=== PATIENT | female | born 1935 | race Caucasian/White ===

== ENCOUNTER 2016-05-04 12:52 | Inpatient (IN) ==
[2016-05-04] MEDS ORDERED: Ipratropium/Albuterol Neb 3 ML IH ONE (13:08)
--- NOTE | 2016-05-04 13:12 | Emergency Department Note ---
Disposition Clinical Impression: Community acquired pneumonia Disposition: Admitted As Inpatient Condition: Fair Instructions: Community-acquired Pneumonia (ED) Referrals: Chaz Cuellar MD [Primary Care Provider] - Forms: ED Satisfaction Letter Time of Disposition: 15:45 SOB HPI - General Chief Complaint: ED Shortness of Breath/Dyspnea Stated Complaint: SOB, headache Time Seen by Provider: 05/04/16 13:02 Source: patient, family Mode of arrival: ambulatory Limitations: no limitations Nursing Notes Reviewed: Yes Vital Signs Reviewed: Yes - History of Present Illness 81-year-old comes in with increasing shortness of breath cough and a fever. She is concerned she may have pneumonia. Also complains of a headache. Symptoms began over the last couple of days. Patient states she has a history of recurrent pneumonias. Pt Subjective Complaint: shortness of breath, cough Onset (ago): day(s) Severity: moderate Consistency/Duration: constant Improves with: nothing Worsens with: exertion Known history of: recurrent pneumonia Associated symptoms: Reports: fever, cough Treatment prior to arrival: none Cough Description: Involuntary Cough Frequency: Intermittent - Related Data Home Medications Medication Instructions Recorded Confirmed Albuterol Neb [Proventil Neb] 2.5 mg IH Q4HR PRN 12/31/14 12/17/15 Albuterol Sulfate [Albuterol 2 puff IH Q4HR PRN 12/31/14 12/17/15 Inhaler] Amlodipine [Norvasc] 2.5 mg PO DAILY 12/31/14 12/17/15 Cholecalciferol (Vitamin D3) 2,000 unit PO DAILY 12/31/14 12/17/15 [Vitamin D] Omeprazole [PriLOSEC] 20 mg PO DAILY 12/31/14 12/17/15 TraZODone 25 - 50 mg PO HS PRN 12/31/14 12/17/15 Budesonide/Formoterol 160/4.5 2 puff IH BIDR 12/17/15 12/17/15 [Symbicort 160/4.5] Gabapentin [Neurontin] 300 - 600 mg PO HS 12/17/15 12/17/15 Previous Rx's Medication Instructions Recorded Docusate [Colace] 100 mg PO BID #60 capsule 01/03/15 Aspirin Enteric Coated [Aspirin EC] 325 mg PO BID #60 tablet. 12/19/15 Docusate [Colace] 100 mg PO BID #60 capsule 12/19/15 Acetaminophen [Tylenol] 650 mg PO Q6HR PRN #0 tablet 12/24/15 Ascorbic Acid [Vitamin C] 500 mg PO BIDWM tablet 12/24/15 Cefdinir [Omnicef] 300 mg PO BID #10 capsule 12/24/15 Ferrous Sulfate 325 mg PO BIDWM tablet 12/24/15 HYDROcodone/Acet 5/325 mg [[place] 1 tab PO Q4HR PRN #20 tablet 12/24/15 5-325 mg] Ipratropium/Albuterol Neb [Duoneb] 3 ml IH QIDR PRN #0 inhsol 12/24/15 LORazepam [Ativan] 0.5 mg PO BID #30 tablet 12/24/15 MOM Conc [MILK OF MAGNESIA conc] 5 ml PO HS PRN #0 ud.liq 12/24/15 Mag Hydrox/Al Hydrox/Simeth 15 ml PO Q6HR PRN #0 udc 12/24/15 [Maalox] Melatonin 3 mg PO HS tablet 12/24/15 Multivit/Ca/Min/Fe/FA [Thera M 1 tab PO DAILY tablet 12/24/15 Plus] PredniSONE [Prednisone] See Taper PO DAILY #60 tab.ds.pk 12/24/15 TraMADol [Ultram] 50 mg PO Q6H #30 tablet 12/24/15 Allergies Allergy/AdvReac Type Severity Reaction Status Date / Time Oxycodone AdvReac Confusion Verified 12/17/15 13:55 Constitutional: Reports: fever. Denies: chills, weakness, weight change Eyes: Denies: eye pain, eye discharge, vision change ENT ED: Denies: ear pain, throat pain, dental pain, hearing loss, epistaxis, congestion, dysphagia Cardiovascular: Denies: chest pain, palpitations, dyspnea on exertion, edema, syncope Respiratory: Reports: cough, dyspnea. Denies: wheezes, hemoptysis, stridor Gastrointestinal: Denies: abdominal pain, nausea, vomiting, diarrhea, constipation, hematemesis, melena, hematochezia Genitourinary: Denies: dysuria, frequency, hematuria, discharge Musculoskeletal: Denies: back pain, neck pain, arthralgia, myalgia Integumentary: Denies: rash, abrasion, lesions Neurological: Denies: headache, weakness, numbness, paresthesias, confusion, abnormal gait, vertigo Psychiatric: Denies: anxiety, depression, suicidal thoughts, homicidal thoughts , auditory hallucinations, visual hallucinations Endocrine: Denies: fatigue Hematological/Lymphatic: Denies: easy bleeding, easy bruising Allergic/Immunologic: Denies: facial swelling, urticaria Past Medical History - Past Medical History Medical history: Reports: arthritis, COPD, GERD, hyperlipidemia, hypertension Surgical history: Reports: appendectomy, cataract, cholecystectomy, orthopedic, other, other Psychiatric history: Reports: anxiety [employer] history: Reports: no [employer] history - Social History Smoking Status: Former smoker Smokeless Tobacco Status: No Alcohol use: Reports: none Drug use: Reports: none Physical Exam - General Limitations: no limitations General appearance: alert, in no apparent distress - Head Head exam: atraumatic, normocephalic, normal inspection - Eye Eye exam: Present: normal appearance, PERRL, EOMI - ENT ENT exam: normal exam, normal oropharynx, mucous membranes moist - Neck Neck exam: Present: normal inspection, full ROM, trachea midline - Chest Chest inspection: Present: normal inspection, symmetric chest wall rise - Respiratory Respiratory exam: Present: other (Minutes breath sounds) - Cardiovascular Cardiovascular exam: Present: regular rate, normal rhythm, normal heart sounds - Abdominal Exam Abdominal exam: Present: soft, Non-Tender. Absent: tenderness, distention, guarding, rebound, rigidity - Extremities Exam Extremities exam: Present: normal inspection, full ROM. Absent: tenderness, pedal edema - Expanded Lower Extremity Exam Neurovascular/Tendon exam: Absent: motor deficit, sensory deficit, tendon deficit Gait: observed and normal - Back Exam Back exam: Present: normal inspection, full ROM. Absent: tenderness - Neurological Exam Neurological exam: Present: alert, oriented X3 - Psychiatric Psychiatric exam: Present: normal affect, normal mood - Skin Skin exam: Present: warm, dry, intact, normal color Course - Reevaluation(s) Reevaluation #1: Patient with cough congestion as a history COPD. CT scan shows a multi-focus of pneumonia. Admit to the hospital. Time: 15:43 - Consultations Consultation #1: Discussed with , admit. Time: 15:43 Vital Signs Temperature 98.0 F 05/04/16 12:56 Pulse Rate 80 05/04/16 12:56 Respiratory Rate 20 05/04/16 12:56 Blood Pressure 169/79 05/04/16 12:56 O2 Sat by Pulse Oximetry 92 L 05/04/16 12:56 Temperature 98.0 F 05/04/16 12:56 Pulse Rate 74 05/04/16 13:59 Respiratory Rate 18 05/04/16 13:59 Blood Pressure 105/63 05/04/16 13:59 O2 Sat by Pulse Oximetry 98 05/04/16 13:59 Oxygen Delivery Oxygen Delivery Nasal Cannula Shortness of Breath/Dyspnea - Lab Data Lab results reviewed: Yes I reviewed the patient's lab results. Result diagrams: 05/04/16 13:37 05/04/16 13:37 Lab Results 05/04/16 05/04/16 05/04/16 Range/Units 13:37 13:37 13:37 WBC 10.0 (4.3-11.1) K/mcL RBC 4.66 (3.82-4.97) M/mcL Hgb 13.3 (11.5-15.4) g/dL Hct 42.2 (35.3-44.9) % MCV 90.6 (83.0-100.0) fL MCH 28.5 (28.0-33.3) pg MCHC 31.5 L (31.6-35.5) g/dL RDW 15.2 H (11.5-14.5) % Plt Count 328 (140-400) K/mcL MPV 10.3 (9.4-12.4) fL Immature Gran % 0.3 (0-4) % Seg Neutrophils % 59.8 % Lymphocytes % 28.6 % Monocytes % 5.2 % Eosinophils % 4.9 % Basophils % 1.2 % Neutrophils # 6.0 (1.6-8.9) K/mcL Lymphocytes # 2.9 (0.6-4.6) K/mcL Monocytes # 0.5 (0.0-1.3) K/mcL Eosinophils # 0.5 (0.0-0.6) K/mcL Basophils # 0.1 (0.0-0.2) K/mcL PT 11.1 (9.4-12.1) Seconds INR 1.0 APTT 33.3 (26.0-36.0) Seconds Sodium 142 (136-145) mEq/L Potassium 4.3 (3.5-4.5) mEq/L Chloride 108 (98-109) mEq/L Carbon Dioxide 25 (19-29) mEq/L BUN 10 (7-20) mg/dL Creatinine 0.70 (0.57-1.11) mg/dL Est GFR ( Amer) > 60 (> 60) Est GFR (Non-Af Amer) > 60 (> 60) BUN/Creatinine Ratio 14 (6-26) Glucose 92 (70-99) mg/dL Calculated Osmolality 293 (280-300) Lactic Acid (0.5-2.2) mmol/L Calcium 10.2 (8.6-10.8) mg/dL Troponin I (0-0.03) ng/mL B-Natriuretic Peptide (0-100) pg/mL Urine Color (Yellow) Urine Clarity (Clear) Urine pH (5.0-8.0) pH Units Ur Specific Cora (1.010-1.025) Urine Protein (Neg-Trace) mg/dL Urine Glucose (UA) (Normal) mg/dL Urine Ketones (Negative) mg/dL Urine Blood (Negative) Urine Nitrite (Negative) Urine Bilirubin (Negative) Urine Urobilinogen (Normal) mg/dL Ur Leukocyte Esterase (Negative) Ur Culture Indicated? (NO) 05/04/16 05/04/16 05/04/16 Range/Units 13:37 13:37 13:37 WBC (4.3-11.1) K/mcL RBC (3.82-4.97) M/mcL Hgb (11.5-15.4) g/dL Hct (35.3-44.9) % MCV (83.0-100.0) fL MCH (28.0-33.3) pg MCHC (31.6-35.5) g/dL RDW (11.5-14.5) % Plt Count (140-400) K/mcL MPV (9.4-12.4) fL Immature Gran % (0-4) % Seg Neutrophils % % Lymphocytes % % Monocytes % % Eosinophils % % Basophils % % Neutrophils # (1.6-8.9) K/mcL Lymphocytes # (0.6-4.6) K/mcL Monocytes # (0.0-1.3) K/mcL Eosinophils # (0.0-0.6) K/mcL Basophils # (0.0-0.2) K/mcL PT (9.4-12.1) Seconds INR APTT (26.0-36.0) Seconds Sodium (136-145) mEq/L Potassium (3.5-4.5) mEq/L Chloride (98-109) mEq/L Carbon Dioxide (19-29) mEq/L BUN (7-20) mg/dL Creatinine (0.57-1.11) mg/dL Est GFR ( Amer) (> 60) Est GFR (Non-Af Amer) (> 60) BUN/Creatinine Ratio (6-26) Glucose (70-99) mg/dL Calculated Osmolality (280-300) Lactic Acid 0.7 (0.5-2.2) mmol/L Calcium (8.6-10.8) mg/dL Troponin I 0.01 (0-0.03) ng/mL B-Natriuretic Peptide 187 H (0-100) pg/mL Urine Color (Yellow) Urine Clarity (Clear) Urine pH (5.0-8.0) pH Units Ur Specific Cora (1.010-1.025) Urine Protein (Neg-Trace) mg/dL Urine Glucose (UA) (Normal) mg/dL Urine Ketones (Negative) mg/dL Urine Blood (Negative) Urine Nitrite (Negative) Urine Bilirubin (Negative) Urine Urobilinogen (Normal) mg/dL Ur Leukocyte Esterase (Negative) Ur Culture Indicated? (NO) 05/04/16 Range/Units 14:00 WBC (4.3-11.1) K/mcL RBC (3.82-4.97) M/mcL Hgb (11.5-15.4) g/dL Hct (35.3-44.9) % MCV (83.0-100.0) fL MCH (28.0-33.3) pg MCHC (31.6-35.5) g/dL RDW (11.5-14.5) % Plt Count (140-400) K/mcL MPV (9.4-12.4) fL Immature Gran % (0-4) % Seg Neutrophils % % Lymphocytes % % Monocytes % % Eosinophils % % Basophils % % Neutrophils # (1.6-8.9) K/mcL Lymphocytes # (0.6-4.6) K/mcL Monocytes # (0.0-1.3) K/mcL Eosinophils # (0.0-0.6) K/mcL Basophils # (0.0-0.2) K/mcL PT (9.4-12.1) Seconds INR APTT (26.0-36.0) Seconds Sodium (136-145) mEq/L Potassium (3.5-4.5) mEq/L Chloride (98-109) mEq/L Carbon Dioxide (19-29) mEq/L BUN (7-20) mg/dL Creatinine (0.57-1.11) mg/dL Est GFR ( Amer) (> 60) Est GFR (Non-Af Amer) (> 60) BUN/Creatinine Ratio (6-26) Glucose (70-99) mg/dL Calculated Osmolality (280-300) Lactic Acid (0.5-2.2) mmol/L Calcium (8.6-10.8) mg/dL Troponin I (0-0.03) ng/mL B-Natriuretic Peptide (0-100) pg/mL Urine Color Yellow (Yellow) Urine Clarity Clear (Clear) Urine pH 7.5 (5.0-8.0) pH Units Ur Specific Cor[place] 1.011 (1.010-1.025) Urine Protein Negative (Neg-Trace) mg/dL Urine Glucose (UA) Normal (Normal) mg/dL Urine Ketones Negative (Negative) mg/dL Urine Blood Negative (Negative) Urine Nitrite Negative (Negative) Urine Bilirubin Negative (Negative) Urine Urobilinogen Normal (Normal) mg/dL Ur Leukocyte Esterase Negative (Negative) Ur Culture Indicated? NO (NO) - Radiology Data Radiology results reviewed: Yes I reviewed the patient's radiology results. Chest X-Ray 05/04/16 13:08 IMPRESSION: Improved aeration of the lungs either due to decreasing pneumonia or edema. Scattered opacities remain D/ / Torin Rodriguez MD / Torin Rodriguez MD Interpreting Provider: Torin Rodriguez MD Head CT 05/04/16 13:09 IMPRESSION: No acute intracranial abnormality. There is age-appropriate cerebral atrophy with evidence of chronic periventricular small vessel ischemic disease. D/ / Rock Neumann MD / Rock Neumann MD Interpreting Provider: Rock Neumann MD Chest CT 05/04/16 14:08 IMPRESSION: Scattered bilateral tree-in-bud opacities consistent with infectious bronchiolitis. Larger scattered pulmonary nodules are also seen. Bilateral multifocal mucous plugging. There is no substantial pleural effusion. Background of severe upper zone predominant emphysema. Bilateral multifocal scarring. Ascending and descending thoracic aortic dilation. RECOMMENDATIONS: CT chest after symptoms have resolved, to re-evaluate scattered pulmonary nodules. D/ / Shane Segura MD / Shane Segura MD Interpreting Provider: Shane Segura MD - EKG Data EKG attestation: Yes I reviewed and interpreted this EKG. EKG shows normal: Reports: sinus rhythm Rate: Reports: normal Rhythm: Reports: NSR Interpretation: Reports: no acute changes
[2016-05-04 13:44] LABS: Basophils # 0.1 K/mcL (0.0-0.2); Basophils % 1.2 %; Eosinophils # 0.5 K/mcL (0.0-0.6); Eosinophils % 4.9 %; Hematocrit 42.2 % (35.3-44.9); Hemoglobin 13.3 g/dL (11.5-15.4); Immature Granulocytes % 0.3 % (0-4); Lymphocytes # 2.9 K/mcL (0.6-4.6); Lymphocytes % 28.6 %; Mean Corpuscular HGB Conc 31.5 g/dL (31.6-35.5); Mean Corpuscular Hemoglobin 28.5 pg (28.0-33.3); Mean Corpuscular Volume 90.6 fL (83.0-100.0); Mean Platelet Volume 10.3 fL (9.4-12.4); Monocytes # 0.5 K/mcL (0.0-1.3); Monocytes % 5.2 %; Platelet Count 328 K/mcL (140-400); Red Blood Count 4.66 M/mcL (3.82-4.97); Red Cell Distribution Width 15.2 % (11.5-14.5); Segmented Neutrophils % 59.8 %
[2016-05-04 13:49] LABS: Prothrombin Time 11.1 Seconds (9.4-12.1)
[2016-05-04 13:52] LABS: Activated Partial Thrombo Time 33.3 Seconds (26.0-36.0)
[2016-05-04 13:56] LABS: BUN/Creatinine Ratio 14 (6-26); Blood Urea Nitrogen 10 mg/dL (7-20); Calcium 10.2 mg/dL (8.6-10.8); Carbon Dioxide 25 mEq/L (19-29); Chloride 108 mEq/L (98-109); Glucose 92 mg/dL (70-99); Osmolality,Calculated 293 (280-300); Potassium 4.3 mEq/L (3.5-4.5); Sodium 142 mEq/L (136-145); eGFR For African Americans > 60 (> 60); eGFR For Non-African Americans > 60 (> 60)
[2016-05-04 14:08] LABS: Bilirubin,Urine Negative (Negative); Blood,Urine Negative (Negative); Clarity,Urine Clear (Clear); Color,Urine Yellow (Yellow); Glucose,Urine (UA) Normal (Normal); Ketones,Urine Negative (Negative); Leukocyte Esterase,Urine Negative (Negative); Nitrite,Urine Negative (Negative); PH,Urine 7.5 pH Units (5.0-8.0); Protein,Urine Negative (Neg-Trace); Specific Gravity,Urine 1.011 (1.010-1.025); Urobilinogen,Urine Normal (Normal)
[2016-05-04] MEDS ORDERED: Azithromycin 500 MG in D5% in Water 250 ML IVPB ONE (15:31)
[2016-05-04] MEDS ORDERED: Naloxone 0.4 MG/ML INJ IVP PRN (16:33)
[2016-05-04] MEDS ORDERED: Albuterol 2.5 MG/3 ML NEBULIZER IH PRN (16:35)
--- NOTE | 2016-05-04 17:35 | Internal Med History&Physical ---
<Deisy Echols M - Last Filed: 05/04/16 22:13> Date of Encounter: 05/04/16 Time of Encounter: 17:33 Assessment and Plan (1) Community acquired pneumonia Current visit: Yes Status: Acute Patient with increasing cough, shortness of breath, headache, subjective fever. Chest x-ray showed decreasing scattered opacity throughout the lungs. CT of the chest showed scattered bilateral tree-in-bud opacities consistent with infectious bronchiolitis, large scattered pulmonary nodules, bilateral multifocal mucous plugging. Patient usually wears 2 L of oxygen overnight but no requirements during the day. She is requiring 2 L nasal cannula in order to maintain saturations greater than 92%. She is afebrile here. Lungs have bilateral expiratory rhonchi. IV antibiotics with Rocephin and azithromycin. IV fluids with 0.9 at 75 mL per hour Mucinex 600 twice a day DuoNeb treatments 4 times a day Albuterol nebulizer every 2 hours when necessary Titrate oxygen to maintain oxygen saturation greater than 92% Respiratory therapy consult for every shift chest physiotherapy. (2) Acute and chronic respiratory failure with hypoxia Current visit: No Status: Acute History of COPD, she requires 2 L of nasal cannula at night, but normally does not require any during the day. She is now requiring 2 L to maintain saturations greater than 92%. Likely due to diagnosis of pneumonia with mucuous plugging seen on chest CT DuoNeb treatments 4 times a day Albuterol nebulizer every 2 hours when necessary Titrate oxygen to maintain oxygen saturation greater than 92% Chest physiotherapy Qshift Mucinex BID (3) COPD exacerbation Current visit: No Status: Acute IV antibiotics with Rocephin and azithromycin. IV fluids with 0.9 at 75 mL per hour Mucinex 600 twice a day DuoNeb treatments 4 times a day Albuterol nebulizer every 2 hours when necessary Titrate oxygen to maintain oxygen saturation greater than 92% Respiratory therapy consult for every shift chest physiotherapy. (4) HTN (hypertension) Current visit: No Status: Chronic continue home dose of amlodipine Qualifiers: Hypertension type: essential hypertension Qualified Code(s): I10 - Essential (primary) hypertension (5) DVT prophylaxis Current visit: Yes Status: Acute Ambulate with assistance anti-embolic stockings Lovenox 40mg SQ daily Internal Medicine - H&P: HPI Chief complaint: shortness of breath, cough Admitted From: Emergency Dept Plans for Post Hospital Care: Home History of present illness: Ms. Boggs is a 81 year old female with COPD, hypertension, and GERD who presented to the emergency department today with worsening shortness of breath, worsening cough, fever and headache. She reports her symptoms started a few days ago and continued to worsen. She reports increased sputum production, chills, sweats. She denies any nausea, vomiting, abdominal pain, or diarrhea. She denies any chest pain, palpitations. She denies any numbness or tingling. Evaluation in the emergency department included a chest x-ray which showed decreased scattered opacities throughout the lungs. CT of the chest showed scattered bilateral tree-in-bud opacities consistent with infrequent infectious bronchiolitis, larger scattered pulmonary nodules, bilateral multifocal mucous plugging. Head CT was obtained due to the patient's report of headache, which showed no acute abnormality. Patient was afebrile with temperature of 98; she was satting 92% on room air which improved to 95-98% on 2 L. Blood cell count was normal at 10.0. Troponin was negative at 0.01. Lactate was normal at 0.7. EKG showed normal sinus rhythm and no changes from previous. On exam, patient was alert and oriented in no acute distress. Heart regular rate and rhythm, lungs had bilateral rhonchi on expiration. Past Med Surg Social Fam HX - Past Medical History Medical history: arthritis, COPD, GERD, hyperlipidemia, hypertension Psychiatric history: anxiety - Past Surgical History Surgical History: appendectomy, cataract, cholecystectomy, orthopedic, other ( left shoulder), other - Social History Smoking Status: Former smoker (50 pack year history) Smokeless Tobacco Status: No Alcohol use: none Drug use: none - Family History Daughter Hx Family Cardiac Disorders: Yes (High cholesterol) Son Living Status: Cause of : cancer Mother Living Status: Cause of : cancer Internal Medicine - H&P: Meds Albuterol Neb [Proventil Neb] 2.5 mg IH Q4HR PRN 12/31/14 [History] Albuterol Sulfate [Albuterol Inhaler] 2 puff IH Q4HR PRN 12/31/14 [History] Amlodipine [Norvasc] 2.5 mg PO DAILY 12/31/14 [History] Cholecalciferol (Vitamin D3) [Vitamin D] 2,000 unit PO DAILY 12/31/14 [History] Omeprazole [PriLOSEC] 20 mg PO DAILY 12/31/14 [History] TraZODone 25 - 50 mg PO HS PRN 12/31/14 [History] Docusate [Colace] 100 mg PO BID #60 capsule 01/03/15 [Rx] Budesonide/Formoterol 160/4.5 [Symbicort 160/4.5] 2 puff IH BIDR 12/17/15 [ History] Gabapentin [Neurontin] 300 - 600 mg PO HS 12/17/15 [History] Aspirin Enteric Coated [Aspirin EC] 325 mg PO BID #60 tablet.dr 12/19/15 [Rx] Docusate [Colace] 100 mg PO BID #60 capsule 12/19/15 [Rx] Acetaminophen [Tylenol] 650 mg PO Q6HR PRN #0 tablet 12/24/15 [Rx] Ascorbic Acid [Vitamin C] 500 mg PO BIDWM tablet 12/24/15 [Rx] Cefdinir [Omnicef] 300 mg PO BID #10 capsule 12/24/15 [Rx] Ferrous Sulfate 325 mg PO BIDWM tablet 12/24/15 [Rx] HYDROcodone/Acet 5/325 mg [[place] 5-325 mg] 1 tab PO Q4HR PRN #20 tablet [Rx] Ipratropium/Albuterol Neb [Duoneb] 3 ml IH QIDR PRN #0 inhsol 12/24/15 [Rx] LORazepam [Ativan] 0.5 mg PO BID #30 tablet 12/24/15 [Rx] MOM Conc [MILK OF MAGNESIA conc] 5 ml PO HS PRN #0 ud.liq 12/24/15 [Rx] Mag Hydrox/Al Hydrox/Simeth [Maalox] 15 ml PO Q6HR PRN #0 udc 12/24/15 [Rx] Melatonin 3 mg PO HS tablet 12/24/15 [Rx] Multivit/Ca/Min/Fe/FA [Thera M Plus] 1 tab PO DAILY tablet 12/24/15 [Rx] PredniSONE [Prednisone] See Taper PO DAILY #60 tab.ds.pk 12/24/15 [Rx] TraMADol [Ultram] 50 mg PO Q6H #30 tablet 12/24/15 [Rx] Allergies Oxycodone Adverse Reaction (Verified 12/17/15 13:55) Confusion All Systems PM: A 10-system review of systems was performed and is negative for pertinent findings except as documented above in the HPI. - Constitutional Constitutional: chills, fatigue, malaise, night sweats, no fever(s) - EENT Eyes: no change in vision, no discharge, no pain, no photophobia Ears: no ear discharge, no ear pain, no tinnitus Nose, mouth and throat: no dysphagia, no nasal discharge, no neck pain, no sore throat - Cardiovascular Cardiovascular ROS IM: dyspnea, dyspnea on exertion, no chest pain, no diaphoresis, no lightheadedness, no palpitations, no syncope - Respiratory Respiratory: cough, dyspnea, excessive phlegm production, change in phlegm color , no wheezing - Gastrointestinal Gastrointestinal: no abdominal pain, no diarrhea, no hematemesis, no hematochezia, no melena, no nausea, no vomiting - Genitourinary Genitourinary: no change in urinary stream, no dysuria, no flank pain, no hematuria - Musculoskeletal Musculoskeletal ROS IM: no numbness, no tingling - Integumentary Integumentary IM: no rash, no unusual bruising - Neurological Neurological ROS: no confusion, no convulsions, no focal weakness, no numbness, no tingling, no tremor(s) - Hematologic/Lymphatic Hematologic/Lymphatic: no easy bruising - Constitutional Vitals: Temp Pulse Resp BP Pulse Ox 98.0 F 77 15 143/94 98 05/04/16 12:56 05/04/16 15:45 05/04/16 17:03 05/04/16 17:03 05/04/16 15:45 General appearance: Present: A&O X 3, pleasant, no acute distress - Head Head exam: Present: atraumatic, normocephalic - Eye Eye exam: Present: PERRL, conjuntiva pink, sclera anicteric Pupils: Present: PERRL - Neck Neck exam general surgery: Present: supple, trachea midline. Absent: lymphadenopathy - Respiratory Respiratory exam: Present: rhonchi (bilateral expiratory). Absent: accessory muscle use, rales, wheezes - Cardiovascular Cardiovascular exam: Present: RRR, +S1, +S2. Absent: diastolic murmur, gallop, rubs, systolic murmur - GI/Abdominal GI/Abdominal exam: Present: normal bowel sounds, soft, no peritoneal signs. Absent: distended, tenderness - Extremities Exam Extremities exam: Present: warm, radial pulses palpable and symetrical. Absent : calf tenderness, cyanotic, pedal edema - Neurological Exam Neurological exam: Present: CN II-XII intact, oriented X3, no focal deficits. Absent: facial droop, speech deficit - Skin Skin exam: Present: dry, intact Internal Med - H&P Results - Labs CBC & Chem 7: 05/04/16 13:37 05/04/16 13:37 Labs: All Lab Results (24 Hours) 05/04/16 05/04/16 05/04/16 Range/Units 13:37 13:37 13:37 WBC 10.0 (4.3-11.1) K/mcL RBC 4.66 (3.82-4.97) M/mcL Hgb 13.3 (11.5-15.4) g/dL Hct 42.2 (35.3-44.9) % MCV 90.6 (83.0-100.0) fL MCH 28.5 (28.0-33.3) pg MCHC 31.5 L (31.6-35.5) g/dL RDW 15.2 H (11.5-14.5) % Plt Count 328 (140-400) K/mcL MPV 10.3 (9.4-12.4) fL Immature Gran % 0.3 (0-4) % Seg Neutrophils % 59.8 % Lymphocytes % 28.6 % Monocytes % 5.2 % Eosinophils % 4.9 % Basophils % 1.2 % Neutrophils # 6.0 (1.6-8.9) K/mcL Lymphocytes # 2.9 (0.6-4.6) K/mcL Monocytes # 0.5 (0.0-1.3) K/mcL Eosinophils # 0.5 (0.0-0.6) K/mcL Basophils # 0.1 (0.0-0.2) K/mcL PT 11.1 (9.4-12.1) Seconds INR 1.0 APTT 33.3 (26.0-36.0) Seconds Sodium 142 (136-145) mEq/L Potassium 4.3 (3.5-4.5) mEq/L Chloride 108 (98-109) mEq/L Carbon Dioxide 25 (19-29) mEq/L BUN 10 (7-20) mg/dL Creatinine 0.70 (0.57-1.11) mg/dL Est GFR ( Amer) > 60 (> 60) Est GFR (Non-Af Amer) > 60 (> 60) BUN/Creatinine Ratio 14 (6-26) Glucose 92 (70-99) mg/dL Calculated Osmolality 293 (280-300) Lactic Acid (0.5-2.2) mmol/L Calcium 10.2 (8.6-10.8) mg/dL Troponin I (0-0.03) ng/mL B-Natriuretic Peptide (0-100) pg/mL Urine Color (Yellow) Urine Clarity (Clear) Urine pH (5.0-8.0) pH Units Ur Specific [place] (1.010-1.025) Urine Protein (Neg-Trace) mg/dL Urine Glucose (UA) (Normal) mg/dL Urine Ketones (Negative) mg/dL Urine Blood (Negative) Urine Nitrite (Negative) Urine Bilirubin (Negative) Urine Urobilinogen (Normal) mg/dL Ur Leukocyte Esterase (Negative) Ur Culture Indicated? (NO) 05/04/16 05/04/16 05/04/16 Range/Units 13:37 13:37 13:37 WBC (4.3-11.1) K/mcL RBC (3.82-4.97) M/mcL Hgb (11.5-15.4) g/dL Hct (35.3-44.9) % MCV (83.0-100.0) fL MCH (28.0-33.3) pg MCHC (31.6-35.5) g/dL RDW (11.5-14.5) % Plt Count (140-400) K/mcL MPV (9.4-12.4) fL Immature Gran % (0-4) % Seg Neutrophils % % Lymphocytes % % Monocytes % % Eosinophils % % Basophils % % Neutrophils # (1.6-8.9) K/mcL Lymphocytes # (0.6-4.6) K/mcL Monocytes # (0.0-1.3) K/mcL Eosinophils # (0.0-0.6) K/mcL Basophils # (0.0-0.2) K/mcL PT (9.4-12.1) Seconds INR APTT (26.0-36.0) Seconds Sodium (136-145) mEq/L Potassium (3.5-4.5) mEq/L Chloride (98-109) mEq/L Carbon Dioxide (19-29) mEq/L BUN (7-20) mg/dL Creatinine (0.57-1.11) mg/dL Est GFR ( Amer) (> 60) Est GFR (Non-Af Amer) (> 60) BUN/Creatinine Ratio (6-26) Glucose (70-99) mg/dL Calculated Osmolality (280-300) Lactic Acid 0.7 (0.5-2.2) mmol/L Calcium (8.6-10.8) mg/dL Troponin I 0.01 (0-0.03) ng/mL B-Natriuretic Peptide 187 H (0-100) pg/mL Urine Color (Yellow) Urine Clarity (Clear) Urine pH (5.0-8.0) pH Units Ur Specific [place] (1.010-1.025) Urine Protein (Neg-Trace) mg/dL Urine Glucose (UA) (Normal) mg/dL Urine Ketones (Negative) mg/dL Urine Blood (Negative) Urine Nitrite (Negative) Urine Bilirubin (Negative) Urine Urobilinogen (Normal) mg/dL Ur Leukocyte Esterase (Negative) Ur Culture Indicated? (NO) 05/04/16 05/04/16 Range/Units 14:00 16:07 WBC (4.3-11.1) K/mcL RBC (3.82-4.97) M/mcL Hgb (11.5-15.4) g/dL Hct (35.3-44.9) % MCV (83.0-100.0) fL MCH (28.0-33.3) pg MCHC (31.6-35.5) g/dL RDW (11.5-14.5) % Plt Count (140-400) K/mcL MPV (9.4-12.4) fL Immature Gran % (0-4) % Seg Neutrophils % % Lymphocytes % % Monocytes % % Eosinophils % % Basophils % % Neutrophils # (1.6-8.9) K/mcL Lymphocytes # (0.6-4.6) K/mcL Monocytes # (0.0-1.3) K/mcL Eosinophils # (0.0-0.6) K/mcL Basophils # (0.0-0.2) K/mcL PT (9.4-12.1) Seconds INR APTT (26.0-36.0) Seconds Sodium (136-145) mEq/L Potassium (3.5-4.5) mEq/L Chloride (98-109) mEq/L Carbon Dioxide (19-29) mEq/L BUN (7-20) mg/dL Creatinine (0.57-1.11) mg/dL Est GFR ( Amer) (> 60) Est GFR (Non-Af Amer) (> 60) BUN/Creatinine Ratio (6-26) Glucose (70-99) mg/dL Calculated Osmolality (280-300) Lactic Acid 0.6 (0.5-2.2) mmol/L Calcium (8.6-10.8) mg/dL Troponin I (0-0.03) ng/mL B-Natriuretic Peptide (0-100) pg/mL Urine Color Yellow (Yellow) Urine Clarity Clear (Clear) Urine pH 7.5 (5.0-8.0) pH Units Ur Specific [place] 1.011 (1.010-1.025) Urine Protein Negative (Neg-Trace) mg/dL Urine Glucose (UA) Normal (Normal) mg/dL Urine Ketones Negative (Negative) mg/dL Urine Blood Negative (Negative) Urine Nitrite Negative (Negative) Urine Bilirubin Negative (Negative) Urine Urobilinogen Normal (Normal) mg/dL Ur Leukocyte Esterase Negative (Negative) Ur Culture Indicated? NO (NO) <Andrew Alberto - Last Filed: 05/05/16 07:39> Date of Encounter: 05/05/16 Internal Medicine - H&P: HPI History of present illness: Ms. Boggs is a 81 year old female All Systems PM: A 10-system review of systems was performed and is negative for pertinent findings except as documented above in the HPI. - Constitutional Vitals: Temp Pulse Resp BP Pulse Ox 98.0 F 82 16 129/80 91 L 05/05/16 07:26 05/05/16 07:26 05/05/16 07:26 05/05/16 07:26 05/05/16 07:26 Internal Med - H&P Results - Labs CBC & Chem 7: 05/05/16 04:22 05/05/16 04:22 Labs: Short CBC 05/05/16 Range/Units 04:22 WBC 10.3 (4.3-11.1) K/mcL Hgb 12.0 (11.5-15.4) g/dL Hct 38.2 (35.3-44.9) % Plt Count 276 (140-400) K/mcL Neutrophils # 6.1 (1.6-8.9) K/mcL BMP 05/05/16 04:22 Sodium 142 Potassium 3.9 Chloride 111 H Carbon Dioxide 24 BUN 9 Creatinine 0.71 Glucose 91 Calcium 9.2 - Attending Attestation I examined this patient and my medical decision-making was reviewed with the Advanced Practice Provider. I agree with the documented findings, disposition and treatment plan as described except to the extent set forth below. Patient presented to the hospital with shortness of breath and productive cough. On exam she is in no acute distress awake alert oriented. Heart is regular S1-S2. Lungs are diminished with fine crackles. Plan: Ms. Boggs has bilateral pneumonia with mucous plugging. We will treat her with ceftriaxone and oral azithromycin. She had an infusion reaction to IV azithromycin.
[2016-05-04] MEDS: 0.9 % Sodium Chloride 1,000 ML IVC SCH (18:15)
[2016-05-04] MEDS: Ibuprofen 400 MG TABLET PO PRN (18:15)
[2016-05-04] MEDS: Ipratropium/Albuterol Neb 3 ML IH SCH ×2 (18:53→22:32)
[2016-05-04] MEDS ORDERED: *HR* HYDROcodone/Acet 5/325 mg TABLET PO PRN (20:39)
[2016-05-04] MEDS: Gabapentin 300 MG CAPSULE PO SCH (21:40)
[2016-05-04] MEDS: Aspirin Enteric Coated 325 MG Tablet PO SCH (21:41)
[2016-05-04] MEDS: traMADol 50 MG TABLET PO PRN (21:41)
[2016-05-04] MEDS: *HR* LORazepam 0.5 MG TABLET PO SCH (21:41)
[2016-05-04] MEDS: Budesonide/Formoterol 160/4.5 MDI IH SCH (22:32)
[2016-05-05 04:49] LABS: Basophils # 0.1 K/mcL (0.0-0.2); Basophils % 1.2 %; Eosinophils # 0.4 K/mcL (0.0-0.6); Eosinophils % 3.8 %; Hematocrit 38.2 % (35.3-44.9); Immature Granulocytes % 0.3 % (0-4); Mean Corpuscular HGB Conc 31.4 g/dL (31.6-35.5); Mean Corpuscular Hemoglobin 29.5 pg (28.0-33.3); Mean Corpuscular Volume 93.9 fL (83.0-100.0); Mean Platelet Volume 10.9 fL (9.4-12.4); Monocytes # 0.6 K/mcL (0.0-1.3); Monocytes % 6.2 %; Neutrophils # 6.1 K/mcL (1.6-8.9); Platelet Count 276 K/mcL (140-400); Red Blood Count 4.07 M/mcL (3.82-4.97); Red Cell Distribution Width 15.2 % (11.5-14.5); Segmented Neutrophils % 59.5 %
[2016-05-05] MEDS: Ipratropium/Albuterol Neb 3 ML IH SCH ×3 (04:56→16:38)
[2016-05-05 05:03] LABS: BUN/Creatinine Ratio 13 (6-26); Blood Urea Nitrogen 9 mg/dL (7-20); Calcium 9.2 mg/dL (8.6-10.8); Carbon Dioxide 24 mEq/L (19-29); Chloride 111 mEq/L (98-109); Glucose 91 mg/dL (70-99); Osmolality,Calculated 292 (280-300); Potassium 3.9 mEq/L (3.5-4.5); Sodium 142 mEq/L (136-145); eGFR For African Americans > 60 (> 60); eGFR For Non-African Americans > 60 (> 60)
[2016-05-05] MEDS: *HR* Enoxaparin 40 MG/0.4 ML SYRINGE SQ SCH (05:08)
[2016-05-05] MEDS: 0.9 % Sodium Chloride 1,000 ML IVC SCH ×2 (05:08→19:14)
[2016-05-05] MEDS: Ibuprofen 400 MG TABLET PO PRN ×2 (05:18→17:51)
[2016-05-05] MEDS: traMADol 50 MG TABLET PO PRN ×2 (07:25→21:42)
--- NOTE | 2016-05-05 08:31 | Event Note ---
Date of Encounter: 05/05/16 Time of Encounter: 08:30 Will consult pulmonology for PNA, COPD, lung nodules and mucous plugging. I ordered NPO now for possible bronchoscopy this afternoon. Will hold Lovenox today. Please restart post-procedure.
[2016-05-05] MEDS ORDERED: amLODIPine 5 MG TABLET PO SCH (09:00)
[2016-05-05] MEDS: *HR* LORazepam 0.5 MG TABLET PO SCH ×2 (09:14→21:42)
[2016-05-05] MEDS: Aspirin Enteric Coated 325 MG Tablet PO SCH ×2 (09:14→21:40)
--- NOTE | 2016-05-05 09:56 | Internal Med Progress Note ---
Date of Encounter: 05/05/16 Time of Encounter: 08:30 - Assessment and plan (1) Acute respiratory failure with hypoxia Current Visit: Yes Status: Acute Assessment and plan: Secondary to multifocal pneumonia, mucous plugging and COPD exacerbation. Patient uses only 2 L of oxygen at nighttime. CT chest revealed scattered bilateral tree-in-bud opacities consistent with an infectious bronchiolitis. Larger scattered pulmonary nodules. Bilateral multifocal mucus plugging. Severe upper zone predominant emphysema. Bilateral multifocal scaring. Ascending and descending thoracic aortic dilation. Pulmonary service consulted. Check urine Legionella Patient desats at 87% in room air. She is requiring 2 L of oxygen. DuoNeb q4hr Ceftriaxone and azithromycin Mucinex Symbicort (2) Pneumonia Current Visit: No Status: Ruled-out Assessment and plan: Bacterial pneumonia. Plan as above Qualifiers: Pneumonia type: due to unspecified organism Laterality: bilateral Lung location: lower lobe of lung Qualified Code(s): J18.9 - Pneumonia, unspecified organism (3) Mucus plugging of bronchi Current Visit: Yes Status: Acute Assessment and plan: Plan As above. (4) COPD exacerbation Current Visit: Yes Status: Acute Assessment and plan: Plan as above. (5) HTN (hypertension) Current Visit: No Status: Chronic Assessment and plan: BP is adequate. Holding home dose of amlodipine. Qualifiers: Hypertension type: essential hypertension Qualified Code(s): I10 - Essential (primary) hypertension - Subjective Interval history: Pt is still coughing and has shortness of breath on exertion. - Constitutional Vitals: Temp Pulse Resp BP Pulse Ox 98.0 F 82 16 129/80 91 L 05/05/16 07:26 05/05/16 07:26 05/05/16 07:26 05/05/16 07:26 05/05/16 07:26 General appearance: Present: cooperative, A&O X 3, pleasant, no acute distress, answers questions appropriately - Eye Eye exam: Present: PERRL, sclera anicteric - Neck Neck exam general surgery: Present: supple, trachea midline. Absent: lymphadenopathy - Respiratory Respiratory exam: Present: decreased breath sounds, wheezes - Cardiovascular Cardiovascular exam: Present: RRR - GI/Abdominal GI/Abdominal exam: Present: normal bowel sounds, soft. Absent: distended, tenderness - Extremities Exam Extremities exam: Present: radial pulses palpable and symetrical. Absent: pedal edema - Back Exam Back exam: Absent: CVA tenderness (L), CVA tenderness (R) - Neurological Exam Neurological exam: Present: alert, oriented X3. Absent: facial droop, speech deficit - Skin Skin exam: Absent: rash Internal Medicine: Result - Labs CBC & Chem 7: 05/05/16 04:22 05/05/16 04:22 Labs: Short CBC 05/05/16 Range/Units 04:22 WBC 10.3 (4.3-11.1) K/mcL Hgb 12.0 (11.5-15.4) g/dL Hct 38.2 (35.3-44.9) % Plt Count 276 (140-400) K/mcL Neutrophils # 6.1 (1.6-8.9) K/mcL BMP 05/05/16 04:22 Sodium 142 Potassium 3.9 Chloride 111 H Carbon Dioxide 24 BUN 9 Creatinine 0.71 Glucose 91 Calcium 9.2 - ABG Interpretation ABG results: PT/INR, D-dimer PT 11.1 Seconds (9.4-12.1) 05/04/16 13:37 - VTE Documentation of Mechanical Device: Graduated compression elastic hosiery Consult Discharge Plan - Plan Referrals: Chaz Cuellar MD [Primary Care Provider] -
[2016-05-05] MEDS: Budesonide/Formoterol 160/4.5 MDI IH SCH (10:38)
[2016-05-05] MEDS: Azithromycin 250 MG TABLET PO SCH (10:56)
[2016-05-05] MEDS ORDERED: Albuterol 2.5 MG/3 ML NEBULIZER IH ONE (14:50)
[2016-05-05] MEDS ORDERED: Lidocaine Viscous Oral Soln 15 ML SOLUTION MM ONE (14:50)
[2016-05-05] MEDS ORDERED: *HR* EPINEPHrine 1 MG/10 ML SYRINGE INTRATRACH PRN (14:50)
[2016-05-05] MEDS ORDERED: Tetracaine/Benzocaine/Butamben 200MG/SPRAY (100SPY/BOT) MM ONE (14:50)
--- NOTE | 2016-05-05 14:50 | Pre-Sedation Evaluation ---
Pre-sedation evaluation - Pre-sedation checklist Date of procedure: 05/05/16 Procedure: bronch Recent Vitals: Last Vital Signs Temp 97.8 F 05/05/16 11:49 Pulse 82 05/05/16 11:49 Resp 16 05/05/16 11:49 BP 147/79 05/05/16 11:49 Pulse Ox 99 05/05/16 11:49 H&P (including ROS) documented in medical record: Yes Previous reaction to sedatives/anesthetics: No Dietary Status: NPO 6 hours prior to procedure Dentition: dentures removed Possible difficult airway: No ASA Classification *see protocol: CLASS II-Mild systemic disease Plan of Care: Pt appropriate candidate for procedure/moderate/conscious sedation , Risks/benefits of procedure/sedation discussed w/ patient/family
--- NOTE | 2016-05-05 15:01 | Electrocardiograph Report ---
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
[2016-05-05] MEDS ORDERED: *HR* Midazolam HCl 5 MG/5 ML VIAL IVP ONE (16:08)
[2016-05-05] MEDS ORDERED: *HR* FentaNYL (PF) 100 MCG/2 ML VIAL ONE (16:09)
[2016-05-05] MEDS ORDERED: Lidocaine Viscous Oral Soln 15 ML SOLUTION ONE (16:16)
[2016-05-05] MEDS: *HR* Midazolam HCl 5 MG/5 ML VIAL IVP PRN ×2 (16:25→16:26)
[2016-05-05] MEDS: *HR* FentaNYL (PF) 100 MCG/2 ML VIAL IVP PRN ×2 (16:25→16:26)
[2016-05-05] MEDS ORDERED: Azithromycin 500 MG in D5% in Water 250 ML IVPB SCH (17:00)
--- NOTE | 2016-05-05 21:36 | Pulmonology Consult Note ---
Date of Encounter: 05/05/16 Time of Encounter: 08:40 Assessment and Plan (1) COPD exacerbation Current Visit: Yes Status: Acute Agree with current treatment and will add prednisone 20 mg po bid for now and continue bronchodilators. (2) Mucus plugging of bronchi Current Visit: Yes Status: Acute This is most likely from her underlying copd and offered her bronchocopy and explained to her all the risks, alternatives and benefits of the procedure and she agreed to have it done. She needs bronchial hygiene as well and encouraged her deep coughing. History of Present Illness Consult date: 05/05/16 Requesting physician: Andrew Alberto Reason for consult: pneumonia Chief complaint: Shortness of breath and cough History of present illness: This is a very pleasant 81 year old female with code status of DNR CC arrest and histor of copd came to ER yesterday with her dyspnea is worsening and have more productve cough and has some headache and fever. She was found to have abnormal images and pulmonary was consulted for possible bronchoscopy. Patient denies any significant worsening of wheezing and denies any hemoptysis. She denies any chest pain. Patient CT chest showed tree-in-bud opacities and mucus plugging. Past Med Surg Social Fam HX - Past Medical History Medical history: arthritis, COPD, GERD, hyperlipidemia, hypertension Psychiatric history: anxiety - Past Surgical History Surgical History: appendectomy, cataract, cholecystectomy, orthopedic, other ( left shoulder), other - Social History Smoking Status: Former smoker (50 pack year history) Smokeless Tobacco Status: No Alcohol use: none Drug use: none - Family History Son Living Status: Cause of : cancer Mother Living Status: Cause of : cancer Daughter Hx Family Cardiac Disorders: Yes (High cholesterol) Medications and Allergies Albuterol Neb [Proventil Neb] 2.5 mg IH Q4HR PRN 12/31/14 [History] Albuterol Sulfate [Albuterol Inhaler] 2 puff IH Q4HR PRN 12/31/14 [History] Amlodipine [Norvasc] 2.5 mg PO DAILY 12/31/14 [History] Cholecalciferol (Vitamin D3) [Vitamin D] 2,000 unit PO DAILY 12/31/14 [History] Omeprazole [PriLOSEC] 20 mg PO DAILY 12/31/14 [History] TraZODone 25 - 50 mg PO HS PRN 12/31/14 [History] Budesonide/Formoterol 160/4.5 [Symbicort 160/4.5] 2 puff IH BIDR 12/17/15 [ History] Gabapentin [Neurontin] 300 - 600 mg PO HS 12/17/15 [History] Docusate [Colace] 100 mg PO BID #60 capsule 12/19/15 [Rx] HYDROcodone/Acet 5/325 mg [[place] 5-325 mg] 1 tab PO Q4HR PRN #20 tablet [Rx] LORazepam [Ativan] 0.5 mg PO BID #30 tablet 12/24/15 [Rx] Multivit/Ca/Min/Fe/FA [Thera M Plus] 1 tab PO DAILY tablet 12/24/15 [Rx] TraMADol [Ultram] 50 mg PO Q6H #30 tablet 12/24/15 [Rx] Carvedilol [Coreg] 6.25 mg PO BIDWM 05/05/16 [History] Ipratropium Neb [Atrovent Neb] 0.5 mg IH Q6HR 05/05/16 [History] Losartan Potassium [Cozaar] 100 mg PO DAILY 05/05/16 [History] Tiotropium [Spiriva] 1 puff IH DAILY 05/05/16 [History] Allergies Oxycodone Adverse Reaction (Verified 12/17/15 13:55) Confusion All Systems: A 10-system review of systems was performed and is negative for pertinent findings except as documented above in the HPI. Physical Examination Vital Signs: Vital Signs, Last 4 Hours Temp Pulse Resp BP Pulse Ox 05/05/16 19:10 98.0 F 86 14 135/72 94 L 05/05/16 17:43 88 16 149/81 93 L General appearance: no acute distress Eyes: nonicteric ENT: oropharynx dry Neck: supple Effort: normal Inspection: hyperextended Auscultation: bilateral: diminished breath sounds Percussion: bilateral: not dull Cardiovascular: regular rate and rhythm Gastrointestinal: normoactive bowel sounds Extremities: no cyanosis normal mental status, non-focal exam mood appropriate Results - Laboratory Findings CBC and BMP: 05/05/16 04:22 05/05/16 04:22 PT/INR, D-dimer PT 11.1 Seconds (9.4-12.1) 05/04/16 13:37 Abnormal lab findings: Abnormal lab results MCHC 31.4 g/dL (31.6-35.5) L 05/05/16 04:22 RDW 15.2 % (11.5-14.5) H 05/05/16 04:22 Chloride 111 mEq/L (98-109) H 05/05/16 04:22 B-Natriuretic Peptide 187 pg/mL (0-100) H 05/04/16 13:37 - Diagnostic Findings CT scan - chest: report reviewed, image reviewed - Clinical Findings Intake & Output: Intake & Output 05/05/16 05/05/16 05/05/16 07:59 15:59 23:59 Intake Total 1000 / 1000 240 / 240 Balance 1000 / 1000 240 / 240 Consult Discharge Plan - Plan Referrals: Chaz Cuellar MD [Primary Care Provider] - 05/14/16 10:00 am
[2016-05-05] MEDS: Gabapentin 300 MG CAPSULE PO SCH (21:41)
[2016-05-06] MEDS: Ipratropium/Albuterol Neb 3 ML IH SCH ×8 (03:18→23:42)
[2016-05-06] MEDS: Budesonide/Formoterol 160/4.5 MDI IH SCH ×3 (03:19→20:47)
[2016-05-06 04:25] LABS: Basophils # 0.1 K/mcL (0.0-0.2); Basophils % 0.6 %; Eosinophils # 0.4 K/mcL (0.0-0.6); Eosinophils % 3.1 %; Hematocrit 39.8 % (35.3-44.9); Hemoglobin 12.6 g/dL (11.5-15.4); Immature Granulocytes % 0.3 % (0-4); Lymphocytes % 15.9 %; Mean Corpuscular HGB Conc 31.7 g/dL (31.6-35.5); Mean Corpuscular Hemoglobin 29.1 pg (28.0-33.3); Mean Corpuscular Volume 91.9 fL (83.0-100.0); Mean Platelet Volume 10.8 fL (9.4-12.4); Monocytes # 0.8 K/mcL (0.0-1.3); Neutrophils # 9.2 K/mcL (1.6-8.9); Platelet Count 284 K/mcL (140-400); Red Blood Count 4.33 M/mcL (3.82-4.97); Segmented Neutrophils % 74.1 %
[2016-05-06 04:43] LABS: BUN/Creatinine Ratio 11 (6-26); Blood Urea Nitrogen 7 mg/dL (7-20); Calcium 9.5 mg/dL (8.6-10.8); Carbon Dioxide 23 mEq/L (19-29); Chloride 108 mEq/L (98-109); Glucose 90 mg/dL (70-99); Magnesium 1.9 mg/dL (1.6-2.6); Osmolality,Calculated 288 (280-300); Potassium 3.9 mEq/L (3.5-4.5); Sodium 140 mEq/L (136-145); eGFR For African Americans > 60 (> 60); eGFR For Non-African Americans > 60 (> 60)
[2016-05-06 08:27] LABS: Source of Body Fluid RUL BAL
[2016-05-06 09:05] LABS: Appearance of Body Fluid Cloudy (Clear); Volume of Body Fluid 17 mL
[2016-05-06] MEDS: Aspirin Enteric Coated 325 MG Tablet PO SCH ×2 (09:09→20:16)
[2016-05-06] MEDS: predniSONE 20 MG TABLET PO SCH ×2 (09:10→18:06)
[2016-05-06] MEDS: *HR* LORazepam 0.5 MG TABLET PO SCH ×2 (09:10→20:17)
[2016-05-06] MEDS: Azithromycin 250 MG TABLET PO SCH (10:58)
--- NOTE | 2016-05-06 14:45 | Internal Med Progress Note ---
Date of Encounter: 05/06/16 Time of Encounter: 14:42 - Assessment and plan (1) Acute respiratory failure with hypoxia Current Visit: Yes Status: Acute Assessment and plan: Secondary to multifocal pneumonia, mucous plugging and COPD exacerbation. Patient uses only 2 L of oxygen at nighttime. CT chest revealed scattered bilateral tree-in-bud opacities consistent with an infectious bronchiolitis. Larger scattered pulmonary nodules. Bilateral multifocal mucus plugging. Severe upper zone predominant emphysema. Bilateral multifocal scaring. Ascending and descending thoracic aortic dilation. Pulmonary consultation appreciated S/P Bronchoscopy (05/05/16) Started on Prednisone Noted to be hypoxic on nasal cannula, requiring continuous O2 supplementation Will continue to closely monitor Duoneb q4h continue abx for PNA will f/u BAL awaiting pulmonary f/u likely d/c in am if remains stable overnight (2) COPD exacerbation Current Visit: Yes Status: Acute Assessment and plan: Plan as above. (3) Mucus plugging of bronchi Current Visit: Yes Status: Acute Assessment and plan: Plan As above. (4) HTN (hypertension) Current Visit: No Status: Chronic Assessment and plan: BP within acceptable range continue to monitor Qualifiers: Hypertension type: essential hypertension Qualified Code(s): I10 - Essential (primary) hypertension (5) Pneumonia Current Visit: No Status: Ruled-out Assessment and plan: Bacterial pneumonia. continue abx Qualifiers: Pneumonia type: due to unspecified organism Laterality: bilateral Lung location: lower lobe of lung Qualified Code(s): J18.9 - Pneumonia, unspecified organism - Subjective Interval history: Pt seen and examined at bedside. Resting in bed and reports of feeling better compared to the previous day. Reports of using home oxygen intermittently however noted to have drop in O2 to 89-90 on nasal cannula. - Constitutional Vitals: Temp Pulse Resp BP Pulse Ox 97.2 F L 97 17 146/81 90 L 05/06/16 12:15 05/06/16 12:15 05/06/16 12:15 05/06/16 12:15 05/06/16 12:15 General appearance: Present: cooperative, A&O X 3 (Frail ), pleasant, no acute distress, answers questions appropriately - Head Head exam: Present: atraumatic, normocephalic - Eye Eye exam: Present: normal appearance, conjuntiva pink, sclera anicteric - Respiratory Respiratory exam: Absent: respiratory distress, wheezes (coarse breath sounds bilaterally ) - Cardiovascular Cardiovascular exam: Present: RRR, +S1, +S2 - GI/Abdominal GI/Abdominal exam: Present: normal bowel sounds, soft. Absent: distended, tenderness - Extremities Exam Extremities exam: Present: warm, radial pulses palpable and symetrical. Absent : calf tenderness, pedal edema, tenderness - Neurological Exam Neurological exam: Present: alert, oriented X3 - Psychiatric Psychiatric exam: Present: normal affect, normal mood Internal Medicine: Result - Labs CBC & Chem 7: 05/06/16 04:09 05/06/16 04:09 Labs: Short CBC 05/06/16 Range/Units 04:09 WBC 12.5 H (4.3-11.1) K/mcL Hgb 12.6 (11.5-15.4) g/dL Hct 39.8 (35.3-44.9) % Plt Count 284 (140-400) K/mcL Neutrophils # 9.2 H (1.6-8.9) K/mcL BMP 05/06/16 04:09 Sodium 140 Potassium 3.9 Chloride 108 Carbon Dioxide 23 BUN 7 Creatinine 0.65 Glucose 90 Calcium 9.5 - ABG Interpretation ABG results: PT/INR, D-dimer PT 11.1 Seconds (9.4-12.1) 05/04/16 13:37 - VTE Documentation of Mechanical Device: Graduated compression elastic hosiery Consult Discharge Plan - Plan Referrals: Chaz Cuellar MD [Primary Care Provider] - 05/14/16 10:00 am
[2016-05-06] MEDS: 0.9 % Sodium Chloride 1,000 ML IVC SCH (18:05)
[2016-05-06] MEDS: Gabapentin 300 MG CAPSULE PO SCH (20:17)
[2016-05-06] MEDS: Ibuprofen 400 MG TABLET PO PRN (20:18)
--- NOTE | 2016-05-06 21:03 | Pulmonology Progress Note ---
Date of Encounter: 05/06/16 Time of Encounter: 08:05 Assessment and Plan (1) COPD exacerbation Current Visit: Yes Status: Acute Patient on appropriate treatment and she can be discharged home form pulmonary stand point in 1-2 days. Discussed with primary team. (2) Mucus plugging of bronchi Current Visit: Yes Status: Resolved status post bronchoscopy and she is feeling it helped her Subjective Principal diagnosis: Dyspnea Interval history: Patient stated she is able to breath better after bronchoscopy and asking when she can go home Objective PUL Vital signs: Last Vital Signs Temp 97.9 F 05/06/16 20:35 Pulse 101 05/06/16 20:35 Resp 16 05/06/16 20:49 BP 156/76 05/06/16 20:35 Pulse Ox 95 05/06/16 20:49 General appearance: no acute distress ENT: oropharynx moist Neck: supple Effort: normal Auscultation: bilateral: diminished breath sounds Percussion: bilateral: not dull Cardiovascular: regular rate and rhythm Gastrointestinal: normoactive bowel sounds Extremities: no cyanosis normal mental status, non-focal exam mood appropriate Results - Laboratory Findings CBC and BMP: 05/06/16 04:09 05/06/16 04:09 PT/INR, D-dimer PT 11.1 Seconds (9.4-12.1) 05/04/16 13:37 Abnormal lab findings: Abnormal lab results WBC 12.5 K/mcL (4.3-11.1) H 05/06/16 04:09 RDW 15.0 % (11.5-14.5) H 05/06/16 04:09 Neutrophils # 9.2 K/mcL (1.6-8.9) H 05/06/16 04:09 B-Natriuretic Peptide 187 pg/mL (0-100) H 05/04/16 13:37 Fluid Appearance Cloudy (Clear) A 05/05/16 Unknown - Microbiology Findings Microbiology Findings: Microbiology, Last 48 Hours 05/05/16 Unknown Gram Stain - Final Right Upper Lobe Lung - Clinical Findings Intake & Output: Intake & Output 05/06/16 05/06/16 05/06/16 07:59 15:59 23:59 Intake Total 650 / 650 600 / 600 240 / 240 Output Total 200 / 200 Balance 450 / 450 600 / 600 240 / 240 Weight 54.1 kg - VTE Documentation of Mechanical Device: Graduated compression elastic hosiery Consult Discharge Plan - Plan Referrals: Chaz Cuellar MD [Primary Care Provider] - 05/14/16 10:00 am
[2016-05-06] MEDS: traMADol 50 MG TABLET PO PRN (21:52)
[2016-05-07] MEDS: Ipratropium/Albuterol Neb 3 ML IH SCH ×2 (04:04→07:46)
[2016-05-07 05:10] LABS: Basophils % 0.1 %; Hematocrit 37.8 % (35.3-44.9); Immature Granulocytes % 0.6 % (0-4); Lymphocytes # 0.9 K/mcL (0.6-4.6); Lymphocytes % 6.7 %; Mean Corpuscular HGB Conc 31.7 g/dL (31.6-35.5); Mean Corpuscular Hemoglobin 28.7 pg (28.0-33.3); Mean Corpuscular Volume 90.4 fL (83.0-100.0); Monocytes # 0.3 K/mcL (0.0-1.3); Monocytes % 2.1 %; Neutrophils # 12.8 K/mcL (1.6-8.9); Platelet Count 322 K/mcL (140-400); Red Blood Count 4.18 M/mcL (3.82-4.97); Red Cell Distribution Width 15.1 % (11.5-14.5); Segmented Neutrophils % 90.5 %
[2016-05-07 05:33] LABS: BUN/Creatinine Ratio 21 (6-26); Blood Urea Nitrogen 16 mg/dL (7-20); Calcium 9.7 mg/dL (8.6-10.8); Carbon Dioxide 22 mEq/L (19-29); Chloride 106 mEq/L (98-109); Glucose 140 mg/dL (70-99); Magnesium 1.9 mg/dL (1.6-2.6); Osmolality,Calculated 293 (280-300); Phosphorous 3.5 mg/dL (2.3-4.7); Potassium 3.6 mEq/L (3.5-4.5); Sodium 140 mEq/L (136-145); eGFR For African Americans > 60 (> 60); eGFR For Non-African Americans > 60 (> 60)
[2016-05-07] MEDS: *HR* Enoxaparin 40 MG/0.4 ML SYRINGE SQ SCH (05:59)
[2016-05-07] MEDS: traMADol 50 MG TABLET PO PRN (06:03)
[2016-05-07 07:27] VITALS: BP 179/68
[2016-05-07] MEDS: Budesonide/Formoterol 160/4.5 MDI IH SCH (07:46)
[2016-05-07] MEDS: 0.9 % Sodium Chloride 1,000 ML IVC SCH (07:48)
[2016-05-07] MEDS: Azithromycin 250 MG TABLET PO SCH (08:39)
[2016-05-07] MEDS: Aspirin Enteric Coated 325 MG Tablet PO SCH (08:39)
[2016-05-07] MEDS: *HR* LORazepam 0.5 MG TABLET PO SCH (08:39)
[2016-05-07] MEDS: predniSONE 20 MG TABLET PO SCH (08:40)
--- NOTE | 2016-05-15 15:57 | Discharge Summary ---
Date of Encounter: 05/06/16 Time of Encounter: 14:42 - Discharge Diagnosis (1) Acute respiratory failure with hypoxia Priority: Primary Status: Acute (2) COPD exacerbation Priority: Primary Status: Acute (3) Mucus plugging of bronchi Priority: Primary Status: Resolved (4) HTN (hypertension) Priority: Secondary Status: Chronic Qualifiers: Hypertension type: essential hypertension Qualified Code(s): I10 - Essential (primary) hypertension (5) Pneumonia Priority: Secondary Status: Acute Qualifiers: Pneumonia type: due to unspecified organism Laterality: bilateral Lung location: lower lobe of lung Qualified Code(s): J18.9 - Pneumonia, unspecified organism - Discharge Medications Home Medications: Albuterol Neb [Proventil Neb] 2.5 mg IH Q4HR PRN 12/31/14 [History] Albuterol Sulfate [Albuterol Inhaler] 2 puff IH Q4HR PRN 12/31/14 [History] Amlodipine [Norvasc] 2.5 mg PO DAILY 12/31/14 [History] Cholecalciferol (Vitamin D3) [Vitamin D] 2,000 unit PO DAILY 12/31/14 [History] Omeprazole [PriLOSEC] 20 mg PO DAILY 12/31/14 [History] TraZODone 25 - 50 mg PO HS PRN 12/31/14 [History] Budesonide/Formoterol 160/4.5 [Symbicort 160/4.5] 2 puff IH BIDR 12/17/15 [ History] Gabapentin [Neurontin] 300 - 600 mg PO HS 12/17/15 [History] Docusate [Colace] 100 mg PO BID #60 capsule 12/19/15 [Rx] HYDROcodone/Acet 5/325 mg [[place] 5-325 mg] 1 tab PO Q4HR PRN #20 tablet [Rx] LORazepam [Ativan] 0.5 mg PO BID #30 tablet 12/24/15 [Rx] Multivit/Ca/Min/Fe/FA [Thera M Plus] 1 tab PO DAILY tablet 12/24/15 [Rx] TraMADol [Ultram] 50 mg PO Q6H #30 tablet 12/24/15 [Rx] Carvedilol [Coreg] 6.25 mg PO BIDWM 05/05/16 [History] Ipratropium Neb [Atrovent Neb] 0.5 mg IH Q6HR 05/05/16 [History] Losartan Potassium [Cozaar] 100 mg PO DAILY 05/05/16 [History] Tiotropium [Spiriva] 1 puff IH DAILY 05/05/16 [History] Allergies/Adverse Reactions: Allergies Oxycodone Adverse Reaction (Verified 12/17/15 13:55) Confusion Date of admission: 05/04/16 16:33 Primary care physician: Chaz Cuellar MD Consults: 05/05/16 08:28 Consult to Pulmonology [CONS] Routine Consulting Provider: [facility] Reason for Consult: PNA, COPD, mucous plugging Time Notified: 08:28 Call Completed: Yes 05/06/16 14:46 Consult to Physical Therapy [CONS] Routine Comment: Evaluate, develop and implement POC - Patient Status Disposition: Left Against Medical Advice Condition: Fair - Discharge Instructions Instructions: Prednisone (By mouth), Azithromycin (By mouth), Acute Respiratory Distress Syndrome (DC), Chronic Obstructive Pulmonary Disease (DC), Pneumonia (DC) Follow Up With: Jesse Edwards MD [Partnered Physician] - 05/15/16 9:30 am Chaz Cuellar MD [Primary Care Provider] - 05/14/16 10:00 am Hospital course: Ms. Boggs is a 81 year old female - Time Spent with Patient Total time spent providing and/or coordinating discharge services: - Constitutional Vitals: Temp Pulse Resp BP Pulse Ox 97.6 F 72 16 179/68 94 L 05/07/16 07:24 05/07/16 07:24 05/07/16 07:48 05/07/16 07:24 05/07/16 07:48 General appearance: Present: cooperative, A&O X 3 (Frail ), pleasant, no acute distress, answers questions appropriately - VTE Documentation of Mechanical Device: Graduated compression elastic hosiery
== END 2016-05-07 11:16 | disposition left against medical advice (07) | DRG 166 ==
LOC: 3BNU 12:52 → EMEROO 12:52 → SUATTDRO 16:33 → 3BNU 17:16
PROVIDERS: ADMIT Internal Medicine; ATTEND Internal Medicine

== ENCOUNTER 2016-06-04 09:20 | Inpatient (IN) ==
[2016-06-04] MEDS ORDERED: 0.9 % Sodium Chloride 1,000 ML IVC ONE (09:30)
[2016-06-04] MEDS ORDERED: Ipratropium/Albuterol Neb 3 ML IH ONE (09:30)
[2016-06-04] MEDS ORDERED: methylPREDNISolone 125 MG/2 ML VIAL IVP ONE (09:30)
--- NOTE | 2016-06-04 09:49 | Emergency Department Note ---
Disposition Clinical Impression: COPD exacerbation LLL pneumonia Qualifiers: Pneumonia type: due to unspecified organism Qualified Code(s): J18.1 - Lobar pneumonia, unspecified organism Disposition: Admitted As Inpatient Condition: Fair Referrals: Chaz Cuellar MD [Primary Care Provider] - SOB HPI - General Stated Complaint: [place] Time Seen by Provider: 06/04/16 09:23 Source: patient, family Mode of arrival: private vehicle Limitations: no limitations Nursing Notes Reviewed: Yes Vital Signs Reviewed: Yes - History of Present Illness Pt Subjective Complaint: shortness of breath Onset (ago): day(s) (3) Context: other (Hx of COPD and "gets pneumonia easily") Severity: moderate Consistency/Duration: constant Improves with: rest, bronchodilators Worsens with: exertion, coughing Known history of: COPD, recurrent pneumonia Associated symptoms: Reports: cough, wheezing, sputum production. Denies: pain with inspiration, fever, orthopnea, lower extremity pain, diaphoresis, nausea/ vomiting, syncope, abdominal pain, rash Treatment prior to arrival: oxygen, bronchodilator Cough present: Yes Cough Description: Voluntary, Productive, Weak, Loose, Rattling Cough Frequency: Intermittent Sputum production: Yes Sputum Amount: Small Sputum Color: White, Cream - Related Data Home oxygen amount: 2 liters Home Medications Medication Instructions Recorded Confirmed Albuterol Neb [Proventil Neb] 2.5 mg IH Q4HR PRN 12/31/14 05/05/16 Albuterol Sulfate [Albuterol 2 puff IH Q4HR PRN 12/31/14 05/05/16 Inhaler] Amlodipine [Norvasc] 2.5 mg PO DAILY 12/31/14 05/05/16 Cholecalciferol (Vitamin D3) 2,000 unit PO DAILY 12/31/14 05/05/16 [Vitamin D] Omeprazole [PriLOSEC] 20 mg PO DAILY 12/31/14 05/05/16 TraZODone 25 - 50 mg PO HS PRN 12/31/14 05/05/16 Budesonide/Formoterol 160/4.5 2 puff IH BIDR 12/17/15 05/05/16 [Symbicort 160/4.5] Gabapentin [Neurontin] 300 - 600 mg PO HS 12/17/15 05/05/16 Carvedilol [Coreg] 6.25 mg PO BIDWM 05/05/16 05/05/16 Ipratropium Neb [Atrovent Neb] 0.5 mg IH Q6HR 05/05/16 05/05/16 Losartan Potassium [Cozaar] 100 mg PO DAILY 05/05/16 05/05/16 Tiotropium [Spiriva] 1 puff IH DAILY 05/05/16 05/05/16 Previous Rx's Medication Instructions Recorded Docusate [Colace] 100 mg PO BID #60 capsule 12/19/15 HYDROcodone/Acet 5/325 mg [[place] 1 tab PO Q4HR PRN #20 tablet 12/24/15 5-325 mg] LORazepam [Ativan] 0.5 mg PO BID #30 tablet 12/24/15 Multivit/Ca/Min/Fe/FA [Thera M 1 tab PO DAILY tablet 12/24/15 Plus] TraMADol [Ultram] 50 mg PO Q6H #30 tablet 12/24/15 Allergies Allergy/AdvReac Type Severity Reaction Status Date / Time Oxycodone AdvReac Confusion Verified 12/17/15 13:55 All systems ED: reviewed and negative except as stated. Constitutional: Reports: chills. Denies: fever, weakness, weight change, night sweats Cardiovascular: Reports: as per HPI, dyspnea on exertion. Denies: chest pain, palpitations, orthopnea, edema, syncope Respiratory: Reports: as per HPI, cough, dyspnea, wheezes, sputum production. Denies: hemoptysis, stridor Gastrointestinal: Denies: abdominal pain, nausea, vomiting, diarrhea Musculoskeletal: Reports: back pain ("achey all over"), myalgia. Denies: neck pain, joint swelling, arthralgia Neurological: Denies: headache, weakness, confusion, vertigo Hematological/Lymphatic: Denies: easy bleeding, easy bruising Past Medical History - Past Medical History Attestation: Yes The following information was validated with the patient. Source: patient Medical history: Reports: arthritis, COPD, GERD, hyperlipidemia, hypertension Surgical history: Reports: appendectomy, cataract, cholecystectomy, orthopedic, other (left shoulder), other Psychiatric history: Reports: anxiety COMPLIANCE EXAMINER history: Reports: no COMPLIANCE EXAMINER history - Social History Smoking Status: Former smoker Smokeless Tobacco Status: No Alcohol use: Reports: none Drug use: Reports: none Physical Exam - General Limitations: no limitations General appearance: alert, in no apparent distress - Head Head exam: atraumatic, normocephalic, normal inspection - Eye Eye exam: Present: normal appearance, PERRL, EOMI. Absent: scleral icterus, conjunctival injection, periorbital swelling - ENT ENT exam: mucous membranes dry - Expanded ENT Exam External ear exam: Present: normal external inspection Nose exam: negative: rhinorrhea Mouth exam: Present: normal external inspection, tongue normal. Absent: drooling, trismus Teeth exam: Present: normal inspection Throat exam: Present: other (thick phlegm in posterior pharynx). Absent: tonsillar erythema, tonsillomegaly, tonsillar exudate, muffled voice - Neck Neck exam: Present: normal inspection, full ROM, trachea midline. Absent: meningismus, lymphadenopathy - Chest Chest inspection: Present: normal inspection - Respiratory Respiratory exam: Present: respiratory distress, other. Absent: normal lung sounds bilaterally, wheezes, stridor - Expanded Respiratory Exam Location: rhonchi: Lower, Left, Right - Cardiovascular Cardiovascular exam: Present: regular rate, normal rhythm, systolic murmur - Abdominal Exam Abdominal exam: Present: soft, Non-Tender. Absent: mass - Extremities Exam Extremities exam: Present: normal inspection, full ROM. Absent: pedal edema, calf tenderness - Back Exam Back exam: Present: other (moderate kyphosis). Absent: tenderness - Neurological Exam Neurological exam: Present: alert, oriented X3, CN II-XII intact, normal gait - Psychiatric Psychiatric exam: Present: normal affect, normal mood - Skin Skin exam: Present: warm, dry, intact, normal color Course Course Narrative: Patient presents from home for evaluation of trouble breathing and cough. She also complains of generalized malaise. She has had these symptoms "all weekend. " Her family states that she was here the end of April for pneumonia. Patient denies chest pain, lower extremity edema or orthopnea, fever, chills, nausea or vomiting, hemoptysis, vertigo or syncope. On exam, she is to Make and appears uncomfortable but nontoxic. She is able to speak in complete sentences. She smiles and laughs at jokes. She is very pleasant and cooperative with the exam. Her oxygen saturation was 89% on room air and she was tachypneic and tachycardic upon arrival. O2 sat increased to 94% on 2 L via nasal cannula. Respiratory therapy has been contacted to assist with suction and provide DuoNeb treatments. Labs, x-ray and steroids have been ordered as well as fluids. Patient will most likely require admission. Review of her past migraine results show that she had Pseudomonas in her lungs in April. The case has been discussed with Dr. Nielson. He has seen the patient and agrees with the assessment and plan. Vital Signs Temperature 98.7 F 06/04/16 09:26 Pulse Rate 106 06/04/16 09:26 Respiratory Rate 18 06/04/16 09:26 Blood Pressure 128/94 06/04/16 09:26 O2 Sat by Pulse Oximetry 89 L 06/04/16 09:26 Temperature 98.7 F 06/04/16 09:26 Pulse Rate 100 06/04/16 09:47 Respiratory Rate 18 06/04/16 09:47 Blood Pressure 141/80 06/04/16 09:47 O2 Sat by Pulse Oximetry 94 L 06/04/16 09:47 Oxygen Delivery Oxygen Delivery Nasal Cannula Shortness of Breath/Dyspnea - Medical Records Medical records reviewed: Yes I reviewed the patient's medical records. - Lab Data Lab results reviewed: Yes I reviewed the patient's lab results. Result diagrams: 06/04/16 09:52 06/04/16 09:52 Lab Results 06/04/16 06/04/16 06/04/16 Range/Units 09:52 09:52 09:52 WBC 15.0 H (4.3-11.1) K/mcL RBC 4.38 (3.82-4.97) M/mcL Hgb 12.8 (11.5-15.4) g/dL Hct 40.3 (35.3-44.9) % MCV 92.0 (83.0-100.0) fL MCH 29.2 (28.0-33.3) pg MCHC 31.8 (31.6-35.5) g/dL RDW 14.9 H (11.5-14.5) % Plt Count 339 (140-400) K/mcL MPV 10.3 (9.4-12.4) fL Immature Gran % 0.3 (0-4) % Seg Neutrophils % 77.0 % Lymphocytes % 12.6 % Monocytes % 7.0 % Eosinophils % 2.3 % Basophils % 0.8 % Neutrophils # 11.5 H (1.6-8.9) K/mcL Lymphocytes # 1.9 (0.6-4.6) K/mcL Monocytes # 1.1 (0.0-1.3) K/mcL Eosinophils # 0.4 (0.0-0.6) K/mcL Basophils # 0.1 (0.0-0.2) K/mcL PT 11.5 (9.4-12.1) Seconds INR 1.1 APTT 32.3 (26.0-36.0) Seconds Sodium 143 (136-145) mEq/L Potassium 4.0 (3.5-4.5) mEq/L Chloride 109 (98-109) mEq/L Carbon Dioxide 23 (19-29) mEq/L BUN 14 (7-20) mg/dL Creatinine 0.70 (0.57-1.11) mg/dL Est GFR ( Amer) > 60 (> 60) Est GFR (Non-Af Amer) > 60 (> 60) BUN/Creatinine Ratio 20 (6-26) Glucose 104 H (70-99) mg/dL Calculated Osmolality 297 (280-300) Lactic Acid (0.5-2.2) mmol/L Calcium 10.4 (8.6-10.8) mg/dL Phosphorus 3.3 (2.3-4.7) mg/dL Magnesium 1.7 (1.6-2.6) mg/dL Total Bilirubin 0.4 (0.2-1.2) mg/dL Direct Bilirubin 0.2 (0.0-0.5) mg/dL Indirect Bilirubin 0.2 (0.0-1.2) mg/dL AST 14 (5-34) Units/L ALT 11 (0-55) Units/L Alkaline Phosphatase 81 (38-126) Units/L Serum Total Protein 7.3 (6.0-8.3) g/dL Albumin 3.6 (3.5-5.0) g/dL Globulin 3.7 H (2.4-3.5) g/dL Albumin/Globulin Ratio 1.0 L (1.1-2.2) 06/04/16 Range/Units 09:52 WBC (4.3-11.1) K/mcL RBC (3.82-4.97) M/mcL Hgb (11.5-15.4) g/dL Hct (35.3-44.9) % MCV (83.0-100.0) fL MCH (28.0-33.3) pg MCHC (31.6-35.5) g/dL RDW (11.5-14.5) % Plt Count (140-400) K/mcL MPV (9.4-12.4) fL Immature Gran % (0-4) % Seg Neutrophils % % Lymphocytes % % Monocytes % % Eosinophils % % Basophils % % Neutrophils # (1.6-8.9) K/mcL Lymphocytes # (0.6-4.6) K/mcL Monocytes # (0.0-1.3) K/mcL Eosinophils # (0.0-0.6) K/mcL Basophils # (0.0-0.2) K/mcL PT (9.4-12.1) Seconds INR APTT (26.0-36.0) Seconds Sodium (136-145) mEq/L Potassium (3.5-4.5) mEq/L Chloride (98-109) mEq/L Carbon Dioxide (19-29) mEq/L BUN (7-20) mg/dL Creatinine (0.57-1.11) mg/dL Est GFR ( Amer) (> 60) Est GFR (Non-Af Amer) (> 60) BUN/Creatinine Ratio (6-26) Glucose (70-99) mg/dL Calculated Osmolality (280-300) Lactic Acid 0.8 (0.5-2.2) mmol/L Calcium (8.6-10.8) mg/dL Phosphorus (2.3-4.7) mg/dL Magnesium (1.6-2.6) mg/dL Total Bilirubin (0.2-1.2) mg/dL Direct Bilirubin (0.0-0.5) mg/dL Indirect Bilirubin (0.0-1.2) mg/dL AST (5-34) Units/L ALT (0-55) Units/L Alkaline Phosphatase (38-126) Units/L Serum Total Protein (6.0-8.3) g/dL Albumin (3.5-5.0) g/dL Globulin (2.4-3.5) g/dL Albumin/Globulin Ratio (1.1-2.2) - Radiology Data Radiology results reviewed: Yes I reviewed the patient's radiology results. - EKG Data EKG attestation: Yes I reviewed and interpreted this EKG. EKG shows normal: Reports: sinus rhythm Rate: Reports: tachycardia Rhythm: Reports: NSR Q waves: Reports: II, III, aVF Interpretation: Reports: unchanged when compared to prior tracing (date) () Attestation Statement - Attestation Attestation: I examined this patient and my medical decision-making was reviewed with the [employer] P[employer] COVERING SUPERVISOR/PA/Advanced Practice Nurse/Resident Physician. I agree with the documented findings, disposition and treatment plan as described except to the extent set forth below. [id number] time provided. Patient complains of cough and dyspnea. Mildly tachycardic but otherwise in no acute distress on exam. Slightly hypoxic at presentation. Plan of care and management discussed by me with the mid-level provider Janell
[2016-06-04 10:01] LABS: Basophils # 0.1 K/mcL (0.0-0.2); Basophils % 0.8 %; Eosinophils # 0.4 K/mcL (0.0-0.6); Eosinophils % 2.3 %; Hematocrit 40.3 % (35.3-44.9); Hemoglobin 12.8 g/dL (11.5-15.4); Immature Granulocytes % 0.3 % (0-4); Lymphocytes # 1.9 K/mcL (0.6-4.6); Lymphocytes % 12.6 %; Mean Corpuscular HGB Conc 31.8 g/dL (31.6-35.5); Mean Corpuscular Hemoglobin 29.2 pg (28.0-33.3); Mean Platelet Volume 10.3 fL (9.4-12.4); Monocytes # 1.1 K/mcL (0.0-1.3); Neutrophils # 11.5 K/mcL (1.6-8.9); Platelet Count 339 K/mcL (140-400); Red Blood Count 4.38 M/mcL (3.82-4.97); Red Cell Distribution Width 14.9 % (11.5-14.5)
[2016-06-04 10:06] LABS: INR 1.1; Prothrombin Time 11.5 Seconds (9.4-12.1)
[2016-06-04 10:09] LABS: Activated Partial Thrombo Time 32.3 Seconds (26.0-36.0)
[2016-06-04] MEDS ORDERED: Ipratropium/Albuterol Neb 3 ML ONE (10:11)
[2016-06-04 10:15] LABS: Alanine Aminotransferase 11 Units/L (0-55); Albumin 3.6 g/dL (3.5-5.0); Alkaline Phosphatase 81 Units/L (38-126); Aspartate Amino Transferase 14 Units/L (5-34); BUN/Creatinine Ratio 20 (6-26); Bilirubin,Direct 0.2 mg/dL (0.0-0.5); Bilirubin,Indirect 0.2 mg/dL (0.0-1.2); Bilirubin,Total 0.4 mg/dL (0.2-1.2); Blood Urea Nitrogen 14 mg/dL (7-20); Calcium 10.4 mg/dL (8.6-10.8); Carbon Dioxide 23 mEq/L (19-29); Chloride 109 mEq/L (98-109); Globulin 3.7 g/dL (2.4-3.5); Glucose 104 mg/dL (70-99); Magnesium 1.7 mg/dL (1.6-2.6); Osmolality,Calculated 297 (280-300); Phosphorous 3.3 mg/dL (2.3-4.7); Sodium 143 mEq/L (136-145); Total Protein 7.3 g/dL (6.0-8.3); eGFR For African Americans > 60 (> 60); eGFR For Non-African Americans > 60 (> 60)
[2016-06-04] MEDS ORDERED: Vancomycin 1,000 MG in D5% in Water 250 ML IVPB ONE (10:25)
[2016-06-04] MEDS ORDERED: Piperacillin/Tazobactam 3.375 GM in D5% in Water (Mini-Bag+) 100 ML IVPB ONE (10:25)
[2016-06-04] MEDS ORDERED: Levofloxacin 750 MG/150 ML 750 MG/150 ML BAG IVPB ONE (10:25)
[2016-06-04] MEDS ORDERED: Naloxone 0.4 MG/ML INJ IVP PRN (11:15)
[2016-06-04] MEDS ORDERED: Ondansetron 4 MG/2 ML VIAL IVP PRN (11:15)
[2016-06-04] MEDS ORDERED: 0.9 % Sodium Chloride 1,000 ML IVC SCH (11:15)
[2016-06-04] MEDS ORDERED: traZODone 50 MG TABLET PO PRN (11:19)
--- NOTE | 2016-06-04 11:24 | Internal Med History&Physical ---
Date of Encounter: 06/04/16 Time of Encounter: 11:24 Assessment and Plan (1) Sepsis Current visit: Yes Status: Acute patient with tachycardia, tachypnea, leukocytosis and pneumonia Lactate is WNL Blood pressure WNL No end organ damage management as in pneumonia, below Qualifiers: Sepsis type: sepsis due to unspecified organism Qualified Code(s): A41.9 - Sepsis, unspecified organism (2) Pneumonia Current visit: Yes Status: Acute Sputum and blood culture has been sent, follow Continue levoflox, zosyn and vanco, Follow vanco troughs Treat as HCAP due to recent hospitalization Will need requalification for home O2 at time of discharge Qualifiers: Pneumonia type: due to unspecified organism Laterality: bilateral Lung location: lower lobe of lung Qualified Code(s): J18.9 - Pneumonia, unspecified organism (3) COPD exacerbation Current visit: Yes Status: Acute As above Duonebs and prednisone (4) Acute and chronic respiratory failure with hypoxia Current visit: No Status: Acute (5) HTN (hypertension) Current visit: Yes Status: Chronic Controlled, continue home meds Qualifiers: Hypertension type: essential hypertension Qualified Code(s): I10 - Essential (primary) hypertension Internal Medicine - H&P: HPI Chief complaint: Cough and SOB Admitted From: Home Plans for Post Hospital Care: Home History of present illness: Ms. 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 She reports having chills, no fever, no orthopnea, no chest pain, no palpitations, no leg edema She denies n/v/d, no GI symptoms Other ROS unremarkable She is hypoxic, tachypneic, tachycardia at time of review, she did not seem to be in respiratory distress Labs and imaging reveal leukocytosis with left shift,and a new LLL pneumonia She is full code Past Med Surg Social Fam HX - Past Medical History Medical history: arthritis, COPD, GERD, hyperlipidemia, hypertension Psychiatric history: anxiety - Past Surgical History Surgical History: appendectomy, cataract, cholecystectomy, orthopedic, other ( left shoulder), other - Social History Smoking Status: Former smoker Smokeless Tobacco Status: No Alcohol use: none Drug use: none - Family History Son Living Status: Mother Living Status: Daughter Hx Family Cardiac Disorders: Yes (High cholesterol) Internal Medicine - H&P: Meds Albuterol Neb [Proventil Neb] 2.5 mg IH Q4HR PRN 12/31/14 [History] Albuterol Sulfate [Albuterol Inhaler] 2 puff IH Q4HR PRN 12/31/14 [History] Amlodipine [Norvasc] 2.5 mg PO DAILY 12/31/14 [History] Cholecalciferol (Vitamin D3) [Vitamin D] 2,000 unit PO DAILY 12/31/14 [History] Omeprazole [PriLOSEC] 20 mg PO DAILY 12/31/14 [History] TraZODone 25 - 50 mg PO HS PRN 12/31/14 [History] Budesonide/Formoterol 160/4.5 [Symbicort 160/4.5] 2 puff IH BIDR 12/17/15 [ History] Gabapentin [Neurontin] 300 - 600 mg PO HS 12/17/15 [History] LORazepam [Ativan] 0.5 mg PO BID #30 tablet 12/24/15 [Rx] Multivit/Ca/Min/Fe/FA [Thera M Plus] 1 tab PO DAILY tablet 12/24/15 [Rx] TraMADol [Ultram] 50 mg PO Q6H #30 tablet 12/24/15 [Rx] Tiotropium [Spiriva] 18 mcg IH DAILY 05/05/16 [History] Oxygen 2 l .ROUTE AD 06/04/16 [History] Allergies Oxycodone Adverse Reaction (Verified 12/17/15 13:55) Confusion All Systems PM: A 10-system review of systems was performed and is negative for pertinent findings except as documented above in the HPI. - Constitutional Constitutional: as per HPI - EENT Eyes: as per HPI Ears: as per HPI Nose, mouth and throat: as per HPI - Cardiovascular Cardiovascular ROS IM: as per HPI - Respiratory Respiratory: as per HPI - Gastrointestinal Gastrointestinal: as per HPI - Genitourinary Genitourinary: as per HPI - Musculoskeletal Musculoskeletal ROS IM: as per HPI - Integumentary Integumentary IM: as per HPI - Neurological Neurological ROS: as per HPI - Constitutional Vitals: Temp Pulse Resp BP Pulse Ox 98.7 F 101 22 139/81 99 06/04/16 09:26 06/04/16 10:20 06/04/16 10:20 06/04/16 10:20 06/04/16 10:20 General appearance: Present: A&O X 3, pleasant, no acute distress - Head Head exam: Present: atraumatic, normocephalic - Eye Eye exam: Present: PERRL, conjuntiva pink, sclera anicteric Pupils: Present: PERRL - ENT ENT exam: Present: mucous membranes moist - Neck Neck exam general surgery: Present: supple, trachea midline. Absent: lymphadenopathy - Respiratory Respiratory exam: Present: rhonchi - Cardiovascular Cardiovascular exam: Present: RRR, +S1, +S2. Absent: diastolic murmur, gallop, rubs, systolic murmur - GI/Abdominal GI/Abdominal exam: Present: normal bowel sounds, soft, no peritoneal signs. Absent: distended, tenderness - Extremities Exam Extremities exam: Present: warm, radial pulses palpable and symetrical. Absent : calf tenderness, cyanotic, pedal edema - Neurological Exam Neurological exam: Present: alert, CN II-XII intact, oriented X3, no focal deficits. Absent: pronater drift, facial droop, speech deficit - Skin Skin exam: Present: dry, intact Internal Med - H&P Results - Labs CBC & Chem 7: 06/04/16 09:52 06/04/16 09:52
[2016-06-04] MEDS ORDERED: Levofloxacin 750 MG/150 ML 750 MG/150 ML BAG IVPB SCH (12:00)
[2016-06-04] MEDS: Acetaminophen 325 MG TABLET PO PRN (14:13)
[2016-06-04] MEDS: Levofloxacin 750 MG/150 ML 750 MG/150 ML BAG IVPB SCH (15:13)
[2016-06-04] MEDS: Ipratropium/Albuterol Neb 3 ML IH SCH ×2 (16:28→22:48)
[2016-06-04] MEDS: traMADol 50 MG TABLET PO PRN ×2 (16:44→22:13)
[2016-06-04] MEDS: Piperacillin/Tazobactam 3.375 GM in D5% in Water (Mini-Bag+) 100 ML IVPB SCH (20:27)
[2016-06-04] MEDS: Gabapentin 300 MG CAPSULE PO SCH (20:27)
--- NOTE | 2016-06-04 21:07 | Electrocardiograph Report ---
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
[2016-06-04] MEDS ORDERED: Vancomycin 750 MG in D5% in Water 250 ML IVPB SCH (23:00)
[2016-06-05] MEDS: Piperacillin/Tazobactam 3.375 GM in D5% in Water (Mini-Bag+) 100 ML IVPB SCH ×2 (03:52→13:31)
[2016-06-05] MEDS: Ipratropium/Albuterol Neb 3 ML IH SCH ×4 (04:09→22:26)
[2016-06-05 05:34] LABS: Bilirubin,Urine Negative (Negative); Blood,Urine Negative (Negative); Clarity,Urine Clear (Clear); Color,Urine Yellow (Yellow); Glucose,Urine (UA) Normal (Normal); Ketones,Urine Negative (Negative); Leukocyte Esterase,Urine Moderate (Negative); Nitrite,Urine Negative (Negative); Protein,Urine Negative (Neg-Trace); Specific Gravity,Urine 1.014 (1.010-1.025); Urobilinogen,Urine Normal (Normal)
[2016-06-05 05:37] LABS: Bacteria,Urine None Seen per hpf (None-Few); Hyaline Casts,Urine None Seen per lpf (None-Few); RBC,Urine 0-3 per hpf (0-3); Squamous Epithelial Cell,Urine Many per lpf (None-Few); WBC,Urine 15-30 per hpf (0-3)
[2016-06-05] MEDS: *HR* Enoxaparin 40 MG/0.4 ML SYRINGE SQ SCH (06:01)
[2016-06-05 06:19] LABS: Basophils % 0.3 %; Hematocrit 33.9 % (35.3-44.9); Immature Granulocytes % 0.5 % (0-4); Lymphocytes # 2.6 K/mcL (0.6-4.6); Lymphocytes % 16.5 %; Mean Corpuscular HGB Conc 32.4 g/dL (31.6-35.5); Mean Corpuscular Hemoglobin 30.1 pg (28.0-33.3); Mean Corpuscular Volume 92.6 fL (83.0-100.0); Mean Platelet Volume 10.6 fL (9.4-12.4); Monocytes # 1.2 K/mcL (0.0-1.3); Monocytes % 7.8 %; Neutrophils # 11.5 K/mcL (1.6-8.9); Platelet Count 321 K/mcL (140-400); Red Blood Count 3.66 M/mcL (3.82-4.97); Red Cell Distribution Width 15.1 % (11.5-14.5); Segmented Neutrophils % 74.9 %
[2016-06-05 06:34] LABS: BUN/Creatinine Ratio 14 (6-26); Blood Urea Nitrogen 10 mg/dL (7-20); Calcium 9.7 mg/dL (8.6-10.8); Carbon Dioxide 20 mEq/L (19-29); Chloride 112 mEq/L (98-109); Glucose 125 mg/dL (70-99); Osmolality,Calculated 297 (280-300); Potassium 3.4 mEq/L (3.5-4.5); Sodium 143 mEq/L (136-145); eGFR For African Americans > 60 (> 60); eGFR For Non-African Americans > 60 (> 60)
[2016-06-05] MEDS: amLODIPine 5 MG TABLET PO SCH (09:28)
[2016-06-05] MEDS: Cholecalciferol (D-3) 1,000 UNIT TABLET PO SCH (09:29)
[2016-06-05] MEDS: Multivit/Ca/Min/Fe/FA 1 TAB TABLET PO SCH (09:29)
[2016-06-05] MEDS ORDERED: Vancomycin 750 MG in D5% in Water 250 ML IVPB SCH (11:00)
[2016-06-05] MEDS: Levofloxacin 750 MG/150 ML 750 MG/150 ML BAG IVPB SCH (12:03)
[2016-06-05] MEDS ORDERED: Cefepime HCl 1,000 MG in D5% in Water (Mini-Bag+) 100 ML IVPB SCH (13:42)
--- NOTE | 2016-06-05 13:45 | Internal Med Progress Note ---
Date of Encounter: 06/04/16 Time of Encounter: 13:43 - Assessment and plan (1) Sepsis Current Visit: Yes Status: Acute Assessment and plan: Hypoxic respiratory failure due to Sepsis secondary to Pseudomonas pneumonia/ gram-negative pneumonia Stop vancomycin, Levaquin and Zosyn Start cefepime, will need to complete 7 days of antibiotics Prior sputum culture from 05/05/2016 showed Pseudomonas with intermediate sensitivity to Levaquin New sputum culture is growing gram-negative rods Qualifiers: Sepsis type: sepsis due to unspecified organism Qualified Code(s): A41.9 - Sepsis, unspecified organism (2) Hypokalemia Current Visit: Yes Status: Acute Assessment and plan: Replete as needed (3) HTN (hypertension) Current Visit: Yes Status: Chronic Assessment and plan: Continue amlodipine Qualifiers: Hypertension type: essential hypertension Qualified Code(s): I10 - Essential (primary) hypertension (4) GERD (gastroesophageal reflux disease) Current Visit: No Status: Chronic Assessment and plan: Continue omeprazole Qualifiers: Esophagitis presence: without esophagitis Qualified Code(s): K21.9 - Gastro -esophageal reflux disease without esophagitis (5) Osteoporosis Current Visit: No Status: Chronic Qualifiers: Osteoporosis type: other Presence of current pathological fracture: unspecified Qualified Code(s): M81.8 - Other osteoporosis without current pathological fracture (6) Healthcare-associated pneumonia Current Visit: No Status: Acute Assessment and plan: High risk due to sepsis and respiratory failure - Time Spent With Patient Greater than 35 minutes - Subjective Interval history: The patient is still having a productive cough, denies any abdominal pain, no fevers, no chest pain, no diarrhea or dysuria. Feels weak and less short of breath - Constitutional Vitals: Temp Pulse Resp BP Pulse Ox 97.5 F L 87 16 161/87 93 L 06/05/16 10:41 06/05/16 10:41 06/05/16 10:57 06/05/16 10:41 06/05/16 10:57 General appearance: Present: A&O X 3, pleasant, no acute distress - Head Head exam: Present: atraumatic, normocephalic - Eye Eye exam: Present: PERRL, conjuntiva pink, sclera anicteric Pupils: Present: PERRL - Neck Neck exam general surgery: Present: supple, trachea midline. Absent: lymphadenopathy - Respiratory Respiratory exam: Present: CTAB, rales (Left basilar crackles). Absent: accessory muscle use, rhonchi, wheezes - Cardiovascular Cardiovascular exam: Present: RRR, +S1, +S2. Absent: diastolic murmur, gallop, rubs, systolic murmur - GI/Abdominal GI/Abdominal exam: Present: normal bowel sounds, soft, no peritoneal signs. Absent: distended, tenderness - Extremities Exam Extremities exam: Present: warm, radial pulses palpable and symetrical. Absent : calf tenderness, cyanotic, pedal edema - Neurological Exam Neurological exam: Present: CN II-XII intact, oriented X3, no focal deficits. Absent: pronater drift, facial droop, speech deficit - Skin Skin exam: Present: dry, intact Internal Medicine: Result - Labs CBC & Chem 7: 06/05/16 05:59 06/05/16 05:59 Labs: Short CBC 06/05/16 Range/Units 05:59 WBC 15.4 H (4.3-11.1) K/mcL Hgb 11.0 L D (11.5-15.4) g/dL Hct 33.9 L (35.3-44.9) % Plt Count 321 (140-400) K/mcL Neutrophils # 11.5 H (1.6-8.9) K/mcL BMP 06/05/16 05:59 Sodium 143 Potassium 3.4 L Chloride 112 H Carbon Dioxide 20 BUN 10 Creatinine 0.70 Glucose 125 H Calcium 9.7 Urine 06/05/16 Range/Units 05:23 Urine Color Yellow (Yellow) Urine Clarity Clear (Clear) Urine pH 6.0 (5.0-8.0) pH Units Ur Specific [place] 1.014 (1.010-1.025) Urine Protein Negative (Neg-Trace) mg/dL Urine Glucose (UA) Normal (Normal) mg/dL - ABG Interpretation ABG results: PT/INR, D-dimer PT 11.5 Seconds (9.4-12.1) 06/04/16 09:52 D-Dimer 806 ng/mLFEU (0-500) H 06/04/16 09:52 Consult Discharge Plan - Plan Referrals: Chaz Cuellar MD [Primary Care Provider] - (Web Requested 06/04/16)
[2016-06-05] MEDS ORDERED: Cefepime HCl 1,000 MG in D5% in Water (Mini-Bag+) 100 ML IVPB ONE (14:07)
[2016-06-05] MEDS: *HR* LORazepam 0.5 MG TABLET PO SCH (20:35)
[2016-06-05] MEDS: Gabapentin 300 MG CAPSULE PO SCH (20:36)
[2016-06-06] MEDS ORDERED: Cefepime HCl 1,000 MG in D5% in Water (Mini-Bag+) 100 ML IVPB SCH (02:00)
[2016-06-06] MEDS: Ipratropium/Albuterol Neb 3 ML IH SCH ×4 (05:09→22:44)
[2016-06-06] MEDS: *HR* Enoxaparin 40 MG/0.4 ML SYRINGE SQ SCH (05:12)
[2016-06-06 07:59] LABS: Hematocrit 35.4 % (35.3-44.9); Hemoglobin 11.4 g/dL (11.5-15.4); Mean Corpuscular HGB Conc 32.2 g/dL (31.6-35.5); Mean Corpuscular Hemoglobin 29.5 pg (28.0-33.3); Mean Corpuscular Volume 91.7 fL (83.0-100.0); Mean Platelet Volume 10.4 fL (9.4-12.4); Platelet Count 360 K/mcL (140-400); Red Blood Count 3.86 M/mcL (3.82-4.97); Red Cell Distribution Width 15.3 % (11.5-14.5)
[2016-06-06] MEDS: Multivit/Ca/Min/Fe/FA 1 TAB TABLET PO SCH (09:39)
[2016-06-06] MEDS: amLODIPine 5 MG TABLET PO SCH (09:39)
[2016-06-06] MEDS: Cholecalciferol (D-3) 1,000 UNIT TABLET PO SCH (09:40)
[2016-06-06] MEDS: *HR* LORazepam 0.5 MG TABLET PO SCH ×2 (09:40→21:17)
--- NOTE | 2016-06-06 10:18 | Internal Med Progress Note ---
Date of Encounter: 06/04/16 Time of Encounter: 10:15 - Assessment and plan (1) Sepsis Current Visit: Yes Status: Acute Assessment and plan: Hypoxic respiratory failure due to Sepsis secondary to Pseudomonas pneumonia Stopped vancomycin, Levaquin and Zosyn Continue cefepime day 2, will need to complete 7 days of antibiotics Start solumedrol IV Prior sputum culture from 05/05/2016 showed Pseudomonas with intermediate sensitivity to Levaquin New culture shows pseudomonas aeruginosa resistant to quinolones New sputum culture is growing gram-negative rods CT scan of the chest shows a new consolidation on the lateral left lungbase . Rarely bronchioalveolar cell carcinoma can present in such area and can be indistinguishable from pneumonia. Stable chronic scattering of bilateral lung bases. Stable noncalcified right lower lobe pulmonary nodules since 2011. Emphysema Needs a follow up CT in 4-6 weeks Qualifiers: Sepsis type: sepsis due to unspecified organism Qualified Code(s): A41.9 - Sepsis, unspecified organism (2) Hypokalemia Current Visit: Yes Status: Acute Assessment and plan: Replete as needed (3) HTN (hypertension) Current Visit: Yes Status: Chronic Assessment and plan: Continue amlodipine Qualifiers: Hypertension type: essential hypertension Qualified Code(s): I10 - Essential (primary) hypertension (4) GERD (gastroesophageal reflux disease) Current Visit: No Status: Chronic Assessment and plan: Continue omeprazole Qualifiers: Esophagitis presence: without esophagitis Qualified Code(s): K21.9 - Gastro -esophageal reflux disease without esophagitis (5) Osteoporosis Current Visit: No Status: Chronic Qualifiers: Osteoporosis type: other Presence of current pathological fracture: unspecified Qualified Code(s): M81.8 - Other osteoporosis without current pathological fracture (6) Healthcare-associated pneumonia Current Visit: No Status: Acute Assessment and plan: High risk due to sepsis and respiratory failure - Subjective Interval history: Still having a productive cough, denies any abdominal pain, no fevers, no chest pain, no diarrhea or dysuria. Feels weak and short of breath - Constitutional Vitals: Temp Pulse Resp BP Pulse Ox 98.2 F 95 16 134/83 90 L 06/06/16 07:52 06/06/16 07:52 06/06/16 07:52 06/06/16 07:52 06/06/16 07:52 General appearance: Present: A&O X 3, pleasant, no acute distress - Head Head exam: Present: atraumatic, normocephalic - Eye Eye exam: Present: PERRL, conjuntiva pink, sclera anicteric Pupils: Present: PERRL - Neck Neck exam general surgery: Present: supple, trachea midline. Absent: lymphadenopathy - Respiratory Respiratory exam: Present: decreased breath sounds (Very diminished breath sounds with wheezing on the right side), CTAB. Absent: accessory muscle use, rales, rhonchi, wheezes - Cardiovascular Cardiovascular exam: Present: RRR, +S1, +S2. Absent: diastolic murmur, gallop, rubs, systolic murmur - GI/Abdominal GI/Abdominal exam: Present: normal bowel sounds, soft, no peritoneal signs. Absent: distended, tenderness - Extremities Exam Extremities exam: Present: warm, radial pulses palpable and symetrical. Absent : calf tenderness, cyanotic, pedal edema - Neurological Exam Neurological exam: Present: CN II-XII intact, oriented X3, no focal deficits. Absent: pronater drift, facial droop, speech deficit - Skin Skin exam: Present: dry, intact Internal Medicine: Result - Labs CBC & Chem 7: 06/06/16 07:48 06/05/16 05:59 Labs: Short CBC 06/06/16 Range/Units 07:48 WBC 14.1 H (4.3-11.1) K/mcL Hgb 11.4 L (11.5-15.4) g/dL Hct 35.4 (35.3-44.9) % Plt Count 360 (140-400) K/mcL - ABG Interpretation ABG results: PT/INR, D-dimer PT 11.5 Seconds (9.4-12.1) 06/04/16 09:52 D-Dimer 806 ng/mLFEU (0-500) H 06/04/16 09:52 Consult Discharge Plan - Plan Referrals: Chaz Cuellar MD [Primary Care Provider] - (Web Requested 06/04/16)
[2016-06-06] MEDS: Cefepime HCl 1,000 MG in D5% in Water (Mini-Bag+) 100 ML IVPB SCH ×3 (10:50→22:55)
[2016-06-06] MEDS: MethylPREDNISolone 40 MG/ML VIAL IVP SCH ×3 (10:51→22:57)
[2016-06-06] MEDS ORDERED: Vancomycin 1,000 MG in D5% in Water 250 ML IVPB SCH (11:00)
[2016-06-06 12:25] LABS: BUN/Creatinine Ratio 11 (6-26); Blood Urea Nitrogen 9 mg/dL (7-20); Carbon Dioxide 26 mEq/L (19-29); Chloride 111 mEq/L (98-109); Glucose 86 mg/dL (70-99); Osmolality,Calculated 296 (280-300); Potassium 3.7 mEq/L (3.5-4.5); Sodium 144 mEq/L (136-145); eGFR For African Americans > 60 (> 60); eGFR For Non-African Americans > 60 (> 60)
[2016-06-06] MEDS: Acetaminophen 325 MG TABLET PO PRN (14:05)
[2016-06-06] MEDS: Gabapentin 300 MG CAPSULE PO SCH (21:17)
[2016-06-07] MEDS: Ipratropium/Albuterol Neb 3 ML IH SCH (05:08)
[2016-06-07] MEDS: *HR* Enoxaparin 40 MG/0.4 ML SYRINGE SQ SCH (05:13)
[2016-06-07 05:15] LABS: Hematocrit 37.5 % (35.3-44.9); Hemoglobin 11.9 g/dL (11.5-15.4); Mean Corpuscular HGB Conc 31.7 g/dL (31.6-35.5); Mean Corpuscular Hemoglobin 29.2 pg (28.0-33.3); Mean Corpuscular Volume 92.1 fL (83.0-100.0); Mean Platelet Volume 10.3 fL (9.4-12.4); Platelet Count 379 K/mcL (140-400); Red Blood Count 4.07 M/mcL (3.82-4.97); Red Cell Distribution Width 14.9 % (11.5-14.5)
[2016-06-07 05:35] LABS: BUN/Creatinine Ratio 23 (6-26); Blood Urea Nitrogen 18 mg/dL (7-20); Calcium 10.3 mg/dL (8.6-10.8); Carbon Dioxide 22 mEq/L (19-29); Chloride 108 mEq/L (98-109); Glucose 144 mg/dL (70-99); Osmolality,Calculated 298 (280-300); Potassium 3.7 mEq/L (3.5-4.5); Sodium 142 mEq/L (136-145); eGFR For African Americans > 60 (> 60); eGFR For Non-African Americans > 60 (> 60)
[2016-06-07 07:34] VITALS: BP 146/75
[2016-06-07] MEDS: *HR* LORazepam 0.5 MG TABLET PO SCH (08:41)
[2016-06-07] MEDS: amLODIPine 5 MG TABLET PO SCH (08:41)
[2016-06-07] MEDS: Multivit/Ca/Min/Fe/FA 1 TAB TABLET PO SCH (08:41)
[2016-06-07] MEDS: MethylPREDNISolone 40 MG/ML VIAL IVP SCH (08:41)
[2016-06-07] MEDS: Cholecalciferol (D-3) 1,000 UNIT TABLET PO SCH (08:41)
--- NOTE | 2016-06-07 08:51 | Discharge Summary ---
Date of Encounter: 06/07/16 Time of Encounter: 08:47 - Discharge Diagnosis (1) Sepsis Priority: Primary Status: Acute Comments: Acute on chronic Hypoxic respiratory failure due to acute COPD exacerbation from Sepsis secondary to Pseudomonas pneumonia Qualifiers: Sepsis type: sepsis due to unspecified organism Qualified Code(s): A41.9 - Sepsis, unspecified organism (2) Hypokalemia Priority: Secondary Status: Acute (3) HTN (hypertension) Priority: Secondary Status: Chronic Qualifiers: Hypertension type: essential hypertension Qualified Code(s): I10 - Essential (primary) hypertension (4) GERD (gastroesophageal reflux disease) Priority: Secondary Status: Chronic Qualifiers: Esophagitis presence: without esophagitis Qualified Code(s): K21.9 - Gastro -esophageal reflux disease without esophagitis (5) Osteoporosis Priority: Secondary Status: Chronic Qualifiers: Osteoporosis type: other Presence of current pathological fracture: unspecified Qualified Code(s): M81.8 - Other osteoporosis without current pathological fracture - Discharge Medications Prescriptions: Cefepime HCl/Dextrose, Iso-Osm [Cefepime 1 gm Injection] 1 gm IV BID #12 mls PredniSONE 10 mg PO DAILY #12 tablet Home Medications: Albuterol Neb [Proventil Neb] 2.5 mg IH Q4HR PRN 12/31/14 [History] Albuterol Sulfate [Albuterol Inhaler] 2 puff IH Q4HR PRN 12/31/14 [History] Amlodipine [Norvasc] 2.5 mg PO DAILY 12/31/14 [History] Cholecalciferol (Vitamin D3) [Vitamin D] 2,000 unit PO DAILY 12/31/14 [History] Omeprazole [PriLOSEC] 20 mg PO DAILY 12/31/14 [History] TraZODone 25 - 50 mg PO HS PRN 12/31/14 [History] Budesonide/Formoterol 160/4.5 [Symbicort 160/4.5] 2 puff IH BIDR 12/17/15 [ History] Gabapentin [Neurontin] 300 - 600 mg PO HS 12/17/15 [History] LORazepam [Ativan] 0.5 mg PO BID #30 tablet 12/24/15 [Rx] Multivit/Ca/Min/Fe/FA [Thera M Plus] 1 tab PO DAILY tablet 12/24/15 [Rx] TraMADol [Ultram] 50 mg PO Q6H #30 tablet 12/24/15 [Rx] Tiotropium [Spiriva] 18 mcg IH DAILY 05/05/16 [History] Oxygen 2 l .ROUTE AD 06/04/16 [History] Cefepime HCl/Dextrose, Iso-Osm [Cefepime 1 gm Injection] 1 gm IV BID #12 mls [Rx] PredniSONE 10 mg PO DAILY #12 tablet 06/07/16 [Rx] Allergies/Adverse Reactions: Allergies Oxycodone Adverse Reaction (Verified 12/17/15 13:55) Confusion Date of admission: 06/04/16 11:24 Primary care physician: Chaz Cuellar MD Consults: 06/05/16 13:59 Consult to Invasive Line Access Team [CONS] Routine Reason for Consult: powerglide insertion for IV antibiotics x1wk at home Line Type: EPIV PICC line indications: detention Med/Antibiotic Time Notified: 14:01 Call Completed: Yes - Patient Status Disposition: Home Health Service Condition: Good - Discharge Instructions Follow Up With: Chaz Cuellar MD [Primary Care Provider] - (Web Requested 06/04/16) Forms: ED Satisfaction Letter Additional Instructions: Follow with primary care physician within the next 7 days. Complete a total of 7 days of cefepime. Taper prednisone and continue oxygen at home. Follow-up with the pulmonary service in 4-6 weeks to arrange a possible CT scan of the chest - Diet and Activity Activity: increase activity as tolerated, wear oxygen at night Diet: low fat, low cholesterol Hospital course: Ms. Boggs is a 81 year old female with past medical history of COPD oxygen dependent at night, hypertension, hyperlipidemia, GERD, recently discharged (AMA ) from this facility after being managed for Acute hypoxemic respiratory failure , mucus plugging and bilateral pneumonia with psuedomonas She left AMA without receiving adjustment to her home O2 She reported improving after discharge but 2 days prior to being admitted she complained of a productive cough with copious sputum and shortness of breath. She reported having chills, no fever, no orthopnea, no chest pain, no palpitations, no leg edema She was hypoxic, tachypneic, tachycardia at time of review, she did not seem to be in respiratory distress Labs and imaging reveal leukocytosis with left shift,and a new LLL pneumonia Was diagnosed with Hypoxic respiratory failure due to Sepsis secondary to Pseudomonas pneumonia Stopped vancomycin, Levaquin and Zosyn Continued cefepime day 3, will need to complete 7 days of antibiotics Started solumedrol IV Prior sputum culture from 05/05/2016 showed Pseudomonas with intermediate sensitivity to Levaquin New culture showed pseudomonas aeruginosa resistant to quinolones CT scan of the chest shows a new consolidation on the lateral left lung base . Rarely bronchioalveolar cell carcinoma can present in such area and can be indistinguishable from pneumonia. Stable chronic scattering of bilateral lung bases. Stable noncalcified right lower lobe pulmonary nodules since 2011. Emphysema Needs a follow up CT in 4-6 weeks - Time Spent with Patient Total time spent providing and/or coordinating discharge services: Greater than 30 minutes (40 min) - Constitutional Vitals: Temp Pulse Resp BP Pulse Ox 98.6 F 109 18 146/75 96 06/07/16 07:33 06/07/16 07:33 06/07/16 07:33 06/07/16 07:33 06/07/16 07:33 General appearance: Present: A&O X 3, pleasant, no acute distress - Head Head exam: Present: atraumatic, normocephalic - Eye Eye exam: Present: PERRL, conjuntiva pink, sclera anicteric Pupils: Present: PERRL - Neck Neck exam general surgery: Present: supple, trachea midline. Absent: lymphadenopathy - Respiratory Respiratory exam: Present: decreased breath sounds, CTAB. Absent: accessory muscle use, rales, rhonchi, wheezes - Cardiovascular Cardiovascular exam: Present: RRR, +S1, +S2. Absent: diastolic murmur, gallop, rubs, systolic murmur - GI/Abdominal GI/Abdominal exam: Present: normal bowel sounds, soft, no peritoneal signs. Absent: distended, tenderness - Extremities Exam Extremities exam: Present: warm, radial pulses palpable and symetrical. Absent : calf tenderness, cyanotic, pedal edema - Neurological Exam Neurological exam: Present: CN II-XII intact, oriented X3, no focal deficits. Absent: pronater drift, facial droop, speech deficit - Skin Skin exam: Present: dry, intact
--- NOTE | 2016-06-07 08:58 | Physician Discharge Referral ---
Home Health/Hosp Referral Info Transfer to: Home Health Provider in Charge Post Discharge: PCP - Diagnosis (1) Sepsis Status: Acute (2) Hypokalemia Status: Acute (3) HTN (hypertension) Status: Chronic (4) GERD (gastroesophageal reflux disease) Status: Chronic (5) Osteoporosis Status: Chronic - Respiratory Orders Oxygen / L per min (2 L at night) Smoking Cessation: Smoking cessation has been advised. For more information, call the [place] Tobacco Quit Line at 9-639-SEOY-NOW. - Diet/Nutrition Diet/Nutrition Orders: No Added Salt (RAMIREZ) - Services Needed Following services are medically necessary services: Nursing, Physical Therapy Home Care Orders: Follow with primary care physician within the next 7 days. Complete a total of 7 days of cefepime. Taper prednisone and continue oxygen at home. Follow-up with the pulmonary service in 4-6 weeks to arrange a possible CT scan of the chest - Transfer Medications Prescriptions: Cefepime HCl/Dextrose, Iso-Osm [Cefepime 1 gm Injection] 1 gm IV BID #12 mls PredniSONE 10 mg PO DAILY #12 tablet Home Medications: Albuterol Neb [Proventil Neb] 2.5 mg IH Q4HR PRN 12/31/14 [History] Albuterol Sulfate [Albuterol Inhaler] 2 puff IH Q4HR PRN 12/31/14 [History] Amlodipine [Norvasc] 2.5 mg PO DAILY 12/31/14 [History] Cholecalciferol (Vitamin D3) [Vitamin D] 2,000 unit PO DAILY 12/31/14 [History] Omeprazole [PriLOSEC] 20 mg PO DAILY 12/31/14 [History] TraZODone 25 - 50 mg PO HS PRN 12/31/14 [History] Budesonide/Formoterol 160/4.5 [Symbicort 160/4.5] 2 puff IH BIDR 12/17/15 [ History] Gabapentin [Neurontin] 300 - 600 mg PO HS 12/17/15 [History] LORazepam [Ativan] 0.5 mg PO BID #30 tablet 12/24/15 [Rx] Multivit/Ca/Min/Fe/FA [Thera M Plus] 1 tab PO DAILY tablet 12/24/15 [Rx] TraMADol [Ultram] 50 mg PO Q6H #30 tablet 12/24/15 [Rx] Tiotropium [Spiriva] 18 mcg IH DAILY 05/05/16 [History] Oxygen 2 l .ROUTE AD 06/04/16 [History] Cefepime HCl/Dextrose, Iso-Osm [Cefepime 1 gm Injection] 1 gm IV BID #12 mls [Rx] PredniSONE 10 mg PO DAILY #12 tablet 06/07/16 [Rx] Allergies/Adverse Reactions: Allergies Oxycodone Adverse Reaction (Verified 12/17/15 13:55) Confusion Certification: Further, I certify that my clinical findings support that this patient is homebound (i.e. absences from home require considerable and taxing effort and are for medical reasons or gnosticism services or infrequently or short duration when for other reasons) because: Homebound Reason: Patient requires assistance of a person or device to safely leave home Attestation: My signature below is to certify that this patient is under my care and that I, or nurse practitioner, or a physician's kennel assistant working with me, has a face-to -face encounter with this patient.
[2016-06-07] MEDS: Cefepime HCl 1,000 MG in D5% in Water (Mini-Bag+) 100 ML IVPB SCH (09:41)
[2016-06-07] MEDS ORDERED: Aminoglycoside Consult 1 EACH MC ONE (10:29)
== END 2016-06-07 10:30 | disposition home health service (06) | DRG 871 ==
LOC: EMEROO 09:20 → 2ANU 09:20 → SUATTDRO 11:24 → 2ANU 12:28
PROVIDERS: ADMIT Internal Medicine; ATTEND Internal Medicine

== ENCOUNTER 2016-07-01 12:01 | Observation (INO) ==
[2016-07-01] MEDS ORDERED: Ipratropium/Albuterol Neb 3 ML IH ONE (12:31)
[2016-07-01] MEDS ORDERED: methylPREDNISolone 125 MG/2 ML VIAL IVP ONE (12:31)
[2016-07-01 12:39] LABS: Basophils # 0.1 K/mcL (0.0-0.2); Basophils % 0.5 %; Eosinophils # 0.4 K/mcL (0.0-0.6); Eosinophils % 3.1 %; Hematocrit 39.7 % (35.3-44.9); Hemoglobin 12.7 g/dL (11.5-15.4); Immature Granulocytes % 0.5 % (0-4); Lymphocytes # 1.9 K/mcL (0.6-4.6); Lymphocytes % 14.4 %; Mean Corpuscular Hemoglobin 29.5 pg (28.0-33.3); Mean Corpuscular Volume 92.1 fL (83.0-100.0); Monocytes # 0.6 K/mcL (0.0-1.3); Monocytes % 4.7 %; Neutrophils # 10.3 K/mcL (1.6-8.9); Platelet Count 248 K/mcL (140-400); Red Blood Count 4.31 M/mcL (3.82-4.97); Red Cell Distribution Width 14.9 % (11.5-14.5); Segmented Neutrophils % 76.8 %
[2016-07-01 12:48] LABS: BUN/Creatinine Ratio 14 (6-26); Blood Urea Nitrogen 10 mg/dL (7-20); Calcium 10.2 mg/dL (8.6-10.8); Carbon Dioxide 24 mEq/L (19-29); Chloride 107 mEq/L (98-109); Glucose 93 mg/dL (70-99); Osmolality,Calculated 289 (280-300); Potassium 3.8 mEq/L (3.5-4.5); Sodium 140 mEq/L (136-145); eGFR For African Americans > 60 (> 60); eGFR For Non-African Americans > 60 (> 60)
[2016-07-01 13:04] LABS: Bilirubin,Urine Negative (Negative); Blood,Urine Negative (Negative); Clarity,Urine Clear (Clear); Color,Urine Yellow (Yellow); Glucose,Urine (UA) Normal (Normal); Ketones,Urine Negative (Negative); Leukocyte Esterase,Urine Negative (Negative); Nitrite,Urine Negative (Negative); PH,Urine 6.5 pH Units (5.0-8.0); Protein,Urine Negative (Neg-Trace); Specific Gravity,Urine 1.015 (1.010-1.025); Urobilinogen,Urine Normal (Normal)
[2016-07-01] MEDS ORDERED: Azithromycin 500 MG in D5% in Water 250 ML IVPB ONE (13:11)
--- NOTE | 2016-07-01 13:24 | Emergency Department Note ---
Disposition Clinical Impression: Acute exacerbation of chronic obstructive airways disease, Shortness of breath Disposition: Admitted As Inpatient Referrals: Chaz Cuellar MD [Primary Care Provider] - Forms: ED Satisfaction Letter Time of Disposition: 13:27 SOB HPI - General Chief Complaint: ED Shortness of Breath/Dyspnea Stated Complaint: DIPESH Time Seen by Provider: 07/01/16 12:08 Source: patient, family Limitations: no limitations Nursing Notes Reviewed: Yes Vital Signs Reviewed: Yes - History of Present Illness 81-year-old female presents 7 syr for cough and shortness of breath. Onset yesterday. Worse today. Increasing clear white sputum production. No fevers. Increasing dyspnea on exertion. Does not work home oxygen except when she sleeps. She denies fevers. No chest pain. No lower leg pain or swelling. Long history of emphysema/COPD. Pt Subjective Complaint: shortness of breath, cough Onset (ago): day(s) Severity: moderate Consistency/Duration: constant Improves with: nothing Worsens with: exertion Known history of: COPD Associated symptoms: Reports: cough, sputum production. Denies: fever, lower extremity pain Treatment prior to arrival: oxygen, bronchodilator Cough present: Yes Cough Description: Involuntary Cough Frequency: Intermittent Sputum production: Yes Sputum Amount: Moderate Sputum Color: Clear, White - Related Data Home Medications Medication Instructions Recorded Confirmed Albuterol Neb [Proventil Neb] 2.5 mg IH Q4HR PRN 12/31/14 06/04/16 Albuterol Sulfate [Albuterol 2 puff IH Q4HR PRN 12/31/14 06/04/16 Inhaler] Amlodipine [Norvasc] 2.5 mg PO DAILY 12/31/14 06/04/16 Cholecalciferol (Vitamin D3) 2,000 unit PO DAILY 12/31/14 06/04/16 [Vitamin D] Omeprazole [PriLOSEC] 20 mg PO DAILY 12/31/14 06/04/16 TraZODone 25 - 50 mg PO HS PRN 12/31/14 06/04/16 Budesonide/Formoterol 160/4.5 2 puff IH BIDR 12/17/15 06/04/16 [Symbicort 160/4.5] Gabapentin [Neurontin] 300 - 600 mg PO HS 12/17/15 06/04/16 Tiotropium [Spiriva] 18 mcg IH DAILY 05/05/16 06/04/16 Oxygen 2 l .ROUTE AD 06/04/16 06/04/16 Previous Rx's Medication Instructions Recorded LORazepam [Ativan] 0.5 mg PO BID #30 tablet 12/24/15 Multivit/Ca/Min/Fe/FA [Thera M 1 tab PO DAILY tablet 12/24/15 Plus] TraMADol [Ultram] 50 mg PO Q6H #30 tablet 12/24/15 Cefepime HCl/Dextrose, Iso-Osm 1 gm IV BID #12 mls 06/06/16 [Cefepime 1 gm Injection] PredniSONE 10 mg PO DAILY #12 tablet 06/07/16 Allergies Allergy/AdvReac Type Severity Reaction Status Date / Time Oxycodone AdvReac Confusion Verified 12/17/15 13:55 All systems ED: reviewed and negative except as stated. Constitutional: Reports: as per HPI Eyes: Reports: as per HPI Cardiovascular: Reports: as per HPI Respiratory: Reports: cough, dyspnea Gastrointestinal: Reports: as per HPI Genitourinary: Reports: as per HPI Musculoskeletal: Reports: as per HPI Integumentary: Reports: as per HPI Neurological: Reports: as per HPI Psychiatric: Reports: as per HPI Endocrine: Reports: as per HPI Hematological/Lymphatic: Reports: as per HPI Allergic/Immunologic: Reports: as per HPI Past Medical History - Past Medical History Medical history: Reports: arthritis, COPD, GERD, hyperlipidemia, hypertension Surgical history: Reports: appendectomy, cataract, cholecystectomy, orthopedic, other, other Psychiatric history: Reports: anxiety 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 Absent: tenderness - Respiratory Respiratory exam: Present: respiratory distress, wheezes, other (Rhonchi and wheezes heard specifically in the left lung jean baptiste as compared to the right.) - Cardiovascular Cardiovascular exam: Present: regular rate, normal rhythm - Abdominal Exam Abdominal exam: Present: soft, Non-Tender, normal bowel sounds - Extremities Exam Extremities exam: Present: normal inspection, full ROM, normal capillary refill. Absent: tenderness - Back Exam Back exam: Present: normal inspection - Neurological Exam Neurological exam: Present: alert, oriented X3 - Psychiatric Psychiatric exam: Present: normal affect, normal mood - Skin Skin exam: Present: warm, dry, intact Course Course Narrative: Patient was given DuoNeb times and Solu-Medrol in the ER. I also ordered her Rocephin and Zithromax. She will be admitted to the hospitalist. I did speak with him directly. Vital Signs Temperature 97.9 F 07/01/16 12:05 Pulse Rate 79 07/01/16 12:05 Respiratory Rate 20 07/01/16 12:05 Blood Pressure 170/93 07/01/16 12:05 O2 Sat by Pulse Oximetry 88 07/01/16 12:05 Temperature 97.9 F 07/01/16 12:05 Pulse Rate 79 07/01/16 12:05 Respiratory Rate 20 07/01/16 12:41 Blood Pressure 170/93 07/01/16 12:05 O2 Sat by Pulse Oximetry 92 07/01/16 12:43 Oxygen Delivery Oxygen Delivery Room Air Shortness of Breath/Dyspnea - Lab Data Result diagrams: 07/01/16 12:20 07/01/16 12:20 Lab Results 07/01/16 07/01/16 07/01/16 Range/Units 12:20 12:20 12:20 WBC 13.3 H (4.3-11.1) K/mcL RBC 4.31 (3.82-4.97) M/mcL Hgb 12.7 (11.5-15.4) g/dL Hct 39.7 (35.3-44.9) % MCV 92.1 (83.0-100.0) fL MCH 29.5 (28.0-33.3) pg MCHC 32.0 (31.6-35.5) g/dL RDW 14.9 H (11.5-14.5) % Plt Count 248 (140-400) K/mcL MPV 10.0 (9.4-12.4) fL Immature Gran % 0.5 (0-4) % Seg Neutrophils % 76.8 % Lymphocytes % 14.4 % Monocytes % 4.7 % Eosinophils % 3.1 % Basophils % 0.5 % Neutrophils # 10.3 H (1.6-8.9) K/mcL Lymphocytes # 1.9 (0.6-4.6) K/mcL Monocytes # 0.6 (0.0-1.3) K/mcL Eosinophils # 0.4 (0.0-0.6) K/mcL Basophils # 0.1 (0.0-0.2) K/mcL Sodium 140 (136-145) mEq/L Potassium 3.8 (3.5-4.5) mEq/L Chloride 107 (98-109) mEq/L Carbon Dioxide 24 (19-29) mEq/L BUN 10 (7-20) mg/dL Creatinine 0.74 (0.57-1.11) mg/dL Est GFR ( Amer) > 60 (> 60) Est GFR (Non-Af Amer) > 60 (> 60) BUN/Creatinine Ratio 14 (6-26) Glucose 93 (70-99) mg/dL Calculated Osmolality 289 (280-300) Calcium 10.2 (8.6-10.8) mg/dL Troponin I 0.00 (0-0.03) ng/mL B-Natriuretic Peptide (0-100) pg/mL Urine Color (Yellow) Urine Clarity (Clear) Urine pH (5.0-8.0) pH Units Ur Specific [place] (1.010-1.025) Urine Protein (Neg-Trace) mg/dL Urine Glucose (UA) (Normal) mg/dL Urine Ketones (Negative) mg/dL Urine Blood (Negative) Urine Nitrite (Negative) Urine Bilirubin (Negative) Urine Urobilinogen (Normal) mg/dL Ur Leukocyte Esterase (Negative) Ur Culture Indicated? (NO) 07/01/16 07/01/16 Range/Units 12:20 12:57 WBC (4.3-11.1) K/mcL RBC (3.82-4.97) M/mcL Hgb (11.5-15.4) g/dL Hct (35.3-44.9) % MCV (83.0-100.0) fL MCH (28.0-33.3) pg MCHC (31.6-35.5) g/dL RDW (11.5-14.5) % Plt Count (140-400) K/mcL MPV (9.4-12.4) fL Immature Gran % (0-4) % Seg Neutrophils % % Lymphocytes % % Monocytes % % Eosinophils % % Basophils % % Neutrophils # (1.6-8.9) K/mcL Lymphocytes # (0.6-4.6) K/mcL Monocytes # (0.0-1.3) K/mcL Eosinophils # (0.0-0.6) K/mcL Basophils # (0.0-0.2) K/mcL Sodium (136-145) mEq/L Potassium (3.5-4.5) mEq/L Chloride (98-109) mEq/L Carbon Dioxide (19-29) mEq/L BUN (7-20) mg/dL Creatinine (0.57-1.11) mg/dL Est GFR ( Amer) (> 60) Est GFR (Non-Af Amer) (> 60) BUN/Creatinine Ratio (6-26) Glucose (70-99) mg/dL Calculated Osmolality (280-300) Calcium (8.6-10.8) mg/dL Troponin I (0-0.03) ng/mL B-Natriuretic Peptide 185 H (0-100) pg/mL Urine Color Yellow (Yellow) Urine Clarity Clear (Clear) Urine pH 6.5 (5.0-8.0) pH Units Ur Specific [place] 1.015 (1.010-1.025) Urine Protein Negative (Neg-Trace) mg/dL Urine Glucose (UA) Normal (Normal) mg/dL Urine Ketones Negative (Negative) mg/dL Urine Blood Negative (Negative) Urine Nitrite Negative (Negative) Urine Bilirubin Negative (Negative) Urine Urobilinogen Normal (Normal) mg/dL Ur Leukocyte Esterase Negative (Negative) Ur Culture Indicated? NO (NO)
[2016-07-01] MEDS ORDERED: Acetaminophen 325 MG TABLET PO PRN (13:50)
[2016-07-01] MEDS ORDERED: Naloxone 0.4 MG/ML INJ IVP PRN (13:50)
[2016-07-01] MEDS ORDERED: traZODone 50 MG TABLET PO PRN (14:22)
--- NOTE | 2016-07-01 14:34 | Internal Med History&Physical ---
Date of Encounter: 07/01/16 Time of Encounter: 13:30 Assessment and Plan (1) COPD exacerbation Current visit: Yes Status: Acute Observation overnight in the hospital for treatment for acute COPD exacerbation. We will treat with bronchodilators, IV steroids and O2 supplementation. Monitor vital signs closely. High risk for complications. (2) Acute and chronic respiratory failure with hypoxia Current visit: Yes Status: Acute Patient is only at bedtime. Currently requiring O2 supplementation. We will continue this for now. She will need evaluation for home oxygen during daytime prior to discharge. (3) HTN (hypertension) Current visit: Yes Status: Chronic Uncontrolled. Continue amlodipine. Will also start lisinopril Qualifiers: Hypertension type: essential hypertension Qualified Code(s): I10 - Essential (primary) hypertension Internal Medicine - H&P: HPI Chief complaint: Shortness of breath Admitted From: Emergency Dept Plans for Post Hospital Care: Home History of present illness: Ms. Boggs is a 81 year old female with history of COPD presented to the ER with complaints of shortness of breath. Her symptoms have been going on since yesterday. She uses oxygen supplementation but only at bedtime. She denies any fever or chills or night sweats. She has been having cough and some rib pain associated with it and production of whitish sputum. No hemoptysis. No palpitations. She has had multiple hospitalizations recently for similar complaints and she was admitted about 1 month back and treated for sepsis related to Pseudomonas associated pneumonia. She had been placed on IV cefepime and prednisone taper then at the time of discharge. Patient lives alone but her son and [id number] live within the same compound. She has been having wheezing and has been using her inhaler/nebulizers more frequently. Past Med Surg Social Fam HX - Past Medical History Attestation: Yes The following information was validated with the patient. Source: patient Medical history: arthritis, COPD, GERD, hyperlipidemia, hypertension Psychiatric history: anxiety - Past Surgical History Surgical History: appendectomy, cataract, cholecystectomy, orthopedic, other, other - Social History Smoking Status: Former smoker Smokeless Tobacco Status: No Alcohol use: none Drug use: none - Family History Son Living Status: Mother Living Status: Daughter Hx Family Cardiac Disorders: Yes (High cholesterol) Internal Medicine - H&P: Meds Albuterol Neb [Proventil Neb] 2.5 mg IH Q4HR PRN 12/31/14 [History] Albuterol Sulfate [Albuterol Inhaler] 2 puff IH Q4HR PRN 12/31/14 [History] Amlodipine [Norvasc] 2.5 mg PO DAILY 12/31/14 [History] Cholecalciferol (Vitamin D3) [Vitamin D] 2,000 unit PO DAILY 12/31/14 [History] Omeprazole [PriLOSEC] 20 mg PO DAILY 12/31/14 [History] TraZODone 25 - 50 mg PO HS PRN 12/31/14 [History] Budesonide/Formoterol 160/4.5 [Symbicort 160/4.5] 2 puff IH BIDR 12/17/15 [ History] Gabapentin [Neurontin] 300 - 600 mg PO HS 12/17/15 [History] LORazepam [Ativan] 0.5 mg PO BID #30 tablet 12/24/15 [Rx] Multivit/Ca/Min/Fe/FA [Thera M Plus] 1 tab PO DAILY tablet 12/24/15 [Rx] TraMADol [Ultram] 50 mg PO Q6H #30 tablet 12/24/15 [Rx] Tiotropium [Spiriva] 1 cap IH DAILY 05/05/16 [History] Oxygen 2 l .ROUTE AD 06/04/16 [History] Allergies Oxycodone Adverse Reaction (Verified 12/17/15 13:55) Confusion All Systems PM: A 10-system review of systems was performed and is negative for pertinent findings except as documented above in the HPI. - Constitutional Constitutional: malaise, no chills, no fever(s), no night sweats - EENT Eyes: no change in vision, no discharge, no pain, no photophobia Ears: no ear discharge, no ear pain, no tinnitus Nose, mouth and throat: no dysphagia, no nasal discharge, no neck pain, no sore throat - Cardiovascular Cardiovascular ROS IM: no chest pain, no diaphoresis, no dyspnea, no lightheadedness, no palpitations, no syncope - Respiratory Respiratory: cough, dyspnea, wheezing, excessive phlegm production, no hemoptysis - Gastrointestinal Gastrointestinal: no abdominal pain, no diarrhea, no hematemesis, no hematochezia, no melena, no nausea, no vomiting - Genitourinary Genitourinary: no change in urinary stream, no dysuria, no flank pain, no hematuria - Musculoskeletal Musculoskeletal ROS IM: no numbness, no tingling - Integumentary Integumentary IM: no rash, no unusual bruising - Neurological Neurological ROS: no confusion, no convulsions, no focal weakness, no numbness, no tingling, no tremor(s) - Hematologic/Lymphatic Hematologic/Lymphatic: no easy bruising - Constitutional Vitals: Temp Pulse Resp BP Pulse Ox 97.9 F 85 20 163/86 94 07/01/16 12:05 07/01/16 13:12 07/01/16 14:16 07/01/16 14:16 07/01/16 13:12 General appearance: Present: cooperative, mild distress, A&O X 3, answers questions appropriately - Eye Eye exam: Present: EOMI, PERRL, conjuntiva pink, sclera anicteric - Neck Neck exam general surgery: Present: supple, trachea midline. Absent: lymphadenopathy - Respiratory Respiratory exam: Present: prolonged expiratory phase, wheezes. Absent: accessory muscle use, rales, rhonchi - Cardiovascular Cardiovascular exam: Present: RRR, +S1, +S2. Absent: diastolic murmur, gallop, rubs, systolic murmur - GI/Abdominal GI/Abdominal exam: Present: normal bowel sounds, soft, no peritoneal signs. Absent: distended, tenderness - Extremities Exam Extremities exam: Present: warm, radial pulses palpable and symetrical. Absent : calf tenderness, cyanotic, pedal edema - Neurological Exam Neurological exam: Present: CN II-XII intact, oriented X3, no focal deficits. Absent: facial droop, speech deficit - Skin Skin exam: Present: dry, intact Internal Med - H&P Results - Labs CBC & Chem 7: 07/01/16 12:20 07/01/16 12:20 - Impressions Impressions Chest X-Ray 07/01/16 12:31 IMPRESSION: COPD/emphysema. No acute findings. D/ / 07/01/2016 13:07:32 Adeola Trujillo MD / Dea Carrero Interpreting Provider: Adeola Trujillo MD - Attending Attestation This document has been at least partially created by [employer] recognition technology by Dr. Moseley. Errors in grammar, wording or other phrases may exist. If errors are found after the documentation is signed, they will be addressed individually in the addendum section of this document when appropriate.
[2016-07-01] MEDS: traMADol 50 MG TABLET PO PRN ×2 (15:07→23:46)
[2016-07-01] MEDS: Ipratropium/Albuterol Neb 3 ML IH SCH ×2 (17:11→21:45)
[2016-07-01] MEDS: methylPREDNISolone 125 MG/2 ML VIAL IVP SCH ×2 (18:31→23:46)
[2016-07-01] MEDS: *HR* Heparin 5,000 UNIT/ML VIAL SQ SCH (18:31)
[2016-07-01] MEDS: *HR* LORazepam 0.5 MG TABLET PO SCH (20:27)
[2016-07-01 20:52] LABS: Adenovirus Not Detected (Not Detect); Bordetella Pertussis Not Detected (Not Detect); Chlamydophila pneumoniae Not Detected (Not Detect); Coronavirus 229E Not Detected (Not Detect); Coronavirus HKU1 Not Detected (Not Detect); Coronavirus NL63 Not Detected (Not Detect); Coronavirus OC43 Not Detected (Not Detect); Human Metapneumovirus Not Detected (Not Detect); Human Rhinovirus/Enterovirus Not Detected (Not Detect); Influenza A Subtype 2009 H1 Not Detected (Not Detect); Influenza A Untypeable Not Detected (Not Detect); Influenza B Not Detected (Not Detect); Mycoplasma pneumoniae Not Detected (Not Detect); Parainfluenza Virus 1 Not Detected (Not Detect); Parainfluenza Virus 2 Not Detected (Not Detect); Parainfluenza Virus 3 Not Detected (Not Detect); Parainfluenza Virus 4 Not Detected (Not Detect); Respiratory Syncytial Virus Not Detected (Not Detect)
[2016-07-01] MEDS ORDERED: Gabapentin 300 MG CAPSULE PO SCH (21:00)
[2016-07-01] MEDS: Budesonide/Formoterol 160/4.5 MDI IH SCH (21:46)
[2016-07-02] MEDS: Ipratropium/Albuterol Neb 3 ML IH SCH ×2 (04:53→11:16)
[2016-07-02 05:46] LABS: Basophils % 0.1 %; Hematocrit 37.4 % (35.3-44.9); Hemoglobin 12.2 g/dL (11.5-15.4); Immature Granulocytes % 0.4 % (0-4); Lymphocytes # 1.2 K/mcL (0.6-4.6); Lymphocytes % 10.8 %; Mean Corpuscular HGB Conc 32.6 g/dL (31.6-35.5); Mean Corpuscular Hemoglobin 30.1 pg (28.0-33.3); Mean Corpuscular Volume 92.3 fL (83.0-100.0); Mean Platelet Volume 10.5 fL (9.4-12.4); Monocytes # 0.1 K/mcL (0.0-1.3); Platelet Count 238 K/mcL (140-400); Red Blood Count 4.05 M/mcL (3.82-4.97); Segmented Neutrophils % 87.7 %
[2016-07-02 06:05] LABS: BUN/Creatinine Ratio 21 (6-26); Blood Urea Nitrogen 15 mg/dL (7-20); Carbon Dioxide 24 mEq/L (19-29); Chloride 107 mEq/L (98-109); Glucose 159 mg/dL (70-99); Osmolality,Calculated 294 (280-300); Potassium 3.8 mEq/L (3.5-4.5); Sodium 140 mEq/L (136-145); eGFR For African Americans > 60 (> 60); eGFR For Non-African Americans > 60 (> 60)
[2016-07-02] MEDS: methylPREDNISolone 125 MG/2 ML VIAL IVP SCH (06:05)
[2016-07-02] MEDS: *HR* Heparin 5,000 UNIT/ML VIAL SQ SCH (06:05)
[2016-07-02 07:20] VITALS: BP 123/71
[2016-07-02] MEDS ORDERED: Azithromycin 250 MG TABLET PO SCH (09:00)
[2016-07-02] MEDS ORDERED: amLODIPine 5 MG TABLET PO SCH (09:00)
[2016-07-02] MEDS ORDERED: Multivit/Ca/Min/Fe/FA 1 TAB TABLET PO SCH (09:00)
[2016-07-02] MEDS ORDERED: predniSONE 20 MG TABLET PO SCH (09:00)
[2016-07-02] MEDS: *HR* LORazepam 0.5 MG TABLET PO SCH (09:30)
--- NOTE | 2016-07-02 09:32 | Discharge Summary ---
Date of Encounter: 07/02/16 Time of Encounter: 09:31 - Discharge Diagnosis (1) Chronic respiratory failure Priority: Secondary Status: Chronic Qualifiers: Respiratory failure complication: hypoxia Qualified Code(s): J96.11 - Chronic respiratory failure with hypoxia (2) COPD exacerbation Priority: Primary Status: Acute (3) Acute bronchitis Priority: Primary Status: Acute Qualifiers: Bronchitis organism: unspecified organism Qualified Code(s): J20.9 - Acute bronchitis, unspecified - Discharge Medications Prescriptions: Azithromycin [Zithromax] 500 mg PO DAILY #4 tablet PredniSONE 40 mg PO DAILY #8 tablet Home Medications: Albuterol Neb [Proventil Neb] 2.5 mg IH Q4HR PRN 12/31/14 [History] Albuterol Sulfate [Albuterol Inhaler] 2 puff IH Q4HR PRN 12/31/14 [History] Amlodipine [Norvasc] 2.5 mg PO DAILY 12/31/14 [History] Cholecalciferol (Vitamin D3) [Vitamin D] 2,000 unit PO DAILY 12/31/14 [History] Omeprazole [PriLOSEC] 20 mg PO DAILY 12/31/14 [History] TraZODone 25 - 50 mg PO HS PRN 12/31/14 [History] Budesonide/Formoterol 160/4.5 [Symbicort 160/4.5] 2 puff IH BIDR 12/17/15 [ History] Gabapentin [Neurontin] 300 - 600 mg PO HS 12/17/15 [History] LORazepam [Ativan] 0.5 mg PO BID #30 tablet 12/24/15 [Rx] Multivit/Ca/Min/Fe/FA [Thera M Plus] 1 tab PO DAILY tablet 12/24/15 [Rx] TraMADol [Ultram] 50 mg PO Q6H #30 tablet 12/24/15 [Rx] Tiotropium [Spiriva] 1 cap IH DAILY 05/05/16 [History] Oxygen 2 l .ROUTE AD 06/04/16 [History] Azithromycin [Zithromax] 500 mg PO DAILY #4 tablet 07/02/16 [Rx] PredniSONE 40 mg PO DAILY #8 tablet 07/02/16 [Rx] Allergies/Adverse Reactions: Allergies Oxycodone Adverse Reaction (Verified 12/17/15 13:55) Confusion Date of admission: 07/01/16 14:00 Primary care physician: Chaz Cuellar MD Consults: 07/01/16 16:04 Consult to [employer] [CONS] Routine Reason for SW Consult: patient receives physical therapy per home and has a nurse come once a week. No home health and oxygen is through [facility] Discharging clinician: Jae Weeks Anticipated date of discharge: 07/02/16 - Patient Status Disposition: Home Health Service Condition: Good Functional capacity at discharge: uses cane/walker Overall status at discharge: patient is progressing back to baseline - Discharge Instructions Instructions: Prednisone (By mouth), Azithromycin (By mouth), Chronic Obstructive Pulmonary Disease (DC), Chronic Hypertension (DC), Pneumonia (DC) Follow Up With: Chaz Cuellar MD [Primary Care Provider] - 07/08/16 10:00 am - Diet and Activity Activity: resume usual activities as tolerated, wear oxygen at all times Diet: low salt diet Interval History: See below Hospital course: Ms. Boggs is a 81 year old female with history of COPD on home O2, chronic respiratory failure secondary to this, presented to the ER with complaints of shortness of breath, cough and worsening sputum production. She was afebrile, labs were unremarkable, chest x-ray was normal with no acute processes She was observed overnight and treated with nebs , steroids , antibiotics and O2 She was managed for acute bronchitis and COPDE She is seen at bedside this morning, stable, in no form of distress Exam is as documented She is discharged home, with home health, to complete 5 days of po azithromycin and po prednisone for 4 more days Other chronic conditions were stable through this hospitalization - Time Spent with Patient Total time spent providing and/or coordinating discharge services: Less than 30 minutes - Constitutional Vitals: Temp Pulse Resp BP Pulse Ox 98.2 F 89 16 123/71 94 07/02/16 07:19 07/02/16 07:19 07/02/16 07:19 07/02/16 07:19 07/02/16 07:19 General appearance: Present: cooperative, A&O X 3, pleasant, no acute distress, answers questions appropriately - Head Head exam: Present: atraumatic, normocephalic - Eye Eye exam: Present: PERRL, conjuntiva pink, sclera anicteric Pupils: Present: PERRL - Neck Neck exam general surgery: Present: supple, trachea midline. Absent: lymphadenopathy - Respiratory Respiratory exam: Present: CTAB. Absent: accessory muscle use, rales, rhonchi, wheezes - Cardiovascular Cardiovascular exam: Present: RRR, +S1, +S2. Absent: diastolic murmur, gallop, rubs, systolic murmur - GI/Abdominal GI/Abdominal exam: Present: normal bowel sounds, soft, no peritoneal signs. Absent: distended, tenderness - Extremities Exam Extremities exam: Present: warm, radial pulses palpable and symetrical. Absent : calf tenderness, cyanotic, pedal edema - Neurological Exam Neurological exam: Present: alert, CN II-XII intact, oriented X3, no focal deficits. Absent: pronater drift, facial droop, speech deficit - Skin Skin exam: Present: dry, intact
--- NOTE | 2016-07-02 09:49 | Physician Discharge Referral ---
Home Health/Hosp Referral Info Transfer to: Home Health Attending Provider: Micky Provider in Charge Post Discharge: PCP - Diagnosis (1) COPD exacerbation Priority: Primary Status: Acute (2) HTN (hypertension) Priority: Secondary Status: Chronic (3) GERD (gastroesophageal reflux disease) Priority: Secondary Status: Chronic (4) Osteoporosis Priority: Secondary Status: Chronic (5) Acute bronchitis Priority: Primary Status: Acute - Respiratory Orders Oxygen / L per min (2-3 L to attain O2 sat of 92% at least) Smoking Cessation: Smoking cessation has been advised. For more information, call the [place] Tobacco Quit Line at 9-218-ZAVK-NOW. - Diet/Nutrition Diet/Nutrition Orders: Cardiac - Activity Activity Orders: Up ad guille, Walker - Services Needed Following services are medically necessary services: Physical Therapy - Transfer Medications Prescriptions: Azithromycin [Zithromax] 500 mg PO DAILY #4 tablet PredniSONE 40 mg PO DAILY #8 tablet Home Medications: Albuterol Neb [Proventil Neb] 2.5 mg IH Q4HR PRN 12/31/14 [History] Albuterol Sulfate [Albuterol Inhaler] 2 puff IH Q4HR PRN 12/31/14 [History] Amlodipine [Norvasc] 2.5 mg PO DAILY 12/31/14 [History] Cholecalciferol (Vitamin D3) [Vitamin D] 2,000 unit PO DAILY 12/31/14 [History] Omeprazole [PriLOSEC] 20 mg PO DAILY 12/31/14 [History] TraZODone 25 - 50 mg PO HS PRN 12/31/14 [History] Budesonide/Formoterol 160/4.5 [Symbicort 160/4.5] 2 puff IH BIDR 12/17/15 [ History] Gabapentin [Neurontin] 300 - 600 mg PO HS 12/17/15 [History] LORazepam [Ativan] 0.5 mg PO BID #30 tablet 12/24/15 [Rx] Multivit/Ca/Min/Fe/FA [Thera M Plus] 1 tab PO DAILY tablet 12/24/15 [Rx] TraMADol [Ultram] 50 mg PO Q6H #30 tablet 12/24/15 [Rx] Tiotropium [Spiriva] 1 cap IH DAILY 05/05/16 [History] Oxygen 2 l .ROUTE AD 06/04/16 [History] Azithromycin [Zithromax] 500 mg PO DAILY #4 tablet 07/02/16 [Rx] PredniSONE 40 mg PO DAILY #8 tablet 07/02/16 [Rx] Allergies/Adverse Reactions: Allergies Oxycodone Adverse Reaction (Verified 12/17/15 13:55) Confusion Certification: Further, I certify that my clinical findings support that this patient is homebound (i.e. absences from home require considerable and taxing effort and are for medical reasons or sikhism services or infrequently or short duration when for other reasons) because: Homebound Reason: Patient requires assistance of a person or device to safely leave home Attestation: My signature below is to certify that this patient is under my care and that I, or nurse practitioner, or a physician's surgical supply assistant working with me, has a face-to -face encounter with this patient.
[2016-07-02] MEDS: Budesonide/Formoterol 160/4.5 MDI IH SCH (11:14)
--- NOTE | 2016-07-02 18:14 | Electrocardiograph Report ---
[address] [place] [address] Test Date: 2016-07-01 Pat Name: Lyssa Boggs Department: 103 Room: 3B34 Gender: F Director Of Publications: OLEGARIO : 1935 Requested By: Urbano Mixon Order Number: [id number] Reading MD: Frederick Fernandez MD Measurements Intervals [place] Rate: 77 P: 64 [place]: 161 QRS: -13 QRSD: 88 T: 41 QT: 391 QTc: 423 Interpretive Statements SINUS RHYTHM POSSIBLE INFERIOR MYOCARDIAL INFARCTION, PROBABLY OLD Electronically Signed On 07-02-2016 18:13:24 EDT by Frederick Fernandez MD
== END 2016-07-02 11:20 | disposition home health service (06) ==
LOC: 3BNU 12:01 → EMEROO 12:01 → 3BNU 14:23
PROVIDERS: ADMIT Internal Medicine; ATTEND Registered Nurse

== ENCOUNTER 2016-12-05 10:29 | Inpatient (IN) ==
[2016-12-05] MEDS ORDERED: Ipratropium/Albuterol Neb 3 ML IH ONE (11:06)
[2016-12-05] MEDS ORDERED: *HR* FentaNYL (PF) 100 MCG/2 ML VIAL IVP ONE (11:06)
[2016-12-05] MEDS ORDERED: 0.9 % Sodium Chloride 500 ML IVC ONE (11:07)
--- NOTE | 2016-12-05 11:13 | Emergency Department Note ---
Disposition Clinical Impression: Hypoxemia, Unable to ambulate Pubic ramus fracture Qualifiers: Encounter type: initial encounter Fracture type: closed Laterality: right Qualified Code(s): S32.591A - Other specified fracture of right pubis, initial encounter for closed fracture Disposition: Admitted As Inpatient Condition: Good Time of Disposition: 14:16 Extremity Problem HPI - General Chief complaint: ED Extremity Problem,Nontraumatic Stated complaint: Right hip injury Time Seen by Provider: 12/05/16 10:36 Source: EMS Limitations: physical limitation, age Nursing Notes Reviewed: Yes Vital Signs Reviewed: Yes - History of Present Illness HPI Narrative: Patient is a 81-year-old female who complains of inability to ambulate today. Patient had a fall 5 days ago. Patient was assessed and was found to not have any fractures. Pt was discharged home. Patient had worsening pain since then and now unable to ambulate. Patient lives alone and was brought in by EMS. Pain Scale: 8 - Related Data Home Medications Medication Instructions Recorded Confirmed Albuterol Neb [Proventil Neb] 2.5 mg IH Q4HR PRN 12/31/14 12/05/16 Albuterol Sulfate [Albuterol 2 puff IH Q4HR PRN 12/31/14 12/05/16 Inhaler] Amlodipine [Norvasc] 2.5 mg PO DAILY 12/31/14 12/05/16 Cholecalciferol (Vitamin D3) 2,000 unit PO DAILY 12/31/14 12/05/16 [Vitamin D] Omeprazole [PriLOSEC] 20 mg PO DAILY 12/31/14 12/05/16 Gabapentin [Neurontin] 300 - 600 mg PO HS 12/17/15 12/05/16 Oxygen 2 l .ROUTE AD 06/04/16 12/05/16 Acetylcysteine 600 mg PO BID 12/05/16 12/05/16 [H-Ydiqev-q-Cysteine] Beclomethasone Diprop 40mcg [Qvar 1 puff IH BID 12/05/16 12/05/16 40 mcg] Carvedilol [Coreg] 6.25 mg PO BID 12/05/16 12/05/16 Losartan Potassium [Cozaar] 100 mg PO DAILY 12/05/16 12/05/16 Montelukast [Singulair] 10 mg PO DAILY 12/05/16 12/05/16 Previous Rx's Medication Instructions Recorded LORazepam [Ativan] 0.5 mg PO BID #30 tablet 12/24/15 Multivit/Ca/Min/Fe/FA [Thera M 1 tab PO DAILY tablet 12/24/15 Plus] traMADol [Ultram] 50 mg PO Q6H #30 tablet 12/24/15 Allergies Allergy/AdvReac Type Severity Reaction Status Date / Time Oxycodone AdvReac Confusion Verified 12/17/15 13:55 All systems ED: reviewed and negative except as stated. Review of Systems: As Per HPI Constitutional: Reports: weakness. Denies: fever, chills ENT ED: Denies: congestion Cardiovascular: Denies: chest pain, palpitations Respiratory: Reports: cough. Denies: dyspnea Gastrointestinal: Denies: abdominal pain, nausea, vomiting, diarrhea Genitourinary: Denies: urgency, dysuria, frequency Musculoskeletal: Denies: back pain, neck pain, joint swelling Neurological: Reports: headache Endocrine: Reports: fatigue Past Medical History - Past Medical History Attestation: Yes The following information was validated with the patient. Source: patient Medical history: Reports: arthritis, COPD, GERD, hyperlipidemia, hypertension Surgical history: Reports: appendectomy, cataract, cholecystectomy, orthopedic, other, other Psychiatric history: Reports: anxiety MAIL READER history: Reports: no MAIL READER history - Social History Smoking Status: Former smoker Smokeless Tobacco Status: No Alcohol use: Reports: none Drug use: Reports: none Physical Exam The patient is currently alert and oriented 3 and in no acute distress. Patient has visible bruises on her head. No lacerations. Patient posterior well, patient able to perform maneuvers that cross midline with eyes closed. Patient has no dysdiadochokinesis. Patient does have restriction of range of motion lower right extremity that seems to pain. Patient has good range of motion of the left lower extremity. No decrease in sensation. - General Limitations: physical limitation, age General appearance: alert - Eye Eye exam: Present: normal appearance, PERRL, EOMI - ENT ENT exam: normal exam, normal oropharynx, mucous membranes moist - Neck Neck exam: Present: normal inspection, full ROM, trachea midline - Chest Chest inspection: Present: normal inspection, symmetric chest wall rise - Respiratory Respiratory exam: Present: normal lung sounds bilaterally - Cardiovascular Cardiovascular exam: Present: regular rate, normal rhythm, normal heart sounds - Abdominal Exam Abdominal exam: Present: soft, Non-Tender. Absent: tenderness, distention, guarding, rebound, rigidity - Back Exam Back exam: Present: normal inspection, full ROM. Absent: tenderness, CVA tenderness (R), CVA tenderness (L) - Neurological Exam Neurological exam: Present: alert, oriented X3 Course - Consultations Consultation #1: Dr. Romano has accepted patient for admission Time: 14:15 Vital Signs Temperature 98.4 F 12/05/16 10:32 Pulse Rate 85 12/05/16 10:32 Respiratory Rate 18 12/05/16 10:32 Blood Pressure 117/81 12/05/16 10:32 O2 Sat by Pulse Oximetry 92 12/05/16 10:32 Temperature 98.0 F 12/06/16 07:15 Pulse Rate 85 12/06/16 07:15 Respiratory Rate 18 12/06/16 07:15 Blood Pressure 146/75 12/06/16 07:15 O2 Sat by Pulse Oximetry 91 12/06/16 07:15 Oxygen Delivery Oxygen Delivery Room Air Extremity Problem, Nontraumati - [facility] Narrative Medical decision making narrative: Patient is brought in for inability to ambulate. Patient concerning for another fall and cause further injury to the patient's hips or pelvis. Patient is also concerning for compression fractures. After patient's family arrived we got a completely different story. They stated the patient may have fallen again. Plan is to get a CT of the patient's head, cervical, thorax, lumbar and pelvis. Advanced imaging results show Chest X-Ray 12/05/16 11:04 IMPRESSION: Left basilar airspace disease, which is consistent with known bronchiectasis with mucous plugging. This finding appears slightly worse when compared with June 2016, and an acute on chronic infection cannot be excluded. Short-term radiographic follow-up is suggested. D/ / Felix Cardona MD / Felix Cardona MD Interpreting Provider: Felix Cardona MD Head CT 12/05/16 11:18 IMPRESSION: No acute intracranial abnormality. Age related changes including chronic small vessel ischemic disease and cerebral atrophy. D/ / Luz Reynolds MD / Luz Reynolds MD Interpreting Provider: Luz Reynolds MD Lumbar Spine CT 12/05/16 11:18 IMPRESSION: 1. No acute lumbar spine abnormality 2. Multilevel degenerative changes 3. Previous compression fracture of T12 status post vertebroplasty D/ / Quique Noland MD / Quique Noland MD Interpreting Provider: Quique Noland MD Pelvis CT 12/05/16 11:18 IMPRESSION: Inferior pubic ramus fracture on the right. Faint lucency in the rightward aspect of the pubic symphysis. A subtle nondisplaced fracture would be difficult to exclude A small amount of air density and probable edema is noted adjacent to the inferior pubic ramus fracture on the right. D/ / Jose Griffiths / Jose Griffiths Interpreting Provider: Jose Griffiths Thoracic Spine CT 12/05/16 11:18 IMPRESSION: No acute thoracic spine fracture D/ / Rodrigo Traylor MD / Rodrigo Traylor MD Interpreting Provider: Rodrigo Traylor MD Cervical Spine CT 12/05/16 11:20 IMPRESSION: No acute abnormality of the cervical spine. Severe multilevel degenerative changes. D/ / 12/05/2016 12:27:29 Luz Reynolds MD / ray Interpreting Provider: Luz Reynolds MD We consulted Dr. Christian of orthopedics. And he states that patient's fracture does not require surgery. Since patient is unable to have ambulate. Patient will be admitted to the hospital. Patient was also hypoxic when she came in and required O2 therapy to maintain O2 saturations. Patient's O2 sat which is brought in by EMS was in the 80s. We rechecked her O2 sat saturations off O2 and patient's O2 sat sats dropped to 87%. Patient understands and accepts admission for hypoxia and inability to ambulate. Patient accepted for admission by Dr. Romano the hopiltalist. - Lab Data Result diagrams: 12/06/16 00:57 12/06/16 00:57 Lab Results 12/05/16 12/05/16 Range/Units 11:21 11:21 WBC 13.2 H (4.3-11.1) K/mcL RBC 4.49 (3.82-4.97) M/mcL Hgb 13.1 (11.5-15.4) g/dL Hct 42.2 (35.3-44.9) % MCV 94.0 (83.0-100.0) fL MCH 29.2 (28.0-33.3) pg MCHC 31.0 L (31.6-35.5) g/dL RDW 13.5 (11.5-14.5) % Plt Count 449 H (140-400) K/mcL MPV 9.8 (9.4-12.4) fL Immature Gran % 0.7 (0-4) % Seg Neutrophils % 68.7 % Lymphocytes % 20.3 % Monocytes % 6.8 % Eosinophils % 2.6 % Basophils % 0.9 % Neutrophils # 9.1 H (1.6-8.9) K/mcL Lymphocytes # 2.7 (0.6-4.6) K/mcL Monocytes # 0.9 (0.0-1.3) K/mcL Eosinophils # 0.3 (0.0-0.6) K/mcL Basophils # 0.1 (0.0-0.2) K/mcL Sodium 139 (136-145) mEq/L Potassium 4.1 (3.5-4.5) mEq/L Chloride 105 (98-109) mEq/L Carbon Dioxide 26 (19-29) mEq/L BUN 18 (7-20) mg/dL Creatinine 0.82 (0.57-1.11) mg/dL Est GFR ( Amer) > 60 (> 60) Est GFR (Non-Af Amer) > 60 (> 60) BUN/Creatinine Ratio 22 (6-26) Glucose 100 H (70-99) mg/dL Calculated Osmolality 290 (280-300) Calcium 10.1 (8.6-10.8) mg/dL Attestation Statement - Attestation Attestation: I, Manuel Albert DO, examined this patient [id number] and my medical decision-making was reviewed with Dr. Victor Manuel Jefferson, Resident Physician. I agree with the documented findings, disposition and treatment plan as described except to the extent set forth below. Please see my progress notes for details.
[2016-12-05 11:28] LABS: Basophils # 0.1 K/mcL (0.0-0.2); Basophils % 0.9 %; Eosinophils # 0.3 K/mcL (0.0-0.6); Eosinophils % 2.6 %; Hematocrit 42.2 % (35.3-44.9); Hemoglobin 13.1 g/dL (11.5-15.4); Immature Granulocytes % 0.7 % (0-4); Lymphocytes # 2.7 K/mcL (0.6-4.6); Lymphocytes % 20.3 %; Mean Corpuscular Hemoglobin 29.2 pg (28.0-33.3); Mean Platelet Volume 9.8 fL (9.4-12.4); Monocytes # 0.9 K/mcL (0.0-1.3); Monocytes % 6.8 %; Neutrophils # 9.1 K/mcL (1.6-8.9); Platelet Count 449 K/mcL (140-400); Red Blood Count 4.49 M/mcL (3.82-4.97); Red Cell Distribution Width 13.5 % (11.5-14.5); Segmented Neutrophils % 68.7 %
--- NOTE | 2016-12-05 11:40 | Emergency Department Note ---
START Narrative - START START: 81-year-old female presents to emergency room with complaint of right hip pain. Symptoms present for several months but worse over the last week. She did fall approximately 1 week ago with a closed head injury at that time. Family denies any loss of consciousness or being on a blood thinners. There are multiple confounding issues at this time of the patient's presentation symptoms and the history of all of the concerns at this point. Patient does live at home by herself she does take care of accident daily living on her own. Since the fall 1 week ago she has been unable to bear weight on her hip. Denies any other trauma or injury that she knows of. Patient appears to be speaking in full sentences alert and oriented with cranial nerves II through XII grossly intact. No focal neurologic deficits noted she has full range of motion of the neck with no point tenderness over the cervical thoracic or lumbar spine. She moves upper extremities without difficulty. Pelvis appears to be stable patient does have tenderness in the bilateral hips over the greater trochanter and into the inguinal canal. She had a lumbar film completed 2 days ago that showed chronic degenerative changes with joint space narrowing of the lumbar spine. Patient is concerning because of the falls as well as the inability to describe the actual presenting symptoms. Patient with CT imaging of the head cervical thoracic and lumbar spine she will also have CT of the pelvis with extension down through the femurs bilaterally looking for any signs of deterioration of the previous orthopedic implants in the bilateral hips. Urinalysis CBC chest x-ray troponin EKG and labs to be drawn with concern for possible infectious etiology causing her symptoms including pneumonia or urinary tract infection. Disposition will most likely be admission considering the patient is unable to ambulate at home and does live by herself. We will continue to monitor his treatment course is completed. Social work to evaluate the patient in the emergency room Patient found to have right-sided pubic rami fracture and pubic symphysis fracture. Discussed with the on-call orthopedic physician Dr. Christian. Reviewed imaging studies he said that these are both nonoperative and they could typically go home because the patient is an Courtney. Patient is unable to bear weight secondary to pain. Patient will be admitted for social service liaison evaluation pain control and possible placement. Patient does live at home by herself. Admission process will be completed at this time for evaluation of inability to care for herself at home.
[2016-12-05 11:42] LABS: BUN/Creatinine Ratio 22 (6-26); Blood Urea Nitrogen 18 mg/dL (7-20); Calcium 10.1 mg/dL (8.6-10.8); Carbon Dioxide 26 mEq/L (19-29); Chloride 105 mEq/L (98-109); Glucose 100 mg/dL (70-99); Osmolality,Calculated 290 (280-300); Potassium 4.1 mEq/L (3.5-4.5); Sodium 139 mEq/L (136-145); eGFR For African Americans > 60 (> 60); eGFR For Non-African Americans > 60 (> 60)
[2016-12-05] MEDS ORDERED: Naloxone 0.4 MG/ML INJ IVP PRN (14:26)
[2016-12-05] MEDS ORDERED: Acetaminophen 325 MG TABLET PO PRN (14:26)
--- NOTE | 2016-12-05 14:34 | Internal Med History&Physical ---
Date of Encounter: 12/05/16 Time of Encounter: 14:30 Assessment and Plan (1) Pubic ramus fracture Current visit: Yes Status: Acute Right inferior pubic ramus fracture s/p mechanical fall. Patient unable to ambulate or bear weight. Ortho consulted from ED. - Appreciate assistance from ortho - PT/OT evaluation - Patient will need rehab placement at discharge Qualifiers: Encounter type: initial encounter Fracture type: closed Laterality: right Qualified Code(s): S32.591A - Other specified fracture of right pubis, initial encounter for closed fracture (2) HTN (hypertension) Current visit: No Status: Chronic BP stable - Continue home medication regimen Qualifiers: Hypertension type: essential hypertension Qualified Code(s): I10 - Essential (primary) hypertension (3) COPD (chronic obstructive pulmonary disease) Current visit: No Status: Chronic No evidence of exacerbation at this time - Continue home inhaler regimen - O2 PRN Qualifiers: COPD type: unspecified COPD Qualified Code(s): J44.9 - Chronic obstructive pulmonary disease, unspecified Internal Medicine - H&P: HPI Chief complaint: Right hip pain Admitted From: Emergency Dept Plans for Post Hospital Care: Transfer Inp Rehab Fac History of present illness: Ms. Boggs is a 81 year old female with history of COPD on home O2, HTN, GERD and anxiety who presented to the ED this afternoon with complaint of right hip pain. She notes that the pain began five days ago when she fell. She describes a mechanical fall, after which she had severe pain in the right hip/groin. She was evaluated in urgent care soon after the fall and xrays were normal and she was able to slowly ambulate across the room so she was sent home. The pain has progressed and today she is unable to walk at all, so family brought her to the ED for evaluation. CT of the pelvis showed pubic ramus fracture. She lives at home alone and is unable to ambulate. She is admitted for pain management and evaluation for likely placement. Orthopedic surgery exhibitions curator was contacted from ED and felt this fracture would need conservative management. The patient denies chest pain, shortness of breath is at baseline. Past Med Surg Social Fam HX - Past Medical History Medical history: arthritis, COPD, GERD, hyperlipidemia, hypertension Psychiatric history: anxiety - Past Surgical History Surgical History: appendectomy, cataract, cholecystectomy, orthopedic, other, other - Social History Smoking Status: Former smoker Smokeless Tobacco Status: No Alcohol use: none Drug use: none - Family History Son Living Status: Mother Living Status: Hx Family Cancer: Yes Daughter Hx Family Cardiac Disorders: Yes (High cholesterol) Internal Medicine - H&P: Meds Albuterol Neb [Proventil Neb] 2.5 mg IH Q4HR PRN 12/31/14 [History] Albuterol Sulfate [Albuterol Inhaler] 2 puff IH Q4HR PRN 12/31/14 [History] Amlodipine [Norvasc] 2.5 mg PO DAILY 12/31/14 [History] Cholecalciferol (Vitamin D3) [Vitamin D] 2,000 unit PO DAILY 12/31/14 [History] Omeprazole [PriLOSEC] 20 mg PO DAILY 12/31/14 [History] Gabapentin [Neurontin] 300 - 600 mg PO HS 12/17/15 [History] LORazepam [Ativan] 0.5 mg PO BID #30 tablet 12/24/15 [Rx] Multivit/Ca/Min/Fe/FA [Thera M Plus] 1 tab PO DAILY tablet 12/24/15 [Rx] traMADol [Ultram] 50 mg PO Q6H #30 tablet 12/24/15 [Rx] Oxygen 2 l .ROUTE AD 06/04/16 [History] Acetylcysteine [Q-Ixdkay-p-Cysteine] 600 mg PO BID 12/05/16 [History] Beclomethasone Diprop 40mcg [Qvar 40 mcg] 1 puff IH BID 12/05/16 [History] Carvedilol [Coreg] 6.25 mg PO BID 12/05/16 [History] Losartan Potassium [Cozaar] 100 mg PO DAILY 12/05/16 [History] Montelukast [Singulair] 10 mg PO DAILY 12/05/16 [History] 3 Allergy/AdvReac Type Severity Reaction Status Date / Time Oxycodone AdvReac Confusion Verified 12/17/15 13:55 All Systems PM: A 10-system review of systems was performed and is negative for pertinent findings except as documented above in the HPI. - Constitutional Constitutional: falls, weakness - Cardiovascular Cardiovascular ROS IM: no chest pain, no diaphoresis, no dyspnea - Respiratory Respiratory: no cough, no dyspnea - Gastrointestinal Gastrointestinal: no abdominal pain, no diarrhea, no nausea, no vomiting - Musculoskeletal Musculoskeletal ROS IM: no muscle cramps - Neurological Neurological ROS: weakness, no tremor(s) - Psychiatric Psychiatric: anxiety - Constitutional Vitals: Temp Pulse Resp BP Pulse Ox 97.5 F L 79 18 139/72 95 12/05/16 14:11 12/05/16 12:53 12/05/16 14:11 12/05/16 14:11 12/05/16 12:53 General appearance: Present: A&O X 3, pleasant, no acute distress - Head Head exam: Present: atraumatic - Eye Eye exam: Present: EOMI, sclera anicteric - ENT ENT exam: Present: mucous membranes moist - Neck Neck exam general surgery: Present: supple - Respiratory Respiratory exam: Present: CTAB - Cardiovascular Cardiovascular exam: Present: RRR. Absent: diastolic murmur, gallop, rubs, systolic murmur - GI/Abdominal GI/Abdominal exam: Present: normal bowel sounds, soft. Absent: distended, tenderness - Extremities Exam Extremities exam: Present: pedal edema Additional comments: 1+ edema bilateral lower extremities - Neurological Exam Neurological exam: Present: no focal deficits - Psychiatric Psychiatric exam: Present: normal affect, normal mood - Skin Skin exam: Absent: rash Internal Med - H&P Results - Labs CBC & Chem 7: 12/05/16 11:21 12/05/16 11:21
[2016-12-05] MEDS ORDERED: Albuterol 2.5 MG/3 ML NEBULIZER IH PRN (15:10)
[2016-12-05] MEDS ORDERED: NON-FORMULARY MEDICATION 1 EACH EACH (Oxygen [Oxygen] 2 L) SCH (15:15)
[2016-12-05] MEDS: traMADol 50 MG TABLET PO SCH ×2 (16:45→23:36)
--- NOTE | 2016-12-05 18:24 | Event Note ---
Date of Encounter: 12/05/16 Time of Encounter: 18:00 Called by RN because patient complaining of chest pain. I promptly evaluated patient in her room - she states she is having right lateral chest pain, pleuritic in nature. She endorses similar pain in the past. The pain has been present since she was in the ED and she is unable to identify any relieving factors. She rates the pain 8/10. EKG obtained with NSR, no ischemic ST or T wave changes. Will trend troponins and check D-dimer, if D-dimer is positive will get CTA to rule out PE, as she has been nearly bedbound past five days because of pain.
[2016-12-05] MEDS: *HR* LORazepam 0.5 MG TABLET PO SCH (20:33)
[2016-12-05] MEDS: Gabapentin 300 MG CAPSULE PO SCH (20:33)
[2016-12-05] MEDS: Beclomethasone 40mcg MDI IH SCH (20:35)
[2016-12-05] MEDS: *HR* Acetylcysteine 20% 600 MG/3 ML ORAL SYRINGE PO SCH (22:42)
[2016-12-06 01:32] LABS: Basophils # 0.1 K/mcL (0.0-0.2); Basophils % 0.7 %; Eosinophils # 0.3 K/mcL (0.0-0.6); Eosinophils % 1.7 %; Hematocrit 37.5 % (35.3-44.9); Immature Granulocytes % 0.6 % (0-4); Lymphocytes # 2.4 K/mcL (0.6-4.6); Lymphocytes % 14.6 %; Mean Corpuscular Hemoglobin 29.8 pg (28.0-33.3); Mean Corpuscular Volume 93.1 fL (83.0-100.0); Mean Platelet Volume 10.2 fL (9.4-12.4); Monocytes # 1.3 K/mcL (0.0-1.3); Monocytes % 8.1 %; Neutrophils # 12.1 K/mcL (1.6-8.9); Platelet Count 416 K/mcL (140-400); Red Blood Count 4.03 M/mcL (3.82-4.97); Red Cell Distribution Width 13.3 % (11.5-14.5); Segmented Neutrophils % 74.3 %
[2016-12-06 01:38] LABS: BUN/Creatinine Ratio 14 (6-26); Blood Urea Nitrogen 10 mg/dL (7-20); Calcium 9.3 mg/dL (8.6-10.8); Carbon Dioxide 25 mEq/L (19-29); Chloride 105 mEq/L (98-109); Glucose 109 mg/dL (70-99); Osmolality,Calculated 284 (280-300); Sodium 137 mEq/L (136-145); eGFR For African Americans > 60 (> 60); eGFR For Non-African Americans > 60 (> 60)
[2016-12-06] MEDS: traMADol 50 MG TABLET PO SCH ×4 (05:23→23:23)
--- NOTE | 2016-12-06 07:42 | Orthopedic Consult Note ---
Date of Encounter: 12/06/16 Time of Encounter: 07:34 Assessment and Plan (1) Pelvis fracture Current Visit: Yes Status: Acute I did discuss the diagnosis in detail the patient. She has nondisplaced pubic ramus fractures on the right. I did discuss treatment options and my recommendation was for nonoperative management in the form of physical therapy and weightbearing as tolerated on the bilateral lower extremities. She will require radiographic follow-up. I anticipate the need for a rehabilitation facility upon discharge she recovers. She is orthopedically stable for discharge when this has been set up. Follow-up in the office in one week for a clinical and radiographic reevaluation or sooner if needed. She will call the office sooner for any new or worsening concerns. Qualifiers: Qualified Code(s): S32.9XXA - Fracture of unspecified parts of lumbosacral spine and pelvis, initial encounter for closed fracture History of Present Illness HPI: Ms. Boggs is a 81 year old female who is a walker-assisted community ambulator. She is post right hip hemiarthroplasty and left hip pinning for previous hip fractures. She had recovered reasonably well from these. She had a fall last Thursday which was mechanical in nature and his been nonambulatory since due to pain. Due to persistence of her symptoms she did present to the emergency department and was found to have right-sided pubic ramus fractures and was admitted to the hospitalist for placement. Orthopedics was consulted to assist in the evaluation and management of this patient. On my evaluation she complains of isolated pain to the right groin region. Pain is worse with movement and better at rest. No other modifying factors. There is no associated numbness, tingling, or any other associated signs or symptoms. She denies any headaches, neck pain, chest pain, abdominal pain, bilateral upper extremity pain, and left lower extremity pain. Past Med Surg Social Fam HX - Past Medical History Medical history: arthritis, COPD, GERD, hyperlipidemia, hypertension Psychiatric history: anxiety - Past Surgical History Surgical History: appendectomy, cataract, cholecystectomy, orthopedic, other, other - Social History Smoking Status: Former smoker Smokeless Tobacco Status: No Alcohol use: none Drug use: none - Family History Son Name: Chris Boggs Living Status: Hx Family Musculoskeletal Disorders: Yes Mother Living Status: Hx Family Cancer: Yes Daughter Hx Family Cardiac Disorders: Yes (High cholesterol) Medications and Allergies Albuterol Neb [Proventil Neb] 2.5 mg IH Q4HR PRN 12/31/14 [History] Albuterol Sulfate [Albuterol Inhaler] 2 puff IH Q4HR PRN 12/31/14 [History] Amlodipine [Norvasc] 2.5 mg PO DAILY 12/31/14 [History] Cholecalciferol (Vitamin D3) [Vitamin D] 2,000 unit PO DAILY 12/31/14 [History] Omeprazole [PriLOSEC] 20 mg PO DAILY 12/31/14 [History] Gabapentin [Neurontin] 300 - 600 mg PO HS 12/17/15 [History] LORazepam [Ativan] 0.5 mg PO BID #30 tablet 12/24/15 [Rx] Multivit/Ca/Min/Fe/FA [Thera M Plus] 1 tab PO DAILY tablet 12/24/15 [Rx] traMADol [Ultram] 50 mg PO Q6H #30 tablet 12/24/15 [Rx] Oxygen 2 l .ROUTE AD 06/04/16 [History] Acetylcysteine [I-Ebmgps-e-Cysteine] 600 mg PO BID 12/05/16 [History] Beclomethasone Diprop 40mcg [Qvar 40 mcg] 1 puff IH BID 12/05/16 [History] Carvedilol [Coreg] 6.25 mg PO BID 12/05/16 [History] Losartan Potassium [Cozaar] 100 mg PO DAILY 12/05/16 [History] Montelukast [Singulair] 10 mg PO DAILY 12/05/16 [History] 3 Allergy/AdvReac Type Severity Reaction Status Date / Time Oxycodone AdvReac Confusion Verified 12/17/15 13:55 All Systems Reviewed: Constitutional and musculoskeletal systems were reviewed and are negative unless otherwise stated in history of present illness. Physical Exam - Constitutional Vitals: Temp Pulse Resp BP Pulse Ox 98.0 F 85 18 146/75 91 12/06/16 07:15 12/06/16 07:15 12/06/16 07:15 12/06/16 07:15 12/06/16 07:15 Constitutional -Vitals reviewed -The patient is well developed and well nourished. -Mood is pleasant. -The patient is well groomed. Psychiatric -The patient is fully alert and oriented x 3. Respiratory: -Respiratory effort normal Abdomen: -Soft abdomen -Non tender -Non distended: Pelvis: -Tenderness over the symphysis -No instability when pressing on the iliac wings Left upper extremity: -No deformities. The overlying skin is intact. No obvious signs of acute trauma. -No tenderness to palpation throughout. -No significant pain with passive motion of the shoulder, elbow, wrist, and fingers within the limits of the bed. -Able to make an "OK" sign, cross the index and long fingers, and extend the thumb. -Sensation grossly intact to light touch throughout the median, radial, and ulnar distributions. -Radial pulse is present; Fingers have good capillary refill. Right upper extremity: -No deformities. The overlying skin is intact. No obvious signs of acute trauma. -No tenderness to palpation throughout. -No significant pain with passive motion of the shoulder, elbow, wrist, and fingers within the limits of the bed. -Able to make an "OK" sign, cross the index and long fingers, and extend the thumb. -Sensation grossly intact to light touch throughout the median, radial, and ulnar distributions. -Radial pulse is present; Fingers have good capillary refill. Left lower extremity: -No deformities. The overlying skin is intact. No obvious signs of acute trauma. -No tenderness to palpation throughout. -No pain with passive motion of the hip, knee, ankle, and toes within the limits of the bed. -No pain with axial loading of the thigh. -Able to dorsiflex and plantarflex the ankle and toes. -Sensation is grossly intact to light touch throughout the sural, saphenous, superficial peroneal, and deep peroneal distributions. -Toes have good capillary refill. Right lower extremity: -No deformities. The overlying skin is intact. No obvious signs of acute trauma. -No tenderness to palpation throughout. -Mild groin pain with passive motion of the right hip. -No pain with passive motion of the knee, ankle, and toes within the limits of the bed. -No pain with axial loading of the thigh. -Able to dorsiflex and plantarflex the ankle and toes. -Sensation is grossly intact to light touch throughout the sural, saphenous, superficial peroneal, and deep peroneal distributions. -Toes have good capillary refill. Diagnostic Imaging: I did personally review and interpret a CT scan of the pelvis which shows right- sided pubic ramus fractures involving the symphysis. No diastases. No sacral fracture identified. Results - Labs Result Diagrams: 12/06/16 00:57 12/06/16 00:57 Labs: Abnormal lab results WBC 16.3 K/mcL (4.3-11.1) H 12/06/16 00:57 Plt Count 416 K/mcL (140-400) H 12/06/16 00:57 Neutrophils # 12.1 K/mcL (1.6-8.9) H 12/06/16 00:57 D-Dimer 1659 ng/mLFEU (0-500) H 12/05/16 18:45 Glucose 109 mg/dL (70-99) H 12/06/16 00:57 H & H 12/06/16 Range/Units 00:57 Hgb 12.0 (11.5-15.4) g/dL Hct 37.5 (35.3-44.9) % All other labs normal. Consult Discharge Plan - Plan Referrals: Chaz Cuellar MD [Primary Care Provider] -
[2016-12-06] MEDS: Beclomethasone 40mcg MDI IH SCH ×2 (08:10→20:26)
--- NOTE | 2016-12-06 09:41 | Internal Med Progress Note ---
<Mathew Hoyt - Last Filed: 12/06/16 10:02> Date of Encounter: 12/06/16 Time of Encounter: 09:38 - Assessment and plan (1) Pubic ramus fracture Current Visit: Yes Status: Acute Assessment and plan: patient complains of right hip pain x5 days since fall. head ct, lumbar spine CT, thoracic and cervical spine CT negative for acute fracture. pelvis CT showed inferior pubic ramus fracture on the right. orthopedic surgery on board, they are recommending nonoperative management with physical therapy and weightbearing as tolerated on the bilateral lower extremities. Plan: Pt/OT consult. follow up with orthopedic surgery outpatient one week after discharge. await discharge planning to longterm. referral packet sent to [facility]. Qualifiers: Encounter type: initial encounter Fracture type: closed Laterality: right Qualified Code(s): S32.591A - Other specified fracture of right pubis, initial encounter for closed fracture (2) Leukocytosis Current Visit: Yes Status: Acute Assessment and plan: CT chest showed interval development of focal nodular consolidation within right upper lobe and new consolidation within the left lower lobe anteriorly and laterally which is concerning for multifocal pneumonia. There was also several bilateral emphysematous changes noted, bilateral scarring, and chronic bilateral consolidative changes. Plan: blood cultures x2 sputum culture pending. Qualifiers: Leukocytosis type: unspecified Qualified Code(s): D72.829 - Elevated white blood cell count, unspecified (3) Fall Current Visit: Yes Status: Acute Assessment and plan: plan as above Qualifiers: Encounter type: sequela Qualified Code(s): W19.XXXS - Unspecified fall, sequela (4) HTN (hypertension) Current Visit: No Status: Chronic Assessment and plan: continue home meds. Qualifiers: Hypertension type: essential hypertension Qualified Code(s): I10 - Essential (primary) hypertension (5) COPD (chronic obstructive pulmonary disease) Current Visit: No Status: Chronic Assessment and plan: not in exacerbation continue home inhalers Qualifiers: COPD type: unspecified COPD Qualified Code(s): J44.9 - Chronic obstructive pulmonary disease, unspecified (6) DVT prophylaxis Current Visit: Yes Status: Acute Assessment and plan: heparin SQ - Subjective Interval history: 81F evaluated at bedside. patient denies nausea, vomiting, diarrhea, fever, chills, chest pain. admits to shortness of breath which is chronic. she denies any further problems today. - Constitutional Vitals: Temp Pulse Resp BP Pulse Ox 98.0 F 85 18 146/75 91 12/06/16 07:15 12/06/16 07:15 12/06/16 07:15 12/06/16 07:15 12/06/16 07:15 General appearance: Present: A&O X 3, pleasant, no acute distress, answers questions appropriately - Head Head exam: Present: atraumatic, normocephalic - Neck Neck exam general surgery: Present: supple, trachea midline - Respiratory Additional comments: diminished breath sounds. diffuse rales and rhonchi noted throughout. - Cardiovascular Cardiovascular exam: Present: RRR, +S1, +S2 - Extremities Exam Extremities exam: Absent: cyanotic, pedal edema Additional comments: right hip pain. - Neurological Exam Neurological exam: Present: alert, oriented X3, no focal deficits Internal Medicine: Result - Labs CBC & Chem 7: 12/06/16 00:57 12/06/16 00:57 Labs: Short CBC 12/06/16 Range/Units 00:57 WBC 16.3 H (4.3-11.1) K/mcL Hgb 12.0 (11.5-15.4) g/dL Hct 37.5 (35.3-44.9) % Plt Count 416 H (140-400) K/mcL Neutrophils # 12.1 H (1.6-8.9) K/mcL BMP 12/06/16 00:57 Sodium 137 Potassium 4.0 Chloride 105 Carbon Dioxide 25 BUN 10 Creatinine 0.70 Glucose 109 H Calcium 9.3 Cardiac Enzymes 12/05/16 12/06/16 Range/Units 18:45 00:57 Troponin I 0.00 0.00 (0-0.03) ng/mL - ABG Interpretation ABG results: PT/INR, D-dimer D-Dimer 1659 ng/mLFEU (0-500) H 12/05/16 18:45 - Impressions Impressions Chest CTA 12/05/16 20:37 IMPRESSION: No evidence of pulmonary embolism. Interval development of focal nodular consolidation within the right upper lobe as well as new consolidation within the left lower lobe anteriorly and laterally which is concerning for multifocal pneumonia. Grossly similar appearance of severe bilateral emphysematous changes, bilateral scarring, and chronic bilateral consolidative changes. Evidence for prior granulomatous disease. D/ / Torin Romano MD / Torin Romano MD Interpreting Provider: Torin Romano MD Consult Discharge Plan - Plan Referrals: Chaz Cuellar MD [Primary Care Provider] - <Nigel Reynolds H - Last Filed: 12/06/16 12:40> Date of Encounter: 12/06/16 - Constitutional Vitals: Temp Pulse Resp BP Pulse Ox 97.8 F 73 15 105/67 92 12/06/16 11:47 12/06/16 11:47 12/06/16 11:47 12/06/16 11:47 12/06/16 11:47 Internal Medicine: Result - Labs CBC & Chem 7: 12/06/16 00:57 12/06/16 00:57 Labs: Short CBC 12/06/16 Range/Units 00:57 WBC 16.3 H (4.3-11.1) K/mcL Hgb 12.0 (11.5-15.4) g/dL Hct 37.5 (35.3-44.9) % Plt Count 416 H (140-400) K/mcL Neutrophils # 12.1 H (1.6-8.9) K/mcL BMP 12/06/16 00:57 Sodium 137 Potassium 4.0 Chloride 105 Carbon Dioxide 25 BUN 10 Creatinine 0.70 Glucose 109 H Calcium 9.3 Cardiac Enzymes 12/05/16 12/06/16 Range/Units 18:45 00:57 Troponin I 0.00 0.00 (0-0.03) ng/mL - ABG Interpretation ABG results: PT/INR, D-dimer D-Dimer 1659 ng/mLFEU (0-500) H 12/05/16 18:45 - Impressions Impressions Chest CTA 12/05/16 20:37 IMPRESSION: No evidence of pulmonary embolism. Interval development of focal nodular consolidation within the right upper lobe as well as new consolidation within the left lower lobe anteriorly and laterally which is concerning for multifocal pneumonia. Grossly similar appearance of severe bilateral emphysematous changes, bilateral scarring, and chronic bilateral consolidative changes. Evidence for prior granulomatous disease. D/ / Torin Romano MD / Torin Romano MD Interpreting Provider: Torin Romano MD - Attending Attestation possible gram negative Pneumonia ( history of Pseudomonas pneumonia) resistent to Levaquin Start Cefepime and azithromycin follow sputum cultures final report Intractable pain 2ry to pubic ramus fractures pain controlled with tramadol I examined this patient and my medical decision-making was reviewed with the Resident Physician. I agree with the documented findings, disposition and treatment plan as described except to the extent set forth below.
[2016-12-06] MEDS ORDERED: Ipratropium/Albuterol Neb 3 ML IH PRN (10:01)
[2016-12-06] MEDS: *HR* LORazepam 0.5 MG TABLET PO SCH ×2 (10:21→20:13)
[2016-12-06] MEDS: Cholecalciferol (D-3) 1,000 UNIT TABLET PO SCH (10:22)
[2016-12-06] MEDS: amLODIPine 5 MG TABLET PO SCH (10:22)
[2016-12-06] MEDS: *HR* Heparin 5,000 UNIT/ML VIAL SQ SCH ×2 (10:32→17:07)
[2016-12-06] MEDS: *HR* Acetylcysteine 20% 600 MG/3 ML ORAL SYRINGE PO SCH ×2 (12:17→22:15)
[2016-12-06] MEDS ORDERED: Cefepime HCl 1,000 MG in D5% in Water (Mini-Bag+) 100 ML IVPB SCH (13:00)
[2016-12-06] MEDS ORDERED: Azithromycin 500 MG in D5% in Water 250 ML IVPB SCH (13:00)
[2016-12-06] MEDS: 0.9 % Sodium Chloride 1,000 ML IVC SCH (17:05)
[2016-12-06] MEDS: Cefepime HCl 1,000 MG in D5% in Water (Mini-Bag+) 100 ML IVPB SCH (20:11)
[2016-12-06] MEDS: Azithromycin 500 MG in D5% in Water 250 ML IVPB SCH (20:12)
[2016-12-06] MEDS: Gabapentin 300 MG CAPSULE PO SCH (20:13)
[2016-12-07 03:45] LABS: Basophils # 0.1 K/mcL (0.0-0.2); Basophils % 0.6 %; Eosinophils # 0.1 K/mcL (0.0-0.6); Eosinophils % 0.5 %; Hematocrit 37.1 % (35.3-44.9); Hemoglobin 11.8 g/dL (11.5-15.4); Immature Granulocytes % 0.7 % (0-4); Lymphocytes # 1.9 K/mcL (0.6-4.6); Lymphocytes % 11.2 %; Mean Corpuscular HGB Conc 31.8 g/dL (31.6-35.5); Mean Corpuscular Hemoglobin 29.4 pg (28.0-33.3); Mean Corpuscular Volume 92.3 fL (83.0-100.0); Mean Platelet Volume 9.8 fL (9.4-12.4); Monocytes # 1.4 K/mcL (0.0-1.3); Monocytes % 8.3 %; Neutrophils # 13.1 K/mcL (1.6-8.9); Platelet Count 396 K/mcL (140-400); Red Blood Count 4.02 M/mcL (3.82-4.97); Red Cell Distribution Width 13.1 % (11.5-14.5); Segmented Neutrophils % 78.7 %
[2016-12-07 03:58] LABS: BUN/Creatinine Ratio 17 (6-26); Blood Urea Nitrogen 12 mg/dL (7-20); Calcium 9.5 mg/dL (8.6-10.8); Carbon Dioxide 25 mEq/L (19-29); Chloride 102 mEq/L (98-109); Glucose 106 mg/dL (70-99); Osmolality,Calculated 278 (280-300); Potassium 4.1 mEq/L (3.5-4.5); Sodium 134 mEq/L (136-145); eGFR For African Americans > 60 (> 60); eGFR For Non-African Americans > 60 (> 60)
[2016-12-07] MEDS ORDERED: *HR* Morphine 2 MG/ML SYRINGE IVP PRN (05:09)
[2016-12-07] MEDS: traMADol 50 MG TABLET PO SCH ×3 (05:12→17:25)
[2016-12-07] MEDS: *HR* Heparin 5,000 UNIT/ML VIAL SQ SCH ×2 (05:13→17:25)
[2016-12-07] MEDS: 0.9 % Sodium Chloride 1,000 ML IVC SCH ×2 (09:40→22:47)
[2016-12-07] MEDS: Cefepime HCl 1,000 MG in D5% in Water (Mini-Bag+) 100 ML IVPB SCH ×2 (09:41→20:35)
[2016-12-07] MEDS: Cholecalciferol (D-3) 1,000 UNIT TABLET PO SCH (09:44)
[2016-12-07] MEDS: amLODIPine 5 MG TABLET PO SCH (09:44)
[2016-12-07] MEDS: *HR* LORazepam 0.5 MG TABLET PO SCH ×2 (09:45→20:36)
[2016-12-07] MEDS: *HR* Acetylcysteine 20% 600 MG/3 ML ORAL SYRINGE PO SCH ×2 (10:06→20:36)
[2016-12-07] MEDS: Beclomethasone 40mcg MDI IH SCH ×2 (10:37→20:29)
--- NOTE | 2016-12-07 10:38 | Internal Med Progress Note ---
<BrianusMathew - Last Filed: 12/07/16 10:25> Date of Encounter: 12/07/16 Time of Encounter: 10:25 - Assessment and plan (1) Pubic ramus fracture Current Visit: Yes Status: Acute Assessment and plan: patient complains of right hip pain x5 days since fall. head ct, lumbar spine CT, thoracic and cervical spine CT negative for acute fracture. pelvis CT showed inferior pubic ramus fracture on the right. orthopedic surgery on board, they are recommending nonoperative management with physical therapy and weightbearing as tolerated on the bilateral lower extremities. Plan: Pt/OT consult. follow up with orthopedic surgery outpatient one week after discharge. [facility]. [facility] packet sent to [facility]. Qualifiers: Encounter type: initial encounter Fracture type: closed Laterality: right Qualified Code(s): S32.591A - Other specified fracture of right pubis, initial encounter for closed fracture (2) Leukocytosis Current Visit: Yes Status: Acute Assessment and plan: CT chest showed interval development of focal nodular consolidation within right upper lobe and new consolidation within the left lower lobe anteriorly and laterally which is concerning for multifocal pneumonia. There was also several bilateral emphysematous changes noted, bilateral scarring, and chronic bilateral consolidative changes. sputum culture significant for gram negative rods. cultures in the past have grown pseudomonas, resistant to levaquin. Plan: blood cultures x2 zithromax and cefepime day 2 Qualifiers: Leukocytosis type: unspecified Qualified Code(s): D72.829 - Elevated white blood cell count, unspecified (3) Fall Current Visit: Yes Status: Acute Assessment and plan: plan as above Qualifiers: Encounter type: sequela Qualified Code(s): W19.XXXS - Unspecified fall, sequela (4) HTN (hypertension) Current Visit: No Status: Chronic Assessment and plan: continue home meds. Qualifiers: Hypertension type: essential hypertension Qualified Code(s): I10 - Essential (primary) hypertension (5) COPD (chronic obstructive pulmonary disease) Current Visit: No Status: Chronic Assessment and plan: continue home inhalers Qualifiers: COPD type: unspecified COPD Qualified Code(s): J44.9 - Chronic obstructive pulmonary disease, unspecified (6) DVT prophylaxis Current Visit: Yes Status: Acute Assessment and plan: heparin SQ - Subjective Interval history: 81F evaluated at bedside. patient denies nausea, vomiting, diarrhea, fever, chills. she is very lethargic and does not answer all questions. - Constitutional Vitals: Temp Pulse Resp BP Pulse Ox 98.9 F 101 16 143/66 92 12/07/16 09:54 12/07/16 10:21 12/07/16 07:46 12/07/16 09:54 12/07/16 10:21 General appearance: Present: mild distress, A&O X 3, pleasant - Head Head exam: Present: atraumatic, normocephalic - Neck Neck exam general surgery: Present: supple, trachea midline - Respiratory Additional comments: rales, wheezing, rhonchi. - Cardiovascular Cardiovascular exam: Present: tachycardia - GI/Abdominal GI/Abdominal exam: Present: normal bowel sounds, soft. Absent: distended, tenderness - Extremities Exam Extremities exam: Absent: cyanotic, pedal edema - Neurological Exam Neurological exam: Present: alert Additional comments: very lethargic Internal Medicine: Result - Labs CBC & Chem 7: 12/07/16 03:35 12/07/16 03:35 Labs: Short CBC 12/07/16 Range/Units 03:35 WBC 16.7 H (4.3-11.1) K/mcL Hgb 11.8 (11.5-15.4) g/dL Hct 37.1 (35.3-44.9) % Plt Count 396 (140-400) K/mcL Neutrophils # 13.1 H (1.6-8.9) K/mcL BMP 12/07/16 03:35 Sodium 134 L Potassium 4.1 Chloride 102 Carbon Dioxide 25 BUN 12 Creatinine 0.69 Glucose 106 H Calcium 9.5 - ABG Interpretation ABG results: PT/INR, D-dimer D-Dimer 1659 ng/mLFEU (0-500) H 12/05/16 18:45 - Impressions Impressions Hand X-Ray 12/07/16 05:07 IMPRESSION: 1. Degenerative changes about the carpus and several interphalangeal joints of the hand. 2. Focal calcification along dorsal aspect of proximal carpal row. Finding could be related to chondrocalcinosis about the wrist however changes associated with prior avulsion injury involving triquetral bone also a possibility. Clinical correlation would be helpful. 3. Findings suggestive of presence of 2 cm linear metallic foreign body within ventral soft tissues of the distal forearm as described above. D/ / 12/07/2016 07:46:33 Urbano Fernandez MD / Dea Carrero Interpreting Provider: Urbano Fernandez MD Wrist X-Ray 12/07/16 05:07 IMPRESSION: 1. Degenerative changes of the carpus most pronounced laterally. 2. Foci of calcification adjacent to distal ulna suggestive of presence of chondrocalcinosis. 3. Focal calcification along dorsal aspect of proximal carpal row. Finding could be related to chondrocalcinosis/degenerative change however changes associated with avulsion injury involving the triquetral bone, age indeterminate, also on the differential diagnosis. 4. Findings suggestive of presence of metallic foreign body within ventral soft tissues of the distal forearm as described above. D/ / 12/07/2016 07:48:45 Urbano Fernandez MD / Dea Carrero Interpreting Provider: Urbano Fernandez MD Consult Discharge Plan - Plan Referrals: Chaz Cuellar MD [Primary Care Provider] - <Nigel Reynolds - Last Filed: 12/07/16 13:06> Date of Encounter: 12/07/16 - Constitutional Vitals: Temp Pulse Resp BP Pulse Ox 97.6 F 98 27 129/78 97 12/07/16 11:49 12/07/16 11:49 12/07/16 11:49 12/07/16 11:49 12/07/16 11:49 Internal Medicine: Result - Labs CBC & Chem 7: 12/07/16 03:35 12/07/16 03:35 Labs: Short CBC 12/07/16 Range/Units 03:35 WBC 16.7 H (4.3-11.1) K/mcL Hgb 11.8 (11.5-15.4) g/dL Hct 37.1 (35.3-44.9) % Plt Count 396 (140-400) K/mcL Neutrophils # 13.1 H (1.6-8.9) K/mcL BMP 12/07/16 03:35 Sodium 134 L Potassium 4.1 Chloride 102 Carbon Dioxide 25 BUN 12 Creatinine 0.69 Glucose 106 H Calcium 9.5 - ABG Interpretation ABG results: PT/INR, D-dimer D-Dimer 1659 ng/mLFEU (0-500) H 12/05/16 18:45 - Impressions Impressions Hand X-Ray 12/07/16 05:07 IMPRESSION: 1. Degenerative changes about the carpus and several interphalangeal joints of the hand. 2. Focal calcification along dorsal aspect of proximal carpal row. Finding could be related to chondrocalcinosis about the wrist however changes associated with prior avulsion injury involving triquetral bone also a possibility. Clinical correlation would be helpful. 3. Findings suggestive of presence of 2 cm linear metallic foreign body within ventral soft tissues of the distal forearm as described above. D/ / 12/07/2016 07:46:33 Urbano Fernandez MD / Dea Carrero Interpreting Provider: Urbano Fernandez MD Wrist X-Ray 12/07/16 05:07 IMPRESSION: 1. Degenerative changes of the carpus most pronounced laterally. 2. Foci of calcification adjacent to distal ulna suggestive of presence of chondrocalcinosis. 3. Focal calcification along dorsal aspect of proximal carpal row. Finding could be related to chondrocalcinosis/degenerative change however changes associated with avulsion injury involving the triquetral bone, age indeterminate, also on the differential diagnosis. 4. Findings suggestive of presence of metallic foreign body within ventral soft tissues of the distal forearm as described above. D/ / 12/07/2016 07:48:45 Urbano Fernandez MD / Dea Carrero Interpreting Provider: Urbano Fernandez MD - Attending Attestation Sepsis secondary to possible gram negative Pneumonia ( history of Pseudomonas pneumonia) resistent to Levaquin Continue Cefepime and azithromycin day 2 follow sputum cultures final report: Growing gram-negative rods Intractable pain 2ry to pubic ramus fractures pain controlled with tramadol I examined this patient and my medical decision-making was reviewed with the Resident Physician. I agree with the documented findings, disposition and treatment plan as described except to the extent set forth below.
--- NOTE | 2016-12-07 12:16 | Orthopedics Progress Note ---
Date of Encounter: 12/07/16 Time of Encounter: 12:14 - Assessment and Plan (1) Pelvis fracture Current Visit: Yes Status: Acute I did discuss the diagnosis in detail the patient. She has nondisplaced pubic ramus fractures on the right. I did discuss treatment options and my recommendation was for nonoperative management in the form of physical therapy and weightbearing as tolerated on the bilateral lower extremities. She will require radiographic follow-up. I anticipate the need for a rehabilitation facility upon discharge she recovers. She is orthopedically stable for discharge when this has been set up. Follow-up in the office in one week for a clinical and radiographic reevaluation or sooner if needed. She will call the office sooner for any new or worsening concerns. Qualifiers: Qualified Code(s): S32.9XXA - Fracture of unspecified parts of lumbosacral spine and pelvis, initial encounter for closed fracture Subjective Interval history: S: Resting in bed; quite drowsy related to recent Ativan; no new complaints O: Afebrile and vital signs are stable No deformities to bilateral lower extremities The overlying skin is intact Mild pain with axial loading and log rolling of the right thigh She can grossly dorsiflex and plantarflex the right ankle and toes and the foot is warm and well-perfused A: Stable pelvic ring injury, right inferior pubic ramus P: Physical therapy when able Weightbearing as tolerated bilateral lower extremities Nonoperative management Orthopedically stable for discharge Follow-up in the office in one week for repeat x-ray Objective Vital signs: Vital Signs Temp Pulse Resp BP Pulse Ox 12/07/16 11:49 97.6 F 98 27 129/78 97 12/07/16 10:37 16 93 12/07/16 10:21 101 92 12/07/16 09:54 98.9 F 104 143/66 90 12/07/16 07:46 98.0 F 104 16 154/93 92 12/07/16 00:00 98.1 F 81 18 125/55 92 12/06/16 21:12 98.4 F 83 16 125/58 91 12/06/16 20:27 16 91 12/06/16 16:06 97.8 F 74 15 112/59 92 Intake and Output 12/06/16 12/07/16 12/07/16 23:59 07:59 15:59 Intake Total 200 / 200 1100 / 1100 250 / 250 Output Total 400 / 400 500 / 500 Balance 200 / 200 700 / 700 -250 / -250 Intake: IV Fluids 1100 / 1100 250 / 250 0.9 % Sodium Chloride 1,000 ML 1000 / 1000 @ 75 mls/hr IVC .[id number] JAMES Rx #:[id number] Zithromax 500 mg In Dextrose 5% 250 / 250 250 ML @ 252 mls/hr IVPB Q24H JAMES Rx#:[id number] Maxipime 1,000 MG In Dextrose 5 100 / 100 % (Minibag+) 100 ML 100 ML @ 200 mls/hr IVPB Q12H JAMES Rx#: [id number] Oral 200 / 200 Output: Catheter 400 / 400 500 / 500 Other: Meal Breakfast Percent of Meal Consumed 0% Weight 58.2 kg Patient Weight 12/07/16 23:59 Weight 58.2 kg - Labs CBC & BMP: 12/07/16 03:35 12/07/16 03:35 Labs: Abnormal lab results WBC 16.7 K/mcL (4.3-11.1) H 12/07/16 03:35 Neutrophils # 13.1 K/mcL (1.6-8.9) H 12/07/16 03:35 Monocytes # 1.4 K/mcL (0.0-1.3) H 12/07/16 03:35 D-Dimer 1659 ng/mLFEU (0-500) H 12/05/16 18:45 Sodium 134 mEq/L (136-145) L 12/07/16 03:35 Glucose 106 mg/dL (70-99) H 12/07/16 03:35 Calculated Osmolality 278 (280-300) L 12/07/16 03:35 Consult Discharge Plan - Plan Referrals: Chaz Cuellar MD [Primary Care Provider] -
[2016-12-07] MEDS: MethylPREDNISolone 40 MG/ML VIAL IVP SCH ×2 (15:46→17:24)
[2016-12-07] MEDS: GuaiFENesin Liq 200 MG/10 ML UDC PO SCH ×2 (17:25→23:36)
[2016-12-07 17:37] LABS: ABG Base Excess 3.2 mEq/L (-2.0 to 3.0); ABG HCO3 27 mEq/L (21-27); ABG PCO2 37 mmHg (35-45); ABG PH 7.47 pH Units (7.32-7.45); ABG PO2 59 mmHg (85-104); ABG TCO2 28 mEq/L (20-26)
[2016-12-07 17:38] LABS: ABG Oxygen Saturation 92 % (95-98); Blood Gas Liter Flow 3 L/MIN; Blood Gas Modality NC
[2016-12-07] MEDS ORDERED: traMADol 50 MG TABLET PO PRN (19:25)
[2016-12-07] MEDS: Azithromycin 500 MG in D5% in Water 250 ML IVPB SCH (20:35)
[2016-12-07] MEDS: Gabapentin 300 MG CAPSULE PO SCH (20:37)
[2016-12-08 05:25] LABS: Basophils % 0.2 %; Hematocrit 35.1 % (35.3-44.9); Hemoglobin 11.6 g/dL (11.5-15.4); Immature Granulocytes % 0.6 % (0-4); Lymphocytes # 1.4 K/mcL (0.6-4.6); Lymphocytes % 6.2 %; Mean Corpuscular Hemoglobin 29.9 pg (28.0-33.3); Mean Corpuscular Volume 90.5 fL (83.0-100.0); Mean Platelet Volume 10.1 fL (9.4-12.4); Monocytes # 1.4 K/mcL (0.0-1.3); Monocytes % 6.4 %; Neutrophils # 18.7 K/mcL (1.6-8.9); Platelet Count 361 K/mcL (140-400); Red Blood Count 3.88 M/mcL (3.82-4.97); Segmented Neutrophils % 86.6 %
[2016-12-08 05:39] LABS: BUN/Creatinine Ratio 18 (6-26); Blood Urea Nitrogen 11 mg/dL (7-20); Calcium 9.9 mg/dL (8.6-10.8); Carbon Dioxide 24 mEq/L (19-29); Chloride 103 mEq/L (98-109); Glucose 127 mg/dL (70-99); Osmolality,Calculated 283 (280-300); Potassium 3.9 mEq/L (3.5-4.5); Sodium 136 mEq/L (136-145); eGFR For African Americans > 60 (> 60); eGFR For Non-African Americans > 60 (> 60)
[2016-12-08] MEDS: MethylPREDNISolone 40 MG/ML VIAL IVP SCH (06:30)
[2016-12-08] MEDS: GuaiFENesin Liq 200 MG/10 ML UDC PO SCH ×3 (06:30→18:08)
[2016-12-08] MEDS: *HR* Heparin 5,000 UNIT/ML VIAL SQ SCH ×2 (06:30→18:08)
[2016-12-08] MEDS: Beclomethasone 40mcg MDI IH SCH ×2 (08:11→21:29)
--- NOTE | 2016-12-08 08:54 | Internal Med Progress Note ---
<JoslynMathew - Last Filed: 12/08/16 08:51> Date of Encounter: 12/08/16 Time of Encounter: 08:51 - Assessment and plan (1) Pubic ramus fracture Current Visit: Yes Status: Acute Assessment and plan: patient complains of right hip pain x5 days since fall. head ct, lumbar spine CT, thoracic and cervical spine CT negative for acute fracture. pelvis CT showed inferior pubic ramus fracture on the right. orthopedic surgery on board, they are recommending nonoperative management with physical therapy and weightbearing as tolerated on the bilateral lower extremities. Plan: Pt/OT consult. follow up with orthopedic surgery outpatient one week after discharge. will require radiographic follow up. Currently orthopedically stable for discharge. await [facility] planning [facility]. referral packet sent to [facility]. Qualifiers: Encounter type: initial encounter Fracture type: closed Laterality: right Qualified Code(s): S32.591A - Other specified fracture of right pubis, initial encounter for closed fracture (2) Pneumonia Current Visit: No Status: Acute Assessment and plan: CT chest showed interval development of focal nodular consolidation within right upper lobe and new consolidation within the left lower lobe anteriorly and laterally which is concerning for multifocal pneumonia. There was also several bilateral emphysematous changes noted, bilateral scarring, and chronic bilateral consolidative changes. sputum culture significant for gram negative rods. cultures in the past have grown pseudomonas, resistant to levaquin. Plan: blood cultures x2 preliminary no growth. sputum culture grew pseudomonas putida, sensitive to meropenem. zithromax day 3 got two days cefepime. d/c cefepime, Meropenem day 1 scheduled DuoNebs methylprednisolone IV daily. Qualifiers: Pneumonia type: due to Pseudomonas Laterality: bilateral Lung location: lower lobe of lung Qualified Code(s): J15.1 - Pneumonia due to Pseudomonas (3) Leukocytosis Current Visit: Yes Status: Acute Assessment and plan: plan as above Qualifiers: Leukocytosis type: unspecified Qualified Code(s): D72.829 - Elevated white blood cell count, unspecified (4) COPD exacerbation Current Visit: No Status: Acute Assessment and plan: COPD exacerbation secondary to pneumonia. plan as above (5) Fall Current Visit: Yes Status: Acute Assessment and plan: plan as above #1 Qualifiers: Encounter type: sequela Qualified Code(s): W19.XXXS - Unspecified fall, sequela (6) HTN (hypertension) Current Visit: No Status: Chronic Assessment and plan: continue home meds. Qualifiers: Hypertension type: essential hypertension Qualified Code(s): I10 - Essential (primary) hypertension (7) DVT prophylaxis Current Visit: Yes Status: Acute Assessment and plan: heparin SQ - Subjective Interval history: 81F evaluated at bedside. patient denies nausea, vomiting, diarrhea, fever, chills, chest pain, shortness of breath. patient is more alert today than she was yesterday. she continues to report pain in her right hand from her prior IV site, she denies any further problems today. - Constitutional Vitals: Temp Pulse Resp BP Pulse Ox 98.3 F 91 14 148/79 93 12/08/16 06:59 12/08/16 06:59 12/08/16 08:12 12/08/16 06:59 12/08/16 08:12 General appearance: Present: mild distress, A&O X 3, pleasant - Head Head exam: Present: atraumatic, normocephalic - Neck Neck exam general surgery: Present: supple, trachea midline - Respiratory Respiratory exam: Present: rales, rhonchi Additional comments: diffuse rales and rhonchi present. - Cardiovascular Cardiovascular exam: Present: RRR, +S1, +S2 - GI/Abdominal GI/Abdominal exam: Present: normal bowel sounds, soft. Absent: distended, tenderness - Extremities Exam Extremities exam: Absent: cyanotic, pedal edema - Neurological Exam Neurological exam: Present: alert, no focal deficits - Psychiatric Psychiatric exam: Present: anxious - Skin Skin exam: Present: intact Internal Medicine: Result - Labs CBC & Chem 7: 12/08/16 05:15 12/08/16 05:15 Labs: Short CBC 12/08/16 Range/Units 05:15 WBC 21.6 H (4.3-11.1) K/mcL Hgb 11.6 (11.5-15.4) g/dL Hct 35.1 L (35.3-44.9) % Plt Count 361 (140-400) K/mcL Neutrophils # 18.7 H (1.6-8.9) K/mcL BMP 12/08/16 05:15 Sodium 136 Potassium 3.9 Chloride 103 Carbon Dioxide 24 BUN 11 Creatinine 0.62 Glucose 127 H Calcium 9.9 - ABG Interpretation ABG results: ABG ABG pH 7.47 pH Units (7.32-7.45) H 12/07/16 17:21 ABG pCO2 37 mmHg (35-45) 12/07/16 17:21 ABG pO2 59 mmHg (85-104) L 12/07/16 17:21 ABG O2 Saturation 92 % (95-98) L 12/07/16 17:21 PT/INR, D-dimer D-Dimer 1659 ng/mLFEU (0-500) H 12/05/16 18:45 - Impressions Impressions Chest X-Ray 12/07/16 16:41 IMPRESSION: Multifocal areas of lung consolidation, slightly worse than prior exam, especially in the left lower lobe. D/ / 12/07/2016 17:08:15 Doug Ann MD / [facility] Interpreting Provider: Doug Ann MD Consult Discharge Plan - Plan Referrals: Chaz Cuellar MD [Primary Care Provider] - <Nigel Reynolds H - Last Filed: 12/08/16 10:39> Date of Encounter: 12/08/16 - Constitutional Vitals: Temp Pulse Resp BP Pulse Ox 98.3 F 91 14 148/79 93 12/08/16 06:59 12/08/16 06:59 12/08/16 08:12 12/08/16 06:59 12/08/16 08:12 Internal Medicine: Result - Labs CBC & Chem 7: 12/08/16 05:15 12/08/16 05:15 Labs: Short CBC 12/08/16 Range/Units 05:15 WBC 21.6 H (4.3-11.1) K/mcL Hgb 11.6 (11.5-15.4) g/dL Hct 35.1 L (35.3-44.9) % Plt Count 361 (140-400) K/mcL Neutrophils # 18.7 H (1.6-8.9) K/mcL BMP 12/08/16 05:15 Sodium 136 Potassium 3.9 Chloride 103 Carbon Dioxide 24 BUN 11 Creatinine 0.62 Glucose 127 H Calcium 9.9 - ABG Interpretation ABG results: ABG ABG pH 7.47 pH Units (7.32-7.45) H 12/07/16 17:21 ABG pCO2 37 mmHg (35-45) 12/07/16 17:21 ABG pO2 59 mmHg (85-104) L 12/07/16 17:21 ABG O2 Saturation 92 % (95-98) L 12/07/16 17:21 PT/INR, D-dimer D-Dimer 1659 ng/mLFEU (0-500) H 12/05/16 18:45 - Impressions Impressions Chest X-Ray 12/07/16 16:41 IMPRESSION: Multifocal areas of lung consolidation, slightly worse than prior exam, especially in the left lower lobe. D/ / 12/07/2016 17:08:15 [facility] / [facility] Provider: Doug Ann MD - Attending Attestation Acute metabolic encephalopathy due to Sepsis secondary to Pseusomonas Pneumonia ( history of Pseudomonas pneumonia) resistent to Levaquin Discontinue Cefepime at day 3 Discontinue azithromycin day 3 Start Meropenem Intractable pain 2ry to pubic ramus fractures pain controlled with tramadol I examined this patient and my medical decision-making was reviewed with the Resident Physician. I agree with the documented findings, disposition and treatment plan as described except to the extent set forth below.
[2016-12-08] MEDS: Cholecalciferol (D-3) 1,000 UNIT TABLET PO SCH (08:58)
[2016-12-08] MEDS: *HR* LORazepam 0.5 MG TABLET PO SCH ×2 (08:58→21:22)
[2016-12-08] MEDS: amLODIPine 5 MG TABLET PO SCH (08:58)
[2016-12-08] MEDS: Meropenem 1,000 MG in 0.9 % Sodium Chloride Mini Bag 100 ML IVPB SCH ×2 (08:59→18:03)
[2016-12-08] MEDS ORDERED: MethylPREDNISolone 40 MG/ML VIAL IVP SCH (09:00)
[2016-12-08] MEDS: *HR* Acetylcysteine 20% 600 MG/3 ML ORAL SYRINGE PO SCH ×2 (09:22→22:05)
[2016-12-08] MEDS: Ipratropium/Albuterol Neb 3 ML IH SCH ×3 (11:16→21:28)
[2016-12-08] MEDS: Azithromycin 500 MG in D5% in Water 250 ML IVPB SCH (21:22)
[2016-12-08] MEDS: Gabapentin 300 MG CAPSULE PO SCH (21:22)
[2016-12-09] MEDS: GuaiFENesin Liq 200 MG/10 ML UDC PO SCH ×3 (00:57→12:33)
[2016-12-09] MEDS: Meropenem 1,000 MG in 0.9 % Sodium Chloride Mini Bag 100 ML IVPB SCH ×3 (01:12→16:18)
[2016-12-09 03:44] LABS: Basophils % 0.1 %; Hematocrit 34.5 % (35.3-44.9); Hemoglobin 11.1 g/dL (11.5-15.4); Immature Granulocytes % 0.6 % (0-4); Lymphocytes # 1.4 K/mcL (0.6-4.6); Lymphocytes % 5.7 %; Mean Corpuscular HGB Conc 32.2 g/dL (31.6-35.5); Mean Corpuscular Hemoglobin 29.2 pg (28.0-33.3); Mean Corpuscular Volume 90.8 fL (83.0-100.0); Mean Platelet Volume 10.4 fL (9.4-12.4); Monocytes # 1.3 K/mcL (0.0-1.3); Monocytes % 5.2 %; Neutrophils # 22.2 K/mcL (1.6-8.9); Platelet Count 420 K/mcL (140-400); Red Cell Distribution Width 13.1 % (11.5-14.5); Segmented Neutrophils % 88.4 %
[2016-12-09 03:53] LABS: BUN/Creatinine Ratio 37 (6-26); Carbon Dioxide 28 mEq/L (19-29); Chloride 104 mEq/L (98-109); Glucose 133 mg/dL (70-99); Osmolality,Calculated 297 (280-300); Sodium 140 mEq/L (136-145); eGFR For African Americans > 60 (> 60); eGFR For Non-African Americans > 60 (> 60)
[2016-12-09 03:54] LABS: Blood Urea Nitrogen 26 mg/dL (7-20)
[2016-12-09] MEDS: Ipratropium/Albuterol Neb 3 ML IH SCH ×3 (04:06→16:16)
[2016-12-09] MEDS: *HR* Heparin 5,000 UNIT/ML VIAL SQ SCH (05:48)
[2016-12-09] MEDS ORDERED: predniSONE 20 MG TABLET PO SCH (09:00)
[2016-12-09] MEDS: Cholecalciferol (D-3) 1,000 UNIT TABLET PO SCH (09:24)
[2016-12-09] MEDS: *HR* LORazepam 0.5 MG TABLET PO SCH (09:24)
[2016-12-09] MEDS: amLODIPine 5 MG TABLET PO SCH (09:24)
[2016-12-09] MEDS: *HR* Acetylcysteine 20% 600 MG/3 ML ORAL SYRINGE PO SCH (10:32)
[2016-12-09] MEDS: Beclomethasone 40mcg MDI IH SCH (10:41)
--- NOTE | 2016-12-09 13:23 | Discharge Summary ---
Date of Encounter: 12/09/16 Time of Encounter: 11:20 - Discharge Diagnosis (1) Pneumonia Priority: Primary Status: Acute Qualifiers: Pneumonia type: due to Pseudomonas Laterality: bilateral Lung location: lower lobe of lung Qualified Code(s): J15.1 - Pneumonia due to Pseudomonas (2) Sepsis Priority: Secondary Status: Acute Comments: Present on admission Qualifiers: Sepsis type: Pseudomonas Qualified Code(s): A41.52 - Sepsis due to Pseudomonas (3) Chronic respiratory failure with hypoxia Priority: Secondary Status: Acute (4) COPD exacerbation Priority: Secondary Status: Acute (5) Fall Priority: Secondary Status: Acute Qualifiers: Encounter type: sequela Qualified Code(s): W19.XXXS - Unspecified fall, sequela (6) HTN (hypertension) Priority: Secondary Status: Chronic Qualifiers: Hypertension type: essential hypertension Qualified Code(s): I10 - Essential (primary) hypertension (7) Pubic ramus fracture Priority: Secondary Status: Acute Qualifiers: Encounter type: initial encounter Fracture type: closed Laterality: right Qualified Code(s): S32.591A - Other specified fracture of right pubis, initial encounter for closed fracture - Discharge Medications Prescriptions: Meropenem [Merrem] 1,000 mg IVPB Q8HR #40 vial Gabapentin [Neurontin] 300 mg PO HS #10 capsule LORazepam [Ativan] 0.5 mg PO BID #14 tablet predniSONE [PredniSONE] 40 mg PO DAILY 8 Days tablet Tramadol HCl [Ultram] 50 mg PO QID PRN #14 tab PRN Reason: Moderate Pain Home Medications: Albuterol Neb [Proventil Neb] 2.5 mg IH Q4HR PRN 12/31/14 [History] Albuterol Sulfate [Albuterol Inhaler] 2 puff IH Q4HR PRN 12/31/14 [History] Amlodipine [Norvasc] 2.5 mg PO DAILY 12/31/14 [History] Cholecalciferol (Vitamin D3) [Vitamin D] 2,000 unit PO DAILY 12/31/14 [History] Omeprazole [PriLOSEC] 20 mg PO DAILY 12/31/14 [History] Multivit/Ca/Min/Fe/FA [Thera M Plus] 1 tab PO DAILY tablet 12/24/15 [Rx] Oxygen 2 l .ROUTE AD 06/04/16 [History] Acetylcysteine [V-Txgryp-d-Cysteine] 600 mg PO BID 12/05/16 [History] Beclomethasone Diprop 40mcg [QVAR 40 mcg] 1 puff IH BID 12/05/16 [History] Carvedilol [Coreg] 6.25 mg PO BID 12/05/16 [History] Losartan Potassium [Cozaar] 100 mg PO DAILY 12/05/16 [History] Montelukast [Singulair] 10 mg PO DAILY 12/05/16 [History] Gabapentin [Neurontin] 300 mg PO HS #10 capsule 12/09/16 [Rx] LORazepam [Ativan] 0.5 mg PO BID #14 tablet 12/09/16 [Rx] Meropenem [Merrem] 1,000 mg IVPB Q8HR #40 vial 12/09/16 [Rx] Tramadol HCl [Ultram] 50 mg PO QID PRN #14 tab 12/09/16 [Rx] predniSONE [PredniSONE] 40 mg PO DAILY 8 Days tablet 12/09/16 [Rx] Allergies/Adverse Reactions: 3 Allergy/AdvReac Type Severity Reaction Status Date / Time Oxycodone AdvReac Confusion Verified 12/17/15 13:55 Date of admission: 12/06/16 12:38 Primary care physician: Chaz Cuellar MD Consults: 12/08/16 10:29 Consult to Invasive Line Access Team [CONS] Routine Reason for Consult: poor access Line Type: EPIV Discharging clinician: Mika Moseley Anticipated date of discharge: 12/09/16 - Patient Status Disposition: Transfer SNF Condition: Good Functional capacity at discharge: uses cane/walker Overall status at discharge: patient is progressing back to baseline - Discharge Instructions Instructions: Pneumonia (DC), Sepsis (DC) Follow Up With: Chaz Cuellar MD [Primary Care Provider] - (In 1-2 weeks) Jordan Christian MD [Partnered Physician] - (In one week) Maribel Grider CNP [Advanced Practice Nurse] - (In 1-2 weeks for recurrent Pseudomonas infections) - Diet and Activity Activity: as per physical therapy Diet: advance to your usual diet Hospital course: Ms. Boggs is a 81 year old female patient with history of COPD and chronic respiratory failure on chronic home oxygen, hypertension, gastroesophageal reflux disease and prior pseudomonas infections was hospitalized here with pain in the right hip region since a fall about 5 days back. Patient sustained a mechanical fall. CT of the pelvis done here suggested presence of pubic ramus fracture. Orthopedics was consulted and they evaluated the patient and recommended nonoperative management in the form of physical therapy and weightbearing as tolerated. Soon after hospitalization, patient did complain of chest pain. She was ruled out for cardiac disease with negative troponins. CT angiogram of the chest was done which showed presence of nodular consolidation within the right upper lobe as well as new consolidation within the left lower lobe concerning for multifocal pneumonia. She was started on broad-spectrum antibiotics to treat Pseudomonas infection due to her prior history. Sputum and blood cultures were sent. She was also treated for COPD exacerbation with intravenous steroids. Patient has had leukocytosis since presentation and today her white cell count is 25.1. This is likely due to steroid use. Patient is not having any fever at this time. Sputum culture has been positive for Pseudomonas putida. She will be treated for this with meropenem intravenously every 8 hours for at least 14 days. She will follow up with infectious disease as outpatient. At this time, patient is clinically stable from an orthopedic and medical standpoint. She is awaiting placement to skilled rehabilitation. She will be discharged from the hospital to skilled rehabilitation once she has a bed available and insurance approval. - Time Spent with Patient Total time spent providing and/or coordinating discharge services: Greater than 30 minutes (50 min) - Constitutional Vitals: Temp Pulse Resp BP Pulse Ox 97.5 F L 81 16 96/57 97 12/09/16 11:19 12/09/16 11:19 12/09/16 11:19 12/09/16 11:19 12/09/16 11:19 General appearance: Present: mild distress, A&O X 3, pleasant - Respiratory Respiratory exam: Present: prolonged expiratory phase, wheezes. Absent: accessory muscle use, rales, rhonchi - GI/Abdominal GI/Abdominal exam: Present: normal bowel sounds, soft, no peritoneal signs. Absent: distended, tenderness - Extremities Exam Extremities exam: Present: warm, radial pulses palpable and symmetrical. Absent : calf tenderness, cyanotic, pedal edema - Neurological Exam Neurological exam: Present: alert, oriented X3, no focal deficits. Absent: facial droop, speech deficit
--- NOTE | 2016-12-09 13:37 | Physician Discharge Referral ---
ExtendedCare Referral Info Provider in Charge after Transfer: PCP Institutional Level of Care: Skilled - Diagnosis (1) Pneumonia Priority: Primary Status: Acute (2) Sepsis Priority: Secondary Status: Acute (3) Chronic respiratory failure with hypoxia Priority: Secondary Status: Acute (4) COPD exacerbation Priority: Secondary Status: Acute (5) Fall Priority: Secondary Status: Acute (6) HTN (hypertension) Priority: Secondary Status: Chronic (7) Pubic ramus fracture Priority: Secondary Status: Acute Prognosis: Fair Aware of Diagnosis: Patient, Family Aware of Prognosis: Patient, Family - Transfer Medications Prescriptions: Meropenem [Merrem] 1,000 mg IVPB Q8HR #40 vial Gabapentin [Neurontin] 300 mg PO HS #10 capsule LORazepam [Ativan] 0.5 mg PO BID #14 tablet predniSONE [PredniSONE] 40 mg PO DAILY 8 Days tablet Tramadol HCl [Ultram] 50 mg PO QID PRN #14 tab PRN Reason: Moderate Pain Home Medications: Albuterol Neb [Proventil Neb] 2.5 mg IH Q4HR PRN 12/31/14 [History] Albuterol Sulfate [Albuterol Inhaler] 2 puff IH Q4HR PRN 12/31/14 [History] Amlodipine [Norvasc] 2.5 mg PO DAILY 12/31/14 [History] Cholecalciferol (Vitamin D3) [Vitamin D] 2,000 unit PO DAILY 12/31/14 [History] Omeprazole [PriLOSEC] 20 mg PO DAILY 12/31/14 [History] Multivit/Ca/Min/Fe/FA [Thera M Plus] 1 tab PO DAILY tablet 12/24/15 [Rx] Oxygen 2 l .ROUTE AD 06/04/16 [History] Acetylcysteine [P-Ulztkv-s-Cysteine] 600 mg PO BID 12/05/16 [History] Beclomethasone Diprop 40mcg [QVAR 40 mcg] 1 puff IH BID 12/05/16 [History] Carvedilol [Coreg] 6.25 mg PO BID 12/05/16 [History] Losartan Potassium [Cozaar] 100 mg PO DAILY 12/05/16 [History] Montelukast [Singulair] 10 mg PO DAILY 12/05/16 [History] Gabapentin [Neurontin] 300 mg PO HS #10 capsule 10/03/17 [Rx] LORazepam [Ativan] 0.5 mg PO BID #14 tablet 12/09/16 [Rx] Meropenem [Merrem] 1,000 mg IVPB Q8HR #40 vial 12/09/16 [Rx] Tramadol HCl [Ultram] 50 mg PO QID PRN #14 tab 12/09/16 [Rx] predniSONE [PredniSONE] 40 mg PO DAILY 8 Days tablet 12/09/16 [Rx] Allergies/Adverse Reactions: 3 Allergy/AdvReac Type Severity Reaction Status Date / Time Oxycodone AdvReac Confusion Verified 12/17/15 13:55 - Respiratory Orders Oxygen / L per min (2) Smoking Cessation: Smoking cessation has been advised. For more information, call the [place] [employer] Quit Line at 4-885-OPPV-NOW. - Lab Orders Lab Orders: Other (include drug levels w/frequency) (CBC, BMP on Thursday12/15/16) - Ancillary Orders May consult with Dentist, Flatwork Catcher, Sizing End Bander PRN - Advance Directives Code Status: Full Code - Mobility Orders Other (per PT) - Rehabiliation Orders Rehab Potential: Fair Rehab Orders: Evaluation for Physical Therapy, Evaluation for Occupational Therapy - Diet Orders Cardiac CERTIFICATION: I certify that the transfer of the above named patient to an Extended Care Facility is necessary for the continuing treatment of the diagnosis listed. The above information is true and accurate reflection of patient's current condition. Confidential - Redisclosure prohibited without a patient's written consent.
[2016-12-09 15:27] VITALS: BP 104/61
[2016-12-09] MEDS ORDERED: 0.9 % Sodium Chloride Mini Bag 100 ML ONE (15:40)
== END 2016-12-09 17:45 | DRG 871 ==
LOC: EMEROO 10:29 → 3NENU 10:29 → SUATTDRO 13:44 → 3NENU 14:18 → SUATTDRO 12-06 12:38
PROVIDERS: ADMIT Internal Medicine; ATTEND Internal Medicine

== ENCOUNTER 2017-01-04 20:07 | Inpatient (IN) ==
--- NOTE | 2017-01-04 20:24 | Emergency Department Note ---
Disposition Clinical Impression: Healthcare-associated pneumonia Leukocytosis Qualifiers: Leukocytosis type: unspecified Qualified Code(s): D72.829 - Elevated white blood cell count, unspecified Disposition: Admitted As Inpatient Condition: Fair Referrals: Chaz Cuellar MD [Primary Care Provider] - Forms: ED Satisfaction Letter Time of Disposition: 22:10 SOB HPI - General Chief Complaint: ED Shortness of Breath/Dyspnea Stated Complaint: newton Time Seen by Provider: 01/04/17 20:11 Source: patient, EMS Mode of arrival: EMS Limitations: no limitations Nursing Notes Reviewed: Yes Vital Signs Reviewed: Yes - History of Present Illness 81-year-old female presents to the ER with chief complaint of shortness of breath and cough. Reports a history of COPD for which she is oxygen dependent with 2 L nasal cannula continuously. States she was admitted and then discharged home per nursing facility and refuses to go back. States that she was treated for pneumonia and went home on Thursday. She reports feeling ill ever since. She has had a cough with productive sputum at home. Denies fevers chest pain nausea vomiting or abdominal pain. Reports that she would want to go home and be with her kitten. No other complaints. Pt Subjective Complaint: shortness of breath, cough Onset (ago): day(s) Context: recent illness Severity: moderate Improves with: oxygen Worsens with: nothing Known history of: COPD, recurrent pneumonia Associated symptoms: Reports: cough, sputum production. Denies: chest pain, fever Treatment prior to arrival: oxygen, bronchodilator Cough present: Yes Cough Description: Involuntary Cough Frequency: Intermittent Sputum production: No Sputum Amount: None - Related Data Home oxygen amount: 2 liters Home Medications Medication Instructions Recorded Confirmed Albuterol Neb [Proventil Neb] 2.5 mg IH Q4HR PRN 12/31/14 12/05/16 Albuterol Sulfate [Albuterol 2 puff IH Q4HR PRN 12/31/14 12/05/16 Inhaler] Amlodipine [Norvasc] 2.5 mg PO DAILY 12/31/14 12/05/16 Cholecalciferol (Vitamin D3) 2,000 unit PO DAILY 12/31/14 12/05/16 [Vitamin D] Omeprazole [PriLOSEC] 20 mg PO DAILY 12/31/14 12/05/16 Oxygen 2 l .ROUTE AD 06/04/16 12/05/16 Acetylcysteine 600 mg PO BID 12/05/16 12/05/16 [U-Zzyufa-n-Cysteine] Beclomethasone Diprop 40mcg [QVAR 1 puff IH BID 12/05/16 12/05/16 40 mcg] Carvedilol [Coreg] 6.25 mg PO BID 12/05/16 12/05/16 Losartan Potassium [Cozaar] 100 mg PO DAILY 12/05/16 12/05/16 Montelukast [Singulair] 10 mg PO DAILY 12/05/16 12/05/16 Previous Rx's Medication Instructions Recorded Multivit/Ca/Min/Fe/FA [Thera M 1 tab PO DAILY tablet 12/24/15 Plus] Gabapentin [Neurontin] 300 mg PO HS #10 capsule 12/09/16 LORazepam [Ativan] 0.5 mg PO BID #14 tablet 12/09/16 Meropenem [Merrem] 1,000 mg IVPB Q8HR #40 vial 12/09/16 Tramadol HCl [Ultram] 50 mg PO QID PRN #14 tab 12/09/16 predniSONE [PredniSONE] 40 mg PO DAILY 8 Days tablet 12/09/16 Allergies Allergy/AdvReac Type Severity Reaction Status Date / Time Oxycodone AdvReac Confusion Verified 01/04/17 20:09 All systems ED: reviewed and negative except as stated. Constitutional: Denies: fever Cardiovascular: Denies: chest pain Respiratory: Reports: cough, dyspnea, sputum production Gastrointestinal: Denies: abdominal pain, nausea, vomiting, diarrhea Past Medical History - Past Medical History Attestation: Yes The following information was validated with the patient. Source: patient Medical history: Reports: arthritis, COPD, GERD, hyperlipidemia, hypertension Surgical history: Reports: appendectomy, cataract, cholecystectomy, orthopedic, other, other Psychiatric history: Reports: anxiety RISK SPECIALIST history: Reports: no RISK SPECIALIST history - Social History Smoking Status: Former smoker Smokeless Tobacco Status: No Alcohol use: Reports: none Drug use: Reports: none Physical Exam - General Limitations: no limitations General appearance: alert, in no apparent distress - Head Head exam: atraumatic, normocephalic - Eye Eye exam: Present: normal appearance - ENT ENT exam: normal exam - Neck Neck exam: Present: normal inspection, full ROM - Chest Chest inspection: Present: normal inspection - Respiratory Respiratory exam: Present: other (Bilateral coarse breath sounds with diminished bases.). Absent: wheezes, accessory muscle use, prolonged expiratory phase - Cardiovascular Cardiovascular exam: Present: regular rate, normal rhythm, normal heart sounds - Abdominal Exam Abdominal exam: Present: soft, Non-Tender. Absent: tenderness, distention, rigidity - Extremities Exam Extremities exam: Present: normal inspection, full ROM - Expanded Upper Extremity Exam Shoulder exam: Present: normal inspection, full ROM Arm exam: Present: normal inspection, full ROM Elbow exam: Present: normal inspection, full ROM Forearm/Wrist exam: Present: normal inspection, full ROM Hand exam: Present: normal inspection, full ROM Vascular exam: Normal: radial pulse - Expanded Lower Extremity Exam Hip/Pelvis exam: Present: normal inspection, full ROM Upper leg exam: Present: normal inspection, full ROM Knee exam: Present: normal inspection, full ROM Lower leg exam: Present: normal inspection, full ROM Ankle exam: Present: normal inspection, full ROM Foot/toe exam: Present: normal inspection, full ROM Neurovascular/Tendon exam: Absent: motor deficit, sensory deficit - Neurological Exam Neurological exam: Present: alert - Psychiatric Psychiatric exam: Present: normal affect - Skin Skin exam: Present: warm, dry, intact Course Course Narrative: Patient seen and examined. Satting well on her usual 2 L. We will obtain an EKG as well as chest x-ray and labs including lactate and blood cultures given her recent hospitalization and concern for recurrent healthcare associated pneumonia. - Reevaluation(s) Reevaluation #1: Discussed results of imaging lab work with the patient and family. She is agreeable to staying in the hospital. She reports she is a full code but does not want intubated. Vital Signs Temperature 98 F 01/04/17 20:09 Pulse Rate 84 01/04/17 20:09 Respiratory Rate 18 01/04/17 20:09 Blood Pressure 154/98 01/04/17 20:09 O2 Sat by Pulse Oximetry 94 01/04/17 20:09 Temperature 98 F 01/04/17 20:09 Pulse Rate 80 01/04/17 21:46 Respiratory Rate 18 01/04/17 21:46 Blood Pressure 145/96 01/04/17 21:46 O2 Sat by Pulse Oximetry 95 01/04/17 21:46 Oxygen Delivery Oxygen Delivery Nasal Cannula Shortness of Breath/Dyspnea - MDM Narrative Medical decision making narrative: 81-year-old female presents to the ER due to cough and shortness of breath. She was recently hospitalized and placed in a [place] [facility] for healthcare associated pneumonia. She continues to have a productive cough. She is afebrile here. X-ray demonstrating continued multifocal pneumonia however is somewhat improved. She still has a leukocytosis of 13.9. Lactate normal. Patient given a liter of IV fluids as well as vancomycin and Zosyn. Prior sensitivities show pseudomonas sensitivity to Zosyn. Accepted by the hospitalist service. - Lab Data Lab results reviewed: Yes I reviewed the patient's lab results. Result diagrams: 01/04/17 20:22 01/04/17 20:22 Lab Results 01/04/17 01/04/17 01/04/17 Range/Units 20:22 20:22 20:22 WBC 13.9 H (4.3-11.1) K/mcL RBC 4.27 (3.82-4.97) M/mcL Hgb 12.6 (11.5-15.4) g/dL Hct 38.8 (35.3-44.9) % MCV 90.9 (83.0-100.0) fL MCH 29.5 (28.0-33.3) pg MCHC 32.5 (31.6-35.5) g/dL RDW 13.2 (11.5-14.5) % Plt Count 418 H (140-400) K/mcL MPV 10.0 (9.4-12.4) fL Immature Gran % 0.3 (0-4) % Seg Neutrophils % 62.5 % Lymphocytes % 25.1 % Monocytes % 6.5 % Eosinophils % 4.9 % Basophils % 0.7 % Neutrophils # 8.7 (1.6-8.9) K/mcL Lymphocytes # 3.5 (0.6-4.6) K/mcL Monocytes # 0.9 (0.0-1.3) K/mcL Eosinophils # 0.7 H (0.0-0.6) K/mcL Basophils # 0.1 (0.0-0.2) K/mcL Sodium 144 (136-145) mEq/L Potassium 3.7 (3.5-4.5) mEq/L Chloride 108 (98-109) mEq/L Carbon Dioxide 25 (19-29) mEq/L BUN 11 (7-20) mg/dL Creatinine 0.74 (0.57-1.11) mg/dL Est GFR ( Amer) > 60 (> 60) Est GFR (Non-Af Amer) > 60 (> 60) BUN/Creatinine Ratio 15 (6-26) Glucose 90 (70-99) mg/dL Calculated Osmolality 297 (280-300) Lactic Acid 1.0 (0.5-2.2) mmol/L Calcium 10.0 (8.6-10.8) mg/dL Troponin I (0-0.03) ng/mL B-Natriuretic Peptide (0-100) pg/mL 01/04/17 01/04/17 Range/Units 20:22 20:22 WBC (4.3-11.1) K/mcL RBC (3.82-4.97) M/mcL Hgb (11.5-15.4) g/dL Hct (35.3-44.9) % MCV (83.0-100.0) fL MCH (28.0-33.3) pg MCHC (31.6-35.5) g/dL RDW (11.5-14.5) % Plt Count (140-400) K/mcL MPV (9.4-12.4) fL Immature Gran % (0-4) % Seg Neutrophils % % Lymphocytes % % Monocytes % % Eosinophils % % Basophils % % Neutrophils # (1.6-8.9) K/mcL Lymphocytes # (0.6-4.6) K/mcL Monocytes # (0.0-1.3) K/mcL Eosinophils # (0.0-0.6) K/mcL Basophils # (0.0-0.2) K/mcL Sodium (136-145) mEq/L Potassium (3.5-4.5) mEq/L Chloride (98-109) mEq/L Carbon Dioxide (19-29) mEq/L BUN (7-20) mg/dL Creatinine (0.57-1.11) mg/dL Est GFR ( Amer) (> 60) Est GFR (Non-Af Amer) (> 60) BUN/Creatinine Ratio (6-26) Glucose (70-99) mg/dL Calculated Osmolality (280-300) Lactic Acid (0.5-2.2) mmol/L Calcium (8.6-10.8) mg/dL Troponin I 0.00 (0-0.03) ng/mL B-Natriuretic Peptide 148 H (0-100) pg/mL - Radiology Data Radiology results reviewed: Yes I reviewed the patient's radiology results. Chest X-Ray 01/04/17 20:14 IMPRESSION: 1. Persistent though decreased areas of suspected multifocal pneumonia predominantly in the right upper and left lower lobes. 2. Emphysema. D/ / Quique Keller MD / Quique Keller MD Interpreting Provider: Quique Keller MD - EKG Data EKG attestation: Yes I reviewed and interpreted this EKG. EKG results narrative: EKG demonstrates sinus rhythm with a rate of 80 bpm. Left axis deviation. Normal R-wave progression. Normal intervals. No gross ST elevations or depressions. No acute ischemic findings. No significant changes from previous EKG dated 07/01/16. Critical Care Time Critical Care Time: Yes Total Critical Care Time: 35 Attestation: Critical care time 35 minutes managing patient's pneumonia. Steven.Laura - Marlen Situation: Demographics, MOA Background: Presenting Complaint, Relevant PMH, Meds, & Allergies Assessment: Vital Signs, Course and respsone to treatment, Exam Concerns, Patient/Family Expectation, Pertinant Lab Results Recommendation: Barrier(s) to disposition, Recommendation based on pending studies, treatments, or consults [place] Report Given to: Dr. Abdulaziz Gee Repor Time: 22:07 Attestation Statement - Attestation Attestation: Patient was seen with resident physician. I reviewed the history, physical, assessment and plan, and agree with the findings. I also personally evaluated this patient and had [id number] time with this patient. 81-year-old female with apparently multiple admissions for pneumonia presents to the emergency department with shortness of breath. This patient is on home O2 at 2 L per nasal cannula because of her COPD chronically. She says of the last couple days or breathings gotten worse and she has had a moist cough. She denies fevers or chills no abdominal pain. She denies other complaints at this time. On exam vital signs are stable. ENT is unremarkable. Heart regular in rate lungs some crackles throughout with a very wet sounding cough. Abdomen is soft and nontender extremities are unremarkable neurologically this patient is intact with no focal neurologic deficits. ED course we will do workup for pneumonia and disposition accordingly. Likely admission based on her history and exam findings. X-ray report suggests continuation of pneumonia. Will start the patient on multiple antibiotics because likely hospital-acquired in nature. Hemodynamically patient remained stable in the emergency department. Critical care time 35 minutes. I agree with resident physician assessment and plan. I agree with the resident physician assessment and plan.
[2017-01-04 20:31] LABS: Basophils # 0.1 K/mcL (0.0-0.2); Basophils % 0.7 %; Eosinophils # 0.7 K/mcL (0.0-0.6); Eosinophils % 4.9 %; Hematocrit 38.8 % (35.3-44.9); Hemoglobin 12.6 g/dL (11.5-15.4); Immature Granulocytes % 0.3 % (0-4); Lymphocytes # 3.5 K/mcL (0.6-4.6); Lymphocytes % 25.1 %; Mean Corpuscular HGB Conc 32.5 g/dL (31.6-35.5); Mean Corpuscular Hemoglobin 29.5 pg (28.0-33.3); Mean Corpuscular Volume 90.9 fL (83.0-100.0); Monocytes # 0.9 K/mcL (0.0-1.3); Monocytes % 6.5 %; Neutrophils # 8.7 K/mcL (1.6-8.9); Platelet Count 418 K/mcL (140-400); Red Blood Count 4.27 M/mcL (3.82-4.97); Red Cell Distribution Width 13.2 % (11.5-14.5); Segmented Neutrophils % 62.5 %
[2017-01-04 20:41] LABS: BUN/Creatinine Ratio 15 (6-26); Blood Urea Nitrogen 11 mg/dL (7-20); Carbon Dioxide 25 mEq/L (19-29); Chloride 108 mEq/L (98-109); Glucose 90 mg/dL (70-99); Osmolality,Calculated 297 (280-300); Potassium 3.7 mEq/L (3.5-4.5); Sodium 144 mEq/L (136-145); eGFR For African Americans > 60 (> 60); eGFR For Non-African Americans > 60 (> 60)
[2017-01-04] MEDS ORDERED: Piperacillin/Tazobactam 3.375 GM in D5% in Water (Mini-Bag+) 100 ML IVPB ONE (21:49)
[2017-01-04] MEDS ORDERED: Vancomycin 1,000 MG in D5% in Water 250 ML IVPB ONE (21:49)
[2017-01-04] MEDS ORDERED: 0.9 % Sodium Chloride 1,000 ML IVC ONE (21:49)
[2017-01-04] MEDS ORDERED: Vancomycin 1,000 MG in D5% in Water 250 ML IVPB SCH (23:45)
[2017-01-04] MEDS: Ipratropium/Albuterol Neb 3 ML IH SCH (23:46)
--- NOTE | 2017-01-04 23:57 | Internal Med History&Physical ---
Date of Encounter: 01/04/17 Time of Encounter: 23:53 Assessment and Plan (1) HCAP (healthcare-associated pneumonia) Current visit: Yes Status: Acute We will start patient on Zosyn vancomycin until sputum cultures results are back. Nebulizer treatments. Check sputum blood culture. No increase in oxygen requirements compared to baseline currently on 2 L of oxygen. Patient is full code. Consult PT/OT secondary social studies teacher. Heparin and famotidine for DVT/PUD prophylaxis Internal Medicine - H&P: HPI Chief complaint: sob History of present illness: Ms. Boggs is a 81 year old female with past medical history of COPD on 2L of oxygen discharged from the hospital 3 weeks ago after diagnosis with Pseudomonas pneumonia presented to the emergency room today with the main complain of shortness of breath and cough. Patient continues to have worsening shortness of breath to the point where she is unable to read the rest associated with productive cough and chills. Patient was discharged from the halfway back home on Thursday, started noticing or similar symptoms. She has been treated with meropenem for this Pseudomonas pneumonia. She denies any lower extremity swelling. Past Med Surg Social Fam HX - Past Medical History Medical history: arthritis, COPD, GERD, hyperlipidemia, hypertension Psychiatric history: anxiety - Past Surgical History Surgical History: appendectomy, cataract, cholecystectomy, orthopedic, other, other - Social History Smoking Status: Former smoker Smokeless Tobacco Status: No Alcohol use: none Drug use: none - Family History Son Living Status: Mother Living Status: Hx Family Cancer: Yes Daughter Hx Family Cardiac Disorders: Yes (High cholesterol) Internal Medicine - H&P: Meds Albuterol Neb [Proventil Neb] 2.5 mg IH Q4HR PRN 12/31/14 [History] Albuterol Sulfate [Albuterol Inhaler] 2 puff IH Q4HR PRN 12/31/14 [History] Amlodipine [Norvasc] 2.5 mg PO DAILY 12/31/14 [History] Cholecalciferol (Vitamin D3) [Vitamin D] 2,000 unit PO DAILY 12/31/14 [History] Omeprazole [PriLOSEC] 20 mg PO DAILY 12/31/14 [History] Multivit/Ca/Min/Fe/FA [Thera M Plus] 1 tab PO DAILY tablet 12/24/15 [Rx] Oxygen 2 l .ROUTE AD 06/04/16 [History] Acetylcysteine [P-Tsrbvg-c-Cysteine] 600 mg PO BID 12/05/16 [History] Beclomethasone Diprop 40mcg [QVAR 40 mcg] 1 puff IH BID 12/05/16 [History] Carvedilol [Coreg] 6.25 mg PO BID 12/05/16 [History] Losartan Potassium [Cozaar] 100 mg PO DAILY 12/05/16 [History] Montelukast [Singulair] 10 mg PO DAILY 12/05/16 [History] Gabapentin [Neurontin] 300 mg PO HS #10 capsule 12/09/16 [Rx] LORazepam [Ativan] 0.5 mg PO BID #14 tablet 12/09/16 [Rx] Meropenem [Merrem] 1,000 mg IVPB Q8HR #40 vial 12/09/16 [Rx] Tramadol HCl [Ultram] 50 mg PO QID PRN #14 tab 12/09/16 [Rx] predniSONE [PredniSONE] 40 mg PO DAILY 8 Days tablet 12/09/16 [Rx] 3 Allergy/AdvReac Type Severity Reaction Status Date / Time Oxycodone AdvReac Confusion Verified 01/04/17 20:09 All Systems PM: A 10-system review of systems was performed and is negative for pertinent findings except as documented above in the HPI. Review of systems: 10 point review of systems is negative except for HPI - Constitutional Vitals: Temp Pulse Resp BP Pulse Ox 99.0 F 94 16 141/78 94 01/04/17 23:16 01/04/17 23:16 01/04/17 23:16 01/04/17 23:16 01/04/17 23:16 Exam: Gen.: patient is alert oriented times 3 not in distress. Cardiac: normal S1 S2 no additional sounds or murmurs chest: diminished air entry with expiratory wheezing. Crackles in right base abdomen: soft nontender nondistended normal bowel sounds neuro: no focal deficit Internal Med - H&P Results - Labs CBC & Chem 7: 01/04/17 20:22 01/04/17 20:22
[2017-01-05] MEDS: predniSONE 20 MG TABLET PO SCH ×2 (00:43→08:24)
[2017-01-05 03:50] LABS: Basophils # 0.1 K/mcL (0.0-0.2); Basophils % 0.7 %; Eosinophils # 0.2 K/mcL (0.0-0.6); Eosinophils % 1.3 %; Hemoglobin 12.1 g/dL (11.5-15.4); Immature Granulocytes % 0.5 % (0-4); Lymphocytes # 1.5 K/mcL (0.6-4.6); Lymphocytes % 10.1 %; Mean Corpuscular Hemoglobin 28.7 pg (28.0-33.3); Mean Corpuscular Volume 92.6 fL (83.0-100.0); Mean Platelet Volume 11.2 fL (9.4-12.4); Monocytes # 0.3 K/mcL (0.0-1.3); Monocytes % 1.9 %; Neutrophils # 12.8 K/mcL (1.6-8.9); Platelet Count 237 K/mcL (140-400); Red Blood Count 4.21 M/mcL (3.82-4.97); Red Cell Distribution Width 13.3 % (11.5-14.5); Segmented Neutrophils % 85.5 %
[2017-01-05] MEDS ORDERED: Piperacillin/Tazobactam 3.375 GM in D5% in Water (Mini-Bag+) 100 ML IVPB SCH ×2 (04:00→11:00)
[2017-01-05 04:04] LABS: BUN/Creatinine Ratio 13 (6-26); Blood Urea Nitrogen 10 mg/dL (7-20); Calcium 9.5 mg/dL (8.6-10.8); Carbon Dioxide 20 mEq/L (19-29); Chloride 110 mEq/L (98-109); Glucose 112 mg/dL (70-99); Magnesium 1.6 mg/dL (1.6-2.6); Osmolality,Calculated 290 (280-300); Sodium 140 mEq/L (136-145); eGFR For African Americans > 60 (> 60); eGFR For Non-African Americans > 60 (> 60)
[2017-01-05] MEDS: Ipratropium/Albuterol Neb 3 ML IH SCH ×6 (04:30→23:51)
[2017-01-05] MEDS: *HR* Heparin 5,000 UNIT/ML VIAL SQ SCH ×2 (06:23→17:09)
[2017-01-05] MEDS: *HR* Acetylcysteine 20% 600 MG/3 ML ORAL SYRINGE PO SCH ×2 (08:25→19:49)
[2017-01-05] MEDS ORDERED: Famotidine 20 MG TABLET PO SCH (09:00)
[2017-01-05] MEDS ORDERED: Aminoglycoside Consult 1 EACH MC ONE (09:22)
[2017-01-05] MEDS ORDERED: Ondansetron 4 MG/2 ML VIAL IVP PRN (11:35)
[2017-01-05] MEDS ORDERED: traMADol 50 MG TABLET PO PRN (15:38)
--- NOTE | 2017-01-05 16:51 | Electrocardiograph Report ---
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
[2017-01-05] MEDS: Piperacillin/Tazobactam 3.375 GM in D5% in Water (Mini-Bag+) 100 ML IVPB SCH (20:58)
[2017-01-05] MEDS ORDERED: Vancomycin 1,000 MG in D5% in Water 250 ML IVPB SCH (23:00)
--- NOTE | 2017-01-06 01:38 | Internal Med Progress Note ---
Date of Encounter: 01/06/17 Time of Encounter: 13:55 - Assessment and plan (1) Pneumonia due to Pseudomonas Current Visit: Yes Status: Acute Assessment and plan: Failed therapy on meropenem Previous sputum samples reviewed, sensitivities available in EMR: 11/3016: Pseudomonas putida 06/02/16: Pseudomonas aeruginosa 05/05/16: Pseudomonas aeruginosa - Follow- blood/sputum cultures, procalcitonin; monitor closely for signs/ symptoms of sepsis. - Continue Vancomycin and Zosyn until sputum cultures return. - Consider ID consult Qualifiers: Laterality: unspecified laterality Lung location: unspecified part of lung Qualified Code(s): J15.1 - Pneumonia due to Pseudomonas - Subjective Interval history: Patient came from half-way, recently treated for pseudomonas pneumonia and discharged to SNF to finish course of meropenem. Shortly after finishing course , symptoms returned. She now has no complaints, denies shortness of breath, fevers, chills. - Constitutional Vitals: Temp Pulse Resp BP Pulse Ox 98.0 F 72 12 129/71 90 01/05/17 23:31 01/05/17 23:31 01/05/17 23:31 01/05/17 23:31 01/05/17 23:31 Exam: Gen: NAD CVS: RRR Lungs: Course breath sounds, fine rales at both lung bases. No wheezing Ext: no edema Internal Medicine: Result - Labs CBC & Chem 7: 01/05/17 03:38 01/05/17 03:38 Labs: Short CBC 01/05/17 Range/Units 03:38 WBC 15.0 H (4.3-11.1) K/mcL Hgb 12.1 (11.5-15.4) g/dL Hct 39.0 (35.3-44.9) % Plt Count 237 (140-400) K/mcL Neutrophils # 12.8 H (1.6-8.9) K/mcL BMP 01/05/17 03:38 Sodium 140 Potassium 4.0 Chloride 110 H Carbon Dioxide 20 BUN 10 Creatinine 0.76 Glucose 112 H Calcium 9.5 - VTE Documentation of Mechanical Device: Intermittent pneumatic compression device Consult Discharge Plan - Plan Referrals: Chaz Cuellar MD [Primary Care Provider] -
[2017-01-06] MEDS: Ipratropium/Albuterol Neb 3 ML IH SCH ×5 (03:40→20:08)
[2017-01-06] MEDS: Piperacillin/Tazobactam 3.375 GM in D5% in Water (Mini-Bag+) 100 ML IVPB SCH ×3 (04:21→23:34)
[2017-01-06 05:08] LABS: Basophils # 0.1 K/mcL (0.0-0.2); Basophils % 0.4 %; Eosinophils # 0.1 K/mcL (0.0-0.6); Eosinophils % 0.4 %; Hematocrit 34.8 % (35.3-44.9); Immature Granulocytes % 0.5 % (0-4); Lymphocytes # 3.3 K/mcL (0.6-4.6); Mean Corpuscular HGB Conc 31.6 g/dL (31.6-35.5); Mean Corpuscular Hemoglobin 28.7 pg (28.0-33.3); Mean Corpuscular Volume 90.9 fL (83.0-100.0); Monocytes % 6.7 %; Neutrophils # 10.4 K/mcL (1.6-8.9); Platelet Count 399 K/mcL (140-400); Red Blood Count 3.83 M/mcL (3.82-4.97); Red Cell Distribution Width 13.5 % (11.5-14.5)
[2017-01-06 05:21] LABS: BUN/Creatinine Ratio 11 (6-26); Blood Urea Nitrogen 8 mg/dL (7-20); Calcium 9.4 mg/dL (8.6-10.8); Carbon Dioxide 27 mEq/L (19-29); Chloride 109 mEq/L (98-109); Glucose 96 mg/dL (70-99); Osmolality,Calculated 296 (280-300); Sodium 144 mEq/L (136-145); eGFR For African Americans > 60 (> 60); eGFR For Non-African Americans > 60 (> 60)
[2017-01-06 05:23] LABS: Potassium 2.9 mEq/L (3.5-4.5)
[2017-01-06] MEDS: *HR* Heparin 5,000 UNIT/ML VIAL SQ SCH ×2 (06:50→17:11)
[2017-01-06] MEDS: predniSONE 20 MG TABLET PO SCH (08:44)
[2017-01-06] MEDS: *HR* Acetylcysteine 20% 600 MG/3 ML ORAL SYRINGE PO SCH ×2 (08:45→20:52)
[2017-01-06] MEDS ORDERED: Potassium Chloride Elixir 20 MEQ/15 ML UDC PO ONE (09:20)
[2017-01-06] MEDS ORDERED: Albuterol 2.5 MG/3 ML NEBULIZER IH PRN (09:21)
--- NOTE | 2017-01-06 10:00 | Internal Med Progress Note ---
Date of Encounter: 01/06/17 Time of Encounter: 09:58 - Assessment and plan (1) Pneumonia due to Pseudomonas aeruginosa Current Visit: Yes Status: Acute Assessment and plan: XR with persistent infiltrates Recent sputum culture with GNR Blood culture from 01/04 prelim negative On vanco and Zosyn, continue Zosyn based on prior sensitivity D/C vanco Agree with Pulmonology evaluation, patient has been started on inhaled tobramycin For 3ice weekly azithromycin upon discharge (2) HTN (hypertension) Current Visit: Yes Status: Chronic Assessment and plan: Controlled, continue current meds Qualifiers: Hypertension type: essential hypertension Qualified Code(s): I10 - Essential (primary) hypertension (3) GERD (gastroesophageal reflux disease) Current Visit: Yes Status: Chronic Assessment and plan: Resume home meds Qualifiers: Esophagitis presence: without esophagitis Qualified Code(s): K21.9 - Gastro -esophageal reflux disease without esophagitis (4) Osteoporosis Current Visit: Yes Status: Chronic Assessment and plan: Continue home meds Qualifiers: Osteoporosis type: other Presence of current pathological fracture: unspecified Qualified Code(s): M81.8 - Other osteoporosis without current pathological fracture (5) Chronic respiratory failure with hypoxia Current Visit: Yes Status: Chronic Assessment and plan: O2 prn (6) Hypokalemia Current Visit: Yes Status: Acute Assessment and plan: Replaced, monitor K pm (7) Sepsis Current Visit: Yes Status: Acute Assessment and plan: Tachy on admission, resolved Leukocytosis is improving, continue Zosyn D/C Vanco Qualifiers: Sepsis type: Pseudomonas Qualified Code(s): A41.52 - Sepsis due to Pseudomonas (8) Bronchiectasis Current Visit: Yes Status: Chronic Qualifiers: Bronchiectasis type: uncomplicated Qualified Code(s): J47.9 - Bronchiectasis, uncomplicated - Subjective Interval history: Seen and evaluated during PT No new complains Readmitted for recurrent/persistent psuedomonas pneumonia and SOB Patient was just discharged from SNF to home Awaiting ID eval Sputum culture today with GNR - Constitutional Vitals: Temp Pulse Resp BP Pulse Ox 98.4 F 64 18 110/66 96 01/06/17 06:39 01/06/17 06:39 01/06/17 06:39 01/06/17 06:39 01/06/17 06:39 General appearance: Present: A&O X 3, pleasant, no acute distress - Head Head exam: Present: atraumatic, normocephalic - Eye Eye exam: Present: PERRL, conjuntiva pink, sclera anicteric Pupils: Present: PERRL - Neck Neck exam general surgery: Present: supple, trachea midline. Absent: lymphadenopathy - Respiratory Respiratory exam: Present: CTAB. Absent: accessory muscle use, rales, rhonchi, wheezes - Cardiovascular Cardiovascular exam: Present: RRR, +S1, +S2. Absent: diastolic murmur, gallop, rubs, systolic murmur - GI/Abdominal GI/Abdominal exam: Present: normal bowel sounds, soft, no peritoneal signs. Absent: distended, tenderness - Extremities Exam Extremities exam: Present: warm, radial pulses palpable and symmetrical. Absent : calf tenderness, cyanotic, pedal edema - Neurological Exam Neurological exam: Present: alert, CN II-XII intact, oriented X3, no focal deficits. Absent: pronater drift, facial droop, speech deficit - Skin Skin exam: Present: dry, intact Internal Medicine: Result - Labs CBC & Chem 7: 01/06/17 04:50 01/06/17 04:50 Labs: Short CBC 01/06/17 Range/Units 04:50 WBC 14.8 H (4.3-11.1) K/mcL Hgb 11.0 L (11.5-15.4) g/dL Hct 34.8 L (35.3-44.9) % Plt Count 399 D (140-400) K/mcL Neutrophils # 10.4 H (1.6-8.9) K/mcL BMP 01/06/17 04:50 Sodium 144 Potassium 2.9 L D Chloride 109 Carbon Dioxide 27 BUN 8 Creatinine 0.76 Glucose 96 Calcium 9.4 - VTE Documentation of Mechanical Device: Intermittent pneumatic compression device Consult Discharge Plan - Plan Referrals: Chaz Cuellar MD [Primary Care Provider] - ([phone].. to call an appt.)
--- NOTE | 2017-01-06 12:23 | Pulmonology Consult Note ---
Date of Encounter: 01/06/17 Time of Encounter: 12:30 Assessment and Plan (1) Bronchiectasis with (acute) exacerbation Current Visit: Yes Status: Acute Patient has chronic left lower lobe bronchiectasis which leads to poor mucociliary clearance pooling of secretions chronically infected with resistant pseudomonas , patient had bronchoscopy in the early part of this year where the BAL grew the same pseudomonas . Patient will need good outpatient bronchopulmonary hygiene will treat with flutter valve as inpatient so she can learn can use outpatient . This is Non CF bronchiectasis we can try inhaled tobramycin as this pseudomonas is sensitive as this is Level II C evidence . On discharge should go on MWF Azithromycin it's anti inflammatory effect will help reducing the exacerbation of bronchiectasis Level II evidence . Discussed with patients all options . Patient says she is symptomatically better (2) COPD exacerbation Current Visit: No Status: Acute To continue steroids and bronchodilators (3) Acute and chronic respiratory failure with hypoxia Current Visit: No Status: Acute Acute exacerbation of COPD and Bronchiectasis exacerbation patient is almost back to baseline. (4) Pneumonia due to Pseudomonas aeruginosa Current Visit: Yes Status: Chronic Due to bronchiectasis will benefit inhaled antibiotic therapy will work with social work whether it is covered under her insurance . will continue Zosyn for now. History of Present Illness Consult date: 01/06/17 Requesting physician: Jae Weeks Reason for consult: COPD, pneumonia, other (bronchiectasis ) Past Med Surg Social Fam HX - Past Medical History Medical history: arthritis, COPD, GERD, hyperlipidemia, hypertension Psychiatric history: anxiety - Past Surgical History Surgical History: appendectomy, cataract, cholecystectomy, orthopedic, other, other - Social History Smoking Status: Former smoker Smokeless Tobacco Status: No Alcohol use: none Drug use: none - Family History Son Living Status: Mother Living Status: Hx Family Cancer: Yes Daughter Hx Family Cardiac Disorders: Yes (High cholesterol) Medications and Allergies Albuterol Neb [Proventil Neb] 2.5 mg IH Q4HR PRN 12/31/14 [History] Albuterol Sulfate [Albuterol Inhaler] 2 puff IH Q4HR PRN 12/31/14 [History] Amlodipine [Norvasc] 2.5 mg PO DAILY 12/31/14 [History] Cholecalciferol (Vitamin D3) [Vitamin D] 2,000 unit PO DAILY 10/25/15 [History] Omeprazole [PriLOSEC] 20 mg PO DAILY 12/31/14 [History] Multivit/Ca/Min/Fe/FA [Thera M Plus] 1 tab PO DAILY tablet 12/24/15 [Rx] Oxygen 2 l .ROUTE AD 06/04/16 [History] Acetylcysteine [K-Ttyvte-i-Cysteine] 600 mg PO BID 12/05/16 [History] Beclomethasone Diprop 40mcg [QVAR 40 mcg] 1 puff IH BID 12/05/16 [History] Carvedilol [Coreg] 6.25 mg PO BID 12/05/16 [History] Losartan Potassium [Cozaar] 100 mg PO DAILY 12/05/16 [History] Montelukast [Singulair] 10 mg PO DAILY 12/05/16 [History] Gabapentin [Neurontin] 300 mg PO HS #10 capsule 12/09/16 [Rx] Tramadol HCl [Ultram] 50 mg PO QID PRN #14 tab 12/09/16 [Rx] predniSONE [PredniSONE] 40 mg PO DAILY 8 Days tablet 12/09/16 [Rx] LORazepam [Ativan] 0.5 mg PO HS 01/05/17 [History] Levofloxacin [Levaquin] 500 mg PO DAILY 01/05/17 [History] 3 Allergy/AdvReac Type Severity Reaction Status Date / Time Oxycodone AdvReac Confusion Verified 01/04/17 20:09 All Systems: A 10-system review of systems was performed and is negative for pertinent findings except as documented above in the HPI. Physical Examination Vital Signs: Vital Signs, Last 4 Hours Temp Pulse Resp BP Pulse Ox 01/06/17 11:55 12 93 01/06/17 10:51 98.1 F 64 12 118/68 93 Results - Laboratory Findings CBC and BMP: 01/06/17 04:50 01/06/17 16:16 Abnormal lab findings: Abnormal lab results WBC 14.8 K/mcL (4.3-11.1) H 01/06/17 04:50 Hgb 11.0 g/dL (11.5-15.4) L 01/06/17 04:50 Hct 34.8 % (35.3-44.9) L 01/06/17 04:50 Neutrophils # 10.4 K/mcL (1.6-8.9) H 01/06/17 04:50 Potassium 2.9 mEq/L (3.5-4.5) L D 01/06/17 04:50 B-Natriuretic Peptide 148 pg/mL (0-100) H 01/04/17 20:22 - Microbiology Findings Microbiology Findings: Microbiology, Last 48 Hours 01/05/17 01:40 Sputum Culture - Preliminary Sputum Gram Negative Lee - Clinical Findings Intake & Output: Intake & Output 01/05/17 01/06/17 01/06/17 23:59 07:59 15:59 Intake Total 340 / 340 547 / 547 560 / 560 Output Total 300 / 300 500 / 500 150 / 150 Balance 40 / 40 47 / 47 410 / 410 Weight 60.1 kg Consult Discharge Plan - Plan Referrals: Chaz Cuellar MD [Primary Care Provider] - ([phone].. to call an appt.)
--- NOTE | 2017-01-06 13:49 | Infectious Disease Consult ---
Date of Encounter: 01/06/17 Time of Encounter: 13:42 Assessment and Plan (1) Sepsis Status: Acute Assessment and plan: The patient had two SIRS criteria on admission. Likely secondary to PNA. Improved. Tachycardia has resolved. WBC stable. The patient was started on steroids on admission which could also contribute to/worsen the patient's leukocytosis. Blood cultures drawn 01/04/17 are NGTD 2/2 sets. Qualifiers: Sepsis type: Pseudomonas Qualified Code(s): A41.52 - Sepsis due to Pseudomonas (2) Pneumonia Status: Acute Assessment and plan: Causative organism unclear, but previous sputum culture grew Pseudomonas putida and current sputum culture gram stain shows GNR. Sputum cultures in 04/2016 and also grew out Pseudomonas. Not sure if this is the causative organism of the patient's pneumonia or she is colonized with the bacteria. CXR shows LLL and RUL infiltrates, improved since previous exam. Previous treated with 14 days of IV Meropenem. Her home medication list reveals that she was started on PO Levaquin on by her PCP. Pulmonology consulted. Await recommendations. The patient may benefit from bronchoscopy for culture and source control, but will defer to pulmonology. Check S. pneumo and Legionella UAT. Await final results of sputum culture. Continue Zosyn 3.375 grams IV Q8H for now. Duration of treatment depends on the clinical picture. Monitor renal function and dose-adjust antibiotics. Qualifiers: Pneumonia type: due to Pseudomonas Laterality: bilateral Lung location: lower lobe of lung Qualified Code(s): J15.1 - Pneumonia due to Pseudomonas (3) Acute and chronic respiratory failure with hypoxia Status: Acute Assessment and plan: Secondary to PNA and COPD exacerbation. Improved. (4) COPD exacerbation Status: Acute Assessment and plan: Continue antibiotics, nebulizers, and PO steroids as outlined by the primary team. (5) GERD (gastroesophageal reflux disease) Status: Chronic Qualifiers: Esophagitis presence: without esophagitis Qualified Code(s): K21.9 - Gastro -esophageal reflux disease without esophagitis (6) HTN (hypertension) Status: Chronic Qualifiers: Hypertension type: essential hypertension Qualified Code(s): I10 - Essential (primary) hypertension Infectious Disease HPI - Data of Consult Patient: new to practice Consult date: 01/06/17 Requesting Physician: Jae Weeks MD Primary Care Provider: Chaz Cuellar MD - Consult Narrative Reason for consult: Recurrent PNA History of present illness: Ms. Boggs is a 81 year old female with a past medical history of recurrent pneumonia, COPD, hyperlipidemia, and hypertension. The patient was admitted to the hospital January 04 for pneumonia. We're consult January 06 for antibiotic recommendations regarding recurrent pneumonia. , The patient's an 81-year-old female with past medical history as stated above. Review of the medical record reveals that the patient has been hospitalized 4 times this past year for pneumonia. Each time, the patient is currently on a strain of Pseudomonas. Most recently, the patient was hospitalized a month ago and grew out Pseudomonas putida. Discharged to a local extended care facility to complete a 14 day course of IV meropenem. She is only was discharged home in began to experience shortness of breath a couple of days prior to admission. Upon arrival, the patient was afebrile, but she was mildly tachycardic. She also had a leukocytosis. Chest x-ray showed left lower lobe and right upper lobe infiltrates, improved since previous exam. The patient was started on empiric IV antibiotics and was admitted to the hospital for further evaluation. Since admission, the patient has improved clinically. She has been evaluated by Pulmonology and we are awaiting their recommendations. She continues to have an elevated WBC, but she was started on oral steroids which could be contributing to this. Currently, she is on Zosyn 3.375 grams IV Q8H. She is currently not on any oxygen at this time. The patient states that prior to admission, she is not having any fevers or chills or rigors. She states she was having shortness of breath and a productive cough with white/clear sputum. She denies any congestion , earache, or sore throat. She denies any nausea, vomiting, diarrhea, or constipation. She denies any abdominal pain and states her appetite was okay. She reports chronic back pain is at baseline, but denies any other significant pain. She denies any oral thrush or skin lesions. She states that she lives at home by herself, but has several family members that live very close to her. She does have one inside cat that she cares for. She denies any recent travel. She denies any tobacco, alcohol, or illicit drug use. CC: Jae Weeks MD Past Med Surg Social Fam HX - Past Medical History Attestation: Yes The following information was validated with the patient. Source: patient, old records reviewed, nursing notes reviewed Medical history: arthritis, COPD, GERD, hyperlipidemia, hypertension, other ( Pneumonia) Psychiatric history: anxiety - Past Surgical History Surgical History: appendectomy, cataract, cholecystectomy, orthopedic, other, other - Social History Smoking Status: Former smoker Smokeless Tobacco Status: No Alcohol use: none Drug use: none Occupational status: unemployed Current living situation: Home - Independent Activity Level: Independent ambulation Recent Out of Country Travel Within the Last 8 Weeks: No Exposure or Possible Exposure to Illness During Travel: No - Family History Son Living Status: Mother Living Status: Hx Family Cancer: Yes Daughter Hx Family Cardiac Disorders: Yes (High cholesterol) Infectious Disease-CN:Meds Albuterol Neb [Proventil Neb] 2.5 mg IH Q4HR PRN 12/31/14 [History] Albuterol Sulfate [Albuterol Inhaler] 2 puff IH Q4HR PRN 12/31/14 [History] Amlodipine [Norvasc] 2.5 mg PO DAILY 12/31/14 [History] Cholecalciferol (Vitamin D3) [Vitamin D] 2,000 unit PO DAILY 12/31/14 [History] Omeprazole [PriLOSEC] 20 mg PO DAILY 12/31/14 [History] Multivit/Ca/Min/Fe/FA [Thera M Plus] 1 tab PO DAILY tablet 12/24/15 [Rx] Oxygen 2 l .ROUTE AD 06/04/16 [History] Acetylcysteine [B-Rwjots-a-Cysteine] 600 mg PO BID 12/05/16 [History] Beclomethasone Diprop 40mcg [QVAR 40 mcg] 1 puff IH BID 12/05/16 [History] Carvedilol [Coreg] 6.25 mg PO BID 12/05/16 [History] Losartan Potassium [Cozaar] 100 mg PO DAILY 12/05/16 [History] Montelukast [Singulair] 10 mg PO DAILY 12/05/16 [History] Gabapentin [Neurontin] 300 mg PO HS #10 capsule 12/09/16 [Rx] Tramadol HCl [Ultram] 50 mg PO QID PRN #14 tab 12/09/16 [Rx] predniSONE [PredniSONE] 40 mg PO DAILY 8 Days tablet 12/09/16 [Rx] LORazepam [Ativan] 0.5 mg PO HS 01/05/17 [History] Levofloxacin [Levaquin] 500 mg PO DAILY 01/05/17 [History] 3 Allergy/AdvReac Type Severity Reaction Status Date / Time Oxycodone AdvReac Confusion Verified 01/04/17 20:09 All systems: reviewed and no additional remarkable complaints except as stated Exam - Constitutional Vitals: Temp Pulse Resp BP Pulse Ox 98.1 F 64 12 118/68 93 01/06/17 10:51 01/06/17 10:51 01/06/17 11:55 01/06/17 10:51 01/06/17 11:55 General appearance: average body habitus, cooperative, no acute distress - Head Head exam: Present: atraumatic, normal inspection, normocephalic - Eye Eye exam: Present: EOMI, normal appearance, PERRL Pupils: Present: normal accommodation - ENT ENT exam: Present: mucous membranes moist - Neck Neck exam: Present: normal inspection - Respiratory Respiratory exam: Present: CTAB. Absent: rales, respiratory distress, rhonchi, wheezes - Cardiovascular Cardiovascular exam: Present: RRR, +S1, +S2 - GI/Abdominal GI/Abdominal exam: Present: normal bowel sounds, soft. Absent: distended, tenderness - Extremities Exam Extremities exam: Present: normal inspection. Absent: joint swelling, pedal edema, tenderness - Neurological Exam Neurological exam: Present: alert, oriented X3, no focal deficits - Psychiatric Psychiatric exam: Present: normal affect, normal mood - Skin Skin exam: Present: dry, intact, normal color, warm Infectious Disease CN: Results - Labs CBC & Chem 7: 01/06/17 04:50 01/06/17 04:50 Cultures: Cultures 01/05/17 01:40 Sputum Culture - Preliminary Sputum Gram Negative Lee - VTE Documentation of Mechanical Device: Intermittent pneumatic compression device Consult Discharge Plan - Plan Referrals: Chaz Cuellar MD [Primary Care Provider] - ([phone].. to call an appt.)
[2017-01-06] MEDS: Tobramycin for INHALATION 300 MG/5 ML AMPUL AER SCH ×2 (15:11→20:08)
[2017-01-06 16:37] LABS: Sodium 142 mEq/L (136-145)
[2017-01-06 16:38] LABS: BUN/Creatinine Ratio 15 (6-26); Blood Urea Nitrogen 12 mg/dL (7-20); Calcium 9.6 mg/dL (8.6-10.8); Carbon Dioxide 17 mEq/L (19-29); Chloride 115 mEq/L (98-109); Glucose 141 mg/dL (70-99); Osmolality,Calculated 296 (280-300); Potassium 6.3 mEq/L (3.5-4.5); eGFR For African Americans > 60 (> 60); eGFR For Non-African Americans > 60 (> 60)
[2017-01-06] MEDS: *HR* LORazepam 0.5 MG TABLET PO SCH (20:52)
[2017-01-06] MEDS: Gabapentin 300 MG CAPSULE PO SCH (20:53)
[2017-01-07] MEDS: Ipratropium/Albuterol Neb 3 ML IH SCH ×7 (00:23→23:43)
[2017-01-07 05:43] LABS: Basophils # 0.1 K/mcL (0.0-0.2); Basophils % 0.4 %; Eosinophils # 0.1 K/mcL (0.0-0.6); Eosinophils % 0.5 %; Hematocrit 36.8 % (35.3-44.9); Hemoglobin 11.9 g/dL (11.5-15.4); Immature Granulocytes % 0.8 % (0-4); Lymphocytes % 28.7 %; Mean Corpuscular HGB Conc 32.3 g/dL (31.6-35.5); Mean Corpuscular Hemoglobin 29.3 pg (28.0-33.3); Mean Corpuscular Volume 90.6 fL (83.0-100.0); Monocytes % 7.5 %; Neutrophils # 8.6 K/mcL (1.6-8.9); Platelet Count 403 K/mcL (140-400); Red Blood Count 4.06 M/mcL (3.82-4.97); Red Cell Distribution Width 13.9 % (11.5-14.5); Segmented Neutrophils % 62.1 %
[2017-01-07 06:01] LABS: BUN/Creatinine Ratio 10 (6-26); Blood Urea Nitrogen 8 mg/dL (7-20); Calcium 9.7 mg/dL (8.6-10.8); Carbon Dioxide 25 mEq/L (19-29); Chloride 112 mEq/L (98-109); Glucose 78 mg/dL (70-99); Osmolality,Calculated 297 (280-300); Sodium 145 mEq/L (136-145); eGFR For African Americans > 60 (> 60); eGFR For Non-African Americans > 60 (> 60)
[2017-01-07] MEDS: *HR* Heparin 5,000 UNIT/ML VIAL SQ SCH ×2 (06:05→18:07)
[2017-01-07 06:06] LABS: Potassium 3.6 mEq/L (3.5-4.5)
[2017-01-07] MEDS ORDERED: cefTAZidime 1,000 MG in Water for inj. (sterile) 10 ML IVP SCH (08:00)
[2017-01-07] MEDS: predniSONE 20 MG TABLET PO SCH (08:48)
[2017-01-07] MEDS: Cholecalciferol (D-3) 1,000 UNIT TABLET PO SCH (08:48)
[2017-01-07] MEDS: Multivit/Ca/Min/Fe/FA 1 TAB TABLET PO SCH (08:48)
[2017-01-07] MEDS: amLODIPine 5 MG TABLET PO SCH (08:48)
[2017-01-07] MEDS: *HR* Acetylcysteine 20% 600 MG/3 ML ORAL SYRINGE PO SCH ×2 (08:49→20:27)
[2017-01-07] MEDS ORDERED: cefTAZidime 1,000 MG in Water for inj. (sterile) 10 ML IVPB SCH (09:00)
[2017-01-07] MEDS: Tobramycin for INHALATION 300 MG/5 ML AMPUL AER SCH ×2 (11:18→19:47)
--- NOTE | 2017-01-07 12:22 | Internal Med Progress Note ---
Date of Encounter: 01/07/17 Time of Encounter: 12:21 - Assessment and plan (1) Pneumonia due to Pseudomonas aeruginosa Current Visit: Yes Status: Chronic Assessment and plan: XR with persistent infiltrates Recent sputum culture with Pseudomonas putida, sensitive to tobramycin, ceftazidime. Sensitivity to Zosyn not checked Blood culture from 01/04 prelim negative Continue inhaled tobramycin Change to ceftazidime For 3ice weekly azithromycin upon discharge (2) HTN (hypertension) Current Visit: Yes Status: Chronic Assessment and plan: Controlled, continue current meds Qualifiers: Hypertension type: essential hypertension Qualified Code(s): I10 - Essential (primary) hypertension (3) GERD (gastroesophageal reflux disease) Current Visit: Yes Status: Chronic Assessment and plan: Resume home meds Qualifiers: Esophagitis presence: without esophagitis Qualified Code(s): K21.9 - Gastro -esophageal reflux disease without esophagitis (4) Osteoporosis Current Visit: Yes Status: Chronic Assessment and plan: Continue home meds Qualifiers: Osteoporosis type: other Presence of current pathological fracture: unspecified Qualified Code(s): M81.8 - Other osteoporosis without current pathological fracture (5) Chronic respiratory failure with hypoxia Current Visit: Yes Status: Chronic Assessment and plan: O2 prn (6) Hypokalemia Current Visit: Yes Status: Resolved Assessment and plan: Replaced, K WNL today (7) Sepsis Current Visit: Yes Status: Acute Assessment and plan: Tachy on admission, resolved Leukocytosis is improving Sputum culture noted, d/c Zosyn and start ceftazidime Blood culture prelim negative Qualifiers: Sepsis type: Pseudomonas Qualified Code(s): A41.52 - Sepsis due to Pseudomonas (8) Bronchiectasis Current Visit: Yes Status: Chronic Assessment and plan: For routine toileting by pulm as Outpatient, also Azithromycin thrice weekly Qualifiers: Bronchiectasis type: uncomplicated Qualified Code(s): J47.9 - Bronchiectasis, uncomplicated - Subjective Interval history: Seen and evaluated at bedside No new complains Readmitted for sepsis secondary to recurrent/persistent psuedomonas pneumonia and SOB Pulm/ID eval appreciated - Constitutional Vitals: Temp Pulse Resp BP Pulse Ox 98.3 F 74 18 136/78 98 01/07/17 11:03 01/07/17 11:03 01/07/17 11:20 01/07/17 11:03 01/07/17 11:20 General appearance: Present: A&O X 3, pleasant, no acute distress - Head Head exam: Present: atraumatic, normocephalic - Eye Eye exam: Present: PERRL, conjuntiva pink, sclera anicteric Pupils: Present: PERRL - Neck Neck exam general surgery: Present: supple, trachea midline. Absent: lymphadenopathy - Respiratory Respiratory exam: Present: CTAB. Absent: accessory muscle use, rales, rhonchi, wheezes - Cardiovascular Cardiovascular exam: Present: RRR, +S1, +S2. Absent: diastolic murmur, gallop, rubs, systolic murmur - GI/Abdominal GI/Abdominal exam: Present: normal bowel sounds, soft, no peritoneal signs. Absent: distended, tenderness - Extremities Exam Extremities exam: Present: warm, radial pulses palpable and symmetrical. Absent : calf tenderness, cyanotic, pedal edema - Neurological Exam Neurological exam: Present: alert, CN II-XII intact, oriented X3, no focal deficits. Absent: pronater drift, facial droop, speech deficit - Skin Skin exam: Present: dry, intact Internal Medicine: Result - Labs CBC & Chem 7: 01/07/17 05:20 01/07/17 05:20 Labs: Short CBC 01/07/17 Range/Units 05:20 WBC 13.9 H (4.3-11.1) K/mcL Hgb 11.9 (11.5-15.4) g/dL Hct 36.8 (35.3-44.9) % Plt Count 403 H (140-400) K/mcL Neutrophils # 8.6 (1.6-8.9) K/mcL BMP 01/06/17 01/07/17 16:16 05:20 Sodium 142 145 Potassium 6.3 H D 3.6 D Chloride 115 H 112 H Carbon Dioxide 17 L 25 BUN 12 8 Creatinine 0.81 0.80 Glucose 141 H 78 Calcium 9.6 9.7 - VTE Documentation of Mechanical Device: Intermittent pneumatic compression device Consult Discharge Plan - Plan Referrals: Chaz Cuellar MD [Primary Care Provider] - ([phone].. to call an appt. call and left message yesterday 01/06/2017 and 01/07/2017)
--- NOTE | 2017-01-07 13:51 | Pulmonology Progress Note ---
Date of Encounter: 01/07/17 Time of Encounter: 13:30 Assessment and Plan (1) Bronchiectasis with (acute) exacerbation Current Visit: Yes Status: Acute Patient symptoms are lot better with current regimen of antibiotics , sputum culture growing the same pseudomonas which grows always she is chronically colonized with organisms . Patient showed how to use flutter valve encouraged to use regularly at home. Patient to follow up with pulmonary in 8 weeks after discharge . On Discharge she should be sent on Inhaled tobramycin BID and Azithromycin 250 mg MWF that will reduce the future exacerbation of bronchiectasis. (2) COPD exacerbation Current Visit: No Status: Acute To continue current regimen of bronchodilators and steroids . Will need prolonged steroid taper on discharge 40 mg x 3days , 30 mg x 3day, 20 mg x 3days ,10 mg x 3days (3) Acute and chronic respiratory failure with hypoxia Current Visit: No Status: Acute Patient oxygen requirements to baseline at rest . To ascertain exercise oximetry before discharge. (4) Pneumonia due to Pseudomonas aeruginosa Current Visit: Yes Status: Chronic Sputum culture grew up the same organisms , previous bronchoscopy with BAL also showed the growth of the same organisms. looks like chronic colonisation with pseudomonas will send her home Inhaled Tobramycin nebulized BID and MWF Azithromycin to prevent frequent bronchiectasis and COPD exacerbations . Subjective Principal diagnosis: Acute exacerbation of bronchiectasis Interval history: Patient is admitted with recurrent pseudomonas pneumonia with exacerbation of bronchiectasis. Patient sitting in the chair says she is back to baseline she is ready to go home , denies any chest pain or tightness . Objective PUL Vital signs: Last Vital Signs Temp 98.3 F 01/07/17 11:03 Pulse 74 01/07/17 11:03 Resp 18 01/07/17 11:20 BP 136/78 01/07/17 11:03 Pulse Ox 98 01/07/17 11:20 Auscultation: bilateral: rales (scattere rales more on the left than right ) Results - Laboratory Findings CBC and BMP: 01/07/17 05:20 01/07/17 05:20 Abnormal lab findings: Abnormal lab results WBC 13.9 K/mcL (4.3-11.1) H 01/07/17 05:20 Plt Count 403 K/mcL (140-400) H 01/07/17 05:20 Chloride 112 mEq/L (98-109) H 01/07/17 05:20 B-Natriuretic Peptide 148 pg/mL (0-100) H 01/04/17 20:22 - Microbiology Findings Microbiology Findings: Microbiology, Last 48 Hours 01/05/17 01:40 Sputum Culture - Preliminary Sputum Pseudomonas putida - Clinical Findings Intake & Output: Intake & Output 01/06/17 01/07/17 01/07/17 23:59 07:59 15:59 Intake Total 300 / 300 100 / 100 240 / 240 Output Total 300 / 300 200 / 200 Balance 0 / 0 100 / 100 40 / 40 Weight 60.7 kg - VTE Documentation of Mechanical Device: Intermittent pneumatic compression device Consult Discharge Plan - Plan Referrals: Chaz Cuellar MD [Primary Care Provider] - ([phone].. to call an appt. call and left message yesterday 01/06/2017 and 01/07/2017)
[2017-01-07] MEDS: cefTAZidime 1,000 MG in Water for inj. (sterile) 10 ML IVPB SCH (18:07)
[2017-01-07] MEDS: *HR* LORazepam 0.5 MG TABLET PO SCH (20:26)
[2017-01-07] MEDS: Gabapentin 300 MG CAPSULE PO SCH (20:26)
[2017-01-08] MEDS: cefTAZidime 1,000 MG in Water for inj. (sterile) 10 ML IVPB SCH ×2 (02:30→11:02)
[2017-01-08] MEDS: Ipratropium/Albuterol Neb 3 ML IH SCH ×4 (03:51→15:27)
[2017-01-08] MEDS: *HR* Heparin 5,000 UNIT/ML VIAL SQ SCH (05:22)
[2017-01-08 05:59] LABS: Basophils # 0.1 K/mcL (0.0-0.2); Basophils % 0.4 %; Eosinophils # 0.1 K/mcL (0.0-0.6); Eosinophils % 0.4 %; Hematocrit 37.5 % (35.3-44.9); Hemoglobin 12.1 g/dL (11.5-15.4); Lymphocytes # 5.2 K/mcL (0.6-4.6); Lymphocytes % 30.7 %; Mean Corpuscular HGB Conc 32.3 g/dL (31.6-35.5); Mean Corpuscular Hemoglobin 29.2 pg (28.0-33.3); Mean Corpuscular Volume 90.6 fL (83.0-100.0); Mean Platelet Volume 10.2 fL (9.4-12.4); Monocytes # 1.4 K/mcL (0.0-1.3); Monocytes % 8.1 %; Neutrophils # 10.1 K/mcL (1.6-8.9); Platelet Count 445 K/mcL (140-400); Red Blood Count 4.14 M/mcL (3.82-4.97); Red Cell Distribution Width 13.9 % (11.5-14.5); Segmented Neutrophils % 59.4 %
[2017-01-08 06:09] LABS: BUN/Creatinine Ratio 13 (6-26); Blood Urea Nitrogen 9 mg/dL (7-20); Calcium 9.6 mg/dL (8.6-10.8); Carbon Dioxide 25 mEq/L (19-29); Chloride 109 mEq/L (98-109); Glucose 75 mg/dL (70-99); Osmolality,Calculated 295 (280-300); Potassium 3.2 mEq/L (3.5-4.5); Sodium 144 mEq/L (136-145); eGFR For African Americans > 60 (> 60); eGFR For Non-African Americans > 60 (> 60)
[2017-01-08 06:36] VITALS: BP 122/75
[2017-01-08] MEDS: Tobramycin for INHALATION 300 MG/5 ML AMPUL AER SCH (08:07)
--- NOTE | 2017-01-08 09:52 | Discharge Summary ---
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 (2) HTN (hypertension) Priority: Secondary Status: Chronic Qualifiers: Hypertension type: essential hypertension Qualified Code(s): I10 - Essential (primary) hypertension (3) GERD (gastroesophageal reflux disease) Priority: Secondary Status: Chronic Qualifiers: Esophagitis presence: without esophagitis Qualified Code(s): K21.9 - Gastro -esophageal reflux disease without esophagitis (4) Osteoporosis Priority: Secondary Status: Chronic Qualifiers: Osteoporosis type: other Presence of current pathological fracture: unspecified Qualified Code(s): M81.8 - Other osteoporosis without current pathological fracture (5) Chronic respiratory failure with hypoxia Priority: Secondary Status: Chronic (6) Hypokalemia Priority: Primary Status: Resolved (7) Sepsis Priority: Primary Status: Resolved Qualifiers: Sepsis type: Pseudomonas Qualified Code(s): A41.52 - Sepsis due to Pseudomonas (8) Bronchiectasis Priority: Secondary Status: Chronic Qualifiers: Bronchiectasis type: uncomplicated Qualified Code(s): J47.9 - Bronchiectasis, uncomplicated - Discharge Medications Prescriptions: Azithromycin [Zithromax] 250 mg PO MOWEFR #30 tablet predniSONE [PredniSONE] See Taper PO DAILY #20 tablet Tobramycin for INHALATION [Reji 300 mg/5 ml Solution] 300 mg AER BID #56 inh Home Medications: Albuterol Neb [Proventil Neb] 2.5 mg IH Q4HR PRN 12/31/14 [History] Albuterol Sulfate [Albuterol Inhaler] 2 puff IH Q4HR PRN 12/31/14 [History] Amlodipine [Norvasc] 2.5 mg PO DAILY 12/31/14 [History] Cholecalciferol (Vitamin D3) [Vitamin D] 2,000 unit PO DAILY 12/31/14 [History] Omeprazole [PriLOSEC] 20 mg PO DAILY 12/31/14 [History] Multivit/Ca/Min/Fe/FA [Thera M Plus] 1 tab PO DAILY tablet 12/24/15 [Rx] Oxygen 2 l .ROUTE AD 06/04/16 [History] Acetylcysteine [M-Lmnweu-p-Cysteine] 600 mg PO BID 12/05/16 [History] Beclomethasone Diprop 40mcg [QVAR 40 mcg] 1 puff IH BID 12/05/16 [History] Carvedilol [Coreg] 6.25 mg PO BID 12/05/16 [History] Losartan Potassium [Cozaar] 100 mg PO DAILY 12/05/16 [History] Montelukast [Singulair] 10 mg PO DAILY 12/05/16 [History] Gabapentin [Neurontin] 300 mg PO HS #10 capsule 12/09/16 [Rx] Tramadol HCl [Ultram] 50 mg PO QID PRN #14 tab 12/09/16 [Rx] LORazepam [Ativan] 0.5 mg PO HS 01/05/17 [History] Azithromycin [Zithromax] 250 mg PO MOWEFR #30 tablet 01/08/17 [Rx] Tobramycin for INHALATION [Reji 300 mg/5 ml Solution] 300 mg AER BID #56 inh 04/25 [Rx] predniSONE [PredniSONE] See Taper PO DAILY #20 tablet 01/08/17 [Rx] Allergies/Adverse Reactions: 3 Allergy/AdvReac Type Severity Reaction Status Date / Time Oxycodone AdvReac Confusion Verified 01/04/17 20:09 Date of admission: 01/04/17 23:23 Primary care physician: Chaz Cuellar MD Consults: 01/05/17 00:15 Consult to Hot Metal Mixer Operator [CONS] Routine Reason for SW Consult: HAS HOME O2 THROUGH [facility] [place]. PASSPORT WAS GOING TO START COMING 01/05/17 01/06/17 10:06 Consult to Infectious Diseases [CONS] Routine Consulting Provider: [facility] [place] Reason for Consult: Recurrent pseudomonas pneumonia Call Completed: No 01/06/17 11:49 Consult to Pulmonology [CONS] Routine Consulting Provider: [facility] [place] Reason for Consult: Recurrent pseudomonas pneumonias, evaluate for bronch please. Thank you. Call Completed: No Discharging clinician: Jae Weeks Anticipated date of discharge: 01/08/17 - Patient Status Disposition: Home Health Service Condition: Good Functional capacity at discharge: independent ambulation Overall status at discharge: patient is back to baseline - Discharge Instructions Follow Up With: Chaz Cuellar MD [Primary Care Provider] - 01/15/17 10:00 am ([phone]-New office number) - Diet and Activity Activity: resume usual activities as tolerated Diet: low salt diet Interval History: See below Hospital course: Ms. Boggs is a very pleasant 81 YO F who has had multiple readmissions for pseudomonas pneumonia She was recently [facility] from the [facility] and presented to [facility] [place] for cough and SOB. Again, Chest imaging revealed possible pneumonia She did not have fever but had tachycardia and leukocytosis on admission Sepsis is questionable and suspected although patient had been on steroids and leukocytosis is questionably due to that She was stable, ambulatory and had no O2 requirements upon admission We consulted Infectious disease and Pulmonology for patient's recurrent pneumonia Per Pulmonology patient has chronic left lower lobe bronchiectasis which leads to poor mucociliary clearance pooling of secretions chronically infected with resistant pseudomonas , patient had bronchoscopy in the early part of this year where the BAL grew the same pseudomonas . Patient will need good outpatient bronchopulmonary hygiene will treat with flutter valve as inpatient so she can learn can use outpatient, the patient was taught how to use the flutter valve at the bedside. They recommended inhalational tobramycin and continuation of steroids, with addition of Azithromycin thrice weekly to decrease inflammation and prevent exacerbations, and prolonged prednsone taper for about 9 days. Patient is seen and evaluated at bedside this morning She has no complains, she is not short of breath. She is afebrile, throughout this admission Her sputum culture this time yielded pseudomonas putrida sensitive to tobramycin , ceftazidime, sensitivities to Zosyn was not checked. Patient received 2 days of Zosyn and 2 days of Ceftazidime. This patient has been clinically stable from admission and is more likely to have had a flare of her bronchiectasis. Leukocytosis is due to steroids, patient had been on steroids prior to presentation She is not having worsening cough, she has no shortness of breath at rest or exertion She is medically cleared to be discharge home with home health after SW clearance for inhaled tobramycn Follow up with Pulmonology and PCP. She has been seen by [facility] who recommends its safe for patient to be discharged home with home health Plan of care discussed with patient, verbalized understanding - Time Spent with Patient Total time spent providing and/or coordinating discharge services: Greater than 30 minutes - Constitutional Vitals: Temp Pulse Resp BP Pulse Ox 98.9 F 89 20 122/75 94 01/08/17 06:30 01/08/17 06:30 01/08/17 08:06 01/08/17 06:30 01/08/17 08:06 General appearance: Present: A&O X 3, pleasant, no acute distress - Head Head exam: Present: atraumatic, normocephalic - Eye Eye exam: Present: PERRL, conjuntiva pink, sclera anicteric Pupils: Present: PERRL - Neck Neck exam general surgery: Present: supple, trachea midline. Absent: lymphadenopathy - Respiratory Respiratory exam: Present: CTAB. Absent: accessory muscle use, rales, rhonchi, wheezes - Cardiovascular Cardiovascular exam: Present: RRR, +S1, +S2. Absent: diastolic murmur, gallop, rubs, systolic murmur - GI/Abdominal GI/Abdominal exam: Present: normal bowel sounds, soft, no peritoneal signs. Absent: distended, tenderness - Extremities Exam Extremities exam: Present: warm, radial pulses palpable and symmetrical. Absent : calf tenderness, cyanotic, pedal edema - Neurological Exam Neurological exam: Present: alert, CN II-XII intact, oriented X3, no focal deficits. Absent: pronater drift, facial droop, speech deficit - Skin Skin exam: Present: dry, intact - VTE Documentation of Mechanical Device: Intermittent pneumatic compression device
--- NOTE | 2017-01-08 10:54 | Physician Discharge Referral ---
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 For more information, call the [employer] Quit Line at 4-515-OQEU-NOW. - Diet/Nutrition Diet/Nutrition Orders: Cardiac - Activity Activity Orders: Up ad guille - Services Needed Following services are medically necessary services: Home Health Aide, Physical Therapy, Occupational Therapy - Transfer Medications Prescriptions: Azithromycin [Zithromax] 250 mg PO MOWEFR #30 tablet predniSONE [PredniSONE] See Taper PO DAILY #20 tablet Tobramycin for INHALATION [Reji 300 mg/5 ml Solution] 300 mg AER BID #56 inh Home Medications: Albuterol Neb [Proventil Neb] 2.5 mg IH Q4HR PRN 12/31/14 [History] Albuterol Sulfate [Albuterol Inhaler] 2 puff IH Q4HR PRN 12/31/14 [History] Amlodipine [Norvasc] 2.5 mg PO DAILY 12/31/14 [History] Cholecalciferol (Vitamin D3) [Vitamin D] 2,000 unit PO DAILY 12/31/14 [History] Omeprazole [PriLOSEC] 20 mg PO DAILY 12/31/14 [History] Multivit/Ca/Min/Fe/FA [Thera M Plus] 1 tab PO DAILY tablet 12/24/15 [Rx] Oxygen 2 l .ROUTE AD 06/04/16 [History] Acetylcysteine [X-Pllinq-b-Cysteine] 600 mg PO BID 12/05/16 [History] Beclomethasone Diprop 40mcg [QVAR 40 mcg] 1 puff IH BID 12/05/16 [History] Carvedilol [Coreg] 6.25 mg PO BID 12/05/16 [History] Losartan Potassium [Cozaar] 100 mg PO DAILY 12/05/16 [History] Montelukast [Singulair] 10 mg PO DAILY 12/05/16 [History] Gabapentin [Neurontin] 300 mg PO HS #10 capsule 12/09/16 [Rx] Tramadol HCl [Ultram] 50 mg PO QID PRN #14 tab 12/09/16 [Rx] LORazepam [Ativan] 0.5 mg PO HS 01/05/17 [History] Azithromycin [Zithromax] 250 mg PO MOWEFR #30 tablet 01/08/17 [Rx] Tobramycin for INHALATION [Reji 300 mg/5 ml Solution] 300 mg AER BID #56 inh 04/25 [Rx] predniSONE [PredniSONE] See Taper PO DAILY #20 tablet 01/08/17 [Rx] Allergies/Adverse Reactions: 3 Allergy/AdvReac Type Severity Reaction Status Date / Time Oxycodone AdvReac Confusion Verified 01/04/17 20:09 Certification: Further, I certify that my clinical findings support that this patient is homebound (i.e. absences from home require considerable and taxing effort and are for medical reasons or advent services or infrequently or short duration when for other reasons) because: Homebound Reason: Patient requires assistance of a person or device to safely leave home Attestation: My signature below is to certify that this patient is under my care and that I, or nurse practitioner, or a physician's offset assistant press operator working with me, has a face-to -face encounter with this patient.
[2017-01-08] MEDS: *HR* Acetylcysteine 20% 600 MG/3 ML ORAL SYRINGE PO SCH (11:09)
[2017-01-08] MEDS: predniSONE 20 MG TABLET PO SCH (11:10)
[2017-01-08] MEDS: amLODIPine 5 MG TABLET PO SCH (11:10)
[2017-01-08] MEDS: Cholecalciferol (D-3) 1,000 UNIT TABLET PO SCH (11:10)
[2017-01-08] MEDS: Multivit/Ca/Min/Fe/FA 1 TAB TABLET PO SCH (11:11)
--- NOTE | 2017-01-08 11:29 | Infectious Disease Progress No ---
Date of Encounter: 01/08/17 Time of Encounter: 11:27 - Assessment and Plan (1) Sepsis Current Visit: Yes Status: Resolved The patient had two SIRS criteria on admission. Likely secondary to PNA. Improved. Tachycardia has resolved. WBC stable. The patient was started on steroids on admission which could also contribute to/worsen the patient's leukocytosis. Blood cultures drawn 01/04/17 are NGTD 2/2 sets. Qualifiers: Sepsis type: Pseudomonas Qualified Code(s): A41.52 - Sepsis due to Pseudomonas (2) Pneumonia Current Visit: No Status: Acute Active PNA vs. colonization. Causative organism Pseudomonas putida. Sensitivity to Zosyn unknown. Antibiotics switched to Ceftaz per the primary team based on culture sensitivities. Previous sputum culture in 04/2016 and 05/2016 were also positive for Pseudomonas. The patient is likely colonized. CXR shows LLL and RUL infiltrates, improved since previous exam. Previously treated with 14 days of IV Meropenem. Her home medication list reveals that she was started on PO Levaquin on by her PCP. Pulmonology consulted. Bronch deferred as Dr. Morris feels that the patient's symptoms are likely related more to bronchiectasis exacerbation rather than acute pneumonia. Continue ceftazidine 2 grams IV Q8H. Duration of treatment depends on the clinical picture. Monitor renal function and for drug toxicity. Qualifiers: Pneumonia type: due to Pseudomonas Laterality: bilateral Lung location: lower lobe of lung Qualified Code(s): J15.1 - Pneumonia due to Pseudomonas (3) Bronchiectasis with (acute) exacerbation Current Visit: Yes Status: Acute Pulmonology consulted and following. (4) Acute and chronic respiratory failure with hypoxia Current Visit: No Status: Acute Secondary to COPD and bronchiectasis exacerbation. Pulmonology consulted and following. (5) COPD exacerbation Current Visit: No Status: Acute Management per the pulmonary team. (6) GERD (gastroesophageal reflux disease) Current Visit: Yes Status: Chronic Qualifiers: Esophagitis presence: without esophagitis Qualified Code(s): K21.9 - Gastro -esophageal reflux disease without esophagitis (7) HTN (hypertension) Current Visit: Yes Status: Chronic Qualifiers: Hypertension type: essential hypertension Qualified Code(s): I10 - Essential (primary) hypertension - Subjective Interval history: Patient seen and examined. No acute events noted overnight. Patient states she is going home today. States her breathing is back to baseline. Reports a cough when she gets short of breath. Denies fevers, chills, or rigors. Denies chest pain. Denies nausea, vomiting, or diarrhea. Denies abdominal pain and states her appetite if good. Denies urinary complaints. Denies oral thrush or skin lesions. Infect Dis PN-Objective Data - Labs CBC & Chem 7: 01/08/17 05:18 01/08/17 05:18 Labs: Laboratory Results - last 24 hr 01/08/17 01/08/17 05:18 05:18 WBC 16.9 H RBC 4.14 Hgb 12.1 Hct 37.5 MCV 90.6 MCH 29.2 MCHC 32.3 RDW 13.9 Plt Count 445 H MPV 10.2 Immature Gran % 1.0 Seg Neutrophils % 59.4 Lymphocytes % 30.7 Monocytes % 8.1 Eosinophils % 0.4 Basophils % 0.4 Neutrophils # 10.1 H Lymphocytes # 5.2 H Monocytes # 1.4 H Eosinophils # 0.1 Basophils # 0.1 Sodium 144 Potassium 3.2 L Chloride 109 Carbon Dioxide 25 BUN 9 Creatinine 0.72 Est GFR ( Amer) > 60 Est GFR (Non-Af Amer) > 60 BUN/Creatinine Ratio 13 Glucose 75 Calculated Osmolality 295 Calcium 9.6 Cultures: Cultures 01/05/17 01:40 Sputum Culture - Preliminary Sputum Pseudomonas putida Exam - Constitutional Vitals: Temp Pulse Resp BP Pulse Ox 98.9 F 89 20 122/75 94 01/08/17 06:30 01/08/17 06:30 01/08/17 08:06 01/08/17 06:30 01/08/17 08:06 General appearance: average body habitus, cooperative, no acute distress - Head Head exam: Present: atraumatic, normal inspection, normocephalic - Eye Eye exam: Present: EOMI, normal appearance, PERRL Pupils: Present: normal accommodation - ENT ENT exam: Present: mucous membranes moist - Neck Neck exam: Present: normal inspection - Respiratory Respiratory exam: Present: decreased breath sounds (throughout), CTAB. Absent: rales, respiratory distress, rhonchi, wheezes - Cardiovascular Cardiovascular exam: Present: RRR, +S1, +S2 - GI/Abdominal GI/Abdominal exam: Present: normal bowel sounds, soft. Absent: distended, tenderness - Extremities Exam Extremities exam: Present: normal inspection. Absent: joint swelling, pedal edema, tenderness - Neurological Exam Neurological exam: Present: alert, oriented X3, no focal deficits - Psychiatric Psychiatric exam: Present: normal affect, normal mood - Skin Skin exam: Present: dry, intact, normal color, warm - VTE Documentation of Mechanical Device: Intermittent pneumatic compression device Consult Discharge Plan - Plan Referrals: Chaz Cuellar MD [Primary Care Provider] - 01/15/17 10:00 am ([phone]-New office number) Prescriptions: Tobramycin for INHALATION [Reji 300 mg/5 ml Solution] 300 mg IH Q12HR #20 ampul Azithromycin [Zithromax] 250 mg PO MOWEFR #30 tablet predniSONE [PredniSONE] See Taper PO DAILY #20 tablet
[2017-01-08] MEDS ORDERED: Tobramycin for INHALATION 300 MG/5 ML AMPUL AER SCH (15:16)
== END 2017-01-08 15:48 | disposition home health service (06) | DRG 871 ==
LOC: 2ANU 20:07 → EMEROO 20:07 → 2ANU 23:01 → SUATTDRO 23:23
PROVIDERS: ADMIT Hospitalist; ATTEND Internal Medicine

== ENCOUNTER 2017-02-19 06:04 | Inpatient (IN) ==
[2017-02-19] MEDS ORDERED: *HR* Morphine 2 MG/ML SYRINGE IVP ONE (06:12)
[2017-02-19] MEDS ORDERED: Ondansetron 4 MG/2 ML VIAL IVP ONE ×2 (06:14→07:38)
[2017-02-19] MEDS ORDERED: Tdap (ADACEL) Vaccine 0.5 ML IM ONE (06:15)
[2017-02-19] MEDS ORDERED: ceFAZolin 1,000 MG in Water for inj. (sterile) 10 ML IVP ONE (06:15)
--- NOTE | 2017-02-19 06:29 | Emergency Department Note ---
Disposition Clinical Impression: Fracture of left forearm, Pneumonia Disposition: Admitted As Inpatient Condition: Fair General Adult HPI - General Chief complaint: ED Fall Stated complaint: fall Time Seen by Provider: 02/19/17 06:08 Source: patient, EMS Limitations: no limitations - History of Present Illness HPI Narrative: This is an 82-year-old female who presents by ambulance. She reports that she fell out of bed. She was trying to get out of bed but her legs were caught wrapped up in blankets.. She impacted her left arm. She was reportedly on the ground for something like 1-2 hours at least according to the medics. This patient lives by herself. She is also complaining of pain in her left hip. She was unable to get up unassisted after the fall. The patient was also noted to be hypoxic on arrival. She lives on home oxygen. The old record lists chronic respiratory failure. She has had a problem with resistant pseudomonas pneumonia on a recent admission with sepsis. Pain Scale: 10 - Related Data Home Medications Medication Instructions Recorded Confirmed Albuterol Neb [Proventil Neb] 2.5 mg IH Q4HR PRN 12/31/14 02/19/17 Albuterol Sulfate [Albuterol 2 puff IH Q4HR PRN 12/31/14 02/19/17 Inhaler] Amlodipine [Norvasc] 2.5 mg PO DAILY 12/31/14 02/19/17 Cholecalciferol (Vitamin D3) 2,000 unit PO DAILY 12/31/14 02/19/17 [Vitamin D] Omeprazole [PriLOSEC] 20 mg PO DAILY 12/31/14 02/19/17 Oxygen 2 l .ROUTE AD 06/04/16 02/19/17 Beclomethasone Diprop 40mcg [QVAR 1 puff IH BID 12/05/16 02/19/17 40 mcg] Carvedilol [Coreg] 6.25 mg PO BID 12/05/16 02/19/17 Losartan Potassium [Cozaar] 100 mg PO DAILY 12/05/16 02/19/17 Montelukast [Singulair] 10 mg PO DAILY 12/05/16 02/19/17 LORazepam [Ativan] 0.5 mg PO HS 01/05/17 02/19/17 Previous Rx's Medication Instructions Recorded Multivit/Ca/Min/Fe/FA [Thera M 1 tab PO DAILY tablet 12/24/15 Plus] Gabapentin [Neurontin] 300 mg PO HS #10 capsule 12/09/16 Tramadol HCl [Ultram] 50 mg PO QID PRN #14 tab 12/09/16 Allergies Allergy/AdvReac Type Severity Reaction Status Date / Time Oxycodone AdvReac Confusion Verified 01/04/17 20:09 All systems ED: reviewed and negative except as stated. Constitutional: Denies: fever Cardiovascular: Denies: chest pain Respiratory: Reports: dyspnea, wheezes Gastrointestinal: Denies: abdominal pain Past Medical History - Past Medical History Attestation: Yes The following information was validated with the patient. Medical history: Reports: GERD, hyperlipidemia, arthritis, hypertension, COPD Surgical history: Reports: cataract, cholecystectomy, orthopedic, other, other, appendectomy Psychiatric history: Reports: anxiety, depression PATIENT SERVICE COORDINATOR history: Reports: no PATIENT SERVICE COORDINATOR history - Social History Smoking Status: Former smoker Smokeless Tobacco Status: No Alcohol use: Reports: none Drug use: Reports: none Physical Exam - General Limitations: no limitations General appearance: alert, other (Chronically ill-appearing) - Head Head exam: atraumatic, normocephalic - Eye Eye exam: Present: PERRL, EOMI - ENT ENT exam: normal exam - Neck Neck exam: Present: normal inspection - Chest Chest inspection: Present: normal inspection - Respiratory Respiratory exam: Present: wheezes, other (Scattered rhonchi) - Cardiovascular Cardiovascular exam: Present: regular rate, normal rhythm - Abdominal Exam Abdominal exam: Present: Non-Tender - Extremities Exam Extremities exam: Present: other (This patient has a deformity of the midshaft of the left forearm. There appears to be bleeding coming from the ventral side. Due to the location of the wound I cannot get a good look at it. She has 2 out of 4 radial and ulnar pulses. Good range of motion of the fingers. Intact sensation distal to the injury. There is no deformity of the right upper extremity with good range of motion of the shoulder elbow and wrist. She has some pain with range of motion of left hip but is able to flex and extend. No deformity of the knee or ankle or foot on either side. 2 out of 4 dorsalis pedis and posterior tibialis pulses bilaterally ) - Neurological Exam Neurological exam: Present: alert, oriented X3, CN II-XII intact - Psychiatric Psychiatric exam: Present: normal affect, anxious Course Course Narrative: This patient presents with an obvious deformity of the left forearm and there was a lot of blood underneath the arm on the ventral side in the region of the fracture. I can see a very small superficial-looking wound repair. The concern is that this could represent an open fracture but the only wound I can find looks very superficial and may not actually have been caused by the fracture itself. But we have covered the patient with IV antibiotics and she has received a tetanus shot area I have discussed the case with Dr. Christian for orthopedic surgery and he says they are planning on taking the patient to the operating room today. She has evidence of subacute rami fractures of the pelvis however the family did seem to be aware of a previous recent fracture there so that is probably not new. Radiologist has also noted that her chest x- ray looked worse than her previous from the recent Pseudomonas pneumonia admission. We have ordered blood cultures and lactate and I ordered IV cefepime. Case discussed with the hospitalist to arrange for admission Vital Signs Temperature 97.5 F L 02/19/17 06:06 Pulse Rate 84 02/19/17 06:06 Respiratory Rate 20 02/19/17 06:06 Blood Pressure 153/87 02/19/17 06:06 O2 Sat by Pulse Oximetry 96 02/19/17 06:06 Temperature 97.5 F L 02/19/17 06:06 Pulse Rate 78 02/19/17 08:55 Respiratory Rate 20 02/19/17 08:55 Blood Pressure 104/67 02/19/17 08:55 O2 Sat by Pulse Oximetry 92 02/19/17 08:55 Oxygen Delivery Oxygen Delivery Nasal Cannula Medical Decision Making - Medical Records Medical records reviewed: Yes I reviewed the patient's medical records. - Lab Data Lab results reviewed: Yes I reviewed the patient's lab results. Result diagrams: 02/19/17 06:20 02/19/17 06:20 Lab Results 02/19/17 02/19/17 02/19/17 Range/Units 06:20 06:20 06:20 WBC 15.2 H (4.3-11.1) K/mcL RBC 4.37 (3.82-4.97) M/mcL Hgb 12.8 (11.5-15.4) g/dL Hct 40.8 (35.3-44.9) % MCV 93.4 (83.0-100.0) fL MCH 29.3 (28.0-33.3) pg MCHC 31.4 L (31.6-35.5) g/dL RDW 15.7 H (11.5-14.5) % Plt Count 311 (140-400) K/mcL MPV 10.4 (9.4-12.4) fL PT 10.6 (9.4-12.1) Seconds INR 1.0 Sodium 141 (136-145) mEq/L Potassium 4.2 (3.5-4.5) mEq/L Chloride 108 (98-109) mEq/L Carbon Dioxide 21 (19-29) mEq/L BUN 24 H (7-20) mg/dL Creatinine 0.76 (0.57-1.11) mg/dL Est GFR ( Amer) > 60 (> 60) Est GFR (Non-Af Amer) > 60 (> 60) BUN/Creatinine Ratio 32 H (6-26) Glucose 106 H (70-99) mg/dL Calculated Osmolality 296 (280-300) Lactic Acid (0.5-2.2) mmol/L Calcium 10.6 (8.6-10.8) mg/dL Total Bilirubin 0.4 (0.2-1.2) mg/dL AST 16 (5-34) Units/L ALT 16 (0-55) Units/L Alkaline Phosphatase 86 (38-126) Units/L Ammonia (18-72) mcmol/L Creatine Kinase 63 (29-168) Units/L Troponin I (0-0.03) ng/mL B-Natriuretic Peptide (0-100) pg/mL Serum Total Protein 7.1 (6.0-8.3) g/dL Albumin 3.6 (3.5-5.0) g/dL Globulin 3.5 (2.4-3.5) g/dL Albumin/Globulin Ratio 1.0 L (1.1-2.2) Urine Color (Yellow) Urine Clarity (Clear) Urine pH (5.0-8.0) pH Units Ur Specific [place] (1.010-1.025) Urine Protein (Neg-Trace) mg/dL Urine Glucose (UA) (Normal) mg/dL Urine Ketones (Negative) mg/dL Urine Blood (Negative) Urine Nitrite (Negative) Urine Bilirubin (Negative) Urine Urobilinogen (Normal) mg/dL Ur Leukocyte Esterase (Negative) Ur Culture Indicated? (NO) 02/19/17 02/19/17 02/19/17 Range/Units 06:20 06:20 06:20 WBC (4.3-11.1) K/mcL RBC (3.82-4.97) M/mcL Hgb (11.5-15.4) g/dL Hct (35.3-44.9) % MCV (83.0-100.0) fL MCH (28.0-33.3) pg MCHC (31.6-35.5) g/dL RDW (11.5-14.5) % Plt Count (140-400) K/mcL MPV (9.4-12.4) fL PT (9.4-12.1) Seconds INR Sodium (136-145) mEq/L Potassium (3.5-4.5) mEq/L Chloride (98-109) mEq/L Carbon Dioxide (19-29) mEq/L BUN (7-20) mg/dL Creatinine (0.57-1.11) mg/dL Est GFR ( Amer) (> 60) Est GFR (Non-Af Amer) (> 60) BUN/Creatinine Ratio (6-26) Glucose (70-99) mg/dL Calculated Osmolality (280-300) Lactic Acid (0.5-2.2) mmol/L Calcium (8.6-10.8) mg/dL Total Bilirubin (0.2-1.2) mg/dL AST (5-34) Units/L ALT (0-55) Units/L Alkaline Phosphatase (38-126) Units/L Ammonia 21 (18-72) mcmol/L Creatine Kinase (29-168) Units/L Troponin I 0.00 (0-0.03) ng/mL B-Natriuretic Peptide 84 (0-100) pg/mL Serum Total Protein (6.0-8.3) g/dL Albumin (3.5-5.0) g/dL Globulin (2.4-3.5) g/dL Albumin/Globulin Ratio (1.1-2.2) Urine Color (Yellow) Urine Clarity (Clear) Urine pH (5.0-8.0) pH Units Ur Specific [place] (1.010-1.025) Urine Protein (Neg-Trace) mg/dL Urine Glucose (UA) (Normal) mg/dL Urine Ketones (Negative) mg/dL Urine Blood (Negative) Urine Nitrite (Negative) Urine Bilirubin (Negative) Urine Urobilinogen (Normal) mg/dL Ur Leukocyte Esterase (Negative) Ur Culture Indicated? (NO) 02/19/17 02/19/17 Range/Units 07:01 07:32 WBC (4.3-11.1) K/mcL RBC (3.82-4.97) M/mcL Hgb (11.5-15.4) g/dL Hct (35.3-44.9) % MCV (83.0-100.0) fL MCH (28.0-33.3) pg MCHC (31.6-35.5) g/dL RDW (11.5-14.5) % Plt Count (140-400) K/mcL MPV (9.4-12.4) fL PT (9.4-12.1) Seconds INR Sodium (136-145) mEq/L Potassium (3.5-4.5) mEq/L Chloride (98-109) mEq/L Carbon Dioxide (19-29) mEq/L BUN (7-20) mg/dL Creatinine (0.57-1.11) mg/dL Est GFR ( Amer) (> 60) Est GFR (Non-Af Amer) (> 60) BUN/Creatinine Ratio (6-26) Glucose (70-99) mg/dL Calculated Osmolality (280-300) Lactic Acid 0.9 (0.5-2.2) mmol/L Calcium (8.6-10.8) mg/dL Total Bilirubin (0.2-1.2) mg/dL AST (5-34) Units/L ALT (0-55) Units/L Alkaline Phosphatase (38-126) Units/L Ammonia (18-72) mcmol/L Creatine Kinase (29-168) Units/L Troponin I (0-0.03) ng/mL B-Natriuretic Peptide (0-100) pg/mL Serum Total Protein (6.0-8.3) g/dL Albumin (3.5-5.0) g/dL Globulin (2.4-3.5) g/dL Albumin/Globulin Ratio (1.1-2.2) Urine Color Yellow (Yellow) Urine Clarity Clear (Clear) Urine pH 6.5 (5.0-8.0) pH Units Ur Specific [place] 1.015 (1.010-1.025) Urine Protein Negative (Neg-Trace) mg/dL Urine Glucose (UA) Normal (Normal) mg/dL Urine Ketones Negative (Negative) mg/dL Urine Blood Negative (Negative) Urine Nitrite Negative (Negative) Urine Bilirubin Negative (Negative) Urine Urobilinogen Normal (Normal) mg/dL Ur Leukocyte Esterase Negative (Negative) Ur Culture Indicated? NO (NO) - Radiology Data Radiology results reviewed: Yes I reviewed the patient's radiology results. - EKG Data EKG #1 EKG attestation: Yes I reviewed and interpreted this EKG. EKG results narrative: EKG interpreted by me showing sinus rhythm at a rate of 84, QRS of 90, QTC of 422, axis of 4. With no ischemic changes. Critical Care Time Critical Care Time: Yes Total Critical Care Time: 30 Attestation: There was a high probability of clinically significant and/or life-threatening deterioration in the course of this patient's care required my acute intervention. Total critical care time of 30 minutes exclusive of procedures.
[2017-02-19 06:44] LABS: Hematocrit 40.8 % (35.3-44.9); Hemoglobin 12.8 g/dL (11.5-15.4); Mean Corpuscular HGB Conc 31.4 g/dL (31.6-35.5); Mean Corpuscular Hemoglobin 29.3 pg (28.0-33.3); Mean Corpuscular Volume 93.4 fL (83.0-100.0); Mean Platelet Volume 10.4 fL (9.4-12.4); Platelet Count 311 K/mcL (140-400); Red Blood Count 4.37 M/mcL (3.82-4.97); Red Cell Distribution Width 15.7 % (11.5-14.5)
[2017-02-19 06:49] LABS: Prothrombin Time 10.6 Seconds (9.4-12.1)
[2017-02-19 06:50] LABS: Alanine Aminotransferase 16 Units/L (0-55); Alkaline Phosphatase 86 Units/L (38-126); Aspartate Amino Transferase 16 Units/L (5-34); BUN/Creatinine Ratio 32 (6-26); Bilirubin,Total 0.4 mg/dL (0.2-1.2); Blood Urea Nitrogen 24 mg/dL (7-20); Calcium 10.6 mg/dL (8.6-10.8); Carbon Dioxide 21 mEq/L (19-29); Chloride 108 mEq/L (98-109); Glucose 106 mg/dL (70-99); Osmolality,Calculated 296 (280-300); Potassium 4.2 mEq/L (3.5-4.5); Sodium 141 mEq/L (136-145); eGFR For African Americans > 60 (> 60); eGFR For Non-African Americans > 60 (> 60)
[2017-02-19 06:51] LABS: Albumin 3.6 g/dL (3.5-5.0); Creatine Kinase 63 Units/L (29-168); Globulin 3.5 g/dL (2.4-3.5); Total Protein 7.1 g/dL (6.0-8.3)
[2017-02-19 07:08] LABS: Bilirubin,Urine Negative (Negative); Blood,Urine Negative (Negative); Clarity,Urine Clear (Clear); Color,Urine Yellow (Yellow); Glucose,Urine (UA) Normal (Normal); Ketones,Urine Negative (Negative); Leukocyte Esterase,Urine Negative (Negative); Nitrite,Urine Negative (Negative); PH,Urine 6.5 pH Units (5.0-8.0); Protein,Urine Negative (Neg-Trace); Specific Gravity,Urine 1.015 (1.010-1.025); Urobilinogen,Urine Normal (Normal)
[2017-02-19] MEDS ORDERED: *HR* Morphine 2 MG/ML SYRINGE IVP PRN (10:06)
[2017-02-19] MEDS: *HR* HYDROmorphone (PF) 1 MG/ML SYRINGE IVP PRN ×2 (11:36→15:12)
[2017-02-19] MEDS: Ondansetron 4 MG/2 ML VIAL IVP PRN (11:36)
--- NOTE | 2017-02-19 12:50 | Orthopedic Consult Note ---
Date of Encounter: 02/19/17 Time of Encounter: 12:48 Assessment and Plan (1) Open left forearm fracture Current Visit: Yes Status: Acute Type I left open forearm both bone fracture, involving a punctate open lesion along the ulna distally. My recommendation was for debridement of the wound with open reduction and internal fixation of the fractures after previous distal radius plate removal. Anticipate 24 hours of postoperative IV Ancef. I did discuss the left hip and my recommendation was for CT scan to evaluate for fracture. We will obtain a stat. The risks discussed included but were not limited to stiffness, bleeding, infection, blood clots, damage to neurovascular structures, tendons, ligaments, and bone. Also discussed was the risk of continued symptoms and possible need for further procedures. I did discuss the anesthesia risks including stroke, heart attack, and . She did wish to proceed and consent was obtained for open reduction and internal fixation of the left forearm. Qualifiers: Qualified Code(s): S52.92XB - Unspecified fracture of left forearm, initial encounter for open fracture type I or II History of Present Illness HPI: Ms. Boggs is a 82 year old female who lives independently by herself. She has a history of a right hip hemiarthroplasty in the left hip percutaneous pinning and a left distal radius open reduction and internal fixation. She presents to the emergency department today after a fall while getting tripped up on a blanket. She sustained immediate left forearm pain with deformity as well as left hip and groin pain. She is seen in emergency department where x-rays showed a both bone forearm fracture close to her distal radius plate. The emergency department had concern for an open fracture. She is also having left hip and groin pain however x-rays were negative of the pelvis and femur. She is placed on Ancef and admitted to the hospitalist for definitive repair of her left forearm. On my evaluation the patient complains of isolated pain to the left forearm mostly but also to the left groin. She has not walked since the injury. She denies any numbness, tingling, or any other associated signs or symptoms. Pain is significant and worse with any movement of the left hand/ wrist. She denies any headaches, neck pain, chest pain, abdominal pain, right approximate pain, and right lower show maintained. No other associated signs or symptoms or modifying factors. Past Med Surg Social Fam HX - Past Medical History Medical history: GERD, hyperlipidemia, arthritis, hypertension, COPD Psychiatric history: anxiety - Past Surgical History Surgical History: cataract, cholecystectomy, orthopedic, other, other, appendectomy - Social History Smoking Status: Former smoker Smokeless Tobacco Status: No Alcohol use: none Drug use: none - Family History Son Living Status: Mother Living Status: Hx Family Cancer: Yes Daughter Hx Family Cardiac Disorders: Yes (High cholesterol) Medications and Allergies Albuterol Neb [Proventil Neb] 2.5 mg IH Q4HR PRN 12/31/14 [History] Albuterol Sulfate [Albuterol Inhaler] 2 puff IH Q4HR PRN 12/31/14 [History] Amlodipine [Norvasc] 2.5 mg PO DAILY 12/31/14 [History] Cholecalciferol (Vitamin D3) [Vitamin D] 2,000 unit PO DAILY 12/31/14 [History] Omeprazole [PriLOSEC] 20 mg PO DAILY 12/31/14 [History] Multivit/Ca/Min/Fe/FA [Thera M Plus] 1 tab PO DAILY tablet 12/24/15 [Rx] Oxygen 2 l .ROUTE AD 06/04/16 [History] Beclomethasone Diprop 40mcg [QVAR 40 mcg] 1 puff IH BID 12/05/16 [History] Carvedilol [Coreg] 6.25 mg PO BID 12/05/16 [History] Losartan Potassium [Cozaar] 100 mg PO DAILY 12/05/16 [History] Montelukast [Singulair] 10 mg PO DAILY 12/05/16 [History] Gabapentin [Neurontin] 300 mg PO HS #10 capsule 12/09/16 [Rx] Tramadol HCl [Ultram] 50 mg PO QID PRN #14 tab 12/09/16 [Rx] LORazepam [Ativan] 0.5 mg PO HS 01/05/17 [History] 3 Allergy/AdvReac Type Severity Reaction Status Date / Time Oxycodone AdvReac Confusion Verified 01/04/17 20:09 All Systems Reviewed: A 10-system review of systems was performed and is negative for pertinent findings except as documented above in the HPI. Physical Exam - Constitutional Vitals: Temp Pulse Resp BP Pulse Ox 97.8 F 82 20 125/71 93 02/19/17 09:37 02/19/17 09:37 02/19/17 09:37 02/19/17 09:37 02/19/17 09:37 Constitutional -Vitals reviewed -The patient is well developed and well nourished. -Mood is pleasant. -The patient is well groomed. Psychiatric -The patient is fully alert and oriented x 3. Respiratory: -Respiratory effort normal Abdomen: -Soft abdomen -Non tender -Non distended: Left upper extremity: -Lateral deformity to left forearm consistent with her known fractures -Small punctate open lesion over the ulnar side of the forearm distally with dried blood and a small amount of issues -No pain with passive motion of the shoulder or the elbow -Significant tenderness over the distal forearm and wrist area -Sided not range the wrist due to her known injury -She could grossly flex and extend the digits -The fingertips are all grossly sensate and well-perfused, and the radial artery pulse is 2+. Right upper extremity: -No deformities. The overlying skin is intact. No obvious signs of acute trauma. -No tenderness to palpation throughout. -No significant pain with passive motion of the shoulder, elbow, wrist, and fingers within the limits of the bed. -Able to make an "OK" sign, cross the index and long fingers, and extend the thumb. -Sensation grossly intact to light touch throughout the median, radial, and ulnar distributions. -Radial pulse is present; Fingers have good capillary refill. Left lower extremity: -No deformities. The overlying skin is intact. No obvious signs of acute trauma. -No tenderness to palpation throughout. -Mild pain with passive motion of the hip -No pain with passive motion of the knee, ankle, and toes within the limits of the bed. -No pain with axial loading of the thigh. -Able to dorsiflex and plantarflex the ankle and toes. -Sensation is grossly intact to light touch throughout the sural, saphenous, superficial peroneal, and deep peroneal distributions. -Toes have good capillary refill. Right lower extremity: -No deformities. The overlying skin is intact. No obvious signs of acute trauma. -No tenderness to palpation throughout. -No pain with passive motion of the hip, knee, ankle, and toes within the limits of the bed. -No pain with axial loading of the thigh. -Able to dorsiflex and plantarflex the ankle and toes. -Sensation is grossly intact to light touch throughout the sural, saphenous, superficial peroneal, and deep peroneal distributions. -Toes have good capillary refill. Diagnostic Imaging: I did personally review and interpret x-rays of the left forearm which show a both bone forearm fracture with radius being just proximal to the previously placed plate. This was placed remotely and her fracture has long since healed previously. X-rays of the pelvis and the femur show prior right hip paula- plasty and left hip pinning both appear to be in good alignment. No definite fractures identified. Results - Labs Result Diagrams: 02/19/17 06:20 02/19/17 06:20 Labs: Abnormal lab results WBC 15.2 K/mcL (4.3-11.1) H 02/19/17 06:20 MCHC 31.4 g/dL (31.6-35.5) L 02/19/17 06:20 RDW 15.7 % (11.5-14.5) H 02/19/17 06:20 BUN 24 mg/dL (7-20) H 02/19/17 06:20 BUN/Creatinine Ratio 32 (6-26) H 02/19/17 06:20 Glucose 106 mg/dL (70-99) H 02/19/17 06:20 Albumin/Globulin Ratio 1.0 (1.1-2.2) L 02/19/17 06:20 All other labs normal. Consult Discharge Plan - Plan Referrals: Chaz Cuellar MD [Primary Care Provider] -
[2017-02-19] MEDS ORDERED: Naloxone 0.4 MG/ML INJ IVP PRN (15:01)
--- NOTE | 2017-02-19 15:09 | Internal Med History&Physical ---
Date of Encounter: 02/19/17 Time of Encounter: 10:00 Assessment and Plan (1) Open left forearm fracture Current visit: Yes Status: Acute Qualifiers: Encounter type: initial encounter Qualified Code(s): S52.92XB - Unspecified fracture of left forearm, initial encounter for open fracture type I or II (2) Bronchiectasis Current visit: No Status: Chronic Qualifiers: Bronchiectasis type: uncomplicated Qualified Code(s): J47.9 - Bronchiectasis, uncomplicated (3) GERD (gastroesophageal reflux disease) Current visit: No Status: Chronic Qualifiers: Esophagitis presence: without esophagitis Qualified Code(s): K21.9 - Gastro -esophageal reflux disease without esophagitis (4) HTN (hypertension) Current visit: No Status: Chronic Qualifiers: Hypertension type: essential hypertension Qualified Code(s): I10 - Essential (primary) hypertension (5) Osteoporosis Current visit: No Status: Chronic 82yo female who presents with left forearm fracture after an accidental fall - Will start patient on analgesics. Orthopedic surgeon as been consulted from the ED. - Bronchiectasis: recent treament for pseudomonas pna but she is chronically congested. Per pulm recommendations from previous admission, will place patient on inhaled tobramycin and zithromax. Will also place on scheduled Duoneb and mucinex - Home meds reviewed and started as deemed appropriate. - GI and DVT prophylaxis. Qualifiers: Osteoporosis type: other Presence of current pathological fracture: unspecified Qualified Code(s): M81.8 - Other osteoporosis without current pathological fracture Internal Medicine - H&P: HPI Chief complaint: Fall Admitted From: Home Plans for Post Hospital Care: Home History of present illness: Ms. Boggs is a 82 year old female with hx of chronic COPD, recent treatment for pneumonia, who presented to the ED after she slipped and fell. She reports that she was getting out of the bed to use the bathroom in the middle of the night when her leg got caught in her blanket. She braced the fall with her left hand subsequently causing a deformity. She also complains of cough and congestion which has continued after completion of antibiotics. She denies chest pain, palpitations, fever, abdominal pain or dysuria. Workup in the ED showed left forearm radial and ulnar fractures. Past Med Surg Social Fam HX - Past Medical History Medical history: GERD, hyperlipidemia, arthritis, hypertension, COPD Psychiatric history: anxiety - Past Surgical History Surgical History: cataract, cholecystectomy, orthopedic, other, other, appendectomy - Social History Smoking Status: Former smoker Smokeless Tobacco Status: No Alcohol use: none Drug use: none - Family History Son Living Status: Mother Living Status: Hx Family Cancer: Yes Daughter Hx Family Cardiac Disorders: Yes (High cholesterol) Internal Medicine - H&P: Meds Albuterol Neb [Proventil Neb] 2.5 mg IH Q4HR PRN 12/31/14 [History] Albuterol Sulfate [Albuterol Inhaler] 2 puff IH Q4HR PRN 12/31/14 [History] Amlodipine [Norvasc] 2.5 mg PO DAILY 12/31/14 [History] Cholecalciferol (Vitamin D3) [Vitamin D] 2,000 unit PO DAILY 12/31/14 [History] Omeprazole [PriLOSEC] 20 mg PO DAILY 12/31/14 [History] Multivit/Ca/Min/Fe/FA [Thera M Plus] 1 tab PO DAILY tablet 12/24/15 [Rx] Oxygen 2 l .ROUTE AD 06/04/16 [History] Beclomethasone Diprop 40mcg [QVAR 40 mcg] 1 puff IH BID 12/05/16 [History] Carvedilol [Coreg] 6.25 mg PO BID 12/05/16 [History] Losartan Potassium [Cozaar] 100 mg PO DAILY 12/05/16 [History] Montelukast [Singulair] 10 mg PO DAILY 12/05/16 [History] Gabapentin [Neurontin] 300 mg PO HS #10 capsule 12/09/16 [Rx] Tramadol HCl [Ultram] 50 mg PO QID PRN #14 tab 12/09/16 [Rx] LORazepam [Ativan] 0.5 mg PO HS 01/05/17 [History] 3 Allergy/AdvReac Type Severity Reaction Status Date / Time Oxycodone AdvReac Confusion Verified 01/04/17 20:09 All Systems PM: A 10-system review of systems was performed and is negative for pertinent findings except as documented above in the HPI. - Constitutional Vitals: Temp Pulse Resp BP Pulse Ox 97.8 F 82 20 125/71 93 02/19/17 09:37 02/19/17 09:37 02/19/17 09:37 02/19/17 09:37 02/19/17 09:37 - Head Head exam: Present: atraumatic, normocephalic - Eye Eye exam: Present: PERRL, conjuntiva pink, sclera anicteric Pupils: Present: PERRL - Neck Neck exam general surgery: Present: supple, trachea midline. Absent: lymphadenopathy - Respiratory Respiratory exam: Present: CTAB. Absent: accessory muscle use, rales, rhonchi, wheezes - Cardiovascular Cardiovascular exam: Present: RRR, +S1, +S2. Absent: diastolic murmur, gallop, rubs, systolic murmur - GI/Abdominal GI/Abdominal exam: Present: normal bowel sounds, soft, no peritoneal signs. Absent: distended, tenderness - Extremities Exam Extremities exam: Present: warm, radial pulses palpable and symmetrical. Absent : calf tenderness, cyanotic, pedal edema - Expanded Upper Extremities Exam Elbow exam: Present: effusion Forearm wrist exam: Present: deformity (protuding deformity of left forearm) - Neurological Exam Neurological exam: Present: CN II-XII intact, oriented X3, no focal deficits. Absent: pronater drift, facial droop, speech deficit - Skin Skin exam: Present: dry, intact Internal Med - H&P Results - Labs CBC & Chem 7: 02/19/17 06:20 02/19/17 06:20 - Impressions ITS Impressions Pelvis CT 02/19/17 12:33 IMPRESSION: Acute traumatic comminuted nondisplaced to minimally displaced intertrochanteric left hip fracture in the setting of remote ORIF of the left femoral neck. Subacute fractures of the right superior pubic ramus/anterior column right acetabulum, right pubic symphysis and right inferior pubic ramus. There is sclerosis and partial bony bridging of the right superior pubic ramus and pubic symphysis fractures. No significant bony bridging of the right inferior pubic ramus fracture. Subacute right sacral insufficiency fracture paralleling the right SI joint. Right total hip arthroplasty without definite evidence of loosening. Moderate left hip osteoarthritis. The findings were sent to the Radiology Results [facility] at 2:23 pm on 02/19/2017 to be communicated to a licensed caregiver. D/ / 02/19/2017 14:28:44 Ezio Shepard MD / delon Interpreting Provider: Ezio Shepard MD
[2017-02-19] MEDS ORDERED: D5% in 0.45% NACL 1,000 ML IVC SCH (15:15)
[2017-02-19] MEDS ORDERED: Cefepime HCl 1,000 MG in Water for inj. (sterile) 10 ML IVP SCH (16:00)
[2017-02-19] MEDS: Ipratropium/Albuterol Neb 3 ML IH SCH ×4 (16:01→23:20)
--- NOTE | 2017-02-19 16:28 | Electrocardiograph Report ---
[place] [id number] Test Date: 2017-02-19 Pat Name: Lyssa Boggs Department: [id number] Room: 3B Gender: F Product Developer: BERNICE : 1935 Requested By: Sree Vasquez Order Number: [id number] Reading MD: Jeannette Ann Measurements Intervals [place] Rate: 84 P: 80 OR: 169 QRS: 4 QRSD: 90 T: 61 QT: 381 QTc: 422 Interpretive Statements SINUS RHYTHM Electronically Signed On 02-19-2017 16:27:11 EST by Jeannette Ann
[2017-02-19] MEDS: Azithromycin 500 MG in D5% in Water 250 ML IVPB SCH (17:01)
[2017-02-19] MEDS ORDERED: Tobramycin for INHALATION 300 MG/5 ML AMPUL IH SCH (18:00)
--- NOTE | 2017-02-19 19:52 | Orthopedics Progress Note ---
Date of Encounter: 02/19/17 Time of Encounter: 19:49 - Assessment and Plan (1) Open left forearm fracture Current Visit: Yes Status: Acute Type I left open forearm both bone fracture, involving a punctate open lesion along the ulna distally. My recommendation was for debridement of the wound with open reduction and internal fixation of the fractures after previous distal radius plate removal. Anticipate 24 hours of postoperative IV Ancef. I did discuss the left hip and my recommendation was for CT scan to evaluate for fracture. We will obtain a stat. The risks discussed included but were not limited to stiffness, bleeding, infection, blood clots, damage to neurovascular structures, tendons, ligaments, and bone. Also discussed was the risk of continued symptoms and possible need for further procedures. I did discuss the anesthesia risks including stroke, heart attack, and . She did wish to proceed and consent was obtained for open reduction and internal fixation of the left forearm. Qualifiers: Encounter type: initial encounter Qualified Code(s): S52.92XB - Unspecified fracture of left forearm, initial encounter for open fracture type I or II Subjective Interval history: I did have a discussion with Dr. Jackson from anesthesia regarding the patient's pulmonary status and persistent pneumonia which may result in significant intraoperative or postoperative morbidity. I then did have a very long discussion with the son who is power of state attorney. I did discuss treatment options however given the open nature of her fracture as well as concomitant hip fracture I feel that despite high risk it is in her best interest to undergo surgical management of these conditions and that waiting would likely significantly increase morbidity given the open nature of her fracture combined with significant instability of the forearm and hip fracture which would continually cause significant pain. After this long discussion the family did wish to proceed and consent was affirmed. Objective Vital signs: Vital Signs Temp Pulse Resp BP Pulse Ox 02/19/17 18:37 99.2 F 104 18 128/69 96 02/19/17 16:02 16 93 02/19/17 15:34 99.4 F 107 16 127/76 91 02/19/17 09:37 97.8 F 82 20 125/71 93 02/19/17 08:55 78 20 104/67 92 Intake and Output 02/19/17 02/19/17 02/19/17 07:59 15:59 23:59 Output Total 350 / 350 Balance -350 / -350 Output: Catheter 350 / 350 Other: Weight 56.328 kg Patient Weight 02/19/17 23:59 Weight 56.328 kg - Labs CBC & BMP: 02/19/17 06:20 02/19/17 06:20 Labs: Abnormal lab results WBC 15.2 K/mcL (4.3-11.1) H 02/19/17 06:20 MCHC 31.4 g/dL (31.6-35.5) L 02/19/17 06:20 RDW 15.7 % (11.5-14.5) H 02/19/17 06:20 BUN 24 mg/dL (7-20) H 02/19/17 06:20 BUN/Creatinine Ratio 32 (6-26) H 02/19/17 06:20 Glucose 106 mg/dL (70-99) H 02/19/17 06:20 Albumin/Globulin Ratio 1.0 (1.1-2.2) L 02/19/17 06:20 Consult Discharge Plan - Plan Referrals: Chaz Cuellar MD [Primary Care Provider] -
[2017-02-19] MEDS: Tobramycin for INHALATION 300 MG/5 ML AMPUL IH SCH (20:02)
--- NOTE | 2017-02-19 20:35 | Anesthesia Evaluation PreOp ---
Date of Encounter: 02/19/17 Time of Encounter: 20:32 - Past History Planned Operation: ORIF L-forearm, L-Hip IM Nail Cardiac History: HTN (maintained on Carvedilol, Losartan, Norvasc) Pulmonary History: COPD (maintained on Albuterol, Singulair, HOme O2), Other ( Persistent vs. recurrent Pseudomonas pneumonia despite recent Abx tx. Started on Inhaled Tobramycin & Zithromax this hospitalization) FINISH CARPENTER History: Other (Anxiety maintained on Lorazepam. Chronic Pain maintained on Gabapentin) Other Medical History: GERD (maintained on Prilosec) Anesthesia History: Past Anesthesia (Cataracts, Marisa, Appy, Orthopedic surgeries) Alcohol Use: none Drug use: none Medications and Allergies Albuterol Neb [Proventil Neb] 2.5 mg IH Q4HR PRN 12/31/14 [History] Albuterol Sulfate [Albuterol Inhaler] 2 puff IH Q4HR PRN 12/31/14 [History] Amlodipine [Norvasc] 2.5 mg PO DAILY 12/31/14 [History] Cholecalciferol (Vitamin D3) [Vitamin D] 2,000 unit PO DAILY 12/31/14 [History] Omeprazole [PriLOSEC] 20 mg PO DAILY 12/31/14 [History] Multivit/Ca/Min/Fe/FA [Thera M Plus] 1 tab PO DAILY tablet 12/24/15 [Rx] Oxygen 2 l .ROUTE AD 06/04/16 [History] Beclomethasone Diprop 40mcg [QVAR 40 mcg] 1 puff IH BID 12/05/16 [History] Carvedilol [Coreg] 6.25 mg PO BID 12/05/16 [History] Losartan Potassium [Cozaar] 100 mg PO DAILY 12/05/16 [History] Montelukast [Singulair] 10 mg PO DAILY 12/05/16 [History] Gabapentin [Neurontin] 300 mg PO HS #10 capsule 12/09/16 [Rx] Tramadol HCl [Ultram] 50 mg PO QID PRN #14 tab 12/09/16 [Rx] LORazepam [Ativan] 0.5 mg PO HS 01/05/17 [History] 3 Allergy/AdvReac Type Severity Reaction Status Date / Time Oxycodone AdvReac Confusion Verified 01/04/17 20:09 - Meds/Allergy Pre-op Review Medications Reviewed: Yes Allergies Reviewed: Yes Beta Blockers on Current Med List: No Anesthesia Results - Labs 02/19/17 06:20 02/19/17 06:20 Anesthesia Exam Vital Signs Temp Pulse Resp BP Pulse Ox 02/19/17 18:37 99.2 F 104 18 128/69 96 02/19/17 16:02 16 93 02/19/17 15:34 99.4 F 107 16 127/76 91 02/19/17 09:37 97.8 F 82 20 125/71 93 02/19/17 08:55 78 20 104/67 92 02/19/17 06:06 97.5 F L 84 20 153/87 96 Intake and Output 02/19/17 02/19/17 02/19/17 07:59 15:59 23:59 Output Total 350 / 350 Balance -350 / -350 Output: Catheter 350 / 350 Other: Weight 55.338 kg 56.328 kg Patient Weight 02/19/17 23:59 Weight 56.328 kg Height: 5'5" Weight: 124# BMI = 21 NPO (# of Hours): MNoc - HEENT Pupil (Motor): Pupils equal, EOMI - FINISH CARPENTER LOC: Oriented FINISH CARPENTER Motor: Normal RUE, Normal RLE, Normal Face, Deficit LUE, Deficit LLE FINISH CARPENTER Sensory: Normal: RUE, RLE, Face, Deficit: LUE, LLE - Cardiac Rhythm: Regular Murmur: None - Pulmonary Breath Sounds: bilateral Rales, bilateral Rhonchi Respiratory Effort: Symmetrical Anesthesia Assess/Plan ASA Score: 3 (HTN, COPD, recurrent/persistent pneumonia) Anesthetic Plan: General Monitoring Plan: Standard Monitors Recovery Plan: PACU Anes Supervising Prov Stmt: PT seen/evaluated, R&B discussed, questions answered and consent obtained. Shaym Johnston MD
[2017-02-19] MEDS ORDERED: Acetaminophen IV 1,000 MG/100 ML INFUS..BTL ONE (20:56)
[2017-02-19] MEDS ORDERED: Lidocaine/EPI 1:100k 1% 20 ML VIAL ONE (21:03)
[2017-02-19] MEDS ORDERED: Lidocaine -MPF 4% 5 ML AMPUL ONE (21:03)
[2017-02-19] MEDS ORDERED: Lidocaine -MPF 2% 2 ML VIAL ONE (21:03)
[2017-02-19] MEDS ORDERED: *HR* Etomidate 40 MG/20 ML VIAL IVP ONE ×2 (21:03→21:09)
[2017-02-19] MEDS ORDERED: *HR* FentaNYL (PF) 100 MCG/2 ML VIAL ONE (21:04)
[2017-02-19] MEDS ORDERED: *HR* Propofol 200 MG/20 ML VIAL IVP ONE (21:04)
[2017-02-19] MEDS ORDERED: *HR* Succinylcholine 200 MG/10 ML VIAL IVP ONE (21:09)
[2017-02-19] MEDS ORDERED: Water for inj. (sterile) 20 ML IV ONE (21:38)
[2017-02-19] MEDS ORDERED: *HR* HYDROmorphone 2 MG/ML SYRINGE ONE (21:58)
[2017-02-19] MEDS ORDERED: *HR* Magnesium Sulfate 1 GM/2 ML VIAL ONE (22:05)
[2017-02-20] MEDS ORDERED: Ondansetron 4 MG/2 ML VIAL ONE ×2 (00:37→01:30)
[2017-02-20] MEDS ORDERED: Dexamethasone 4 MG/ML VIAL ONE ×2 (00:37→01:30)
--- NOTE | 2017-02-20 00:53 | Orthopedic Operative Note ---
Date of procedure: 02/20/17 Procedure: OPERATIVE REPORT DATE OF PROCEDURE: 02/19/2017 SURGEON: Jordan Christian MD VIDEO PRODUCTION SPECIALIST(S): There are no assistants PREOPERATIVE DIAGNOSIS: Grade 1 open left both bone forearm fracture; left trochanteric hip fracture POSTOPERATIVE DIAGNOSIS: Same PROCEDURE: Debridement and irrigation of the left forearm with open reduction and internal fixation of the radius and ulna and internal fixation of the left hip ANESTHESIA: General anesthesia PREOPERATIVE ANTIBIOTICS: 2 g of Ancef ESTIMATED BLOOD LOSS: 100 milliliters TOURNIQUET TIME: 104 minutes at 250 mmHg SPECIMENS: No specimens IMPLANTS: Acumed 3.5 mm plate; Synthes 2.7 mm LC-DCP plate; [employer] Gamma 3 11 mm by 130 degree LOCAL INJECTION: 0.5% bupivacaine with 1:200,000 epinephrine; 10 mm to the left forearm PREOPERATIVE NOTE AND INDICATIONS: This patient is an 82-year-old female with a left distal radius fracture previously fixed by my partner however she went on to develop an open both bone forearm fracture after fall. She also sustained a left hip fracture which was a nondisplaced intertrochanteric hip fracture after having removed fixation of her subcapital impacted femoral neck fracture. Recommendation was for reduction and internal fixation of both fractures in order to stabilize the bones for pain control to help facilitate nursing care. The surgical plan was discussed with the patient and power of senior research engineer. The risks, benefits, alternatives, and potential complications of this procedure were discussed with the patient including injury to veins, arteries, nerves, tendons, ligaments, and bone. Also discussed were the risks of infection, bleeding, pain, blood clots, the possible need for a blood transfusion, the possible need for further procedures, heart attack, stroke, and . Additional risks include malunion, nonunion, infection, hardware failure, and the need to remove the hardware.. All of this was explained in simple terms, and the patient and power of senior research engineer verbalized understanding and wished to proceed. Consent was given to proceed with surgery. PROCEDURE: The patient was seen in the preoperative holding area where the identify and the consent were confirmed. The left wrist and left thigh was marked. Final questions were answered. The patient was brought back to the operating room and placed supine on the operating room table. A huddle was performed with the patient and all vital surgical team members confirming patient identity, the correct procedure, and the correct operative site. General anesthesia was administered. The left upper extremity was prepped and draped in the usual sterile fashion. A surgical time out was performed immediately preceding the incision with all personnel in the operating room to confirm patient identity, the correct operative site and extremity, correct radiographic studies, availability of appropriate surgical equipment, and agreement on the planned procedure. The left upper extremity was exsanguinated and the tourniquet was inflated. The old volar incision was made and dissected proceeded to the FCR which was reflected ulnarly. The contents of the volar form reflected ulnarly and the radial artery reflected radially. I did come down onto the plate after elevating the pronator quadratus and removed the plate easily. I then dissected proximally between the brachioradialis and the flexor carpi radialis taking care to protect the radial artery. I reduced the fracture and laid the plate in place and fixed proximally and distally with a combination of cortical and locking 3.5 mm screws. X-rays confirmed excellent reduction. I did place this in compression mode. Attention was directed to the ulnar side which had the open wound and this is extended proximally and distally several centimeters and communicated to the fracture site. This was copiously irrigated with 3 L of saline. There is no devitalized tissue. The fracture was reduced and fixed with the Synthes 2.7 mm plate with a combination of cortical and locking screws. This was also done in compression mode. The wounds were copiously irrigated and the incisions closed with interrupted nylon stitches. A sterile dressing and sugar tong splint was applied and the tourniquet was let down. The sterile field was taken down and the patient was placed on the traction table where the left lower shunt was placed in the traction boot and the right lower extremity was flexed and abducted out of the way. X-rays confirmed that the fracture remained nondisplaced. The left eye was prepped and draped. A small longitudinal incision was made through the skin, subcutaneous tissue, and fascia and the 2 screws were easily removed by placing guidewires and the screws and backing them out was a electric lift truck driver. A small incision was made over the greater trochanter and through the gluteal fascia. The guidewire was inserted in the proximal femur and this was opened with a curved awl. A ball-tipped guidewire placed and reaming began at 9.5 mm and went up to 12.5 mm in half millimeter increments. The definitive nail was placed. The triple sleeve was used to drive the pin into the femoral head and this was measured and overreamed and the definitive lag screw placed after reaming. Using a triple sleeve a third incision was made through the skin, subcutaneous stitch, and fascia in the definitive interlocking screw placed in static mode. The wounds were copiously irrigated and the fascia was closed with 0 Vicryl stitches. Skin was closed with 3-0 Vicryl and the zip tie closure mechanism. A honeycomb dressings were applied. The patient was taken off the traction table in good condition. The instrument, sponge, and needle counts were correct after wound closure. POST OPERATIVE PLAN: Weight Bearing: Nonweightbearing to the left upper extremity. Weightbearing as tolerated to left lower extremity. DVT Prophylaxis: Aspirin Activity: Activities as tolerated with therapy. Wound Care: Keep the dressings clean and dry. Pain Control: Per hospitalist Perioperative antibiotic prophylaxis: 24 hours of post op [facility] Social work for discharge planning Follow Up: 2 weeks
[2017-02-20] MEDS ORDERED: *HR* Promethazine 25 MG/ML VIAL ONE (01:30)
[2017-02-20] MEDS ORDERED: Dexamethasone 4 MG/ML VIAL IVP ONE (01:36)
[2017-02-20] MEDS ORDERED: *HR* Promethazine 25 MG/ML VIAL IVP ONE (01:36)
[2017-02-20] MEDS ORDERED: Ondansetron 4 MG/2 ML VIAL IVP ONE (01:36)
[2017-02-20] MEDS: Ipratropium/Albuterol Neb 3 ML IH SCH ×5 (02:26→20:36)
--- NOTE | 2017-02-20 02:34 | Anesthesia Evaluation Post Op ---
Date of Encounter: 02/20/17 Time of Encounter: 01:00 - Vital Signs Vital Signs: Vital Signs/O2 Sat/Glucose, Most Current Temp Pulse Resp BP Pulse Ox 02/20/17 02:28 18 93 02/20/17 02:26 98.7 F 90 16 110/58 92 02/20/17 02:10 98.7 F 90 16 133/64 92 02/20/17 01:51 97.3 F L 90 16 108/57 94 02/20/17 01:41 90 16 110/60 94 02/20/17 01:31 92 16 141/72 93 02/20/17 01:21 98.7 F 92 16 125/67 94 02/20/17 01:11 96 16 145/73 92 02/20/17 01:01 96 14 143/87 96 02/20/17 00:51 97.8 F 98 12 154/79 97 - Lungs Lungs: Clear Ascult./Percussion - Airway Airway: Non-obstructed - Cardiovascular Regular Rate - Mental Status Mental Status: Alert & Oriented, Answers Appropriately - Pain Pain Scale: 3 Pain Scale used: Numeric (1 - 10) - Nausea Vomiting Nausea Vomiting: Responds to treatment with IV Meds - Hydration Hydration: NPO, Tolerates oral liquids, Able to void - Discharge PostOp Status: Discharge Patient to home Anes Supervising Prov Stmt: Pt seen/evaluated, VSS and pt has met crtieria for discharge to home .- MD Pop
[2017-02-20] MEDS: Cefepime HCl 1,000 MG in Water for inj. (sterile) 10 ML IVP SCH ×3 (02:58→21:20)
[2017-02-20 05:44] LABS: Basophils # 0.1 K/mcL (0.0-0.2); Basophils % 0.5 %; Eosinophils % 0.2 %; Hematocrit 34.6 % (35.3-44.9); Immature Granulocytes % 0.8 % (0-4); Lymphocytes # 0.8 K/mcL (0.6-4.6); Lymphocytes % 4.5 %; Mean Corpuscular HGB Conc 30.9 g/dL (31.6-35.5); Mean Corpuscular Hemoglobin 28.8 pg (28.0-33.3); Mean Corpuscular Volume 93.3 fL (83.0-100.0); Monocytes # 0.5 K/mcL (0.0-1.3); Monocytes % 2.8 %; Neutrophils # 16.2 K/mcL (1.6-8.9); Platelet Count 246 K/mcL (140-400); Red Blood Count 3.71 M/mcL (3.82-4.97); Red Cell Distribution Width 15.8 % (11.5-14.5); Segmented Neutrophils % 91.2 %
[2017-02-20 05:49] LABS: Hemoglobin 10.7 g/dL (11.5-15.4)
[2017-02-20 06:09] LABS: BUN/Creatinine Ratio 25 (6-26); Blood Urea Nitrogen 18 mg/dL (7-20); Carbon Dioxide 23 mEq/L (19-29); Chloride 108 mEq/L (98-109); Glucose 145 mg/dL (70-99); Osmolality,Calculated 294 (280-300); Phosphorous 3.5 mg/dL (2.3-4.7); Potassium 4.1 mEq/L (3.5-4.5); Sodium 140 mEq/L (136-145); eGFR For African Americans > 60 (> 60); eGFR For Non-African Americans > 60 (> 60)
[2017-02-20] MEDS ORDERED: CeFAZolin Premix DUPLEX 2,000 MG/50 ML BAG IVPB SCH ×2 (08:00→16:15)
[2017-02-20] MEDS: Pantoprazole 40 MG VIAL IVP SCH (08:30)
[2017-02-20] MEDS: *HR* HYDROmorphone (PF) 1 MG/ML SYRINGE IVP PRN ×4 (08:30→20:54)
[2017-02-20] MEDS: amLODIPine 5 MG TABLET PO SCH (08:31)
[2017-02-20] MEDS: Tobramycin for INHALATION 300 MG/5 ML AMPUL IH SCH ×2 (08:34→22:47)
--- NOTE | 2017-02-20 10:45 | Internal Med Progress Note ---
Date of Encounter: 02/20/17 Time of Encounter: 10:43 - Assessment and plan (1) Open left forearm fracture Current Visit: Yes Status: Acute Qualifiers: Encounter type: initial encounter Qualified Code(s): S52.92XB - Unspecified fracture of left forearm, initial encounter for open fracture type I or II (2) Bronchiectasis Current Visit: No Status: Chronic Qualifiers: Bronchiectasis type: uncomplicated Qualified Code(s): J47.9 - Bronchiectasis, uncomplicated (3) GERD (gastroesophageal reflux disease) Current Visit: No Status: Chronic Qualifiers: Esophagitis presence: without esophagitis Qualified Code(s): K21.9 - Gastro -esophageal reflux disease without esophagitis (4) HTN (hypertension) Current Visit: No Status: Chronic Qualifiers: Hypertension type: essential hypertension Qualified Code(s): I10 - Essential (primary) hypertension (5) Osteoporosis Current Visit: No Status: Chronic Assessment and plan: S/P ORIF LEFT FOREARM AND INTERNAL FIXATION OF TROCHANTERIC HIP FRACTURE. PT REMAINS STABLE POST OP DAY 1 ADVANCE DIET TOLERATED. CONTINUE TO MONITOR RESPIRATORY FUNCTION. LEUKOCYTOSIS LIKELY REACTIVE, CONTINUE INHALERS AND ABX FOR RECENT PSEUDOMONAS PNA. IF NO CLINICAL SIGNS OF RECURRING INFECTION, IV ABX CAN BE STOPPED ON DISCHARGE. CONTINUE BP MEDS AND PPI Qualifiers: Osteoporosis type: other Presence of current pathological fracture: unspecified Qualified Code(s): M81.8 - Other osteoporosis without current pathological fracture - Subjective Interval history: pt seen laying in bed, smiling and looks comfortable. no complains - Constitutional Vitals: Temp Pulse Resp BP Pulse Ox 99.0 F 91 16 121/72 94 02/20/17 06:51 02/20/17 06:51 02/20/17 08:35 02/20/17 06:51 02/20/17 08:35 General appearance: Present: A&O X 3 - Head Head exam: Present: atraumatic, normocephalic - Eye Eye exam: Present: PERRL, conjuntiva pink, sclera anicteric Pupils: Present: PERRL - Neck Neck exam general surgery: Present: supple, trachea midline. Absent: lymphadenopathy - Respiratory Respiratory exam: Present: CTAB. Absent: accessory muscle use, rales, rhonchi, wheezes - Cardiovascular Cardiovascular exam: Present: RRR, +S1, +S2. Absent: diastolic murmur, gallop, rubs, systolic murmur - GI/Abdominal GI/Abdominal exam: Present: normal bowel sounds, soft, no peritoneal signs. Absent: distended, tenderness - Extremities Exam Extremities exam: Present: warm, radial pulses palpable and symmetrical. Absent : calf tenderness, cyanotic, pedal edema - Neurological Exam Neurological exam: Present: CN II-XII intact, oriented X3, no focal deficits. Absent: pronater drift, facial droop, speech deficit - Skin Skin exam: Present: dry, intact - Other Additional findings: left forearm dressing intact. Extremities warm and well perfused. Internal Medicine: Result - Labs CBC & Chem 7: 02/20/17 04:13 02/20/17 04:13 Labs: Short CBC 02/20/17 Range/Units 04:13 WBC 17.7 H (4.3-11.1) K/mcL Hgb 10.7 L D (11.5-15.4) g/dL Hct 34.6 L (35.3-44.9) % Plt Count 246 (140-400) K/mcL Neutrophils # 16.2 H (1.6-8.9) K/mcL BMP 02/20/17 04:13 Sodium 140 Potassium 4.1 Chloride 108 Carbon Dioxide 23 BUN 18 Creatinine 0.72 Glucose 145 H Calcium 9.0 D - ABG Interpretation ABG results: PT/INR, D-dimer PT 10.6 Seconds (9.4-12.1) 02/19/17 06:20 - Impressions Impressions Pelvis CT 02/19/17 12:33 IMPRESSION: Acute traumatic comminuted nondisplaced to minimally displaced intertrochanteric left hip fracture in the setting of remote ORIF of the left femoral neck. Subacute fractures of the right superior pubic ramus/anterior column right acetabulum, right pubic symphysis and right inferior pubic ramus. There is sclerosis and partial bony bridging of the right superior pubic ramus and pubic symphysis fractures. No significant bony bridging of the right inferior pubic ramus fracture. Subacute right sacral insufficiency fracture paralleling the right SI joint. Right total hip arthroplasty without definite evidence of loosening. Moderate left hip osteoarthritis. The findings were sent to the [facility] at 2:23 pm on 02/19/2017 to be communicated to a licensed caregiver. D/ / 02/19/2017 14:28:44 Ezio Shepard MD / delon Interpreting Provider: Ezio Shepard MD Fluoroscopy 02/19/17 23:15 IMPRESSION: Intraprocedural fluoroscopic spot images as above. See separate procedure report for more information. D/ / Himanshu Murillo MD / Himanshu Murillo MD Interpreting Provider: Himanshu Murillo MD Hip X-Ray 02/19/17 23:15 IMPRESSION: Intraprocedural fluoroscopic spot images as above. See separate procedure report for more information. D/ / Himanshu Murillo MD / Himanshu Murillo MD Interpreting Provider: Himanshu Murillo MD - VTE Documentation of Mechanical Device: Venous foot pump, device Consult Discharge Plan - Plan Referrals: Chaz Cuellar MD [Primary Care Provider] -
[2017-02-20] MEDS: Ondansetron 4 MG/2 ML VIAL IVP PRN ×2 (11:38→17:59)
--- NOTE | 2017-02-20 13:08 | Orthopedics Progress Note ---
Date of Encounter: 02/20/17 Time of Encounter: 07:00 - Assessment and Plan (1) Open left forearm fracture Current Visit: Yes Status: Acute Qualifiers: Encounter type: initial encounter Qualified Code(s): S52.92XB - Unspecified fracture of left forearm, initial encounter for open fracture type I or II Subjective Interval history: S: Resting in bed this morning. Pain significantly improved to the left forearm and left hip O: Afebrile and vital signs are stable Left upper extremity dressing is clean, dry, and intact; she could grossly flex and extend the digits; the hand is well-perfused. The left lower extremity dressings are clean, dry, and intact. No significant pain with logroll of the left leg. She can grossly there is flex implant flex ankle and toes A: Postoperative reduction and internal fixation of the left both bone forearm fracture, and internal fixation of the left hip P: My recommendation is to 24 hours of Ancef after closure of the open fracture wound Weightbearing as tolerated on the bilateral lower extremity. Nonweightbearing to left upper extremity however she can bear weight through the left elbow with a platform walker Anticipate rehabilitation upon discharge. Objective Vital signs: Vital Signs Temp Pulse Resp BP Pulse Ox 02/20/17 12:04 16 95 02/20/17 08:35 16 94 02/20/17 08:18 16 94 02/20/17 06:51 99.0 F 91 17 121/72 95 02/20/17 05:30 98.4 F 88 15 114/64 97 02/20/17 04:30 98 F 89 14 121/67 97 02/20/17 03:30 98.6 F 87 15 118/85 95 02/20/17 02:59 98.5 F 88 17 114/60 95 02/20/17 02:28 18 93 02/20/17 02:26 98.7 F 90 16 110/58 92 02/20/17 02:10 98.7 F 90 16 133/64 92 02/20/17 01:51 97.3 F L 90 16 108/57 94 02/20/17 01:41 90 16 110/60 94 02/20/17 01:31 92 16 141/72 93 02/20/17 01:21 98.7 F 92 16 125/67 94 02/20/17 01:11 96 16 145/73 92 02/20/17 01:01 96 14 143/87 96 02/20/17 00:51 97.8 F 98 12 154/79 97 02/19/17 18:37 99.2 F 104 18 128/69 96 02/19/17 16:02 16 93 02/19/17 15:34 99.4 F 107 16 127/76 91 Intake and Output 02/19/17 02/20/17 02/20/17 23:59 07:59 15:59 Intake Total 270 / 270 50 / 50 Output Total 350 / 350 100 / 100 Balance -80 / -80 -90 / -90 50 / 50 Intake: IV Fluids 270 / 270 50 / 50 Maxipime 1,000 MG In Water for inj. (sterile) 10 ML @ 150 mls/ hr IVP Q8H [facility] Rx#:[id number] Zithromax 500 mg In Dextrose 5% 250 / 250 250 ML @ 252 mls/hr IVPB Q24H [facility] Rx#:[id number] Ancef Premix DUPLEX 2,000 mg In 50 / 50 50 ml @ 100 mls/hr IVPB Q8HR [facility] Rx#:[id number] Output: Estimated Blood Loss 100 / 100 Catheter 350 / 350 - Labs CBC & BMP: 02/20/17 04:13 02/20/17 04:13 Labs: Abnormal lab results WBC 17.7 K/mcL (4.3-11.1) H 02/20/17 04:13 RBC 3.71 M/mcL (3.82-4.97) L 02/20/17 04:13 Hgb 10.7 g/dL (11.5-15.4) L D 02/20/17 04:13 Hct 34.6 % (35.3-44.9) L 02/20/17 04:13 MCHC 30.9 g/dL (31.6-35.5) L 02/20/17 04:13 RDW 15.8 % (11.5-14.5) H 02/20/17 04:13 Neutrophils # 16.2 K/mcL (1.6-8.9) H 02/20/17 04:13 Glucose 145 mg/dL (70-99) H 02/20/17 04:13 Albumin/Globulin Ratio 1.0 (1.1-2.2) L 02/19/17 06:20 - VTE Documentation of Mechanical Device: Venous foot pump, device Consult Discharge Plan - Plan Referrals: Chaz Cuellar MD [Primary Care Provider] -
[2017-02-20] MEDS: Azithromycin 500 MG in D5% in Water 250 ML IVPB SCH (15:56)
[2017-02-20] MEDS: Acetaminophen 325 MG TABLET PO PRN (15:56)
[2017-02-21] MEDS: Ipratropium/Albuterol Neb 3 ML IH SCH ×7 (00:33→23:15)
[2017-02-21] MEDS: *HR* HYDROmorphone (PF) 1 MG/ML SYRINGE IVP PRN ×2 (00:54→03:54)
[2017-02-21] MEDS: Aspirin Enteric Coated 325 MG Tablet PO SCH ×3 (00:55→22:15)
[2017-02-21] MEDS: Cefepime HCl 1,000 MG in Water for inj. (sterile) 10 ML IVP SCH ×3 (03:54→19:39)
[2017-02-21 07:04] LABS: Basophils # 0.1 K/mcL (0.0-0.2); Basophils % 0.6 %; Eosinophils # 0.2 K/mcL (0.0-0.6); Eosinophils % 1.3 %; Hematocrit 29.2 % (35.3-44.9); Hemoglobin 9.4 g/dL (11.5-15.4); Immature Granulocytes % 0.6 % (0-4); Lymphocytes # 2.2 K/mcL (0.6-4.6); Mean Corpuscular HGB Conc 32.2 g/dL (31.6-35.5); Mean Corpuscular Hemoglobin 29.9 pg (28.0-33.3); Mean Platelet Volume 11.4 fL (9.4-12.4); Monocytes # 1.1 K/mcL (0.0-1.3); Monocytes % 7.2 %; Neutrophils # 11.9 K/mcL (1.6-8.9); Platelet Count 200 K/mcL (140-400); Red Blood Count 3.14 M/mcL (3.82-4.97); Red Cell Distribution Width 16.1 % (11.5-14.5); Segmented Neutrophils % 76.3 %
[2017-02-21 07:15] LABS: BUN/Creatinine Ratio 26 (6-26); Blood Urea Nitrogen 18 mg/dL (7-20); Carbon Dioxide 23 mEq/L (19-29); Chloride 106 mEq/L (98-109); Glucose 106 mg/dL (70-99); Osmolality,Calculated 286 (280-300); Potassium 3.9 mEq/L (3.5-4.5); Sodium 137 mEq/L (136-145); eGFR For African Americans > 60 (> 60); eGFR For Non-African Americans > 60 (> 60)
[2017-02-21] MEDS: Pantoprazole 40 MG VIAL IVP SCH (08:29)
[2017-02-21] MEDS: amLODIPine 5 MG TABLET PO SCH (08:29)
--- NOTE | 2017-02-21 09:30 | Internal Med Progress Note ---
Date of Encounter: 02/21/17 Time of Encounter: 09:30 - Assessment and plan (1) HTN (hypertension) Current Visit: Yes Status: Chronic Assessment and plan: Controlled on current meds Continue same Qualifiers: Hypertension type: essential hypertension Qualified Code(s): I10 - Essential (primary) hypertension (2) GERD (gastroesophageal reflux disease) Current Visit: Yes Status: Chronic Assessment and plan: Continue home meds, PPI Qualifiers: Esophagitis presence: without esophagitis Qualified Code(s): K21.9 - Gastro -esophageal reflux disease without esophagitis (3) Osteoporosis Current Visit: Yes Status: Chronic Assessment and plan: Chronic, recurrent multiple fractures and fall,check Vit D with a.m labs Qualifiers: Osteoporosis type: other Presence of current pathological fracture: unspecified Qualified Code(s): M81.8 - Other osteoporosis without current pathological fracture (4) Pelvis fracture Current Visit: Yes Status: Acute Assessment and plan: POD 2 Management per ortho PTOT eval for in-patient rehab placement DVT prophylaxis Qualifiers: Encounter type: initial encounter Pelvic bone location: unspecified part of pelvis Fracture type: closed Fracture alignment: nondisplaced Qualified Code(s): S32.9XXA - Fracture of unspecified parts of lumbosacral spine and pelvis, initial encounter for closed fracture (5) DVT prophylaxis Current Visit: Yes Status: Acute Assessment and plan: LOvenox 40mfg daily (6) Leukocytosis Current Visit: Yes Status: Chronic Assessment and plan: Chronic, no normal WBC since 04/2016 Continue to monitor Afebrile, no evidence of sepsis Qualifiers: Leukocytosis type: unspecified Qualified Code(s): D72.829 - Elevated white blood cell count, unspecified (7) Bronchiectasis Current Visit: Yes Status: Chronic Assessment and plan: Chronic, no flare Continue inhaled tobramycin No indication for cefepime at this time CXR showed old brochiectatic changes Qualifiers: Bronchiectasis type: uncomplicated Qualified Code(s): J47.9 - Bronchiectasis, uncomplicated (8) Open left forearm fracture Current Visit: Yes Status: Acute Assessment and plan: POD 2 Management per ortho Qualifiers: Encounter type: initial encounter Qualified Code(s): S52.92XB - Unspecified fracture of left forearm, initial encounter for open fracture type I or II - Subjective Interval history: 82-year-old female with medical history of bronchiectasis and pseudomonas colonization. She is admitted and being managed for fall with Grade 1 open left both bone forearm fracture; left trochanteric hip fracture Postop day 2, of Debridement and irrigation of the left forearm with open reduction and internal fixation of the radius and ulna and internal fixation of the left hip Denies new complaints, pain is controlled. Chart review also reveals chronic leukocytosis. - Constitutional Vitals: Temp Pulse Resp BP Pulse Ox 98.8 F 107 18 140/76 92 02/21/17 06:49 02/21/17 06:49 02/21/17 06:49 02/21/17 06:49 02/21/17 06:49 General appearance: Present: A&O X 3, pleasant, no acute distress - Head Head exam: Present: atraumatic, normocephalic - Eye Eye exam: Present: PERRL, conjuntiva pink, sclera anicteric Pupils: Present: PERRL - Neck Neck exam general surgery: Present: supple, trachea midline. Absent: lymphadenopathy - Respiratory Respiratory exam: Present: CTAB. Absent: accessory muscle use, rales, rhonchi, wheezes - Cardiovascular Cardiovascular exam: Present: RRR, +S1, +S2. Absent: diastolic murmur, gallop, rubs, systolic murmur - GI/Abdominal GI/Abdominal exam: Present: normal bowel sounds, soft, no peritoneal signs. Absent: distended, tenderness - Extremities Exam Extremities exam: Present: warm, radial pulses palpable and symmetrical. Absent : calf tenderness, cyanotic, pedal edema Additional comments: Left hip region wound dressing clean and dry. Left arm and 1 sibling. Distal extremities well vascularized. Neurovascularly intact. - Neurological Exam Neurological exam: Present: alert, CN II-XII intact, oriented X3, no focal deficits. Absent: pronater drift, facial droop, speech deficit - Skin Skin exam: Present: dry, intact Internal Medicine: Result - Labs CBC & Chem 7: 02/21/17 06:20 02/21/17 06:20 Labs: Short CBC 02/21/17 Range/Units 06:20 WBC 15.6 H (4.3-11.1) K/mcL Hgb 9.4 L (11.5-15.4) g/dL Hct 29.2 L (35.3-44.9) % Plt Count 200 (140-400) K/mcL Neutrophils # 11.9 H (1.6-8.9) K/mcL BMP 02/21/17 06:20 Sodium 137 Potassium 3.9 Chloride 106 Carbon Dioxide 23 BUN 18 Creatinine 0.69 Glucose 106 H Calcium 9.0 - ABG Interpretation ABG results: PT/INR, D-dimer PT 10.6 Seconds (9.4-12.1) 02/19/17 06:20 - VTE Documentation of Mechanical Device: Venous foot pump, device Consult Discharge Plan - Plan Referrals: Chaz Cuellar MD [Primary Care Provider] -
--- NOTE | 2017-02-21 09:44 | Orthopedics Progress Note ---
Date of Encounter: 02/21/17 Time of Encounter: 09:44 Subjective Interval history: Patient was seen this morning doing well without complaints. Afebrile vital signs stable. Operative extremity: Neurovascularly intact Dressing clean dry and intact Calves nontender Assessment and plan: Continue with postoperative care Hematocrit 29 Objective Vital signs: Vital Signs Temp Pulse Resp BP Pulse Ox 02/21/17 06:49 98.8 F 107 18 140/76 92 02/21/17 05:02 18 90 02/21/17 03:36 98.8 F 98 14 121/61 93 02/20/17 23:32 98.0 F 93 16 104/58 93 02/20/17 22:48 18 92 02/20/17 20:36 18 95 02/20/17 19:18 98.4 F 85 14 138/70 94 02/20/17 16:20 18 95 02/20/17 14:28 98.7 F 86 18 126/68 96 02/20/17 12:04 16 95 Intake and Output 02/20/17 02/21/17 02/21/17 23:59 07:59 15:59 Intake Total 320 / 320 10 / 10 Output Total 175 / 175 300 / 300 Balance 145 / 145 -300 / -300 10 / 10 Intake: IV Fluids 320 / 320 10 / 10 Maxipime 1,000 MG In Water for 10 / 10 inj. (sterile) 10 ML @ 150 mls/ hr IVP Q8H [facility] Rx#:[id number] Zithromax 500 mg In Dextrose 5% 250 / 250 250 ML @ 252 mls/hr IVPB Q24H [facility] Rx#:[id number] Ancef Premix DUPLEX 2,000 mg In 50 / 50 50 ml @ 100 mls/hr IVPB .Q30M [facility] Rx#:[id number] Output: Catheter 175 / 175 300 / 300 - Labs CBC & BMP: 02/21/17 06:20 02/21/17 06:20 Labs: Abnormal lab results WBC 15.6 K/mcL (4.3-11.1) H 02/21/17 06:20 RBC 3.14 M/mcL (3.82-4.97) L 02/21/17 06:20 Hgb 9.4 g/dL (11.5-15.4) L 02/21/17 06:20 Hct 29.2 % (35.3-44.9) L 02/21/17 06:20 RDW 16.1 % (11.5-14.5) H 02/21/17 06:20 Neutrophils # 11.9 K/mcL (1.6-8.9) H 02/21/17 06:20 Glucose 106 mg/dL (70-99) H 02/21/17 06:20 Albumin/Globulin Ratio 1.0 (1.1-2.2) L 02/19/17 06:20 - VTE Documentation of Mechanical Device: Venous foot pump, device Consult Discharge Plan - Plan Referrals: Chaz Cuellar MD [Primary Care Provider] -
[2017-02-21] MEDS: Tobramycin for INHALATION 300 MG/5 ML AMPUL IH SCH ×2 (10:21→22:47)
[2017-02-21] MEDS: Acetaminophen 325 MG TABLET PO PRN ×2 (10:51→19:40)
[2017-02-21] MEDS ORDERED: *HR* Enoxaparin 40 MG/0.4 ML SYRINGE SQ SCH (11:00)
[2017-02-21] MEDS: Azithromycin 500 MG in D5% in Water 250 ML IVPB SCH (16:03)
[2017-02-21] MEDS: traMADol 50 MG TABLET PO PRN (16:03)
[2017-02-21] MEDS: Ondansetron 4 MG/2 ML VIAL IVP PRN (16:46)
[2017-02-21] MEDS ORDERED: traMADol 50 MG TABLET PO PRN (21:00)
[2017-02-21] MEDS ORDERED: *HR* LORazepam 1 MG TABLET PO PRN (21:00)
[2017-02-22] MEDS: Ipratropium/Albuterol Neb 3 ML IH SCH ×6 (04:17→23:16)
[2017-02-22] MEDS: Cefepime HCl 1,000 MG in Water for inj. (sterile) 10 ML IVP SCH (04:22)
[2017-02-22 07:06] LABS: Basophils # 0.1 K/mcL (0.0-0.2); Basophils % 0.7 %; Eosinophils # 0.4 K/mcL (0.0-0.6); Eosinophils % 2.9 %; Hematocrit 28.4 % (35.3-44.9); Immature Granulocytes % 0.8 % (0-4); Lymphocytes # 1.2 K/mcL (0.6-4.6); Lymphocytes % 8.4 %; Mean Corpuscular HGB Conc 31.7 g/dL (31.6-35.5); Mean Corpuscular Hemoglobin 29.5 pg (28.0-33.3); Mean Corpuscular Volume 93.1 fL (83.0-100.0); Mean Platelet Volume 11.6 fL (9.4-12.4); Monocytes # 1.2 K/mcL (0.0-1.3); Monocytes % 7.8 %; Neutrophils # 11.8 K/mcL (1.6-8.9); Platelet Count 200 K/mcL (140-400); Red Blood Count 3.05 M/mcL (3.82-4.97); Red Cell Distribution Width 15.9 % (11.5-14.5); Segmented Neutrophils % 79.4 %
[2017-02-22 07:20] LABS: BUN/Creatinine Ratio 25 (6-26); Blood Urea Nitrogen 17 mg/dL (7-20); Calcium 9.5 mg/dL (8.6-10.8); Carbon Dioxide 24 mEq/L (19-29); Chloride 106 mEq/L (98-109); Glucose 96 mg/dL (70-99); Osmolality,Calculated 289 (280-300); Potassium 3.8 mEq/L (3.5-4.5); Sodium 139 mEq/L (136-145); eGFR For African Americans > 60 (> 60); eGFR For Non-African Americans > 60 (> 60)
[2017-02-22] MEDS: traMADol 50 MG TABLET PO PRN ×2 (07:35→19:24)
[2017-02-22] MEDS: Pantoprazole 40 MG VIAL IVP SCH (07:36)
[2017-02-22] MEDS: amLODIPine 5 MG TABLET PO SCH (07:36)
[2017-02-22] MEDS: Aspirin Enteric Coated 325 MG Tablet PO SCH ×2 (07:36→19:25)
[2017-02-22] MEDS: Tobramycin for INHALATION 300 MG/5 ML AMPUL IH SCH ×2 (07:43→20:36)
--- NOTE | 2017-02-22 08:44 | Internal Med Progress Note ---
Date of Encounter: 02/22/17 Time of Encounter: 08:42 - Assessment and plan (1) HTN (hypertension) Current Visit: Yes Status: Chronic Assessment and plan: Controlled on current meds Continue same Qualifiers: Hypertension type: essential hypertension Qualified Code(s): I10 - Essential (primary) hypertension (2) GERD (gastroesophageal reflux disease) Current Visit: Yes Status: Chronic Assessment and plan: Continue home meds, PPI Qualifiers: Esophagitis presence: without esophagitis Qualified Code(s): K21.9 - Gastro -esophageal reflux disease without esophagitis (3) Osteoporosis Current Visit: Yes Status: Chronic Assessment and plan: Chronic, recurrent multiple fractures and fall Vitamin D level ordered and pending Qualifiers: Osteoporosis type: other Presence of current pathological fracture: unspecified Qualified Code(s): M81.8 - Other osteoporosis without current pathological fracture (4) Pelvis fracture Current Visit: Yes Status: Acute Assessment and plan: POD 3 Management per ortho PTOT eval noted for in-patient rehab placement DVT prophylaxis with ASA 325mg BID Qualifiers: Encounter type: initial encounter Pelvic bone location: unspecified part of pelvis Fracture type: closed Fracture alignment: nondisplaced Qualified Code(s): S32.9XXA - Fracture of unspecified parts of lumbosacral spine and pelvis, initial encounter for closed fracture (5) DVT prophylaxis Current Visit: Yes Status: Acute (6) Leukocytosis Current Visit: Yes Status: Chronic Qualifiers: Leukocytosis type: unspecified Qualified Code(s): D72.829 - Elevated white blood cell count, unspecified (7) Bronchiectasis Current Visit: Yes Status: Chronic Assessment and plan: Chronic, no flare Continue inhaled tobramycin No indication for cefepime at this time CXR showed old brochiectatic changes Encourage incentive spirometry Qualifiers: Bronchiectasis type: uncomplicated Qualified Code(s): J47.9 - Bronchiectasis, uncomplicated (8) Open left forearm fracture Current Visit: Yes Status: Acute Assessment and plan: POD 3 Management per ortho Qualifiers: Encounter type: initial encounter Qualified Code(s): S52.92XB - Unspecified fracture of left forearm, initial encounter for open fracture type I or II - Subjective Interval history: 82-year-old female with medical history of bronchiectasis and pseudomonas colonization. She is admitted and being managed for fall with Grade 1 open left both bone forearm fracture; left trochanteric hip fracture Postop day 3, of Debridement and irrigation of the left forearm with open reduction and internal fixation of the radius and ulna and internal fixation of the left hip Denies new complaints, pain is controlled. Chart review also reveals chronic leukocytosis, slowly improving PTOT review noted, recommends SNF/ECF - Constitutional Vitals: Temp Pulse Resp BP Pulse Ox 97.7 F 84 16 108/67 95 02/22/17 06:38 02/22/17 06:38 02/22/17 06:38 02/22/17 06:38 02/22/17 06:38 General appearance: Present: A&O X 3, pleasant, no acute distress - Head Head exam: Present: atraumatic, normocephalic - Eye Eye exam: Present: PERRL, conjuntiva pink, sclera anicteric Pupils: Present: PERRL - Neck Neck exam general surgery: Present: supple, trachea midline. Absent: lymphadenopathy - Respiratory Respiratory exam: Present: CTAB. Absent: accessory muscle use, rales, rhonchi, wheezes - Cardiovascular Cardiovascular exam: Present: RRR, +S1, +S2. Absent: diastolic murmur, gallop, rubs, systolic murmur - GI/Abdominal GI/Abdominal exam: Present: normal bowel sounds, soft, no peritoneal signs. Absent: distended, tenderness - Extremities Exam Additional comments: Left hip region wound dressing clean and dry. Left arm in sling Distal extremities well vascularized. Neurovascularly intact. - Neurological Exam Neurological exam: Present: alert, CN II-XII intact, oriented X3, no focal deficits. Absent: pronater drift, facial droop, speech deficit - Skin Skin exam: Present: dry Internal Medicine: Result - Labs CBC & Chem 7: 02/22/17 06:03 02/22/17 06:03 Labs: Short CBC 02/22/17 Range/Units 06:03 WBC 14.8 H (4.3-11.1) K/mcL Hgb 9.0 L (11.5-15.4) g/dL Hct 28.4 L (35.3-44.9) % Plt Count 200 (140-400) K/mcL Neutrophils # 11.8 H (1.6-8.9) K/mcL BMP 02/22/17 06:03 Sodium 139 Potassium 3.8 Chloride 106 Carbon Dioxide 24 BUN 17 Creatinine 0.68 Glucose 96 Calcium 9.5 - ABG Interpretation ABG results: PT/INR, D-dimer PT 10.6 Seconds (9.4-12.1) 02/19/17 06:20 - VTE Documentation of Mechanical Device: Venous foot pump, device Consult Discharge Plan - Plan Referrals: Chaz Cuellar MD [Primary Care Provider] -
--- NOTE | 2017-02-22 14:14 | Orthopedics Progress Note ---
Date of Encounter: 02/22/17 Time of Encounter: 14:12 - Assessment and Plan (1) Fracture of hip Current Visit: No Status: Acute Postoperative day #3, stable Weightbearing status Continue DVT prophylaxis Discharge planning Qualifiers: Encounter type: initial encounter Fracture type: closed Laterality: left Qualified Code(s): S72.002A - Fracture of unspecified part of neck of left femur, initial encounter for closed fracture (2) Fracture of left forearm Current Visit: Yes Status: Acute Continue digital motion exercises Nonweightbearing Qualifiers: Encounter type: initial encounter Fracture type: closed Qualified Code(s) : S52.92XA - Unspecified fracture of left forearm, initial encounter for closed fracture Subjective Principal diagnosis: Left forearm and hip fracture Interval history: Patient with mild pain Left upper extremity: Splint intact, minimal swelling of digits, moving digits well, neurovascularly intact. Left hip: Dressings clean and intact, calves soft and nontender, neurovascular intact Objective Vital signs: Vital Signs Temp Pulse Resp BP Pulse Ox 02/22/17 11:03 20 94 02/22/17 10:10 99.2 F 103 20 120/65 90 02/22/17 07:43 18 97 02/22/17 06:38 97.7 F 84 16 108/67 95 02/22/17 04:18 18 94 02/22/17 03:31 97.5 F L 80 17 103/73 93 02/22/17 00:22 97.7 F 89 19 105/75 94 02/21/17 23:16 16 93 02/21/17 22:49 18 92 02/21/17 21:57 103 18 103/77 92 02/21/17 20:27 18 95 02/21/17 20:16 97.8 F 88 17 95/55 97 02/21/17 16:31 16 93 02/21/17 15:12 98.1 F 90 16 97/58 93 Intake and Output 02/21/17 02/22/17 02/22/17 23:59 07:59 15:59 Intake Total 410 / 410 0 / 0 Output Total 325 / 325 Balance 85 / 85 0 / 0 Intake: IV Fluids 260 / 260 Maxipime 1,000 MG In Water for 10 inj. (sterile) 10 ML @ 150 mls/ hr IVP Q8H [facility] Rx#:[id number] Zithromax 500 mg In Dextrose 5% 250 / 250 250 ML @ 252 mls/hr IVPB Q24H [facility] Rx#:[id number] Oral 150 / 150 0 / 0 Output: Urine 325 / 325 Other: Meal Breakfast Percent of Meal Consumed 0% # Voids 1 # Urine Diapers 1 Incision: clean and dry - Labs CBC & BMP: 02/22/17 06:03 02/22/17 06:03 Labs: Abnormal lab results WBC 14.8 K/mcL (4.3-11.1) H 02/22/17 06:03 RBC 3.05 M/mcL (3.82-4.97) L 02/22/17 06:03 Hgb 9.0 g/dL (11.5-15.4) L 02/22/17 06:03 Hct 28.4 % (35.3-44.9) L 02/22/17 06:03 RDW 15.9 % (11.5-14.5) H 02/22/17 06:03 Neutrophils # 11.8 K/mcL (1.6-8.9) H 02/22/17 06:03 Albumin/Globulin Ratio 1.0 (1.1-2.2) L 02/19/17 06:20 - VTE Documentation of Mechanical Device: Venous foot pump, device Consult Discharge Plan - Plan Referrals: Chaz Cuellar MD [Primary Care Provider] -
[2017-02-22] MEDS: Ondansetron 4 MG/2 ML VIAL IVP PRN (19:23)
[2017-02-23] MEDS: Ipratropium/Albuterol Neb 3 ML IH SCH ×6 (03:30→23:45)
[2017-02-23 06:53] LABS: Basophils # 0.1 K/mcL (0.0-0.2); Basophils % 0.7 %; Eosinophils # 0.5 K/mcL (0.0-0.6); Eosinophils % 3.7 %; Hematocrit 26.9 % (35.3-44.9); Hemoglobin 8.5 g/dL (11.5-15.4); Lymphocytes # 1.7 K/mcL (0.6-4.6); Lymphocytes % 11.4 %; Mean Corpuscular HGB Conc 31.6 g/dL (31.6-35.5); Mean Corpuscular Hemoglobin 28.8 pg (28.0-33.3); Mean Corpuscular Volume 91.2 fL (83.0-100.0); Mean Platelet Volume 11.9 fL (9.4-12.4); Monocytes # 1.5 K/mcL (0.0-1.3); Monocytes % 10.5 %; Neutrophils # 10.5 K/mcL (1.6-8.9); Platelet Count 205 K/mcL (140-400); Red Blood Count 2.95 M/mcL (3.82-4.97); Red Cell Distribution Width 15.7 % (11.5-14.5); Segmented Neutrophils % 72.7 %
[2017-02-23 07:07] LABS: BUN/Creatinine Ratio 26 (6-26); Blood Urea Nitrogen 16 mg/dL (7-20); Calcium 9.4 mg/dL (8.6-10.8); Carbon Dioxide 24 mEq/L (19-29); Chloride 106 mEq/L (98-109); Glucose 102 mg/dL (70-99); Osmolality,Calculated 289 (280-300); Potassium 3.5 mEq/L (3.5-4.5); Sodium 139 mEq/L (136-145); eGFR For African Americans > 60 (> 60); eGFR For Non-African Americans > 60 (> 60)
--- NOTE | 2017-02-23 08:15 | Orthopedics Progress Note ---
Date of Encounter: 02/23/17 Time of Encounter: 08:12 - Assessment and Plan (1) Open left forearm fracture Current Visit: Yes Status: Acute Qualifiers: Encounter type: initial encounter Qualified Code(s): S52.92XB - Unspecified fracture of left forearm, initial encounter for open fracture type I or II Subjective Principal diagnosis: Left forearm and hip fracture Interval history: S: Resting in bed this morning. Pain significantly improved to the left forearm and left hip O: Afebrile and vital signs are stable. Left upper extremity is in a sugar tong splint. Minimal swelling to the digits. They are freely mobile. Left hip incisions are clean, dry, and intact. No significant pain with passive motion of the hip. She can flex and extend the digits. A: Post internal fixation of the left both bone forearm fracture Postoperative internal fixation of the left hip P: At this point my recommendation is for therapy nonweightbearing to left upper extremities though she can weight-bear to the left elbow with a platform walker Weightbearing as tolerated to the bilateral lower extremity. Objective Vital signs: Vital Signs Temp Pulse Resp BP Pulse Ox 02/23/17 07:17 98.0 F 100 15 119/82 94 02/23/17 03:31 16 92 02/23/17 01:26 94 02/23/17 00:26 98.0 F 85 17 105/73 94 02/22/17 23:18 18 93 02/22/17 20:37 20 95 02/22/17 19:42 98.1 F 94 17 108/75 94 02/22/17 15:22 16 94 02/22/17 14:21 98.7 F 98 16 126/58 94 02/22/17 11:03 20 94 02/22/17 10:10 99.2 F 103 20 120/65 90 Intake and Output 02/22/17 02/23/17 02/23/17 23:59 07:59 15:59 Intake Total 240 / 240 50 / 50 Balance 240 / 240 50 / 50 Intake: Oral 240 / 240 50 / 50 Other: # Voids 1 # Urine Diapers 1 1 - Labs CBC & BMP: 02/23/17 05:46 02/23/17 05:46 Labs: Abnormal lab results WBC 14.5 K/mcL (4.3-11.1) H 02/23/17 05:46 RBC 2.95 M/mcL (3.82-4.97) L 02/23/17 05:46 Hgb 8.5 g/dL (11.5-15.4) L 02/23/17 05:46 Hct 26.9 % (35.3-44.9) L 02/23/17 05:46 RDW 15.7 % (11.5-14.5) H 02/23/17 05:46 Neutrophils # 10.5 K/mcL (1.6-8.9) H 02/23/17 05:46 Monocytes # 1.5 K/mcL (0.0-1.3) H 02/23/17 05:46 Glucose 102 mg/dL (70-99) H 02/23/17 05:46 Albumin/Globulin Ratio 1.0 (1.1-2.2) L 02/19/17 06:20 - VTE Documentation of Mechanical Device: Venous foot pump, device Consult Discharge Plan - Plan Additional Instructions: LONG TERM DISCHARGE INSTRUCTIONS Dr. Christian PROCEDURE PERFORMED Reduction and fixation of left hip. Internal fixation of the left both bone forearm fracture Incision care -Keep the dressings clean, dry, and intact. Weight bearing status -Weightbearing as tolerated to the bilateral lower extremities. Medications -Pain medication per the discharging medical doctor -Enteric coated aspirin 325 mg by mouth twice per day for 28 days from the date of the surgery. Other -Knee high SIMEON hose 23 hours per day -Consult physical and occupational therapy for mobilization. -Up to chair with assistance at least twice per day. -Follow up with your primary care physician to discuss testing for bone mineral density. Follow-up with Dr. Christian at the office 2 weeks from the surgery date for a post operative evaluation. Call the office at [phone] to schedule appointment. Referrals: Chaz Cuellar MD [Primary Care Provider] -
[2017-02-23] MEDS ORDERED: Azithromycin 250 MG TABLET PO SCH (08:46)
[2017-02-23] MEDS: Pantoprazole 40 MG VIAL IVP SCH (09:53)
[2017-02-23] MEDS: amLODIPine 5 MG TABLET PO SCH (09:54)
[2017-02-23] MEDS: Aspirin Enteric Coated 325 MG Tablet PO SCH ×2 (09:55→21:11)
[2017-02-23] MEDS: Tobramycin for INHALATION 300 MG/5 ML AMPUL IH SCH ×2 (10:04→23:00)
--- NOTE | 2017-02-23 11:24 | Physician Discharge Referral ---
ExtendedCare Referral Info Transfer To: In-patient rehab Provider in Charge: Aurora Weeks Provider in Charge after Transfer: PCP Institutional Level of Care: Skilled - Diagnosis (1) HTN (hypertension) Priority: Secondary Status: Chronic (2) GERD (gastroesophageal reflux disease) Priority: Secondary Status: Chronic (3) Osteoporosis Priority: Secondary Status: Chronic (4) Pelvis fracture Priority: Primary Status: Acute (5) DVT prophylaxis Priority: Secondary Status: Acute (6) Leukocytosis Priority: Primary Status: Chronic (7) Bronchiectasis Priority: Secondary Status: Chronic (8) Open left forearm fracture Priority: Primary Status: Acute Prognosis: Fair Aware of Diagnosis: Patient Aware of Prognosis: Patient - Transfer Medications Home Medications: Albuterol Neb [Proventil Neb] 2.5 mg IH Q4HR PRN 12/31/14 [History] Albuterol Sulfate [Albuterol Inhaler] 2 puff IH Q4HR PRN 12/31/14 [History] Amlodipine [Norvasc] 2.5 mg PO DAILY 12/31/14 [History] Cholecalciferol (Vitamin D3) [Vitamin D] 2,000 unit PO DAILY 12/31/14 [History] Omeprazole [PriLOSEC] 20 mg PO DAILY 12/31/14 [History] Multivit/Ca/Min/Fe/FA [Thera M Plus] 1 tab PO DAILY tablet 12/24/15 [Rx] Oxygen 2 l .ROUTE AD 06/04/16 [History] Beclomethasone Diprop 40mcg [QVAR 40 mcg] 1 puff IH BID 12/05/16 [History] Carvedilol [Coreg] 6.25 mg PO BID 12/05/16 [History] Losartan Potassium [Cozaar] 100 mg PO DAILY 12/05/16 [History] Montelukast [Singulair] 10 mg PO DAILY 12/05/16 [History] Gabapentin [Neurontin] 300 mg PO HS #10 capsule 12/09/16 [Rx] Tramadol HCl [Ultram] 50 mg PO QID PRN #14 tab 12/09/16 [Rx] LORazepam [Ativan] 0.5 mg PO HS 01/05/17 [History] Allergies/Adverse Reactions: 3 Allergy/AdvReac Type Severity Reaction Status Date / Time Oxycodone AdvReac Confusion Verified 10/29/17 20:09 - Respiratory Orders Smoking Cessation: Smoking cessation has been advised. For more information, call the [place] Tobacco Quit Line at 1-428-CZUC-NOW. CERTIFICATION: I certify that the transfer of the above named patient to an Extended Care Facility is necessary for the continuing treatment of the diagnosis listed. The above information is true and accurate reflection of patient's current condition. Confidential - Redisclosure prohibited without a patient's written consent.
--- NOTE | 2017-02-23 11:30 | Discharge Summary ---
Date of Encounter: 02/23/17 Time of Encounter: 11:25 - Discharge Diagnosis (1) HTN (hypertension) Priority: Secondary Status: Chronic Qualifiers: Hypertension type: essential hypertension Qualified Code(s): I10 - Essential (primary) hypertension (2) GERD (gastroesophageal reflux disease) Priority: Secondary Status: Chronic Qualifiers: Esophagitis presence: without esophagitis Qualified Code(s): K21.9 - Gastro -esophageal reflux disease without esophagitis (3) Osteoporosis Priority: Secondary Status: Chronic Qualifiers: Osteoporosis type: other Presence of current pathological fracture: unspecified Qualified Code(s): M81.8 - Other osteoporosis without current pathological fracture (4) Pelvis fracture Priority: Primary Status: Acute Qualifiers: Encounter type: initial encounter Pelvic bone location: unspecified part of pelvis Fracture type: closed Fracture alignment: nondisplaced Qualified Code(s): S32.9XXA - Fracture of unspecified parts of lumbosacral spine and pelvis, initial encounter for closed fracture (5) DVT prophylaxis Priority: Primary Status: Acute (6) Leukocytosis Priority: Primary Status: Chronic Qualifiers: Leukocytosis type: unspecified Qualified Code(s): D72.829 - Elevated white blood cell count, unspecified (7) Bronchiectasis Priority: Secondary Status: Chronic Qualifiers: Bronchiectasis type: uncomplicated Qualified Code(s): J47.9 - Bronchiectasis, uncomplicated (8) Open left forearm fracture Priority: Primary Status: Acute Qualifiers: Encounter type: initial encounter Qualified Code(s): S52.92XB - Unspecified fracture of left forearm, initial encounter for open fracture type I or II - Discharge Medications Home Medications: Albuterol Neb [Proventil Neb] 2.5 mg IH Q4HR PRN 12/31/14 [History] Albuterol Sulfate [Albuterol Inhaler] 2 puff IH Q4HR PRN 12/31/14 [History] Amlodipine [Norvasc] 2.5 mg PO DAILY 12/31/14 [History] Cholecalciferol (Vitamin D3) [Vitamin D] 2,000 unit PO DAILY 12/31/14 [History] Omeprazole [PriLOSEC] 20 mg PO DAILY 12/31/14 [History] Multivit/Ca/Min/Fe/FA [Thera M Plus] 1 tab PO DAILY tablet 12/24/15 [Rx] Oxygen 2 l .ROUTE AD 06/04/16 [History] Beclomethasone Diprop 40mcg [QVAR 40 mcg] 1 puff IH BID 12/05/16 [History] Carvedilol [Coreg] 6.25 mg PO BID 12/05/16 [History] Losartan Potassium [Cozaar] 100 mg PO DAILY 12/05/16 [History] Montelukast [Singulair] 10 mg PO DAILY 12/05/16 [History] Gabapentin [Neurontin] 300 mg PO HS #10 capsule 12/09/16 [Rx] Tramadol HCl [Ultram] 50 mg PO QID PRN #14 tab 12/09/16 [Rx] LORazepam [Ativan] 0.5 mg PO HS 01/05/17 [History] Allergies/Adverse Reactions: 3 Allergy/AdvReac Type Severity Reaction Status Date / Time Oxycodone AdvReac Confusion Verified 01/04/17 20:09 Date of admission: 02/21/17 10:49 Primary care physician: Chaz Cuellar MD Discharging clinician: Jae Weeks Anticipated date of discharge: 02/23/17 - Patient Status Disposition: Transfer Inpatient Rehab Fac Condition: Fair Functional capacity at discharge: independent ambulation Overall status at discharge: patient is progressing back to baseline - Discharge Instructions Follow Up With: Chaz Cuellar MD [Primary Care Provider] - Additional Instructions: ASSISTED DISCHARGE INSTRUCTIONS Dr. Christian PROCEDURE PERFORMED Reduction and fixation of left hip. Internal fixation of the left both bone forearm fracture Incision care -Keep the dressings clean, dry, and intact. Weight bearing status -Weightbearing as tolerated to the bilateral lower extremities. Medications -Pain medication per the discharging medical doctor -Enteric coated aspirin 325 mg by mouth twice per day for 28 days from the date of the surgery. Other -Knee high SIMEON hose 23 hours per day -Consult physical and occupational therapy for mobilization. -Up to chair with assistance at least twice per day. -Follow up with your primary care physician to discuss testing for bone mineral density. Follow-up with Dr. Christian at the office 2 weeks from the surgery date for a post operative evaluation. Call the office at [phone] to schedule appointment. - Diet and Activity Activity: resume usual activities as tolerated, wear oxygen at all times Diet: low salt diet Interval History: See below Hospital course: Ms. 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 , on chronic tonramycin INH and azithromycin 3ice weekly, she also has HTN She was admitted following a fall with associated Grade 1 open left both bone forearm fracture; left trochanteric hip fracture Postop day 4, of Debridement and irrigation of the left forearm with open reduction and internal fixation of the radius and ulna and internal fixation of the left hip Chart review reveals chronic leukocytosis, she is also on chronic O2 therapy at home Seen and evaluated at bedside this morning, she has no new complains Pain is controlled, labs are stable with leukocytosis at the baseline and chem is WNL She is stable post-op and is medically cleared to be transferred to in-patient rehab as recommended by PTOT - Time Spent with Patient Total time spent providing and/or coordinating discharge services: Greater than 30 minutes - Constitutional Vitals: Temp Pulse Resp BP Pulse Ox 97.7 F 93 16 102/69 93 02/23/17 11:09 02/23/17 11:09 02/23/17 11:09 02/23/17 11:09 02/23/17 11:09 General appearance: Present: A&O X 3, pleasant, no acute distress - Head Head exam: Present: atraumatic, normocephalic - Eye Eye exam: Present: PERRL, conjuntiva pink, sclera anicteric Pupils: Present: PERRL - Neck Neck exam general surgery: Present: supple, trachea midline. Absent: lymphadenopathy - Respiratory Respiratory exam: Absent: accessory muscle use, rales, rhonchi, wheezes Additional comments: transmitted breath soundsi, scattered. - Cardiovascular Cardiovascular exam: Present: RRR, +S1, +S2. Absent: diastolic murmur, gallop, rubs, systolic murmur - GI/Abdominal GI/Abdominal exam: Present: normal bowel sounds, soft, no peritoneal signs. Absent: distended, tenderness - Extremities Exam Extremities exam: Absent: pedal edema Additional comments: Left hip region wound dressing clean and dry. Left arm in sling Distal extremities well vascularized. Neurovascularly intact. - Neurological Exam Neurological exam: Present: alert, CN II-XII intact, oriented X3, no focal deficits. Absent: pronater drift, facial droop, speech deficit - Skin Skin exam: Present: dry, intact - VTE Documentation of Mechanical Device: Venous foot pump, device
[2017-02-24] MEDS: Ipratropium/Albuterol Neb 3 ML IH SCH ×2 (04:35→08:12)
[2017-02-24 06:01] LABS: Basophils # 0.1 K/mcL (0.0-0.2); Basophils % 0.8 %; Eosinophils # 0.5 K/mcL (0.0-0.6); Eosinophils % 3.8 %; Hematocrit 27.3 % (35.3-44.9); Hemoglobin 8.8 g/dL (11.5-15.4); Immature Granulocytes % 1.3 % (0-4); Mean Corpuscular HGB Conc 32.2 g/dL (31.6-35.5); Mean Corpuscular Hemoglobin 29.3 pg (28.0-33.3); Mean Platelet Volume 11.2 fL (9.4-12.4); Monocytes # 1.6 K/mcL (0.0-1.3); Monocytes % 10.9 %; Neutrophils # 9.9 K/mcL (1.6-8.9); Platelet Count 238 K/mcL (140-400); Red Cell Distribution Width 15.5 % (11.5-14.5); Segmented Neutrophils % 69.2 %
[2017-02-24 06:12] LABS: BUN/Creatinine Ratio 31 (6-26); Blood Urea Nitrogen 20 mg/dL (7-20); Calcium 9.6 mg/dL (8.6-10.8); Carbon Dioxide 24 mEq/L (19-29); Chloride 105 mEq/L (98-109); Glucose 104 mg/dL (70-99); Osmolality,Calculated 291 (280-300); Potassium 3.4 mEq/L (3.5-4.5); Sodium 139 mEq/L (136-145); eGFR For African Americans > 60 (> 60); eGFR For Non-African Americans > 60 (> 60)
[2017-02-24 07:57] VITALS: BP 136/62
[2017-02-24] MEDS: Tobramycin for INHALATION 300 MG/5 ML AMPUL IH SCH (08:12)
[2017-02-24] MEDS: amLODIPine 5 MG TABLET PO SCH (08:35)
[2017-02-24] MEDS: Pantoprazole 40 MG VIAL IVP SCH (08:35)
[2017-02-24] MEDS: Aspirin Enteric Coated 325 MG Tablet PO SCH (08:35)
--- NOTE | 2017-02-24 08:47 | Internal Med Progress Note ---
Date of Encounter: 02/24/17 Time of Encounter: 08:00 - Assessment and plan (1) Open left forearm fracture Current Visit: Yes Status: Acute Assessment and plan: - Status post debridement and irrigation of the left forearm with open reduction and internal fixation of the radius and ulna on 02/20/17. POD#4 - DVT prophylaxis with aspirin 325mg BID - Management per ortho - PT/OT evaluation recommended SNF/ECF. Per social media specialist, patient has been accepted [facility] Please see Dr. Weeks's discharge summary from yesterday for detail regarding discharge. Qualifiers: Encounter type: initial encounter Qualified Code(s): S52.92XB - Unspecified fracture of left forearm, initial encounter for open fracture type I or II (2) Fracture of hip Current Visit: No Status: Acute Assessment and plan: - Status post left hip internal fixation on 02/20/17. POD#4 - DVT prophylaxis with aspirin 325mg BID - Management per ortho - PT/OT evaluation recommended SNF/ECF. Per social media specialist, patient has been accepted and [facility]. Please see Dr. Weeks's discharge summary from yesterday for detail regarding discharge. Qualifiers: Encounter type: initial encounter Fracture type: closed Laterality: left Qualified Code(s): S72.002A - Fracture of unspecified part of neck of left femur, initial encounter for closed fracture (3) Leukocytosis Current Visit: Yes Status: Chronic Assessment and plan: - Chronic leukocytosis since April 2016 - Afebrile and no evidence of sepsis - Continue to monitor Qualifiers: Leukocytosis type: unspecified Qualified Code(s): D72.829 - Elevated white blood cell count, unspecified (4) Bronchiectasis Current Visit: Yes Status: Chronic Assessment and plan: - Chronic bronchiectasis with known Pseudomonas colonization, on chronic inhaled tobramycin and azithromycin. - CXR showed old brochiectatic changes - Continue incentive spirometry, inhaled tobramycin and azithromycin. Qualifiers: Bronchiectasis type: uncomplicated Qualified Code(s): J47.9 - Bronchiectasis, uncomplicated (5) HTN (hypertension) Current Visit: Yes Status: Chronic Assessment and plan: - BP withi normal range. - Continue current antihypertensive regimen. Qualifiers: Hypertension type: essential hypertension Qualified Code(s): I10 - Essential (primary) hypertension (6) GERD (gastroesophageal reflux disease) Current Visit: Yes Status: Chronic Assessment and plan: - Continue PPI Qualifiers: Esophagitis presence: without esophagitis Qualified Code(s): K21.9 - Gastro -esophageal reflux disease without esophagitis - Subjective Interval history: Patient was seen and examined this morning. Patient reports pain of left arm and left hip had improved compared to yesterday. Patient denies fever, chills, chest pain, abdominal pain. Patient is aware of plan [facility]. - Constitutional Vitals: Temp Pulse Resp BP Pulse Ox 98.0 F 91 17 136/62 95 02/24/17 07:44 02/24/17 07:44 02/24/17 08:14 02/24/17 07:44 02/24/17 08:14 General appearance: Present: A&O X 3, pleasant, no acute distress - Head Head exam: Present: atraumatic, normocephalic - Eye Eye exam: Present: EOMI, conjuntiva pink, sclera anicteric - Neck Neck exam general surgery: Present: supple, trachea midline. Absent: lymphadenopathy - Respiratory Respiratory exam: Present: CTAB. Absent: accessory muscle use, rales, rhonchi, wheezes - Cardiovascular Cardiovascular exam: Present: RRR, +S1, +S2. Absent: diastolic murmur, gallop, rubs, systolic murmur - GI/Abdominal GI/Abdominal exam: Present: normal bowel sounds, soft, no peritoneal signs. Absent: distended, tenderness - Extremities Exam Extremities exam: Present: warm, radial pulses palpable and symmetrical. Absent : cyanotic, pedal edema Additional comments: Left arm in sling. Left hip incision site intact, clean and dry. - Neurological Exam Neurological exam: Present: oriented X3, no focal deficits. Absent: facial droop, speech deficit - Skin Skin exam: Present: dry, warm Internal Medicine: Result - Labs CBC & Chem 7: 02/24/17 05:32 02/24/17 05:32 Labs: Short CBC 02/24/17 Range/Units 05:32 WBC 14.3 H (4.3-11.1) K/mcL Hgb 8.8 L (11.5-15.4) g/dL Hct 27.3 L (35.3-44.9) % Plt Count 238 (140-400) K/mcL Neutrophils # 9.9 H (1.6-8.9) K/mcL BMP 02/24/17 05:32 Sodium 139 Potassium 3.4 L Chloride 105 Carbon Dioxide 24 BUN 20 Creatinine 0.64 Glucose 104 H Calcium 9.6 - ABG Interpretation ABG results: PT/INR, D-dimer PT 10.6 Seconds (9.4-12.1) 02/19/17 06:20 - VTE Documentation of Mechanical Device: Venous foot pump, device Consult Discharge Plan - Plan Additional Instructions: GROUP HOME DISCHARGE INSTRUCTIONS Dr. Christian PROCEDURE PERFORMED Reduction and fixation of left hip. Internal fixation of the left both bone forearm fracture Incision care -Keep the dressings clean, dry, and intact. Weight bearing status -Weightbearing as tolerated to the bilateral lower extremities. Medications -Pain medication per the discharging medical doctor -Enteric coated aspirin 325 mg by mouth twice per day for 28 days from the date of the surgery. Other -Knee high SIMEON hose 23 hours per day -Consult physical and occupational therapy for mobilization. -Up to chair with assistance at least twice per day. -Follow up with your primary care physician to discuss testing for bone mineral density. Follow-up with Dr. Christian at the office 2 weeks from the surgery date for a post operative evaluation. Call the office at [phone] to schedule appointment. Referrals: Jordan Christian MD [Partnered Physician] - Chaz Cuellar MD [Primary Care Provider] - Prescriptions: Gabapentin [Neurontin] 300 mg PO HS #10 capsule LORazepam [Ativan] 0.5 mg PO HS #10 tablet Tramadol HCl [Ultram] 50 mg PO TID PRN #20 tab PRN Reason: Pain
== END 2017-02-24 09:46 | DRG 956 ==
LOC: EMEROO 06:04 → 3BNU 06:04 → SUATTDRO 08:36 → 3BNU 09:24 → 3NENU 02-20 02:00 → SUATTDRO 02-21 10:49
PROVIDERS: ADMIT Family Medicine; ATTEND Internal Medicine

== ENCOUNTER 2017-03-28 13:45 | Observation (INO) ==
--- NOTE | 2017-03-28 13:53 | Emergency Department Note ---
Disposition Clinical Impression: COPD (chronic obstructive pulmonary disease) Qualifiers: COPD type: unspecified COPD Qualified Code(s): J44.9 - Chronic obstructive pulmonary disease, unspecified UTI (urinary tract infection) Qualifiers: Urinary tract infection type: acute cystitis Hematuria presence: without hematuria Qualified Code(s): N30.00 - Acute cystitis without hematuria Disposition: Admitted As Inpatient Condition: Fair Time of Disposition: 16:28 SOB HPI - General Chief Complaint: ED Upper Respiratory Infection Stated Complaint: cough Time Seen by Provider: 03/28/17 13:46 Source: patient, EMS Mode of arrival: EMS Limitations: no limitations Nursing Notes Reviewed: Yes Vital Signs Reviewed: Yes - History of Present Illness 82-year-old who comes in complaining of shortness of breath and cough. Patient states symptoms began 3-4 days ago. Apparently there is an epidemic of flu going to the shelter. The patient states she has had recurrent pneumonia in the past. 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 Context: recent illness Severity: moderate Consistency/Duration: constant Improves with: nothing Worsens with: exertion Known history of: recurrent pneumonia Associated symptoms: Reports: fever, cough Treatment prior to arrival: none Cough Description: Involuntary Cough Frequency: Intermittent - Related Data Home Medications Medication Instructions Recorded Confirmed Albuterol Neb [Proventil Neb] 2.5 mg IH Q4HR PRN 12/31/14 02/19/17 Albuterol Sulfate [Albuterol 2 puff IH Q4HR PRN 12/31/14 02/19/17 Inhaler] Amlodipine [Norvasc] 2.5 mg PO DAILY 12/31/14 02/19/17 Cholecalciferol (Vitamin D3) 2,000 unit PO DAILY 12/31/14 02/19/17 [Vitamin D] Omeprazole [PriLOSEC] 20 mg PO DAILY 12/31/14 02/19/17 Oxygen 2 l .ROUTE AD 06/04/16 02/19/17 Beclomethasone Diprop 40mcg [QVAR 1 puff IH BID 12/05/16 02/19/17 40 mcg] Carvedilol [Coreg] 6.25 mg PO BID 12/05/16 02/19/17 Losartan Potassium [Cozaar] 100 mg PO DAILY 12/05/16 02/19/17 Montelukast [Singulair] 10 mg PO DAILY 12/05/16 02/19/17 Previous Rx's Medication Instructions Recorded Multivit/Ca/Min/Fe/FA [Thera M 1 tab PO DAILY tablet 12/24/15 Plus] Acetaminophen [Tylenol] 650 mg PO Q6HR PRN tablet 02/23/17 Aspirin Enteric Coated [Aspirin EC] 325 mg PO BID tablet. 02/23/17 Azithromycin [Zithromax] 250 mg PO MOWEFR tablet 02/23/17 Gabapentin [Neurontin] 300 mg PO HS #10 capsule 02/23/17 Ipratropium/Albuterol Neb [Duoneb] 3 ml IH [id number] inhsol 02/23/17 LORazepam [Ativan] 0.5 mg PO HS #10 tablet 02/23/17 Tobramycin for INHALATION [Reji 300 mg IH [id number] inh 02/23/17 300 mg/5 ml Solution] Tramadol HCl [Ultram] 50 mg PO TID PRN #20 tab 02/23/17 Allergies Allergy/AdvReac Type Severity Reaction Status Date / Time Oxycodone AdvReac Confusion Verified 01/04/17 20:09 All systems ED: reviewed and negative except as stated. Constitutional: Denies: fever, chills, weakness, weight change Eyes: Denies: eye pain, eye discharge, vision change ENT ED: Denies: ear pain, throat pain, dental pain, hearing loss, epistaxis, congestion, dysphagia Cardiovascular: Denies: chest pain, palpitations, dyspnea on exertion, edema, syncope Respiratory: Reports: cough, dyspnea. Denies: wheezes, hemoptysis, stridor Gastrointestinal: Denies: abdominal pain, nausea, vomiting, diarrhea, constipation, hematemesis, melena, hematochezia Genitourinary: Denies: dysuria, frequency, hematuria, discharge Musculoskeletal: Denies: back pain, neck pain, arthralgia, myalgia Integumentary: Denies: rash, abrasion, lesions Neurological: Denies: headache, weakness, numbness, paresthesias, confusion, abnormal gait, vertigo Psychiatric: Denies: anxiety, depression, suicidal thoughts, homicidal thoughts , auditory hallucinations, visual hallucinations Endocrine: Denies: fatigue Hematological/Lymphatic: Denies: easy bleeding, easy bruising Allergic/Immunologic: Denies: facial swelling, urticaria Past Medical History - Past Medical History Medical history: Reports: GERD, hyperlipidemia, arthritis, hypertension, COPD Surgical history: Reports: cataract, cholecystectomy, orthopedic, other, other, appendectomy Psychiatric history: Reports: anxiety 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 - Social History Smoking Status: Former smoker Smokeless Tobacco Status: No Alcohol use: Reports: none Drug use: Reports: none Physical Exam - General Limitations: no limitations General appearance: alert, in no apparent distress - Head Head exam: atraumatic, normocephalic, normal inspection - Eye Eye exam: Present: normal appearance, PERRL, EOMI - ENT ENT exam: normal exam, normal oropharynx, mucous membranes moist - Neck Neck exam: Present: normal inspection, full ROM, trachea midline - Chest Chest inspection: Present: normal inspection, symmetric chest wall rise - Respiratory Respiratory exam: Present: prolonged expiratory phase - Cardiovascular Cardiovascular exam: Present: regular rate, normal rhythm, normal heart sounds - Abdominal Exam Abdominal exam: Present: soft, Non-Tender. Absent: tenderness, distention, guarding, rebound, rigidity - Extremities Exam Extremities exam: Present: normal inspection, full ROM. Absent: tenderness, pedal edema - Expanded Lower Extremity Exam Neurovascular/Tendon exam: Absent: motor deficit, sensory deficit, tendon deficit Gait: observed and normal - Back Exam Back exam: Present: normal inspection, full ROM. Absent: tenderness - Neurological Exam Neurological exam: Present: alert, oriented X3 - Psychiatric Psychiatric exam: Present: normal affect, normal mood - Skin Skin exam: Present: warm, dry, intact, normal color Course - Reevaluation(s) Reevaluation #1: 82-year-old comes in with cough congestion. Patient states she has a history of recurrent pneumonia is also had a shelter where there's been flu. The patient's flu swabs are negative. Chest x-ray shows no evidence of pneumonia. Urine does show UTI. Time: 16:59 Reevaluation #2: Informed by nursing staff the patient crawled out of bed and fell she did bump her head she complains of some head pain and some left rib pain. On exam her lungs are clear no crepitus. She is awake and answers questions appropriately we will obtain a head CT a cervical spine CT and left ribs. Time: 18:43 - Consultations Consultation #1: Discussed with Dr. Cintron, admit. Time: 17:00 Vital Signs Temperature 97.5 F L 03/28/17 13:47 Pulse Rate 100 03/28/17 13:47 Respiratory Rate 20 03/28/17 13:47 Blood Pressure 151/119 03/28/17 13:47 O2 Sat by Pulse Oximetry 95 03/28/17 13:47 Temperature 97.5 F L 03/28/17 13:47 Pulse Rate 76 03/28/17 17:38 Respiratory Rate 20 03/28/17 17:40 Blood Pressure 123/92 03/28/17 17:38 O2 Sat by Pulse Oximetry 98 03/28/17 17:40 Oxygen Delivery Oxygen Delivery Nasal Cannula Shortness of Breath/Dyspnea - Lab Data Lab results reviewed: Yes I reviewed the patient's lab results. Result diagrams: 03/28/17 14:43 03/28/17 14:43 Lab Results 03/28/17 03/28/17 03/28/17 Range/Units 14:21 14:43 14:43 WBC 17.7 H (4.3-11.1) K/mcL RBC 3.92 (3.82-4.97) M/mcL Hgb 11.4 L (11.5-15.4) g/dL Hct 35.6 (35.3-44.9) % MCV 90.8 (83.0-100.0) fL MCH 29.1 (28.0-33.3) pg MCHC 32.0 (31.6-35.5) g/dL RDW 14.7 H (11.5-14.5) % Plt Count 215 (140-400) K/mcL MPV 11.2 (9.4-12.4) fL Immature Gran % 0.5 (0-4) % Seg Neutrophils % 82.5 % Lymphocytes % 9.0 % Monocytes % 5.9 % Eosinophils % 1.4 % Basophils % 0.7 % Neutrophils # 14.6 H (1.6-8.9) K/mcL Lymphocytes # 1.6 (0.6-4.6) K/mcL Monocytes # 1.0 (0.0-1.3) K/mcL Eosinophils # 0.3 (0.0-0.6) K/mcL Basophils # 0.1 (0.0-0.2) K/mcL Sodium 135 L (136-145) mEq/L Potassium 3.7 (3.5-5.1) mEq/L Chloride 104 (98-107) mEq/L Carbon Dioxide 20 L (23-29) mEq/L BUN 17 (8-23) mg/dL Creatinine 0.72 (0.60-1.20) mg/dL Est GFR ( Amer) > 60 (> 60) Est GFR (Non-Af Amer) > 60 (> 60) BUN/Creatinine Ratio 24 (6-26) Glucose 100 (70-105) mg/dL Calculated Osmolality 282 (280-300) Lactic Acid (0.5-2.2) mmol/L Calcium 9.9 (8.6-10.3) mg/dL Troponin I (< 0.04) ng/mL Urine Color Yellow (Yellow) Urine Clarity Cloudy A (Clear) Urine pH 7.0 (5.0-8.0) pH Units Ur Specific [place] 1.017 (1.010-1.025) Urine Protein Negative (Neg-Trace) mg/dL Urine Glucose (UA) Normal (Normal) mg/dL Urine Ketones Trace H (Negative) mg/dL Urine Blood Negative (Negative) Urine Nitrite Negative (Negative) Urine Bilirubin Negative (Negative) Urine Urobilinogen Normal (Normal) mg/dL Ur Leukocyte Esterase Large H (Negative) Urine Microscopic RBC 0-3 (0-3) per hpf Urine Microscopic WBC 15-30 H (0-3) per hpf Ur Squamous Epith Cells Many H (None-Few) per lpf Urine Bacteria None Seen (None-Few) per hpf Hyaline Casts Few (None-Few) per lpf 03/28/17 03/28/17 Range/Units 14:45 15:47 WBC (4.3-11.1) K/mcL RBC (3.82-4.97) M/mcL Hgb (11.5-15.4) g/dL Hct (35.3-44.9) % MCV (83.0-100.0) fL MCH (28.0-33.3) pg MCHC (31.6-35.5) g/dL RDW (11.5-14.5) % Plt Count (140-400) K/mcL MPV (9.4-12.4) fL Immature Gran % (0-4) % Seg Neutrophils % % Lymphocytes % % Monocytes % % Eosinophils % % Basophils % % Neutrophils # (1.6-8.9) K/mcL Lymphocytes # (0.6-4.6) K/mcL Monocytes # (0.0-1.3) K/mcL Eosinophils # (0.0-0.6) K/mcL Basophils # (0.0-0.2) K/mcL Sodium (136-145) mEq/L Potassium (3.5-5.1) mEq/L Chloride (98-107) mEq/L Carbon Dioxide (23-29) mEq/L BUN (8-23) mg/dL Creatinine (0.60-1.20) mg/dL Est GFR ( Amer) (> 60) Est GFR (Non-Af Amer) (> 60) BUN/Creatinine Ratio (6-26) Glucose (70-105) mg/dL Calculated Osmolality (280-300) Lactic Acid 0.6 (0.5-2.2) mmol/L Calcium (8.6-10.3) mg/dL Troponin I < 0.03 (< 0.04) ng/mL Urine Color (Yellow) Urine Clarity (Clear) Urine pH (5.0-8.0) pH Units Ur Specific [place] (1.010-1.025) Urine Protein (Neg-Trace) mg/dL Urine Glucose (UA) (Normal) mg/dL Urine Ketones (Negative) mg/dL Urine Blood (Negative) Urine Nitrite (Negative) Urine Bilirubin (Negative) Urine Urobilinogen (Normal) mg/dL Ur Leukocyte Esterase (Negative) Urine Microscopic RBC (0-3) per hpf Urine Microscopic WBC (0-3) per hpf Ur Squamous Epith Cells (None-Few) per lpf Urine Bacteria (None-Few) per hpf Hyaline Casts (None-Few) per lpf - Radiology Data Radiology results reviewed: Yes I reviewed the patient's radiology results. Chest X-Ray 03/28/17 13:48 IMPRESSION: Unchanged findings of COPD. No focal consolidation to suggest a consolidative pneumonia. D/ / Stevenson Gibson MD / Stevenson Gibson MD Interpreting Provider: Stevenson Gibson MD Chest X-Ray 03/28/17 13:48 IMPRESSION: Unchanged findings of COPD. No focal consolidation to suggest a consolidative pneumonia. D/ / Stevenson Gibson MD / Stevenson Gibson MD Interpreting Provider: Stevenson Gibson MD Head CT 03/28/17 18:37 IMPRESSION: Head CT: No acute intracranial abnormality. Fluid within the left maxillary sinus. Correlation for acute sinusitis is recommended. Cervical spine CT: No acute abnormality of the cervical spine. D/ / Alissa Le Cha, MD / Alissa Le Cha, MD Interpreting Provider: Alissa Le Cha, MD Ribs w/Chest X-Ray 03/28/17 18:42 IMPRESSION: No acute cardiopulmonary disease. COPD. No acute osseous abnormality of the left ribs. D/ / Kavon Barrientos MD / Kavon Barrientos MD Interpreting Provider: Kavon Barrientos MD - EKG Data EKG attestation: Yes I reviewed and interpreted this EKG. EKG shows normal: Reports: sinus rhythm Rate: Reports: tachycardia Rhythm: Reports: NSR, PVC's Interpretation: Reports: no acute changes
[2017-03-28 14:30] LABS: Bilirubin,Urine Negative (Negative); Blood,Urine Negative (Negative); Clarity,Urine Cloudy (Clear); Color,Urine Yellow (Yellow); Glucose,Urine (UA) Normal (Normal); Ketones,Urine Trace mg/dL (Negative); Leukocyte Esterase,Urine Large (Negative); Nitrite,Urine Negative (Negative); Protein,Urine Negative (Neg-Trace); Specific Gravity,Urine 1.017 (1.010-1.025); Urobilinogen,Urine Normal (Normal)
[2017-03-28 14:32] LABS: Bacteria,Urine None Seen per hpf (None-Few); Hyaline Casts,Urine Few per lpf (None-Few); RBC,Urine 0-3 per hpf (0-3); Squamous Epithelial Cell,Urine Many per lpf (None-Few); WBC,Urine 15-30 per hpf (0-3)
[2017-03-28 14:59] LABS: Basophils # 0.1 K/mcL (0.0-0.2); Basophils % 0.7 %; Eosinophils % 1.4 %; Hematocrit 35.6 % (35.3-44.9); Hemoglobin 11.4 g/dL (11.5-15.4); Immature Granulocytes % 0.5 % (0-4); Lymphocytes # 1.6 K/mcL (0.6-4.6); Mean Corpuscular Hemoglobin 29.1 pg (28.0-33.3); Mean Corpuscular Volume 90.8 fL (83.0-100.0); Mean Platelet Volume 11.2 fL (9.4-12.4); Monocytes % 5.9 %; Neutrophils # 14.6 K/mcL (1.6-8.9); Platelet Count 215 K/mcL (140-400); Red Blood Count 3.92 M/mcL (3.82-4.97); Red Cell Distribution Width 14.7 % (11.5-14.5); Segmented Neutrophils % 82.5 %
[2017-03-28 15:10] LABS: BUN/Creatinine Ratio 24 (6-26); Blood Urea Nitrogen 17 mg/dL (8-23); Calcium 9.9 mg/dL (8.6-10.3); Carbon Dioxide 20 mEq/L (23-29); Chloride 104 mEq/L (98-107); Glucose 100 mg/dL (70-105); Osmolality,Calculated 282 (280-300); Potassium 3.7 mEq/L (3.5-5.1); Sodium 135 mEq/L (136-145); eGFR For African Americans > 60 (> 60); eGFR For Non-African Americans > 60 (> 60)
[2017-03-28 15:21] LABS: Eosinophils # 0.3 K/mcL (0.0-0.6)
[2017-03-28] MEDS ORDERED: traMADol 50 MG TABLET PO ONE (16:35)
[2017-03-28] MEDS ORDERED: cefTRIAXone 1,000 MG in Water for inj. (sterile) 20 ML 10 ML IVP ONE (16:58)
[2017-03-28] MEDS ORDERED: methylPREDNISolone 125 MG/2 ML VIAL IVP ONE (17:26)
[2017-03-28] MEDS ORDERED: Ipratropium/Albuterol Neb 3 ML IH ONE (17:26)
[2017-03-28] MEDS ORDERED: Naloxone 0.4 MG/ML INJ IVP PRN (20:24)
[2017-03-28] MEDS ORDERED: Albuterol 2.5 MG/3 ML NEBULIZER IH PRN (20:34)
--- NOTE | 2017-03-28 20:45 | Internal Med History&Physical ---
<Elisabeth Henning - Last Filed: 03/28/17 21:13> Date of Encounter: 03/28/17 Time of Encounter: 20:42 Assessment and Plan (1) UTI (urinary tract infection) Current visit: Yes Status: Acute Patient has been complaining of general malaise and decreased appetite and nausea and vomiting. Denies any urinary symptoms. Urinalysis indicative of UTI. Initiated on Rocephin pending culture sensitivity results Qualifiers: Urinary tract infection type: acute cystitis Hematuria presence: without hematuria Qualified Code(s): N30.00 - Acute cystitis without hematuria (2) Frequent falls Current visit: Yes Status: Acute Patient has experienced a fall while attempting to get out of bed to get to the bathroom. CT head neck and ribs were negative for any fractures or intracranial abnormalities. Patient does have history of frequent falls she is currently residing in an ECF secondary to hip and wrist fractures sustained from fall. We will place patient on fall precautions (3) COPD exacerbation Current visit: No Status: Acute Patient has been expressing increasing cough shortness of breath. She does have scattered wheezes chest x-ray does show chronic COPD changes. We will continue with oxygen titrated to maintain SaO2 greater than 90% Continue with steroids IV Bronchodilators Singulair We will prophylactically treat for flu patient's high risk due to COPD as well as residing in an ECF-which is presently experiencing flu (4) HTN (hypertension) Current visit: No Status: Chronic Continue with home medications-presently controlled Qualifiers: Hypertension type: essential hypertension Qualified Code(s): I10 - Essential (primary) hypertension (5) DVT prophylaxis Current visit: No Status: Acute [facility] Internal Medicine - H&P: HPI Chief complaint: SOB Admitted From: Emergency Dept Plans for Post Hospital Care: Transfer Halfway Facility History of present illness: Ms. Boggs is a 82 year old female past medical history of GERD and hyperlipidemia hypertension COPD. Information obtained from medical records, due to patient having difficulty recalling history Patient presently resides in an ECF, over past few days she has been experiencing increasing general malaise shortness of breath nausea vomiting and cough. Apparently there is a epidemic of fluid the fpc. She denies any fevers chills she does have some nausea and vomiting no diarrhea. She presented to the ER with the above complaints. [facility] records patient's was afebrile on presentation she did have a elevated white count and chest x-ray did reveal COPD findings influenza swab was negative urinalysis did reveal a UTI. She was initiated on Rocephin. Apparently while she was in the ER patient did experience a fall while attempting to get out of bed to go to bathroom. CT head neck and ribs were negative. She has been admitted for further workup and evaluation. Past Med Surg Social Fam HX - Past Medical History Medical history: GERD, hyperlipidemia, arthritis, hypertension, COPD Psychiatric history: anxiety - Past Surgical History Surgical History: cataract, cholecystectomy, orthopedic, other, other, appendectomy - Social History Smoking Status: Former smoker Smokeless Tobacco Status: No Alcohol use: none Drug use: none - Family History Son Living Status: Mother Living Status: Hx Family Cancer: Yes Daughter Hx Family Cardiac Disorders: Yes (High cholesterol) Internal Medicine - H&P: Meds Albuterol Neb [Proventil Neb] 2.5 mg IH Q4HR PRN 12/31/14 [History] Albuterol Sulfate [Albuterol Inhaler] 2 puff IH Q4HR PRN 12/31/14 [History] Amlodipine [Norvasc] 2.5 mg PO DAILY 12/31/14 [History] Cholecalciferol (Vitamin D3) [Vitamin D] 2,000 unit PO DAILY 12/31/14 [History] Omeprazole [PriLOSEC] 20 mg PO DAILY 12/31/14 [History] Multivit/Ca/Min/Fe/FA [Thera M Plus] 1 tab PO DAILY tablet 12/24/15 [Rx] Oxygen 2 l .ROUTE AD 06/04/16 [History] Beclomethasone Diprop 40mcg [QVAR 40 mcg] 1 puff IH BID 12/05/16 [History] Carvedilol [Coreg] 6.25 mg PO BID 12/05/16 [History] Losartan Potassium [Cozaar] 100 mg PO DAILY 12/05/16 [History] Montelukast [Singulair] 10 mg PO DAILY 12/05/16 [History] Acetaminophen [Tylenol] 650 mg PO Q6HR PRN tablet 02/23/17 [Rx] Azithromycin [Zithromax] 250 mg PO MOWEFR tablet 02/23/17 [Rx] Gabapentin [Neurontin] 300 mg PO HS #10 capsule 02/23/17 [Rx] Ipratropium/Albuterol Neb [Duoneb] 3 ml IH [id number] inhsol 02/23/17 [Rx] LORazepam [Ativan] 0.5 mg PO HS #10 tablet 02/23/17 [Rx] Tobramycin for INHALATION [Reji 300 mg/5 ml Solution] 300 mg IH [id number] inh [Rx] Tramadol HCl [Ultram] 50 mg PO TID PRN #20 tab 02/23/17 [Rx] Aspirin Enteric Coated [Aspirin EC] 81 mg PO BID 03/28/17 [History] 3 Allergy/AdvReac Type Severity Reaction Status Date / Time Oxycodone AdvReac Confusion Verified 01/04/17 20:09 ROS unobtainable: due to mental status All Systems PM: A 10-system review of systems was performed and is negative for pertinent findings except as documented above in the HPI. - Constitutional Vitals: Temp Pulse Resp BP Pulse Ox 97.5 F L 79 20 157/80 94 03/28/17 13:47 03/28/17 20:15 03/28/17 17:40 03/28/17 20:15 03/28/17 20:15 General appearance: Present: cooperative, A&O X 1 - Head Head exam: Present: atraumatic, normocephalic - Eye Eye exam: Present: PERRL, conjuntiva pink, sclera anicteric Pupils: Present: PERRL - Neck Neck exam general surgery: Present: supple, trachea midline. Absent: lymphadenopathy - Respiratory Respiratory exam: Present: rhonchi, wheezes. Absent: accessory muscle use, rales - Cardiovascular Cardiovascular exam: Present: RRR, +S1, +S2. Absent: diastolic murmur, gallop, rubs, systolic murmur - GI/Abdominal GI/Abdominal exam: Present: normal bowel sounds, soft, no peritoneal signs. Absent: distended, tenderness - Extremities Exam Extremities exam: Present: warm, radial pulses palpable and symmetrical. Absent : calf tenderness, cyanotic, pedal edema - Expanded Upper Extremities Exam Forearm wrist exam: Present: tenderness (Patient does have splint to left arm) - Neurological Exam Neurological exam: Present: alert, CN II-XII intact, no focal deficits. Absent : pronater drift, facial droop, speech deficit - Skin Skin exam: Present: dry, intact Internal Med - H&P Results - Labs CBC & Chem 7: 03/28/17 14:43 03/28/17 14:43 - EKG Data EKG shows normal: sinus rhythm Rate: tachycardia - EKG Data EKG comments: 03/28/17 20:48 Frequent PVCs - Impressions ITS Impressions Head CT 03/28/17 18:37 IMPRESSION: Head CT: No acute intracranial abnormality. Fluid within the left maxillary sinus. Correlation for acute sinusitis is recommended. Cervical spine CT: No acute abnormality of the cervical spine. D/ / Alissa Le Cha, MD / Alissa Le Cha, MD Interpreting Provider: Alissa Le Cha, MD Ribs w/Chest X-Ray 03/28/17 18:42 IMPRESSION: No acute cardiopulmonary disease. COPD. No acute osseous abnormality of the left ribs. D/ / Kavon Barrientos MD / Kavon Barrientos MD Interpreting Provider: Kavon Barrientos MD - Diagnostic Studies Other Images Additional comments: Chest X-Ray 03/28/17 13:48 IMPRESSION: Unchanged findings of COPD. No focal consolidation to suggest a consolidative pneumonia. D/ / Stevenson Gibson MD / Stevenson Gibson MD Interpreting Provider: Stevenson Gibson MD Head CT 03/28/17 18:37 IMPRESSION: Head CT: No acute intracranial abnormality. Fluid within the left maxillary sinus. Correlation for acute sinusitis is recommended. Cervical spine CT: No acute abnormality of the cervical spine. D/ / Alissa Le Cha, MD / Alissa Le Cha, MD Interpreting Provider: Alissa Le Cha, MD Ribs w/Chest X-Ray 03/28/17 18:42 IMPRESSION: No acute cardiopulmonary disease. COPD. No acute osseous abnormality of the left ribs. D/ / Kavon Barrientos MD / Kavon Barrientos MD Interpreting Provider: Kavon Barrientos MD <Thompson Quick - Last Filed: 03/29/17 01:10> Date of Encounter: 03/28/17 Time of Encounter: 23:15 - Constitutional Vitals: Temp Pulse Resp BP Pulse Ox 97.6 F 85 15 146/74 98 03/28/17 23:19 03/28/17 23:19 03/28/17 23:27 03/28/17 23:19 03/28/17 23:27 General appearance: Present: cooperative, A&O X 1 - Eye Eye exam: Present: EOMI, PERRL. Absent: scleral icterus - ENT ENT exam: Present: mucous membranes dry - Neck Neck exam general surgery: Present: supple - Respiratory Respiratory exam: Present: rhonchi, wheezes. Absent: accessory muscle use, chest wall tenderness - Cardiovascular Cardiovascular exam: Present: RRR, +S1, +S2 - GI/Abdominal GI/Abdominal exam: Present: soft. Absent: tenderness - Extremities Exam Extremities exam: Present: warm - Back Exam Back exam: Absent: CVA tenderness (L), CVA tenderness (R) Internal Med - H&P Results - Labs CBC & Chem 7: 03/28/17 14:43 03/28/17 14:43 - Impressions ITS Impressions Head CT 03/28/17 18:37 IMPRESSION: Head CT: No acute intracranial abnormality. Fluid within the left maxillary sinus. Correlation for acute sinusitis is recommended. Cervical spine CT: No acute abnormality of the cervical spine. D/ / Alissa Le Cha, MD / Alissa Le Cha, MD Interpreting Provider: Alissa Le Cha, MD Ribs w/Chest X-Ray 03/28/17 18:42 IMPRESSION: No acute cardiopulmonary disease. COPD. No acute osseous abnormality of the left ribs. D/ / Kavon Barrientos MD / Kavon Barrientos MD Interpreting Provider: Kavon Barrientos MD - Attending Attestation I discussed the patient [place], PMH, ROS, lab data, and exam findings with Elisabeth Henning CNP. I then saw and examined patient independently as well. Patient is quite pleasantly confused. She is cooperative. She admits to coughing and wheezing with some shortness of breath. She looks a little dry. I asked her nurse to start a low dose MIV. Patient tested negative for Influenza, but she' s been exposed in the ECF where she resides. She will be treated with [place] for exposure along with treatment for her UTI. Other than my comments above and noted exam findings, I agree with Elisabeth's assessment and plan.
[2017-03-28] MEDS: Ipratropium/Albuterol Neb 3 ML IH SCH (23:26)
[2017-03-28] MEDS ORDERED: 0.9 % Sodium Chloride 1,000 ML IVC SCH (23:30)
[2017-03-29] MEDS: Acetaminophen 325 MG TABLET PO PRN ×2 (01:29→20:44)
[2017-03-29] MEDS: methylPREDNISolone 125 MG/2 ML VIAL IVP SCH ×4 (01:29→17:23)
[2017-03-29 03:48] LABS: Basophils % 0.3 %; Hematocrit 36.1 % (35.3-44.9); Immature Granulocytes % 0.3 % (0-4); Lymphocytes # 0.8 K/mcL (0.6-4.6); Lymphocytes % 8.4 %; Mean Corpuscular HGB Conc 30.5 g/dL (31.6-35.5); Mean Corpuscular Hemoglobin 28.6 pg (28.0-33.3); Mean Corpuscular Volume 93.8 fL (83.0-100.0); Mean Platelet Volume 13.1 fL (9.4-12.4); Monocytes % 0.4 %; Neutrophils # 8.1 K/mcL (1.6-8.9); Platelet Count 176 K/mcL (140-400); Red Blood Count 3.85 M/mcL (3.82-4.97); Red Cell Distribution Width 14.6 % (11.5-14.5); Segmented Neutrophils % 90.6 %
[2017-03-29] MEDS: Ipratropium/Albuterol Neb 3 ML IH SCH ×6 (03:50→23:49)
[2017-03-29 03:56] LABS: BUN/Creatinine Ratio 21 (6-26); Blood Urea Nitrogen 16 mg/dL (8-23); Calcium 9.6 mg/dL (8.6-10.3); Carbon Dioxide 19 mEq/L (23-29); Chloride 103 mEq/L (98-107); Chol/HDL Ratio 2.7 (0-4.9); Cholesterol 140 mg/dL (< 200); Glucose 151 mg/dL (70-105); HDL Cholesterol 51 mg/dL (40-59); LDL Cholesterol,Calculated 81 mg/dL (0-99); Magnesium 1.7 mg/dL (1.6-2.6); Osmolality,Calculated 288 (280-300); Potassium 3.2 mEq/L (3.5-5.1); Sodium 137 mEq/L (136-145); Triglycerides 41 mg/dL (< 150); eGFR For African Americans > 60 (> 60); eGFR For Non-African Americans > 60 (> 60)
--- NOTE | 2017-03-29 11:51 | Internal Med Progress Note ---
Date of Encounter: 03/29/17 Time of Encounter: 10:15 - Assessment and plan (1) UTI (urinary tract infection) Current Visit: Yes Status: Acute Assessment and plan: Patient denies any urinary symptoms. UA indicative of UTI. Continue IV Rocephin 1 g daily. Cultures pending, narrow antibiotics Qualifiers: Urinary tract infection type: acute cystitis Hematuria presence: without hematuria Qualified Code(s): N30.00 - Acute cystitis without hematuria (2) COPD exacerbation Current Visit: Yes Status: Acute Assessment and plan: Patient reports increasing nonproductive cough, shortness of breath. Patient with faint wheezing in posterior bases. Chest x-ray with chronic COPD changes. He is afebrile without leukocytosis. Continue oxygen, titrate as needed. Continue IV steroids Duo nebs/albuterol nebulizers Continue Singulair Patient is being treated empirically for influenza due to her high risk with COPD, as well as patient lives in an ECF and elevated fluid rate at that facility. (3) HTN (hypertension) Current Visit: Yes Status: Chronic Assessment and plan: Chronic. Continue home medications. Qualifiers: Hypertension type: essential hypertension Qualified Code(s): I10 - Essential (primary) hypertension (4) DVT prophylaxis Current Visit: Yes Status: Acute Assessment and plan: Subcutaneous Lovenox. (5) Frequent falls Current Visit: Yes Status: Acute Assessment and plan: Patient recently admitted to [facility] for falls at home. Patient presented to the emergency room again today for another fall trying to get out of bed to the bathroom. Hip and wrist fractures from prior fall. Imaging for this visit was negative for fracture or dislocation. Fall precautions Bed alarm Patient is close to nurses station. - Subjective Interval history: Patient was seen and assessed at bedside at 10:15 AM. She is alert, awake. Oriented to name and place only. She is unable to recall information. She states that she has to go home so she can tell her children that she is going home, she denies that she lives in ECF. She denies abdominal pain, urinary symptoms, headache or dizziness. She denies blurred vision, nausea, vomiting, diarrhea. - Constitutional Vitals: Temp Pulse Resp BP Pulse Ox 98.2 F 86 20 138/71 98 03/29/17 06:39 03/29/17 06:39 03/29/17 07:40 03/29/17 06:39 03/29/17 07:40 General appearance: Present: cooperative, A&O X 1, pleasant, no acute distress, answers questions appropriately - Head Head exam: Present: atraumatic, normal inspection, normocephalic - Eye Eye exam: Present: conjuntiva pink, sclera anicteric - Neck Neck exam general surgery: Present: supple, trachea midline. Absent: lymphadenopathy, tenderness - Respiratory Respiratory exam: Present: CTAB. Absent: accessory muscle use, chest wall tenderness, rales, respiratory distress, rhonchi, wheezes - Cardiovascular Cardiovascular exam: Present: RRR, +S1, +S2. Absent: diastolic murmur, gallop, rubs, systolic murmur - GI/Abdominal GI/Abdominal exam: Present: normal bowel sounds, soft, no peritoneal signs. Absent: distended, hepatomegaly, tenderness - Extremities Exam Extremities exam: Present: normal inspection, warm, radial pulses palpable and symmetrical. Absent: calf tenderness, cyanotic, pedal edema - Neurological Exam Neurological exam: Present: alert, altered, no focal deficits. Absent: oriented X3, facial droop, speech deficit - Skin Skin exam: Present: dry, intact, normal color, warm. Absent: rash Internal Medicine: Result - Labs CBC & Chem 7: 03/29/17 02:54 03/29/17 02:54 Labs: Short CBC 03/29/17 Range/Units 02:54 WBC 8.9 (4.3-11.1) K/mcL Hgb 11.0 L (11.5-15.4) g/dL Hct 36.1 (35.3-44.9) % Plt Count 176 (140-400) K/mcL Neutrophils # 8.1 (1.6-8.9) K/mcL BMP 03/29/17 02:54 Sodium 137 Potassium 3.2 L Chloride 103 Carbon Dioxide 19 L BUN 16 Creatinine 0.76 Glucose 151 H Calcium 9.6 - Impressions Impressions Head CT 03/28/17 18:37 IMPRESSION: Head CT: No acute intracranial abnormality. Fluid within the left maxillary sinus. Correlation for acute sinusitis is recommended. Cervical spine CT: No acute abnormality of the cervical spine. D/ / Alissa Le Cha, MD / Alissa Le Cha, MD Interpreting Provider: Alissa Le Cha, MD Ribs w/Chest X-Ray 03/28/17 18:42 IMPRESSION: No acute cardiopulmonary disease. COPD. No acute osseous abnormality of the left ribs. D/ / Kavon Barrientos MD / Kavon Barrientos MD Interpreting Provider: Kavon Barrientos MD Consult Discharge Plan - Plan Referrals: Chaz Cuellar MD [Primary Care Provider] -
[2017-03-29] MEDS ORDERED: cefTRIAXone 1,000 MG in Water for inj. (sterile) 20 ML 10 ML IVP SCH (18:00)
[2017-03-30] MEDS: methylPREDNISolone 125 MG/2 ML VIAL IVP SCH ×3 (01:18→11:25)
[2017-03-30] MEDS: Ipratropium/Albuterol Neb 3 ML IH SCH ×3 (04:18→11:22)
[2017-03-30 05:07] LABS: BUN/Creatinine Ratio 21 (6-26); Blood Urea Nitrogen 17 mg/dL (8-23); Calcium 9.6 mg/dL (8.6-10.3); Carbon Dioxide 19 mEq/L (23-29); Chloride 110 mEq/L (98-107); Glucose 125 mg/dL (70-105); Osmolality,Calculated 295 (280-300); Potassium 3.4 mEq/L (3.5-5.1); Sodium 141 mEq/L (136-145); eGFR For African Americans > 60 (> 60); eGFR For Non-African Americans > 60 (> 60)
[2017-03-30] MEDS ORDERED: Oseltamivir Phosphate 30 MG CAPSULE PO SCH (09:00)
[2017-03-30 11:46] VITALS: BP 169/92
[2017-03-30] MEDS: Acetaminophen 325 MG TABLET PO PRN (12:08)
--- NOTE | 2017-03-30 12:31 | Discharge Summary ---
Date of Encounter: 03/30/17 Time of Encounter: 08:45 - Discharge Diagnosis (1) UTI (urinary tract infection) Priority: Primary Status: Acute Comments: Urine culture negative for growth. Antibiotics stopped. Qualifiers: Urinary tract infection type: acute cystitis Hematuria presence: without hematuria Qualified Code(s): N30.00 - Acute cystitis without hematuria (2) COPD exacerbation Priority: Secondary Status: Acute Comments: Mild exacerbation. Pt is in no distress, lungs are clear and diminished. Pt denies cough. She is afebrile without leukocytosis. CXR shows chronic COPD changes. Continue home medications at [facility]. (3) HTN (hypertension) Priority: Secondary Status: Chronic Comments: Well controlled. Continue home medications. Qualifiers: Hypertension type: essential hypertension Qualified Code(s): I10 - Essential (primary) hypertension (4) DVT prophylaxis Priority: Secondary Status: Acute Comments: Lovenox SQ daily (5) Frequent falls Priority: Secondary Status: Acute Comments: Patient was recently admitted to [facility] for increasing falls at home. For this visit, she presented to the emergency room for another fall at the [facility]. Patient has prior wrist and hip fractures from last fall. All imaging for this visit is negative for fracture or dislocation. Will order PT - Discharge Medications Prescriptions: LORazepam [Ativan] 0.5 mg PO HS #1 tablet Oseltamivir Phosphate [Tamiflu] 30 mg PO DAILY #2 capsule Home Medications: Albuterol Neb [Proventil Neb] 2.5 mg IH Q4HR PRN 12/31/14 [History] Albuterol Sulfate [Albuterol Inhaler] 2 puff IH Q4HR PRN 12/31/14 [History] Amlodipine [Norvasc] 2.5 mg PO DAILY 12/31/14 [History] Cholecalciferol (Vitamin D3) [Vitamin D] 2,000 unit PO DAILY 12/31/14 [History] Omeprazole [PriLOSEC] 20 mg PO DAILY 12/31/14 [History] Multivit/Ca/Min/Fe/FA [Thera M Plus] 1 tab PO DAILY tablet 12/24/15 [Rx] Oxygen 2 l .ROUTE AD 06/04/16 [History] Beclomethasone Diprop 40mcg [QVAR 40 mcg] 1 puff IH BID 12/05/16 [History] Carvedilol [Coreg] 6.25 mg PO BID 12/05/16 [History] Losartan Potassium [Cozaar] 100 mg PO DAILY 12/05/16 [History] Montelukast [Singulair] 10 mg PO DAILY 12/05/16 [History] Acetaminophen [Tylenol] 650 mg PO Q6HR PRN tablet 02/23/17 [Rx] Azithromycin [Zithromax] 250 mg PO MOWEFR tablet 02/23/17 [Rx] Ipratropium/Albuterol Neb [Duoneb] 3 ml IH [id number] inhsol 02/23/17 [Rx] Tobramycin for INHALATION [Reji 300 mg/5 ml Solution] 300 mg IH [id number] inh [Rx] Tramadol HCl [Ultram] 50 mg PO TID PRN #20 tab 02/23/17 [Rx] Aspirin Enteric Coated [Aspirin EC] 81 mg PO BID 03/28/17 [History] LORazepam [Ativan] 0.5 mg PO HS #1 tablet 03/30/17 [Rx] Oseltamivir Phosphate [Tamiflu] 30 mg PO DAILY #2 capsule 03/30/17 [Rx] Allergies/Adverse Reactions: 3 Allergy/AdvReac Type Severity Reaction Status Date / Time Oxycodone AdvReac Confusion Verified 01/04/17 20:09 Procedures/tests Complete & Pending: Procedures Performed prior 72 hours Category Date Time Status CT cervical spine wo con [CT] Stat Cat Scan 03/28/17 18:[address] head/brain wo con [CT] Stat Cat Scan 03/28/17 18:37 Completed Date of admission: 03/28/17 17:34 Primary care physician: Chaz Cuellar MD Consults: 03/28/17 21:05 Consult to Examiner Rating Clerk [CONS] Routine Reason for SW Consult: Came from [facility]. Discharge Planning. 03/30/17 07:32 Consult to Occupational Therapy [CONS] Routine Comment: Evaluate, develop and implement POC Reason for Consult: Evaluation. Pt is already in ECF. Falls at ECF Consult to Physical Therapy [CONS] Routine Comment: Evaluate, develop and implement POC Reason for Consult: Frequent Falls at ECF. Evaluation for PT at ECF, please. Discharging clinician: Fariba Bailey Anticipated date of discharge: 03/30/17 - Patient Status Disposition: Home, Self-Care Condition: Good Functional capacity at discharge: independent ambulation Overall status at discharge: patient is back to baseline - Discharge Instructions Follow Up With: Chaz Cuellar MD [Primary Care Provider] - - Diet and Activity Activity: as per physical therapy, increase activity as tolerated Diet: advance to your usual diet Hospital course: Ms. Boggs is a 82 year old female who fell at the custodial and was sent to the emergency department for evaluation. All imaging was negative for fractures or dislocation. She is a resident at a custodial where her numerous cases of the flu. Patient's flu swab was negative that she is being treated empirically with Tamiflu 3 doses. She is asymptomatic. She is also admitted for mild exacerbation of COPD. Lungs are clear, she is in no distress. She is not requiring supplemental oxygen. She will continue her home medications. She was initially treated for UTI, as well. We will culture was negative and antibiotics have been stopped. I discussed with family who states that patient should go back to [facility]. Stable, her vital signs are stable and within normal limits. Patient is ready and appropriate for discharge. - Time Spent with Patient Total time spent providing and/or coordinating discharge services: Less than 30 minutes - Constitutional Vitals: Temp Pulse Resp BP Pulse Ox 98.6 F 101 16 169/92 95 03/30/17 11:45 03/30/17 11:45 03/30/17 11:45 03/30/17 11:45 03/30/17 11:45 General appearance: Present: cooperative, A&O X 2, pleasant, no acute distress, answers questions appropriately - Head Head exam: Present: atraumatic, normal inspection, normocephalic - Eye Eye exam: Present: normal appearance, conjuntiva pink, sclera anicteric - Neck Neck exam general surgery: Present: supple, trachea midline. Absent: lymphadenopathy - Respiratory Respiratory exam: Present: CTAB. Absent: accessory muscle use, rales, respiratory distress, rhonchi, wheezes - Cardiovascular Cardiovascular exam: Present: RRR, +S1, +S2. Absent: diastolic murmur, gallop, rubs, systolic murmur - GI/Abdominal GI/Abdominal exam: Present: normal bowel sounds, soft. Absent: distended, hepatomegaly, tenderness - Extremities Exam Extremities exam: Present: normal capillary refill, normal inspection, warm, radial pulses palpable and symmetrical. Absent: calf tenderness, cyanotic, pedal edema - Neurological Exam Neurological exam: Present: alert, oriented X3, no focal deficits. Absent: facial droop, speech deficit - Skin Skin exam: Present: dry, intact, normal color, warm. Absent: rash
--- NOTE | 2017-04-01 07:51 | Electrocardiograph Report ---
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
== END 2017-03-30 14:38 | disposition home or self-care (01) ==
LOC: 3BNU 13:45 → EMEROO 13:45 → 3BNU 20:36
PROVIDERS: ADMIT Hospitalist; ATTEND Registered Nurse

== ENCOUNTER 2017-08-02 10:22 | Inpatient (IN) ==
--- NOTE | 2017-08-02 10:50 | Emergency Department Note ---
Disposition Clinical Impression: Falls frequently Pneumonia Qualifiers: Pneumonia type: due to unspecified organism Laterality: bilateral Lung location : unspecified part of lung Qualified Code(s): J18.9 - Pneumonia, unspecified organism Disposition: Admitted As Inpatient Condition: Fair General Adult HPI - General Chief complaint: ED Shortness of Breath/Dyspnea Stated complaint: SOB/UNABLE TO WALK Time Seen by Provider: 08/02/17 10:31 Source: patient, family Limitations: no limitations Nursing Notes Reviewed: Yes Vital Signs Reviewed: Yes - History of Present Illness HPI Narrative: 82-year-old female presents emergency department with concern for recent falls of last week. Patient had fallen in March and broken her pelvis. [facility] until the last 2 weeks. Patient states that she has been more short of breath. Family member states that she has fallen over and over again and has started to require more oxygen via nasal cannula. Patient denies any chest pain, pressure, tightness, but does report dyspnea. Patient also has bilateral knee pain. Patient denies hitting her head or losing consciousness. Patient denies any neck pain. Pain Scale: 7 - Related Data Home Medications Medication Instructions Recorded Confirmed Oxygen 2 l .ROUTE AD 06/04/16 08/02/17 Beclomethasone Diprop 40mcg [QVAR 1 puff IH BID 12/05/16 08/02/17 40 mcg] Carvedilol [Coreg] 6.25 mg PO BID 12/05/16 08/02/17 Losartan Potassium [Cozaar] 100 mg PO DAILY 12/05/16 08/02/17 Montelukast [Singulair] 10 mg PO DAILY 12/05/16 08/02/17 Aspirin Enteric Coated [Aspirin EC] 81 mg PO BID 03/28/17 08/02/17 Albuterol Neb [Proventil Neb] 2.5 mg IH Q4H PRN 08/02/17 08/02/17 Albuterol Sulfate [Proair Hfa] 2 puff IH Q4H PRN 08/02/17 08/02/17 Cholecalciferol (D-3) [Vitamin D] 2,000 unit PO DAILY 08/02/17 08/02/17 Gabapentin [Neurontin] 300 mg PO BID 08/02/17 08/02/17 Omeprazole [PriLOSEC] 20 mg PO DAILY 08/02/17 08/02/17 amLODIPine [Norvasc] 2.5 mg PO DAILY 08/02/17 08/02/17 Previous Rx's Medication Instructions Recorded Multivit/Ca/Min/Fe/FA [Thera M 1 tab PO DAILY tablet 12/24/15 Plus] Acetaminophen [Tylenol] 650 mg PO Q6HR PRN tablet 02/23/17 Ipratropium/Albuterol Neb [Duoneb] 3 ml IH [id number] inhsol 02/23/17 Tramadol HCl [Ultram] 50 mg PO TID PRN #20 tab 02/23/17 LORazepam [Ativan] 0.5 mg PO HS #1 tablet 03/30/17 Allergies Allergy/AdvReac Type Severity Reaction Status Date / Time Oxycodone AdvReac Confusion Verified 08/02/17 10:23 All systems ED: reviewed and negative except as stated. Review of Systems: As Per HPI Constitutional: Denies: fever Respiratory: Reports: cough, dyspnea, sputum production. Denies: wheezes Gastrointestinal: Denies: abdominal pain, nausea, vomiting Genitourinary: Denies: urgency, dysuria, frequency Musculoskeletal: Denies: back pain Past Medical History - Past Medical History Medical history: Reports: arthritis, COPD, GERD, hyperlipidemia, hypertension, sudden cardiac Surgical history: Reports: cataract, cholecystectomy, orthopedic, other, other, appendectomy Psychiatric history: Reports: anxiety [employer] history: Reports: no [employer] history - Social History Smoking Status: Former smoker Smokeless Tobacco Status: No Alcohol use: Reports: none Drug use: Reports: none Physical Exam - General Limitations: no limitations Course Vital Signs Temperature 98.0 F 08/02/17 10:23 Pulse Rate 91 08/02/17 10:23 Respiratory Rate 22 08/02/17 10:23 Blood Pressure 107/66 08/02/17 10:23 O2 Sat by Pulse Oximetry 91 08/02/17 10:23 Temperature 98.7 F 08/02/17 14:23 Pulse Rate 91 08/02/17 14:23 Respiratory Rate 18 08/02/17 15:28 Blood Pressure 95/55 08/02/17 14:23 O2 Sat by Pulse Oximetry 97 08/02/17 15:28 Oxygen Delivery Oxygen Delivery Nasal Cannula Medical Decision Making - [facility] Narrative Medical decision making narrative: 82-year-old female presents emergency department with concern for recent falls. Chest x-ray reveals patchy airspace opacities within the right upper lung and bilateral lung bases. Patient also had elevated d-dimer. Chest CTA did not reveal any evidence of pulmonary embolus, but revealed increasing airspace disease in both of the bases suggesting pneumonia. Also, nodules in the right upper lobe as well that could be infectious or inflammatory. Patient has a leukocytosis of 17,000. Patient had negative head CT as well as negative cervical spine CT. Normal creatinine. BNP of 374. X-rays of the pelvis and these were negative. Due to patient having pneumonia and leukocytosis of 17,000, patient was given a liter of fluid here in the emergency department as well as cefepime, vancomycin , azithromycin as there is concern for healthcare associated pneumonia. She was also administered 3 DuoNeb's and 125 mg IV Solu-Medrol as patient has long- standing history of COPD. Patient was admitted to the hospital pending urinalysis. Dr. Ferreira, the hospitalist agreed to accept admission. Patient hemodynamically stable and not in any acute distress at time of admission. Chest X-Ray 08/02/17 10:46 IMPRESSION: Patchy airspace opacities within the right upper lung and bilateral lung bases which are nonspecific and may reflect pneumonia in the appropriate clinical setting. Small bilateral pleural effusions are also noted. D/ / 08/02/2017 11:22:37 Joleen Gibson MD / cj Interpreting Provider: Joleen Gibson MD Cervical Spine CT 08/02/17 10:50 IMPRESSION: No acute osseous abnormality of the cervical spine. D/ / 08/02/2017 11:34:20 Francis Garertt MD / ray Interpreting Provider: Francis Garrett MD Head CT 08/02/17 10:50 IMPRESSION: No acute intracranial abnormality. D/ / Francis Garrett MD / Francis Garrett MD Interpreting Provider: Francis Garrett MD Chest CTA 08/02/17 11:44 IMPRESSION: There is no finding to suggest pulmonary embolus Increasing airspace disease in both bases suggesting pneumonia. Small nodules on the right are again noted, some which are increased. Continued follow-up is recommended to ensure that this is not related to inflammatory/infectious process. RECOMMENDATIONS: Fleischner Society guidelines for follow-up and management of incidentally detected pulmonary nodules: Single Solid Nodule: Nodule size less than 6 mm In a low-risk patient, no routine follow-up. In a high-risk patient, optional CT at 12 months. Nodule size equals 6-8 mm In a low-risk patient, CT at 6-12 months, then consider CT at 18-24 months. In a high-risk patient, CT at 6-12 months, then CT at 18-24 months. Nodule size greater than 8 mm In a low-risk patient, consider CT at 3 months, PET/CT, or tissue sampling. In a high-risk patient, consider CT at 3 months, PET/CT, or tissue sampling. Multiple Solid Nodules: Nodule size less than 6 mm In a low-risk patient, no routine follow-up. In a high-risk patient, optional CT at 12 months. Nodule size equals 6-8 mm In a low-risk patient, CT at 3-6 months, then consider CT at 18-24 months. In a high-risk patient, CT at 3-6 months, then CT at 18-24 months. Nodule size greater than 8 mm In a low-risk patient, CT at 3-6 months, then consider CT at 18-24 months. In a high-risk patient, CT at 3-6 months, then CT at 18-24 months. - Low risk patients include individuals with minimal or absent history of smoking and other known risk factors. - High risk patients include individuals with a history or smoking or known risk factors. Radiology 2017 http://pubs.rsna.org/doi/full/10.1148/radiol.[email or web address] D/ / Jose Griffiths / Jose Griffiths Interpreting Provider: Jose Griffiths Hip/Pelvis X-Ray 08/02/17 11:44 IMPRESSION: No acute fracture or dislocation. D/ / 08/02/2017 12:22:36 Francis Garrett MD / ray Interpreting Provider: Francis Garrett MD Knee X-Ray 08/02/17 11:44 IMPRESSION: No acute osseous abnormality. CPPD. D/ / 08/02/2017 12:19:31 Francis Garrett MD / [email or web address] Interpreting Provider: Francis Garrett MD - Lab Data Result diagrams: 08/02/17 10:50 08/02/17 10:50 Lab Results 08/02/17 08/02/17 08/02/17 Range/Units 10:50 10:50 10:50 WBC 17.3 H (4.3-11.1) K/mcL RBC 4.05 (3.82-4.97) M/mcL Hgb 11.2 L (11.5-15.4) g/dL Hct 35.0 L (35.3-44.9) % MCV 86.4 (83.0-100.0) fL MCH 27.7 L (28.0-33.3) pg MCHC 32.0 (31.6-35.5) g/dL RDW 17.0 H (11.5-14.5) % Plt Count 348 (140-400) K/mcL MPV 11.2 (9.4-12.4) fL Immature Gran % 0.4 (0-4) % Seg Neutrophils % 78.0 % Lymphocytes % 12.7 % Monocytes % 7.5 % Eosinophils % 0.8 % Basophils % 0.6 % Neutrophils # 13.5 H (1.6-8.9) K/mcL Lymphocytes # 2.2 (0.6-4.6) K/mcL Monocytes # 1.3 (0.0-1.3) K/mcL Eosinophils # 0.1 (0.0-0.6) K/mcL Basophils # 0.1 (0.0-0.2) K/mcL D-Dimer (0-500) ng/mLFEU Sodium 134 L (136-145) mEq/L Potassium 4.1 (3.5-5.1) mEq/L Chloride 103 (98-107) mEq/L Carbon Dioxide 22 L (23-29) mEq/L BUN 16 (8-23) mg/dL Creatinine 0.79 (0.60-1.20) mg/dL Est GFR ( Amer) > 60 (> 60) Est GFR (Non-Af Amer) > 60 (> 60) BUN/Creatinine Ratio 20 (6-26) Glucose 97 (70-105) mg/dL Calculated Osmolality 279 L (280-300) Lactic Acid (0.5-2.2) mmol/L Calcium 10.2 (8.6-10.3) mg/dL Troponin I (< 0.04) ng/mL B-Natriuretic Peptide 374 H (Less than 100) pg/mL Urine Color (Yellow) Urine Clarity (Clear) Urine pH (5.0-8.0) pH Units Ur Specific [place] (1.010-1.025) Urine Protein (Neg-Trace) mg/dL Urine Glucose (UA) (Normal) mg/dL Urine Ketones (Negative) mg/dL Urine Blood (Negative) Urine Nitrite (Negative) Urine Bilirubin (Negative) Urine Urobilinogen (Normal) mg/dL Ur Leukocyte Esterase (Negative) Ur Culture Indicated? (NO) 08/02/17 08/02/17 08/02/17 Range/Units 10:50 10:50 10:59 WBC (4.3-11.1) K/mcL RBC (3.82-4.97) M/mcL Hgb (11.5-15.4) g/dL Hct (35.3-44.9) % MCV (83.0-100.0) fL MCH (28.0-33.3) pg MCHC (31.6-35.5) g/dL RDW (11.5-14.5) % Plt Count (140-400) K/mcL MPV (9.4-12.4) fL Immature Gran % (0-4) % Seg Neutrophils % % Lymphocytes % % Monocytes % % Eosinophils % % Basophils % % Neutrophils # (1.6-8.9) K/mcL Lymphocytes # (0.6-4.6) K/mcL Monocytes # (0.0-1.3) K/mcL Eosinophils # (0.0-0.6) K/mcL Basophils # (0.0-0.2) K/mcL D-Dimer 1225 H (0-500) ng/mLFEU Sodium (136-145) mEq/L Potassium (3.5-5.1) mEq/L Chloride (98-107) mEq/L Carbon Dioxide (23-29) mEq/L BUN (8-23) mg/dL Creatinine (0.60-1.20) mg/dL Est GFR ( Amer) (> 60) Est GFR (Non-Af Amer) (> 60) BUN/Creatinine Ratio (6-26) Glucose (70-105) mg/dL Calculated Osmolality (280-300) Lactic Acid 1.2 (0.5-2.2) mmol/L Calcium (8.6-10.3) mg/dL Troponin I < 0.03 (< 0.04) ng/mL B-Natriuretic Peptide (Less than 100) pg/mL Urine Color (Yellow) Urine Clarity (Clear) Urine pH (5.0-8.0) pH Units Ur Specific [place] (1.010-1.025) Urine Protein (Neg-Trace) mg/dL Urine Glucose (UA) (Normal) mg/dL Urine Ketones (Negative) mg/dL Urine Blood (Negative) Urine Nitrite (Negative) Urine Bilirubin (Negative) Urine Urobilinogen (Normal) mg/dL Ur Leukocyte Esterase (Negative) Ur Culture Indicated? (NO) 08/02/17 Range/Units 13:20 WBC (4.3-11.1) K/mcL RBC (3.82-4.97) M/mcL Hgb (11.5-15.4) g/dL Hct (35.3-44.9) % MCV (83.0-100.0) fL MCH (28.0-33.3) pg MCHC (31.6-35.5) g/dL RDW (11.5-14.5) % Plt Count (140-400) K/mcL MPV (9.4-12.4) fL Immature Gran % (0-4) % Seg Neutrophils % % Lymphocytes % % Monocytes % % Eosinophils % % Basophils % % Neutrophils # (1.6-8.9) K/mcL Lymphocytes # (0.6-4.6) K/mcL Monocytes # (0.0-1.3) K/mcL Eosinophils # (0.0-0.6) K/mcL Basophils # (0.0-0.2) K/mcL D-Dimer (0-500) ng/mLFEU Sodium (136-145) mEq/L Potassium (3.5-5.1) mEq/L Chloride (98-107) mEq/L Carbon Dioxide (23-29) mEq/L BUN (8-23) mg/dL Creatinine (0.60-1.20) mg/dL Est GFR ( Amer) (> 60) Est GFR (Non-Af Amer) (> 60) BUN/Creatinine Ratio (6-26) Glucose (70-105) mg/dL Calculated Osmolality (280-300) Lactic Acid (0.5-2.2) mmol/L Calcium (8.6-10.3) mg/dL Troponin I (< 0.04) ng/mL B-Natriuretic Peptide (Less than 100) pg/mL Urine Color Yellow (Yellow) Urine Clarity Clear (Clear) Urine pH 6.5 (5.0-8.0) pH Units Ur Specific [place] 1.015 (1.010-1.025) Urine Protein Negative (Neg-Trace) mg/dL Urine Glucose (UA) Normal (Normal) mg/dL Urine Ketones Negative (Negative) mg/dL Urine Blood Negative (Negative) Urine Nitrite Negative (Negative) Urine Bilirubin Negative (Negative) Urine Urobilinogen Normal (Normal) mg/dL Ur Leukocyte Esterase Negative (Negative) Ur Culture Indicated? NO (NO) - EKG Data EKG #1 EKG attestation: Yes I reviewed and interpreted this EKG. EKG results narrative: 10:29 Ventricular rate 80 bpm,. 160 ms, QS mosque 90 ms, QT 346 ms, QTC 392 ms, normal axis. Sinus rhythm with cc. No evidence of any ischemic ST changes noted on this electrocardiogram. No changes from her previous one obtained on 03/28/2017.
[2017-08-02 11:11] LABS: Basophils # 0.1 K/mcL (0.0-0.2); Basophils % 0.6 %; Eosinophils # 0.1 K/mcL (0.0-0.6); Eosinophils % 0.8 %; Hemoglobin 11.2 g/dL (11.5-15.4); Immature Granulocytes % 0.4 % (0-4); Lymphocytes # 2.2 K/mcL (0.6-4.6); Lymphocytes % 12.7 %; Mean Corpuscular Hemoglobin 27.7 pg (28.0-33.3); Mean Corpuscular Volume 86.4 fL (83.0-100.0); Mean Platelet Volume 11.2 fL (9.4-12.4); Monocytes # 1.3 K/mcL (0.0-1.3); Monocytes % 7.5 %; Neutrophils # 13.5 K/mcL (1.6-8.9); Platelet Count 348 K/mcL (140-400); Red Blood Count 4.05 M/mcL (3.82-4.97)
[2017-08-02 11:31] LABS: BUN/Creatinine Ratio 20 (6-26); Blood Urea Nitrogen 16 mg/dL (8-23); Calcium 10.2 mg/dL (8.6-10.3); Carbon Dioxide 22 mEq/L (23-29); Chloride 103 mEq/L (98-107); Glucose 97 mg/dL (70-105); Osmolality,Calculated 279 (280-300); Potassium 4.1 mEq/L (3.5-5.1); Sodium 134 mEq/L (136-145); eGFR For African Americans > 60 (> 60); eGFR For Non-African Americans > 60 (> 60)
[2017-08-02] MEDS ORDERED: Isovue-370 500 ML INFUS..BTL IV ONE (11:44)
[2017-08-02] MEDS ORDERED: methylPREDNISolone 125 MG/2 ML VIAL IVP ONE (11:46)
[2017-08-02] MEDS ORDERED: Ipratropium/Albuterol Neb 3 ML IH ONE (11:46)
--- NOTE | 2017-08-02 12:37 | Emergency Department Note ---
Disposition Clinical Impression: Pneumonia Disposition: Admitted As Inpatient Condition: Fair Forms: ED Satisfaction Letter SOB HPI - General Chief Complaint: ED Shortness of Breath/Dyspnea Stated Complaint: SOB/UNABLE TO WALK Time Seen by Provider: 08/02/17 10:31 Source: patient, family Limitations: no limitations Nursing Notes Reviewed: Yes Vital Signs Reviewed: Yes - Related Data Home Medications Medication Instructions Recorded Confirmed Oxygen 2 l .ROUTE AD 06/04/16 08/02/17 Beclomethasone Diprop 40mcg [QVAR 1 puff IH BID 12/05/16 08/02/17 40 mcg] Carvedilol [Coreg] 6.25 mg PO BID 12/05/16 08/02/17 Losartan Potassium [Cozaar] 100 mg PO DAILY 12/05/16 08/02/17 Montelukast [Singulair] 10 mg PO DAILY 12/05/16 08/02/17 Aspirin Enteric Coated [Aspirin EC] 81 mg PO BID 03/28/17 08/02/17 Albuterol Neb [Proventil Neb] 2.5 mg IH Q4H PRN 08/02/17 08/02/17 Albuterol Sulfate [Proair Hfa] 2 puff IH Q4H PRN 08/02/17 08/02/17 Cholecalciferol (D-3) [Vitamin D] 2,000 unit PO DAILY 08/02/17 08/02/17 Gabapentin [Neurontin] 300 mg PO BID 08/02/17 08/02/17 Omeprazole [PriLOSEC] 20 mg PO DAILY 08/02/17 08/02/17 amLODIPine [Norvasc] 2.5 mg PO DAILY 08/02/17 08/02/17 Previous Rx's Medication Instructions Recorded Multivit/Ca/Min/Fe/FA [Thera M 1 tab PO DAILY tablet 12/24/15 Plus] Acetaminophen [Tylenol] 650 mg PO Q6HR PRN tablet 02/23/17 Ipratropium/Albuterol Neb [Duoneb] 3 ml IH [id number] inhsol 02/23/17 Tramadol HCl [Ultram] 50 mg PO TID PRN #20 tab 02/23/17 LORazepam [Ativan] 0.5 mg PO HS #1 tablet 03/30/17 Allergies Allergy/AdvReac Type Severity Reaction Status Date / Time Oxycodone AdvReac Confusion Verified 08/02/17 10:23 Past Medical History - Past Medical History Medical history: Reports: arthritis, COPD, GERD, hyperlipidemia, hypertension, sudden cardiac Surgical history: Reports: cataract, cholecystectomy, orthopedic, other, other, appendectomy Psychiatric history: Reports: anxiety STORE GROUP MANAGER history: Reports: no STORE GROUP MANAGER history - Social History Smoking Status: Former smoker Smokeless Tobacco Status: No Alcohol use: Reports: none Drug use: Reports: none Physical Exam - General Limitations: no limitations Course Vital Signs Temperature 98.0 F 08/02/17 10:23 Pulse Rate 91 08/02/17 10:23 Respiratory Rate 22 08/02/17 10:23 Blood Pressure 107/66 08/02/17 10:23 O2 Sat by Pulse Oximetry 91 08/02/17 10:23 Temperature 98.0 F 08/02/17 10:27 Pulse Rate 79 08/02/17 11:50 Respiratory Rate 20 08/02/17 12:20 Blood Pressure 109/67 08/02/17 11:50 O2 Sat by Pulse Oximetry 94 08/02/17 12:20 Oxygen Delivery Oxygen Delivery Room Air Shortness of Breath/Dyspnea - Lab Data Result diagrams: 08/02/17 10:50 08/02/17 10:50 Lab Results 08/02/17 08/02/17 08/02/17 Range/Units 10:50 10:50 10:50 WBC 17.3 H (4.3-11.1) K/mcL RBC 4.05 (3.82-4.97) M/mcL Hgb 11.2 L (11.5-15.4) g/dL Hct 35.0 L (35.3-44.9) % MCV 86.4 (83.0-100.0) fL MCH 27.7 L (28.0-33.3) pg MCHC 32.0 (31.6-35.5) g/dL RDW 17.0 H (11.5-14.5) % Plt Count 348 (140-400) K/mcL MPV 11.2 (9.4-12.4) fL Immature Gran % 0.4 (0-4) % Seg Neutrophils % 78.0 % Lymphocytes % 12.7 % Monocytes % 7.5 % Eosinophils % 0.8 % Basophils % 0.6 % Neutrophils # 13.5 H (1.6-8.9) K/mcL Lymphocytes # 2.2 (0.6-4.6) K/mcL Monocytes # 1.3 (0.0-1.3) K/mcL Eosinophils # 0.1 (0.0-0.6) K/mcL Basophils # 0.1 (0.0-0.2) K/mcL D-Dimer (0-500) ng/mLFEU Sodium 134 L (136-145) mEq/L Potassium 4.1 (3.5-5.1) mEq/L Chloride 103 (98-107) mEq/L Carbon Dioxide 22 L (23-29) mEq/L BUN 16 (8-23) mg/dL Creatinine 0.79 (0.60-1.20) mg/dL Est GFR ( Amer) > 60 (> 60) Est GFR (Non-Af Amer) > 60 (> 60) BUN/Creatinine Ratio 20 (6-26) Glucose 97 (70-105) mg/dL Calculated Osmolality 279 L (280-300) Lactic Acid (0.5-2.2) mmol/L Calcium 10.2 (8.6-10.3) mg/dL Troponin I (< 0.04) ng/mL B-Natriuretic Peptide 374 H (Less than 100) pg/mL 08/02/17 08/02/17 08/02/17 Range/Units 10:50 10:50 10:59 WBC (4.3-11.1) K/mcL RBC (3.82-4.97) M/mcL Hgb (11.5-15.4) g/dL Hct (35.3-44.9) % MCV (83.0-100.0) fL MCH (28.0-33.3) pg MCHC (31.6-35.5) g/dL RDW (11.5-14.5) % Plt Count (140-400) K/mcL MPV (9.4-12.4) fL Immature Gran % (0-4) % Seg Neutrophils % % Lymphocytes % % Monocytes % % Eosinophils % % Basophils % % Neutrophils # (1.6-8.9) K/mcL Lymphocytes # (0.6-4.6) K/mcL Monocytes # (0.0-1.3) K/mcL Eosinophils # (0.0-0.6) K/mcL Basophils # (0.0-0.2) K/mcL D-Dimer 1225 H (0-500) ng/mLFEU Sodium (136-145) mEq/L Potassium (3.5-5.1) mEq/L Chloride (98-107) mEq/L Carbon Dioxide (23-29) mEq/L BUN (8-23) mg/dL Creatinine (0.60-1.20) mg/dL Est GFR ( Amer) (> 60) Est GFR (Non-Af Amer) (> 60) BUN/Creatinine Ratio (6-26) Glucose (70-105) mg/dL Calculated Osmolality (280-300) Lactic Acid 1.2 (0.5-2.2) mmol/L Calcium (8.6-10.3) mg/dL Troponin I < 0.03 (< 0.04) ng/mL B-Natriuretic Peptide (Less than 100) pg/mL Attestation Statement - Attestation Attestation: I, Phil Patel, examined this patient and my medical decision-making was reviewed with the DAY TRADER/PA/Advanced Practice Nurse/Resident Physician. I agree with the documented findings, disposition and treatment plan as described except to the extent set forth below. 82-year-old female presents emergency Department with concerns of acute worsening of shortness of breath. Patient states she has a long history of COPD however the symptoms worsened within the past few days. Patient reports subjective fever and chills. Patient denies changes in her medications or chest pain or other syncopal events. Her examination EKG showed normal sinus rhythm with rate of 88 with multiple PVCs without evidence of STEMI. Chest x- ray shows likely right upper lobe pneumonia. D-dimer returned elevated. Patient will have CTA of the chest to rule out PE. Imaging pending at this time. Patient started on antibiotics in the emergency department. Patient admitted to the hospitalist for further care and evaluation.
[2017-08-02] MEDS ORDERED: Levofloxacin 750 MG/150 ML 750 MG/150 ML BAG IVPB ONE (12:43)
[2017-08-02] MEDS ORDERED: Azithromycin 500 MG in D5% in Water 250 ML IVPB ONE (12:47)
[2017-08-02] MEDS ORDERED: Cefepime HCl 2,000 MG in Water for inj. (sterile) 20 ML 20 ML IVP ONE (12:47)
[2017-08-02] MEDS ORDERED: 0.9 % Sodium Chloride 1,000 ML IVC ONE (12:47)
[2017-08-02] MEDS ORDERED: traMADol 50 MG TABLET PO PRN (13:03)
[2017-08-02] MEDS ORDERED: Naloxone 0.4 MG/ML INJ IVP PRN (13:06)
[2017-08-02] MEDS ORDERED: Ipratropium/Albuterol Neb 3 ML IH PRN (13:08)
[2017-08-02] MEDS ORDERED: NON-FORMULARY MEDICATION 1 EACH EACH (Oxygen [Oxygen] 2 L) SCH (13:15)
[2017-08-02 13:31] LABS: Bilirubin,Urine Negative (Negative); Blood,Urine Negative (Negative); Clarity,Urine Clear (Clear); Color,Urine Yellow (Yellow); Glucose,Urine (UA) Normal (Normal); Ketones,Urine Negative (Negative); Leukocyte Esterase,Urine Negative (Negative); Nitrite,Urine Negative (Negative); PH,Urine 6.5 pH Units (5.0-8.0); Protein,Urine Negative (Neg-Trace); Specific Gravity,Urine 1.015 (1.010-1.025); Urobilinogen,Urine Normal (Normal)
--- NOTE | 2017-08-02 13:39 | Internal Med History&Physical ---
<Kendra Gunter - Last Filed: 08/02/17 13:37> Date of Encounter: 08/02/17 Time of Encounter: 13:37 Internal Medicine - H&P: HPI Admitted From: Home Plans for Post Hospital Care: Home History of present illness: Ms. Boggs is 82-year-old female presents emergency Department with concerns of acute worsening of shortness of breath. Patient states she has a long history of COPD however the symptoms worsened within the past few days. Patient reports subjective fever and chills. She also had associated productive cough with yellow green sputum. Patient denies changes in her medications or chest pain or other syncopal events. Her examination EKG showed normal sinus rhythm with rate of 88 with multiple PVCs without evidence of STEMI. Chest x-ray shows likely right upper lobe pneumonia. D-dimer returned elevated. Patient had CTA of the chest and PE has ruled out. Patient started on antibiotics in the emergency department. Patient admitted to the hospitalist for further care and evaluation. Past Med Surg Social Fam HX - Past Medical History Medical history: arthritis, COPD, GERD, hyperlipidemia, hypertension, sudden cardiac Psychiatric history: anxiety - Past Surgical History Surgical History: cataract, cholecystectomy, orthopedic, other, other, appendectomy - Social History Smoking Status: Former smoker Smokeless Tobacco Status: No Alcohol use: none Drug use: none - Family History Son Living Status: Mother Living Status: Hx Family Cancer: Yes Daughter Hx Family Cardiac Disorders: Yes (High cholesterol) Internal Medicine - H&P: Meds Multivit/Ca/Min/Fe/FA [Thera M Plus] 1 tab PO DAILY tablet 12/24/15 [Rx] Oxygen 2 l .ROUTE AD 06/04/16 [History] Beclomethasone Diprop 40mcg [QVAR 40 mcg] 1 puff IH BID 12/05/16 [History] Carvedilol [Coreg] 6.25 mg PO BID 12/05/16 [History] Losartan Potassium [Cozaar] 100 mg PO DAILY 12/05/16 [History] Montelukast [Singulair] 10 mg PO DAILY 12/05/16 [History] Acetaminophen [Tylenol] 650 mg PO Q6HR PRN tablet 02/23/17 [Rx] Ipratropium/Albuterol Neb [Duoneb] 3 ml IH [id number] inhsol 02/23/17 [Rx] Tramadol HCl [Ultram] 50 mg PO TID PRN #20 tab 02/23/17 [Rx] Aspirin Enteric Coated [Aspirin EC] 81 mg PO BID 03/28/17 [History] LORazepam [Ativan] 0.5 mg PO HS #1 tablet 03/30/17 [Rx] Albuterol Neb [Proventil Neb] 2.5 mg IH Q4H PRN 08/02/17 [History] Albuterol Sulfate [Proair Hfa] 2 puff IH Q4H PRN 08/02/17 [History] Cholecalciferol (D-3) [Vitamin D] 2,000 unit PO DAILY 08/02/17 [History] Gabapentin [Neurontin] 300 mg PO BID 08/02/17 [History] Omeprazole [PriLOSEC] 20 mg PO DAILY 08/02/17 [History] amLODIPine [Norvasc] 2.5 mg PO DAILY 08/02/17 [History] 3 Allergy/AdvReac Type Severity Reaction Status Date / Time Oxycodone AdvReac Confusion Verified 08/02/17 10:23 All Systems PM: A 10-system review of systems was performed and is negative for pertinent findings except as documented above in the HPI. Review of systems: REVIEW OF SYSTEMS: CONSTITUTIONAL: No weight loss, fever, chills, weakness or fatigue. HEENT: Eyes: No visual loss, blurred vision, double vision or yellow sclerae. Ears, Nose, Throat: No hearing loss, sneezing, congestion, runny nose or sore throat. SKIN: No rash or itching. CARDIOVASCULAR: see HPI. RESPIRATORY: see HPI. GASTROINTESTINAL: No anorexia, nausea, vomiting or diarrhea. No abdominal pain or blood. GENITOURINARY: No dysuria, urgency, or frequency. NEUROLOGICAL: No headache, dizziness, syncope, paralysis, ataxia, numbness or tingling in the extremities. No change in bowel or bladder control. MUSCULOSKELETAL: No muscle, back pain, joint pain or stiffness. HEMATOLOGIC: No anemia, bleeding or bruising. LYMPHATICS: No enlarged nodes. No history of splenectomy. PSYCHIATRIC: No history of depression or anxiety. ENDOCRINOLOGIC: No reports of sweating, cold or heat intolerance. No polyuria or polydipsia. - Constitutional Vitals: Temp Pulse Resp BP Pulse Ox 98.0 F 87 22 129/85 96 08/02/17 10:27 08/02/17 12:53 08/02/17 12:53 08/02/17 12:53 08/02/17 12:53 General appearance: Present: A&O X 3 Exam: PHYSICAL EXAMINATION: GENERAL APPEARANCE: The patient is alert, oriented and in no acute distress. HEENT: Head is normocephalic. The sinuses are nontender. Pupils are equal and reactive. The nares are patent. Oropharynx clear without lesions. NECK: Supple without lymphadenopathy. HEART: Regular rate and rhythm. LUNGS: wheezes are heard bilaterally. ABDOMEN: Soft, nontender, nondistended with good bowel sounds heard. Inguinal area is normal. EXTREMITIES: Without cyanosis, clubbing or edema. NEUROLOGICAL: Gross nonfocal. SKIN: Warm and dry without any rash. Internal Med - H&P Results - Labs CBC & Chem 7: 08/02/17 10:50 08/02/17 10:50 Labs: Short CBC 08/02/17 Range/Units 10:50 WBC 17.3 H (4.3-11.1) K/mcL Hgb 11.2 L (11.5-15.4) g/dL Hct 35.0 L (35.3-44.9) % Plt Count 348 (140-400) K/mcL Neutrophils # 13.5 H (1.6-8.9) K/mcL BMP 08/02/17 10:50 Sodium 134 L Potassium 4.1 Chloride 103 Carbon Dioxide 22 L BUN 16 Creatinine 0.79 Glucose 97 Calcium 10.2 Cardiac Enzymes 08/02/17 Range/Units 10:50 Troponin I < 0.03 (< 0.04) ng/mL Urine 08/02/17 Range/Units 13:20 Urine Color Yellow (Yellow) Urine Clarity Clear (Clear) Urine pH 6.5 (5.0-8.0) pH Units Ur Specific [place] 1.015 (1.010-1.025) Urine Protein Negative (Neg-Trace) mg/dL Urine Glucose (UA) Normal (Normal) mg/dL - Impressions ITS Impressions Chest X-Ray 08/02/17 10:46 IMPRESSION: Patchy airspace opacities within the right upper lung and bilateral lung bases which are nonspecific and may reflect pneumonia in the appropriate clinical setting. Small bilateral pleural effusions are also noted. D/ / 08/02/2017 11:22:37 Joleen Gibson MD / [facility] Interpreting Provider: Joleen Gibson MD Cervical Spine CT 08/02/17 10:50 IMPRESSION: No acute osseous abnormality of the cervical spine. D/ / 08/02/2017 11:34:20 Francis Garrett MD / ray Interpreting Provider: Francis Garrett MD Head CT 08/02/17 10:50 IMPRESSION: No acute intracranial abnormality. D/ / Francis Garrett MD / Francis Garrett MD Interpreting Provider: Francis Garrett MD Chest CTA 08/02/17 11:44 IMPRESSION: There is no finding to suggest pulmonary embolus Increasing airspace disease in both bases suggesting pneumonia. Small nodules on the right are again noted, some which are increased. Continued follow-up is recommended to ensure that this is not related to inflammatory/infectious process. RECOMMENDATIONS: Fleischner Society guidelines for follow-up and management of incidentally detected pulmonary nodules: Single Solid Nodule: Nodule size less than 6 mm In a low-risk patient, no routine follow-up. In a high-risk patient, optional CT at 12 months. Nodule size equals 6-8 mm In a low-risk patient, CT at 6-12 months, then consider CT at 18-24 months. In a high-risk patient, CT at 6-12 months, then CT at 18-24 months. Nodule size greater than 8 mm In a low-risk patient, consider CT at 3 months, PET/CT, or tissue sampling. In a high-risk patient, consider CT at 3 months, PET/CT, or tissue sampling. Multiple Solid Nodules: Nodule size less than 6 mm In a low-risk patient, no routine follow-up. In a high-risk patient, optional CT at 12 months. Nodule size equals 6-8 mm In a low-risk patient, CT at 3-6 months, then consider CT at 18-24 months. In a high-risk patient, CT at 3-6 months, then CT at 18-24 months. Nodule size greater than 8 mm In a low-risk patient, CT at 3-6 months, then consider CT at 18-24 months. In a high-risk patient, CT at 3-6 months, then CT at 18-24 months. - Low risk patients include individuals with minimal or absent history of smoking and other known risk factors. - High risk patients include individuals with a history or smoking or known risk factors. Radiology 2017 http://pubs.rsna.org/doi/full/10.1148/radiol.0877152735 D/ / Jose Griffiths / Jose Griffiths Interpreting Provider: Jose Griffiths Hip/Pelvis X-Ray 08/02/17 11:44 IMPRESSION: No acute fracture or dislocation. D/ / 08/02/2017 12:22:36 Francis Garrett MD / ray Interpreting Provider: Francis Garrett MD Knee X-Ray 08/02/17 11:44 IMPRESSION: No acute osseous abnormality. CPPD. D/ / 08/02/2017 12:19:31 Francis Garrett MD / cj Interpreting Provider: Francis Garrett MD - Assessment and plan (1) Healthcare-associated pneumonia Current Visit: Yes Status: Acute Assessment and plan: 82-year-old female with past medical history of COPD presented with shortness of breath and a productive cough, CT chest revealed possible pneumonia. Patient recently was in senior living, we will treat the patient as healthcare associated pneumonia. - Continue antibiotics cefepime, vancomycin, and azithromycin. - Pending blood cultures, sputum culture, streppneumo and Legionella antigen. (2) COPD exacerbation Current Visit: Yes Status: Acute Assessment and plan: Continue ome medications for COPD, started patient on DuoNeb when necessary, and also IV steroids. (3) HTN (hypertension) Current Visit: No Status: Chronic Assessment and plan: BP well controlled, continue home medications. Qualifiers: Hypertension type: essential hypertension Qualified Code(s): I10 - Essential (primary) hypertension (4) GERD (gastroesophageal reflux disease) Current Visit: No Status: Chronic Assessment and plan: Continue home medication. Qualifiers: Esophagitis presence: without esophagitis Qualified Code(s): K21.9 - Gastro -esophageal reflux disease without esophagitis (5) Osteoporosis Current Visit: No Status: Chronic Assessment and plan: Continue home medications. Qualifiers: Osteoporosis type: other Presence of current pathological fracture: unspecified Qualified Code(s): M81.8 - Other osteoporosis without current pathological fracture (6) Chronic respiratory failure with hypoxia Current Visit: No Status: Chronic Assessment and plan: - Same as above. - Time Spent With Patient Total time spent is greater than 50% in coordination of care (as documented) at patient's floor/unit and/or counseling patient: Greater than 35 minutes <Marquita Ferreira - Last Filed: 08/02/17 19:11> Date of Encounter: 08/02/17 Internal Medicine - H&P: HPI History of present illness: Ms. Boggs is a 82 year old female All Systems PM: A 10-system review of systems was performed and is negative for pertinent findings except as documented above in the HPI. - Constitutional Vitals: Temp Pulse Resp BP Pulse Ox 97.7 F 78 16 114/67 97 08/02/17 18:25 08/02/17 18:25 08/02/17 18:25 08/02/17 18:25 08/02/17 18:25 Internal Med - H&P Results - Labs CBC & Chem 7: 08/02/17 10:50 08/02/17 10:50 Labs: Cardiac Enzymes 08/02/17 Range/Units 16:33 Troponin I < 0.03 (< 0.04) ng/mL - Attending Attestation I saw and examined this patient independently, and my medical decision making was reviewed with the HARDWARE ASSEMBLER/PA on 2017. I agree with the documented findings , assessment and treatment plan as described in the H&P. - Time Spent With Patient Total time spent is greater than 50% in coordination of care (as documented) at patient's floor/unit and/or counseling patient:
[2017-08-02] MEDS: Ipratropium/Albuterol Neb 3 ML IH SCH ×3 (15:25→23:40)
[2017-08-02] MEDS: Cefepime HCl 1,000 MG in 0.9 % Sodium Chloride Mini Bag 100 ML IVPB SCH (16:40)
[2017-08-02] MEDS: *HR* Heparin 5,000 UNIT/ML VIAL SQ SCH (16:40)
[2017-08-02] MEDS: Beclomethasone 40mcg MDI IH SCH (20:26)
[2017-08-02] MEDS: Gabapentin 300 MG CAPSULE PO SCH (22:19)
[2017-08-02] MEDS: Aspirin Enteric Coated 81 MG Tablet PO SCH (22:19)
[2017-08-02] MEDS: *HR* LORazepam 0.5 MG TABLET PO SCH (22:19)
[2017-08-02] MEDS: methylPREDNISolone 125 MG/2 ML VIAL IVP SCH (23:21)
[2017-08-03] MEDS: Ipratropium/Albuterol Neb 3 ML IH SCH ×5 (03:35→19:49)
[2017-08-03 06:17] LABS: Basophils % 0.1 %; Hematocrit 30.2 % (35.3-44.9); Hemoglobin 9.9 g/dL (11.5-15.4); Immature Granulocytes % 0.5 % (0-4); Lymphocytes # 1.4 K/mcL (0.6-4.6); Lymphocytes % 12.7 %; Mean Corpuscular HGB Conc 32.8 g/dL (31.6-35.5); Mean Corpuscular Hemoglobin 28.3 pg (28.0-33.3); Mean Corpuscular Volume 86.3 fL (83.0-100.0); Mean Platelet Volume 10.6 fL (9.4-12.4); Monocytes # 0.2 K/mcL (0.0-1.3); Monocytes % 1.5 %; Neutrophils # 9.4 K/mcL (1.6-8.9); Nucleated Red Blood Cells 0.2 /100 WBC (0); Platelet Count 415 K/mcL (140-400); Red Cell Distribution Width 16.9 % (11.5-14.5); Segmented Neutrophils % 85.2 %
[2017-08-03] MEDS: Cefepime HCl 1,000 MG in 0.9 % Sodium Chloride Mini Bag 100 ML IVPB SCH (06:23)
[2017-08-03] MEDS: *HR* Heparin 5,000 UNIT/ML VIAL SQ SCH ×2 (06:24→17:07)
[2017-08-03 06:35] LABS: Alanine Aminotransferase 6 Units/L (7-52); Albumin 3.6 g/dL (3.5-5.7); Albumin/Globulin Ratio 1.1 (1.1-2.2); Alkaline Phosphatase 107 Units/L (34-104); Aspartate Amino Transferase 9 Units/L (13-39); BUN/Creatinine Ratio 26 (6-26); Bilirubin,Total 0.2 mg/dL (0.3-1.0); Blood Urea Nitrogen 18 mg/dL (8-23); Calcium 10.1 mg/dL (8.6-10.3); Carbon Dioxide 19 mEq/L (23-29); Chloride 109 mEq/L (98-107); Globulin 3.2 g/dL (2.4-3.5); Glucose 154 mg/dL (70-105); Osmolality,Calculated 291 (280-300); Potassium 3.6 mEq/L (3.5-5.1); Sodium 138 mEq/L (136-145); Total Protein 6.8 g/dL (6.4-8.9); eGFR For African Americans > 60 (> 60); eGFR For Non-African Americans > 60 (> 60)
[2017-08-03] MEDS: methylPREDNISolone 125 MG/2 ML VIAL IVP SCH ×3 (07:50→23:47)
[2017-08-03] MEDS: Multivit/Ca/Min/Fe/FA 1 TAB TABLET PO SCH (07:52)
[2017-08-03] MEDS: amLODIPine 5 MG TABLET PO SCH (07:52)
[2017-08-03] MEDS: Aspirin Enteric Coated 81 MG Tablet PO SCH ×2 (07:52→21:04)
[2017-08-03] MEDS: Cholecalciferol (D-3) 1,000 UNIT TABLET PO SCH (07:52)
[2017-08-03] MEDS: Gabapentin 300 MG CAPSULE PO SCH ×2 (07:53→21:03)
[2017-08-03] MEDS: Beclomethasone 40mcg MDI IH SCH ×2 (08:10→19:49)
--- NOTE | 2017-08-03 10:06 | Internal Med Progress Note ---
Date of Encounter: 08/03/17 Time of Encounter: 10:03 - Assessment and plan (1) Healthcare-associated pneumonia Current Visit: Yes Status: Acute Assessment and plan: 82-year-old female with past medical history of COPD presented with shortness of breath and a productive cough, CXR r upper lobe pneumonia Ct Chest revealed possible pneumonia - recent resident in [facility] - empiric coverage HCAP cont ATB blood culture sputum strep legionella antigen pending (2) Chronic respiratory failure with hypoxia Current Visit: No Status: Chronic Assessment and plan: - Hx of COPD-pneumonia on CT scanCont oxygen support and wean (3) COPD exacerbation Current Visit: Yes Status: Acute Assessment and plan: Stable continue duo nebs and steroids oxygen as needed (4) HTN (hypertension) Current Visit: No Status: Chronic Assessment and plan: BP stable at this time , continue home medications. Qualifiers: Hypertension type: essential hypertension Qualified Code(s): I10 - Essential (primary) hypertension (5) GERD (gastroesophageal reflux disease) Current Visit: No Status: Chronic Assessment and plan: Continue home medication. Qualifiers: Esophagitis presence: without esophagitis Qualified Code(s): K21.9 - Gastro -esophageal reflux disease without esophagitis (6) Osteoporosis Current Visit: No Status: Chronic Assessment and plan: Continue home medications. Qualifiers: Osteoporosis type: other Presence of current pathological fracture: unspecified Qualified Code(s): M81.8 - Other osteoporosis without current pathological fracture - Time Spent With Patient Total time spent is greater than 50% in coordination of care (as documented) at patient's floor/unit and/or counseling patient: - Subjective Interval history: Patient seen and examined at bedside, Denies any CP or SOB. She states she feels better however she is very tired. I reviewed treatment plan with patient who verbalized understanding - Constitutional Vitals: Temp Pulse Resp BP Pulse Ox 97.7 F 97 16 137/71 93 08/03/17 06:44 08/03/17 06:44 08/03/17 08:10 08/03/17 06:44 08/03/17 08:10 General appearance: Present: A&O X 3 - Head Head exam: Present: atraumatic, normocephalic - Eye Eye exam: Present: PERRL, conjuntiva pink, sclera anicteric Pupils: Present: PERRL - Neck Neck exam general surgery: Present: supple, trachea midline. Absent: lymphadenopathy - Respiratory Respiratory exam: Present: CTAB. Absent: accessory muscle use, rales, rhonchi, wheezes - Cardiovascular Cardiovascular exam: Present: RRR, +S1, +S2. Absent: diastolic murmur, gallop, rubs, systolic murmur - GI/Abdominal GI/Abdominal exam: Present: normal bowel sounds, soft, no peritoneal signs. Absent: distended, tenderness - Extremities Exam Extremities exam: Present: warm, radial pulses palpable and symmetrical. Absent : calf tenderness, cyanotic, pedal edema - Neurological Exam Neurological exam: Present: CN II-XII intact, oriented X3, no focal deficits. Absent: pronater drift, facial droop, speech deficit - Skin Skin exam: Present: dry, intact Internal Medicine: Result - Labs CBC & Chem 7: 08/03/17 04:05 08/03/17 04:05 Labs: Short CBC 08/03/17 Range/Units 04:05 WBC 11.0 (4.3-11.1) K/mcL Hgb 9.9 L (11.5-15.4) g/dL Hct 30.2 L (35.3-44.9) % Plt Count 415 H (140-400) K/mcL Neutrophils # 9.4 H (1.6-8.9) K/mcL BMP 08/03/17 04:05 Sodium 138 Potassium 3.6 Chloride 109 H Carbon Dioxide 19 L BUN 18 Creatinine 0.69 Glucose 154 H Calcium 10.1 Cardiac Enzymes 08/02/17 08/02/17 Range/Units 16:33 22:22 Troponin I < 0.03 < 0.03 (< 0.04) ng/mL Liver Function 08/03/17 Range/Units 04:05 Total Bilirubin 0.2 L (0.3-1.0) mg/dL AST 9 L (13-39) Units/L ALT 6 L (7-52) Units/L Alkaline Phosphatase 107 H (34-104) Units/L Albumin 3.6 (3.5-5.7) g/dL - ABG Interpretation ABG results: PT/INR, D-dimer D-Dimer 1225 ng/mLFEU (0-500) H 08/02/17 10:50 Consult Discharge Plan - Plan Referrals: Chaz Cuellar MD [Primary Care Provider] -
[2017-08-03] MEDS: Acetaminophen 325 MG TABLET PO PRN ×2 (11:37→21:15)
[2017-08-03] MEDS: Azithromycin 500 MG in D5% in Water 250 ML IVPB SCH (13:33)
[2017-08-03] MEDS: Cefepime HCl 2,000 MG in Water for inj. (sterile) 20 ML 20 ML IVP SCH (17:07)
[2017-08-03] MEDS: *HR* LORazepam 0.5 MG TABLET PO SCH (21:03)
[2017-08-04] MEDS: Ipratropium/Albuterol Neb 3 ML IH SCH ×7 (00:10→23:02)
[2017-08-04] MEDS: Cefepime HCl 2,000 MG in Water for inj. (sterile) 20 ML 20 ML IVP SCH ×2 (05:58→18:00)
[2017-08-04] MEDS: *HR* Heparin 5,000 UNIT/ML VIAL SQ SCH ×2 (05:58→18:00)
[2017-08-04] MEDS: Beclomethasone 40mcg MDI IH SCH ×2 (07:13→19:42)
--- NOTE | 2017-08-04 09:07 | Internal Med Progress Note ---
Date of Encounter: 08/04/17 Time of Encounter: 07:30 - Assessment and plan (1) Healthcare-associated pneumonia Current Visit: Yes Status: Acute Assessment and plan: 82-year-old female with past medical history of COPD presented with shortness of breath and a productive cough, CXR r upper lobe pneumonia Ct Chest revealed possible pneumonia - recent resident in [facility] Not short of breath today per my assessment. On 3 L nasal cannula and satting 97%. No wheezes per auscultation. Reports that she is still mildly short of breath but overall feels better. I have discussed the plan of care today with the patient and she is in agreement 's. Denies any further questions comments or concerns at this time Afebrile overnight, WBC improving 11 today Continue aBX coverage for HCAP, cefepime, azithromycin, vancomycin blood culture-no growth to date sputum culture-yet to be collected strep legionella antigen negative x2 Continue to monitor daily labs (2) COPD exacerbation Current Visit: Yes Status: Acute Assessment and plan: History of COPD Currently in acute exacerbation; however respiratory distress improving, no wheezing noted per auscultation today Overall stable, continue duo nebs, change IV steroids to oral and continue to closely monitor respiratory status Respiratory support per nasal cannula as needed; titrate O2 to baseline oxygen requirements (3) HTN (hypertension) Current Visit: No Status: Chronic Assessment and plan: History of HTN, BP remains stable at this time , continue home anti-HTN medications Qualifiers: Hypertension type: essential hypertension Qualified Code(s): I10 - Essential (primary) hypertension (4) GERD (gastroesophageal reflux disease) Current Visit: No Status: Chronic Assessment and plan: History of GERD, Continue home medication. Qualifiers: Esophagitis presence: without esophagitis Qualified Code(s): K21.9 - Gastro -esophageal reflux disease without esophagitis (5) Osteoporosis Current Visit: No Status: Chronic Assessment and plan: History of osteoporosis, Continue home medications. Qualifiers: Osteoporosis type: other Presence of current pathological fracture: unspecified Qualified Code(s): M81.8 - Other osteoporosis without current pathological fracture (6) Chronic respiratory failure with hypoxia Current Visit: No Status: Chronic Assessment and plan: Patient remains on nasal cannula. Chronic respiratory failure with hypoxia secondary to COPD. Admitted with new healthcare acquired pneumonia. See further assessment and planning above - Time Spent With Patient Total time spent is greater than 50% in coordination of care (as documented) at patient's floor/unit and/or counseling patient: 25 - 35 minutes - Subjective Interval history: Ms. Boggs is 82-year-old female presents emergency Department with concerns of acute worsening of shortness of breath. Patient states she has a long history of COPD. presented with shortness of breath and was found to have community- acquired pneumonia. No acute changes overnight. Patient reports that her shortness of breath is improving and she is progressing toward baseline. - Constitutional Vitals: Temp Pulse Resp BP Pulse Ox 98.3 F 96 18 123/73 97 08/04/17 07:56 08/04/17 07:56 08/04/17 07:56 08/04/17 07:56 08/04/17 07:56 General appearance: Present: A&O X 3 - Head Head exam: Present: atraumatic, normocephalic - Eye Eye exam: Present: EOMI, PERRL, conjuntiva pink, sclera anicteric Pupils: Present: PERRL - Neck Neck exam general surgery: Present: supple, trachea midline. Absent: lymphadenopathy - Respiratory Respiratory exam: Present: decreased breath sounds, CTAB. Absent: accessory muscle use, rales, respiratory distress, rhonchi, wheezes, tachypnea - Cardiovascular Cardiovascular exam: Present: RRR, +S1, +S2. Absent: diastolic murmur, gallop, rubs, systolic murmur - GI/Abdominal GI/Abdominal exam: Present: normal bowel sounds, soft, no peritoneal signs. Absent: distended, tenderness - Extremities Exam Extremities exam: Present: warm, radial pulses palpable and symmetrical. Absent : calf tenderness, cyanotic, pedal edema - Neurological Exam Neurological exam: Present: CN II-XII intact, oriented X3, no focal deficits. Absent: pronater drift, facial droop, speech deficit - Skin Skin exam: Present: dry, intact Internal Medicine: Result - Labs CBC & Chem 7: 08/03/17 04:05 08/03/17 04:05 - ABG Interpretation ABG results: PT/INR, D-dimer D-Dimer 1225 ng/mLFEU (0-500) H 08/02/17 10:50 Consult Discharge Plan - Plan Referrals: Chaz Cuellar MD [Primary Care Provider] -
[2017-08-04] MEDS: amLODIPine 5 MG TABLET PO SCH (09:59)
[2017-08-04] MEDS: Gabapentin 300 MG CAPSULE PO SCH ×2 (10:00→20:59)
[2017-08-04] MEDS: Aspirin Enteric Coated 81 MG Tablet PO SCH ×2 (10:00→20:59)
[2017-08-04] MEDS: Multivit/Ca/Min/Fe/FA 1 TAB TABLET PO SCH (10:01)
[2017-08-04] MEDS: methylPREDNISolone 125 MG/2 ML VIAL IVP SCH (10:01)
[2017-08-04] MEDS: Cholecalciferol (D-3) 1,000 UNIT TABLET PO SCH (10:02)
[2017-08-04] MEDS: Acetaminophen 325 MG TABLET PO PRN ×2 (10:16→19:04)
[2017-08-04] MEDS: Azithromycin 500 MG in D5% in Water 250 ML IVPB SCH (14:54)
[2017-08-04] MEDS: *HR* LORazepam 0.5 MG TABLET PO SCH (20:59)
[2017-08-05] MEDS: Ipratropium/Albuterol Neb 3 ML IH SCH ×5 (04:10→19:38)
[2017-08-05 04:54] LABS: Basophils % 0.1 %; Hematocrit 28.4 % (35.3-44.9); Hemoglobin 9.2 g/dL (11.5-15.4); Immature Granulocytes % 0.7 % (0-4); Lymphocytes # 2.8 K/mcL (0.6-4.6); Lymphocytes % 12.3 %; Mean Corpuscular HGB Conc 32.4 g/dL (31.6-35.5); Mean Corpuscular Hemoglobin 28.6 pg (28.0-33.3); Mean Corpuscular Volume 88.2 fL (83.0-100.0); Mean Platelet Volume 11.9 fL (9.4-12.4); Monocytes # 1.2 K/mcL (0.0-1.3); Monocytes % 5.4 %; Neutrophils # 18.5 K/mcL (1.6-8.9); Nucleated Red Blood Cells 0.1 /100 WBC (0); Platelet Count 311 K/mcL (140-400); Red Blood Count 3.22 M/mcL (3.82-4.97); Red Cell Distribution Width 17.3 % (11.5-14.5); Segmented Neutrophils % 81.5 %
[2017-08-05 05:09] LABS: BUN/Creatinine Ratio 52 (6-26); Blood Urea Nitrogen 37 mg/dL (8-23); Calcium 9.7 mg/dL (8.6-10.3); Carbon Dioxide 23 mEq/L (23-29); Chloride 108 mEq/L (98-107); Glucose 82 mg/dL (70-105); Osmolality,Calculated 292 (280-300); Sodium 137 mEq/L (136-145); eGFR For African Americans > 60 (> 60); eGFR For Non-African Americans > 60 (> 60)
[2017-08-05] MEDS: *HR* Heparin 5,000 UNIT/ML VIAL SQ SCH ×2 (06:08→18:23)
[2017-08-05] MEDS: Cefepime HCl 2,000 MG in Water for inj. (sterile) 20 ML 20 ML IVP SCH ×2 (06:08→18:20)
--- NOTE | 2017-08-05 06:49 | Electrocardiograph Report ---
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
[2017-08-05] MEDS: Beclomethasone 40mcg MDI IH SCH ×2 (07:31→19:38)
[2017-08-05] MEDS: Aspirin Enteric Coated 81 MG Tablet PO SCH ×2 (07:43→20:06)
[2017-08-05] MEDS: Multivit/Ca/Min/Fe/FA 1 TAB TABLET PO SCH (07:43)
[2017-08-05] MEDS: predniSONE 20 MG TABLET PO SCH (07:43)
[2017-08-05] MEDS: Gabapentin 300 MG CAPSULE PO SCH ×2 (07:43→20:06)
[2017-08-05] MEDS: Cholecalciferol (D-3) 1,000 UNIT TABLET PO SCH (07:43)
[2017-08-05] MEDS: amLODIPine 5 MG TABLET PO SCH (07:45)
--- NOTE | 2017-08-05 13:05 | Internal Med Progress Note ---
Date of Encounter: 08/05/17 Time of Encounter: 13:04 - Assessment and plan (1) Healthcare-associated pneumonia Current Visit: Yes Status: Acute Assessment and plan: 82-year-old female with past medical history of COPD presented with shortness of breath and a productive cough, CXR and CT CHEST reveals r upper lobe pneumonia Patient was a recent resident of [facility]. Being treated for HCAP Shortness of breath improving On 2 L nasal cannula and satting 98%. No wheezes per auscultation. Patient reporting she feels much better today. Afebrile greater than 48 hours, no tachypnea noted, NSR and hemodynamically stable De-escalate antibiotic therapy today, continue cefepime, discontinue vancomycin and azithromycin blood culture-no growth to date strep legionella antigen negative x2 Continue to monitor daily labs Closely monitor respiratory status and respiratory support as needed (2) COPD exacerbation Current Visit: Yes Status: Acute Assessment and plan: Acute exacerbation of COPD. Patient reports that she does not feel as short of breath as on admission. Respiratory status improving, continue duo nebs, change IV steroids to oral and continue to closely monitor respiratory status Respiratory support per nasal cannula as needed; titrate O2 to baseline oxygen requirements (3) HTN (hypertension) Current Visit: No Status: Chronic Assessment and plan: HTN history, BP remained stable throughout stay, continue home anti-HTN medications Qualifiers: Hypertension type: essential hypertension Qualified Code(s): I10 - Essential (primary) hypertension (4) GERD (gastroesophageal reflux disease) Current Visit: No Status: Chronic Assessment and plan: History of GERD, on PPI, continue Qualifiers: Esophagitis presence: without esophagitis Qualified Code(s): K21.9 - Gastro -esophageal reflux disease without esophagitis (5) Osteoporosis Current Visit: No Status: Chronic Assessment and plan: Patient has a history of osteoporosis. Continue home medications. Qualifiers: Osteoporosis type: other Presence of current pathological fracture: unspecified Qualified Code(s): M81.8 - Other osteoporosis without current pathological fracture (6) Chronic respiratory failure with hypoxia Current Visit: No Status: Chronic Assessment and plan: Chronic respiratory failure with hypoxia secondary to COPD. Admitted with new healthcare acquired pneumonia. Continuing to require 2 L nasal cannula. See further assessment and planning above - Time Spent With Patient Total time spent is greater than 50% in coordination of care (as documented) at patient's floor/unit and/or counseling patient: 25 - 35 minutes - Subjective Interval history: Ms. Boggs is 82-year-old female presents emergency Department with concerns of acute worsening of shortness of breath. Patient states she has a long history of COPD. presented with shortness of breath and was found to have community- acquired pneumonia. No acute changes overnight. Patient seen and examined at bedside today. Patient reports that her shortness of breath is continuing to improve and that she is almost back to baseline. Continuing to report a mild cough with minimal sputum production. He remained afebrile overnight. - Constitutional Vitals: Temp Pulse Resp BP Pulse Ox 98.2 F 76 18 125/73 100 08/05/17 11:36 08/05/17 11:36 08/05/17 11:36 08/05/17 11:36 08/05/17 11:36 General appearance: Present: A&O X 3 - Head Head exam: Present: atraumatic, normocephalic - Eye Eye exam: Present: PERRL, conjuntiva pink, sclera anicteric Pupils: Present: PERRL - Neck Neck exam general surgery: Present: supple, trachea midline. Absent: lymphadenopathy - Respiratory Respiratory exam: Present: decreased breath sounds, CTAB. Absent: accessory muscle use, chest wall tenderness, prolonged expiratory phase, rales, respiratory distress, rhonchi, wheezes, tachypnea - Cardiovascular Cardiovascular exam: Present: RRR, +S1, +S2. Absent: diastolic murmur, gallop, rubs, systolic murmur - GI/Abdominal GI/Abdominal exam: Present: normal bowel sounds, soft, no peritoneal signs. Absent: distended, tenderness - Extremities Exam Extremities exam: Present: warm, radial pulses palpable and symmetrical. Absent : calf tenderness, cyanotic, pedal edema - Neurological Exam Neurological exam: Present: CN II-XII intact, oriented X3, no focal deficits. Absent: pronater drift, facial droop, speech deficit - Skin Skin exam: Present: dry, intact Internal Medicine: Result - Labs CBC & Chem 7: 08/05/17 04:22 08/05/17 04:22 Labs: Short CBC 08/05/17 Range/Units 04:22 WBC 22.7 H D (4.3-11.1) K/mcL Hgb 9.2 L (11.5-15.4) g/dL Hct 28.4 L (35.3-44.9) % Plt Count 311 (140-400) K/mcL Neutrophils # 18.5 H (1.6-8.9) K/mcL BMP 08/05/17 04:22 Sodium 137 Potassium 4.0 Chloride 108 H Carbon Dioxide 23 BUN 37 H Creatinine 0.71 Glucose 82 Calcium 9.7 - ABG Interpretation ABG results: PT/INR, D-dimer D-Dimer 1225 ng/mLFEU (0-500) H 08/02/17 10:50 Consult Discharge Plan - Plan Referrals: Chaz Cuellar MD [Primary Care Provider] -
[2017-08-05] MEDS: Azithromycin 500 MG in D5% in Water 250 ML IVPB SCH (15:21)
[2017-08-05] MEDS: Acetaminophen 325 MG TABLET PO PRN (19:01)
[2017-08-05] MEDS: *HR* LORazepam 0.5 MG TABLET PO SCH (20:06)
[2017-08-06] MEDS: Ipratropium/Albuterol Neb 3 ML IH SCH ×5 (00:02→15:12)
[2017-08-06] MEDS: Cefepime HCl 2,000 MG in Water for inj. (sterile) 20 ML 20 ML IVP SCH (05:18)
[2017-08-06] MEDS: *HR* Heparin 5,000 UNIT/ML VIAL SQ SCH (05:19)
[2017-08-06 05:51] LABS: Basophils % 0.1 %; Eosinophils % 0.2 %; Hematocrit 29.9 % (35.3-44.9); Hemoglobin 9.5 g/dL (11.5-15.4); Immature Granulocytes % 1.3 % (0-4); Lymphocytes # 3.7 K/mcL (0.6-4.6); Lymphocytes % 26.5 %; Mean Corpuscular HGB Conc 31.8 g/dL (31.6-35.5); Mean Corpuscular Hemoglobin 27.7 pg (28.0-33.3); Mean Corpuscular Volume 87.2 fL (83.0-100.0); Mean Platelet Volume 10.2 fL (9.4-12.4); Monocytes # 1.1 K/mcL (0.0-1.3); Monocytes % 7.7 %; Neutrophils # 9.1 K/mcL (1.6-8.9); Platelet Count 436 K/mcL (140-400); Red Blood Count 3.43 M/mcL (3.82-4.97); Red Cell Distribution Width 17.1 % (11.5-14.5); Segmented Neutrophils % 64.2 %
[2017-08-06 06:10] LABS: BUN/Creatinine Ratio 50 (6-26); Blood Urea Nitrogen 29 mg/dL (8-23); Calcium 9.3 mg/dL (8.6-10.3); Carbon Dioxide 24 mEq/L (23-29); Chloride 110 mEq/L (98-107); Glucose 78 mg/dL (70-105); Osmolality,Calculated 299 (280-300); Potassium 3.5 mEq/L (3.5-5.1); Sodium 142 mEq/L (136-145); eGFR For African Americans > 60 (> 60); eGFR For Non-African Americans > 60 (> 60)
[2017-08-06] MEDS: Beclomethasone 40mcg MDI IH SCH (07:37)
[2017-08-06] MEDS: Aspirin Enteric Coated 81 MG Tablet PO SCH (08:38)
[2017-08-06] MEDS: amLODIPine 5 MG TABLET PO SCH (08:39)
[2017-08-06] MEDS: predniSONE 20 MG TABLET PO SCH (08:39)
[2017-08-06] MEDS: Multivit/Ca/Min/Fe/FA 1 TAB TABLET PO SCH (08:39)
[2017-08-06] MEDS: Cholecalciferol (D-3) 1,000 UNIT TABLET PO SCH (08:40)
[2017-08-06] MEDS: Gabapentin 300 MG CAPSULE PO SCH (08:40)
--- NOTE | 2017-08-06 14:27 | Discharge Summary ---
- NOTES TO OUTPATIENT PROVIDER Notes to Outpatient Provider: Admitted with SOB found to have PNA. Uneventful hospital course. Improved with ABX. Sent home on ABX. Instructed to f/u with PCP in 1-week of d/c. Orders not resulted at time of discharge: Pending orders 08/07/17 04:00 Basic Metabolic Panel AM 0400 Complete Blood Count [HEME] AM 0400 08/08/17 04:00 Basic Metabolic Panel AM 0400 Complete Blood Count [HEME] AM 0400 08/09/17 04:00 Basic Metabolic Panel AM 0400 Complete Blood Count [HEME] AM 0400 Date of Encounter: 08/06/17 Time of Encounter: 14:25 - Discharge Diagnosis (1) Healthcare-associated pneumonia Priority: Primary Status: Acute Assessment and Plan: 82-year-old female with past medical history of COPD presented with shortness of breath and a productive cough, CXR and CT CHEST reveals r upper lobe pneumonia Patient was a recent resident of [facility]. Being treated for HCAP Shortness of breath improving On 2 L nasal cannula and satting 98%. No wheezes per auscultation. Patient reporting she feels much better today. Afebrile greater than 48 hours, WBC improving, no tachypnea noted, NSR and hemodynamically stable d/c on Levaquin x4 days blood culture-no growth to date strep legionella antigen negative x2 d/c in stable condition and back to baseline. Instructed to f/u with PCP in 1 week. Instructed to return to ED should symptoms return (2) COPD exacerbation Priority: Secondary Status: Resolved (3) HTN (hypertension) Priority: Secondary Status: Chronic Assessment and Plan: HTN history, BP remained stable throughout stay, continue home anti-HTN medications Qualifiers: Hypertension type: essential hypertension Qualified Code(s): I10 - Essential (primary) hypertension (4) GERD (gastroesophageal reflux disease) Priority: Secondary Status: Chronic Assessment and Plan: History of GERD, on PPI, continue Qualifiers: Esophagitis presence: without esophagitis Qualified Code(s): K21.9 - Gastro -esophageal reflux disease without esophagitis (5) Osteoporosis Priority: Secondary Status: Chronic Qualifiers: Osteoporosis type: other Presence of current pathological fracture: unspecified Qualified Code(s): M81.8 - Other osteoporosis without current pathological fracture (6) Chronic respiratory failure with hypoxia Priority: Secondary Status: Chronic Assessment and Plan: Chronic respiratory failure with hypoxia secondary to COPD. Admitted with new healthcare acquired pneumonia. Shortness of breath resolved by discharge Continuing to require 2 L nasal cannula PRN at home. See further assessment and planning above Hospital course: Ms. Boggs is a 82 year old female Please see assessment and plan for hospital course Discharge discussed with: patient, family, nurse, case management - Time Spent with Patient Total time spent providing and/or coordinating discharge services: Less than 30 minutes - Discharge Medications Prescriptions: predniSONE [PredniSONE] 60 mg PO DAILY 3 Days #3 tablet Home Medications: Multivit/Ca/Min/Fe/FA [Thera M Plus] 1 tab PO DAILY tablet 12/24/15 [Rx] Oxygen 2 l .ROUTE AD 06/04/16 [History] Beclomethasone Diprop 40mcg [QVAR 40 mcg] 1 puff IH BID 12/05/16 [History] Carvedilol [Coreg] 6.25 mg PO BID 12/05/16 [History] Losartan Potassium [Cozaar] 100 mg PO DAILY 12/05/16 [History] Montelukast [Singulair] 10 mg PO DAILY 12/05/16 [History] Acetaminophen [Tylenol] 650 mg PO Q6HR PRN tablet 02/23/17 [Rx] Ipratropium/Albuterol Neb [Duoneb] 3 ml IH [id number] inhsol 02/23/17 [Rx] Tramadol HCl [Ultram] 50 mg PO TID PRN #20 tab 02/23/17 [Rx] Aspirin Enteric Coated [Aspirin EC] 81 mg PO BID 03/28/17 [History] LORazepam [Ativan] 0.5 mg PO HS #1 tablet 03/30/17 [Rx] Albuterol Neb [Proventil Neb] 2.5 mg IH Q4H PRN 08/02/17 [History] Albuterol Sulfate [Proair Hfa] 2 puff IH Q4H PRN 08/02/17 [History] Cholecalciferol (D-3) [Vitamin D] 2,000 unit PO DAILY 08/02/17 [History] Gabapentin [Neurontin] 300 mg PO BID 08/02/17 [History] Omeprazole [PriLOSEC] 20 mg PO DAILY 08/02/17 [History] amLODIPine [Norvasc] 2.5 mg PO DAILY 08/02/17 [History] levoFLOXacin [Levaquin] 750 mg PO DAILY 4 Days #4 tablet 08/06/17 [Rx] predniSONE [PredniSONE] 60 mg PO DAILY 3 Days #3 tablet 08/06/17 [Rx] Allergies/Adverse Reactions: 3 Allergy/AdvReac Type Severity Reaction Status Date / Time Oxycodone AdvReac Confusion Verified 08/02/17 10:23 Date of admission: 08/03/17 14:50 Primary care physician: Chaz Cuellar MD Discharging clinician: Regis Hyde Anticipated date of discharge: 08/06/17 - Constitutional Vitals: Temp Pulse Resp BP Pulse Ox 98.3 F 89 18 105/74 94 08/06/17 11:58 08/06/17 11:58 08/06/17 11:58 08/06/17 11:58 08/06/17 11:58 General appearance: Present: A&O X 3 - Head Head exam: Present: atraumatic, normocephalic - Eye Eye exam: Present: PERRL, conjuntiva pink, sclera anicteric Pupils: Present: PERRL - Neck Neck exam general surgery: Present: supple, trachea midline. Absent: lymphadenopathy - Respiratory Respiratory exam: Present: CTAB. Absent: accessory muscle use, rales, rhonchi, wheezes - Cardiovascular Cardiovascular exam: Present: RRR, +S1, +S2. Absent: diastolic murmur, gallop, rubs, systolic murmur - GI/Abdominal GI/Abdominal exam: Present: normal bowel sounds, soft, no peritoneal signs. Absent: distended, tenderness - Extremities Exam Extremities exam: Present: warm, radial pulses palpable and symmetrical. Absent : calf tenderness, cyanotic, pedal edema - Neurological Exam Neurological exam: Present: CN II-XII intact, oriented X3, no focal deficits. Absent: pronater drift, facial droop, speech deficit - Skin Skin exam: Present: dry, intact - Patient Status Disposition: Home Health Service Condition: Fair Overall status at discharge: patient is progressing back to baseline - Discharge Instructions Instructions: Pneumonia (DC), COPD, Manager Stone (GEN) Follow Up With: Chaz Cuellar MD [Primary Care Provider] - Additional Instructions: Follow-up appointments: If there is not an appointment listed below, please call your physician and schedule a follow-up appointment. If you have congestive heart failure and your symptoms return, make an appointment with your physician. Medication List: Carry an up to date list of medications you are taking at all time. We have given you an updated medication list including any new medications that you have been prescribed. Please provide that list to your primary provider Symptoms: If your condition changes or you experience any of the following symptoms, notify your physician immediately: Unusual or worsening pain, fever, persistent nausea and vomiting, bleeding, increase in swelling (especially in your legs), sudden weight gain, extreme dizziness, chest pain, increased drainage or redness from a wound or incision. Go to the emergency department if you experience a problem with breathing. Weights: If you have a history of swelling or shortness of breath, weigh yourself daily and notify your physician if you have a weight gain of two or more pounds in one day or 5 or more pounds in a week. If you experience any of the warning signs for stroke: Sudden numbness or weakness of the face, arm or leg; especially on one side of the body, sudden confusion, trouble speaking or understanding, sudden trouble seeing in one or both eyes, sudden trouble walking, dizziness, loss of balance or coordination, sudden sever headache with no cause; Call 911 or go to the emergency room. Stroke is a medical emergency. Some risk factors for stroke: Age, cigarette smoking, diabetes, excessive alcohol consumption, family history , high blood pressure, overweight, physical inactivity, prior stroke, heart attack, diagnosis of carotid artery stenosis or other artery disease. If you smoke, STOP: Smoking or tobacco use significantly increases your risk of heart and lung disease. Your chance of disease greatly increases if you continue to smoke. For more information, call the [place] tobacco quit line for smoking cessation - QUIT-NOW ( ) - Diet and Activity Activity: increase activity as tolerated Diet: advance to your usual diet
--- NOTE | 2017-08-06 14:45 | Physician Discharge Referral ---
Home Health/Hosp Referral Info Transfer to: Home Health Provider in Charge Post Discharge: PCP - Diagnosis (1) Healthcare-associated pneumonia Priority: Primary Status: Acute (2) COPD exacerbation Priority: Secondary Status: Resolved (3) HTN (hypertension) Priority: Secondary Status: Chronic (4) GERD (gastroesophageal reflux disease) Priority: Secondary Status: Chronic (5) Osteoporosis Priority: Secondary Status: Chronic (6) Chronic respiratory failure with hypoxia Priority: Secondary Status: Chronic - Respiratory Orders Smoking Cessation: Smoking cessation has been advised. For more information, call the [place] [employer] Quit Line at 9-067-BBLS-NOW. - Diet/Nutrition Diet/Nutrition Orders: Regular - Activity Activity Orders: Up ad guille, Ambulate, Chair, Walker - Services Needed Following services are medically necessary services: Nursing, Home Health Aide - Transfer Medications Prescriptions: levoFLOXacin [Levaquin] 750 mg PO DAILY 4 Days #4 tablet predniSONE [PredniSONE] 60 mg PO DAILY 3 Days #3 tablet Home Medications: Multivit/Ca/Min/Fe/FA [Thera M Plus] 1 tab PO DAILY tablet 12/24/15 [Rx] Oxygen 2 l .ROUTE AD 06/04/16 [History] Beclomethasone Diprop 40mcg [QVAR 40 mcg] 1 puff IH BID 12/05/16 [History] Carvedilol [Coreg] 6.25 mg PO BID 12/05/16 [History] Losartan Potassium [Cozaar] 100 mg PO DAILY 12/05/16 [History] Montelukast [Singulair] 10 mg PO DAILY 12/05/16 [History] Acetaminophen [Tylenol] 650 mg PO Q6HR PRN tablet 02/23/17 [Rx] Ipratropium/Albuterol Neb [Duoneb] 3 ml IH [id number] inhsol 02/23/17 [Rx] Tramadol HCl [Ultram] 50 mg PO TID PRN #20 tab 02/23/17 [Rx] Aspirin Enteric Coated [Aspirin EC] 81 mg PO BID 03/28/17 [History] LORazepam [Ativan] 0.5 mg PO HS #1 tablet 03/30/17 [Rx] Albuterol Neb [Proventil Neb] 2.5 mg IH Q4H PRN 08/02/17 [History] Albuterol Sulfate [Proair Hfa] 2 puff IH Q4H PRN 08/02/17 [History] Cholecalciferol (D-3) [Vitamin D] 2,000 unit PO DAILY 08/02/17 [History] Gabapentin [Neurontin] 300 mg PO BID 08/02/17 [History] Omeprazole [PriLOSEC] 20 mg PO DAILY 08/02/17 [History] amLODIPine [Norvasc] 2.5 mg PO DAILY 08/02/17 [History] levoFLOXacin [Levaquin] 750 mg PO DAILY 4 Days #4 tablet 08/06/17 [Rx] predniSONE [PredniSONE] 60 mg PO DAILY 3 Days #3 tablet 08/06/17 [Rx] Allergies/Adverse Reactions: 3 Allergy/AdvReac Type Severity Reaction Status Date / Time Oxycodone AdvReac Confusion Verified 08/02/17 10:23 Certification: Further, I certify that my clinical findings support that this patient is homebound (i.e. absences from home require considerable and taxing effort and are for medical reasons or temple services or infrequently or short duration when for other reasons) because: Homebound Reason: Patient requires assistance of a person or device to safely leave home Attestation: My signature below is to certify that this patient is under my care and that I, or nurse practitioner, or a physician's automotive parts counter assistant working with me, has a face-to -face encounter with this patient.
[2017-08-06 15:38] VITALS: BP 126/70
[2017-08-06] MEDS ORDERED: Aminoglycoside Consult 1 EACH MC ONE (17:12)
== END 2017-08-06 17:13 | disposition home health service (06) | DRG 194 ==
LOC: EMEROO 10:22 → 3BNU 10:22
PROVIDERS: ADMIT Hospitalist; ATTEND Hospitalist

== ENCOUNTER 2017-08-31 09:56 | Observation (INO) ==
--- NOTE | 2017-08-31 10:30 | Emergency Department Note ---
Disposition Clinical Impression: Generalized weakness Disposition: Admitted As Inpatient Condition: Fair Weakness HPI - General Chief complaint: ED Weakness Stated complaint: weakness Time Seen by Provider: 08/31/17 10:01 Source: patient Limitations: no limitations Nursing Notes Reviewed: Yes Vital Signs Reviewed: Yes - History of Present Illness HPI Narrative: 82-year-old female presents ED by EMS because Achilles weakness. Over the past 5 days she has fallen multiple times. Patient is able to assist her on THE previous falls. Today, she was not answering her phone. Family with check on her she was sitting on the bedside commode and had been there for an unspecified period of time. Patient complains of aching and weakness all over. There is no known head injuries with previous some of the FALLS ARE unACCOUNTED FOR. DENIES CHEST PAIN OR WORSENING BASELINE DYSPNEA. NO ABDOMINAL PAIN. NO VOMITING. DOES COMPLAIN OF URINARY SYMPTOMS. No focal weakness. No fevers. No recent change in medications. She does live at home independently. Pt Subjective Complaint: generalized weakness/fatigue Onset (ago): hour(s) Duration: constant Location: generalized Pain Severity: moderate Pain Scale: 5 Improves with: none Worsens with: none Context: trauma/injury Associated symptoms: Denies: chest pain, headaches, shortness of breath - Related Data Home Medications Medication Instructions Recorded Confirmed Oxygen 3 l .ROUTE AD 06/04/16 08/31/17 Carvedilol [Coreg] 6.25 mg PO BID 12/05/16 08/31/17 Losartan Potassium [Cozaar] 50 mg PO DAILY 12/05/16 08/31/17 Montelukast [Singulair] 10 mg PO DAILY 12/05/16 08/31/17 Aspirin Enteric Coated [Aspirin EC] 81 mg PO BID 03/28/17 08/31/17 Albuterol Neb [Proventil Neb] 2.5 mg IH Q4H PRN 08/02/17 08/31/17 Albuterol Sulfate [Proair Hfa] 2 puff IH Q4H PRN 08/02/17 08/31/17 Cholecalciferol (D-3) [Vitamin D] 2,000 unit PO DAILY 08/02/17 08/31/17 Gabapentin [Neurontin] 300 mg PO BID 08/02/17 08/31/17 amLODIPine [Norvasc] 2.5 mg PO DAILY 08/02/17 08/31/17 Fluticasone/Umeclidin/Vilanter 1 puff IH DAILY 08/31/17 08/31/17 [[place] Ellipta 100-62.5-25] Pantoprazole Sodium 20 mg PO DAILY 08/31/17 08/31/17 Previous Rx's Medication Instructions Recorded Acetaminophen [Tylenol] 650 mg PO Q6HR PRN tablet 02/23/17 Ipratropium/Albuterol Neb [Duoneb] 3 ml IH [id number] inhsol 02/23/17 Tramadol HCl [Ultram] 50 mg PO TID PRN #20 tab 02/23/17 LORazepam [Ativan] 0.5 mg PO HS #1 tablet 03/30/17 Allergies Allergy/AdvReac Type Severity Reaction Status Date / Time Oxycodone AdvReac Confusion Verified 08/02/17 10:23 All systems ED: reviewed and negative except as stated. Constitutional: Reports: weakness. Denies: fever, weight change Cardiovascular: Denies: chest pain, palpitations Respiratory: Denies: cough, dyspnea, wheezes Gastrointestinal: Denies: abdominal pain, nausea, vomiting, diarrhea Genitourinary: Reports: dysuria, frequency Musculoskeletal: Reports: other (left hip pain ). Denies: back pain Neurological: Denies: headache, numbness, paresthesias Past Medical History - Past Medical History Attestation: Yes The following information was validated with the patient. Medical history: Reports: arthritis, COPD, GERD, hyperlipidemia, hypertension, sudden cardiac Surgical history: Reports: cataract, cholecystectomy, orthopedic, other, other, appendectomy Psychiatric history: Reports: anxiety [employer]GEMENT history: Reports: no [employer] MANAGEMENT history - Social History Smoking Status: Former smoker Smokeless Tobacco Status: No Alcohol use: Reports: none Drug use: Reports: none Physical Exam - General Limitations: no limitations General appearance: alert, in no apparent distress - Head Head exam: atraumatic, normocephalic - Eye Eye exam: Present: PERRL - ENT ENT exam: normal oropharynx, mucous membranes moist - Neck Neck exam: Present: trachea midline. Absent: tenderness - Chest Chest inspection: Present: normal inspection - Respiratory Respiratory exam: Absent: normal lung sounds bilaterally (Breath sounds are symmetrically diminished bilaterally) - Cardiovascular Cardiovascular exam: Present: normal rhythm - Abdominal Exam Abdominal exam: Present: soft, Non-Tender - Expanded Lower Extremity Exam Hip/Pelvis exam: Present: tenderness (Tenderness over the left hip but no significant pain with linear load or log rolling on the left thigh), shortening (Left leg shorter than the right) Neurovascular/Tendon exam: Present: normal capillary refill - Back Exam Back exam: Absent: tenderness, CVA tenderness (R), CVA tenderness (L) - Neurological Exam Neurological exam: Present: alert. Absent: motor sensory deficit - Psychiatric Psychiatric exam: Present: normal affect - Skin Skin exam: Present: warm, dry Course Course Narrative: She will require broad workup including CT of the head, VBG, evaluation for possible infection including UTI. However, her presenting weakness will be the limiting factor and will likely require admission for further treatment and rehabilitation. - Reevaluation(s) Reevaluation #1: 82-year-old presents with generalized weakness and frequent falls. Family reports she has had multiple falls in the past week. Complains of left hip pain. No fracture identified. Mild dysuria but straight catheter was unremarkable. She does have leukocytosis of uncertain etiology but in review of her previous visits she has had significant fluctuations of her white count over the past 3 years. She is on inhaled steroids were no oral steroids. The generalized weakness remains her limiting factor. She lives at home alone. She does have 8 hours of home assistance. Family does not feel like they have manpower resources to care for her 24 hours a day at this point. Discussed with Dr. Oliver to admit Time: 12:53 Vital Signs Temperature 98.5 F 08/31/17 10:01 Pulse Rate 108 08/31/17 10:01 Respiratory Rate 18 08/31/17 10:01 Blood Pressure 136/61 08/31/17 10:01 O2 Sat by Pulse Oximetry 98 08/31/17 10:01 Temperature 97.9 F 08/31/17 19:13 Pulse Rate 86 08/31/17 19:13 Respiratory Rate 16 08/31/17 19:58 Blood Pressure 90/58 08/31/17 19:13 O2 Sat by Pulse Oximetry 97 08/31/17 19:58 Oxygen Delivery Oxygen Delivery Room Air Weakness - Lab Data Result diagrams: 08/31/17 11:29 08/31/17 11:29 Lab Results 06/25/18 06/25/18 06/25/18 Range/Units 11:15 11:29 11:29 WBC 20.1 H (4.3-11.1) K/mcL RBC 3.97 (3.82-4.97) M/mcL Hgb 11.1 L (11.5-15.4) g/dL Hct 34.8 L (35.3-44.9) % MCV 87.7 (83.0-100.0) fL MCH 28.0 (28.0-33.3) pg MCHC 31.9 (31.6-35.5) g/dL RDW 17.2 H (11.5-14.5) % Plt Count 506 H (140-400) K/mcL MPV 9.7 (9.4-12.4) fL Immature Gran % 0.5 (0-4) % Seg Neutrophils % 84.5 % Lymphocytes % 8.2 % Monocytes % 6.4 % Eosinophils % 0.0 % Basophils % 0.4 % Neutrophils # 17.0 H (1.6-8.9) K/mcL Lymphocytes # 1.7 (0.6-4.6) K/mcL Monocytes # 1.3 (0.0-1.3) K/mcL Eosinophils # 0.0 (0.0-0.6) K/mcL Basophils # 0.1 (0.0-0.2) K/mcL VBG pH (7.32-7.42) pH Units VBG pCO2 (41-51) mmHg VBG pO2 (25-50) mmHg VBG HCO3 (21-27) mEq/L Sodium 137 (136-145) mEq/L Potassium 4.0 (3.5-5.1) mEq/L Chloride 105 (98-107) mEq/L Carbon Dioxide 21 L (23-29) mEq/L BUN 18 (8-23) mg/dL Creatinine 0.72 (0.60-1.20) mg/dL Est GFR ( Amer) > 60 (> 60) Est GFR (Non-Af Amer) > 60 (> 60) BUN/Creatinine Ratio 25 (6-26) Glucose 111 H (70-105) mg/dL Calculated Osmolality 287 (280-300) Calcium 9.9 (8.6-10.3) mg/dL Magnesium 1.7 (1.6-2.6) mg/dL Troponin I < 0.03 (< 0.04) ng/mL Urine Color Yellow (Yellow) Urine Clarity Clear (Clear) Urine pH 6.0 (5.0-8.0) pH Units Ur Specific [place] 1.018 (1.010-1.025) Urine Protein Negative (Neg-Trace) mg/dL Urine Glucose (UA) Normal (Normal) mg/dL Urine Ketones Trace H (Negative) mg/dL Urine Blood Negative (Negative) Urine Nitrite Negative (Negative) Urine Bilirubin Negative (Negative) Urine Urobilinogen Normal (Normal) mg/dL Ur Leukocyte Esterase Negative (Negative) Ur Culture Indicated? NO (NO) 08/31/17 Range/Units 11:41 WBC (4.3-11.1) K/mcL RBC (3.82-4.97) M/mcL Hgb (11.5-15.4) g/dL Hct (35.3-44.9) % MCV (83.0-100.0) fL MCH (28.0-33.3) pg MCHC (31.6-35.5) g/dL RDW (11.5-14.5) % Plt Count (140-400) K/mcL MPV (9.4-12.4) fL Immature Gran % (0-4) % Seg Neutrophils % % Lymphocytes % % Monocytes % % Eosinophils % % Basophils % % Neutrophils # (1.6-8.9) K/mcL Lymphocytes # (0.6-4.6) K/mcL Monocytes # (0.0-1.3) K/mcL Eosinophils # (0.0-0.6) K/mcL Basophils # (0.0-0.2) K/mcL VBG pH 7.36 (7.32-7.42) pH Units VBG pCO2 42 (41-51) mmHg VBG pO2 40 (25-50) mmHg VBG HCO3 24 (21-27) mEq/L Sodium (136-145) mEq/L Potassium (3.5-5.1) mEq/L Chloride (98-107) mEq/L Carbon Dioxide (23-29) mEq/L BUN (8-23) mg/dL Creatinine (0.60-1.20) mg/dL Est GFR ( Amer) (> 60) Est GFR (Non-Af Amer) (> 60) BUN/Creatinine Ratio (6-26) Glucose (70-105) mg/dL Calculated Osmolality (280-300) Calcium (8.6-10.3) mg/dL Magnesium (1.6-2.6) mg/dL Troponin I (< 0.04) ng/mL Urine Color (Yellow) Urine Clarity (Clear) Urine pH (5.0-8.0) pH Units Ur Specific [place] (1.010-1.025) Urine Protein (Neg-Trace) mg/dL Urine Glucose (UA) (Normal) mg/dL Urine Ketones (Negative) mg/dL Urine Blood (Negative) Urine Nitrite (Negative) Urine Bilirubin (Negative) Urine Urobilinogen (Normal) mg/dL Ur Leukocyte Esterase (Negative) Ur Culture Indicated? (NO)
[2017-08-31 11:24] LABS: Bilirubin,Urine Negative (Negative); Blood,Urine Negative (Negative); Clarity,Urine Clear (Clear); Color,Urine Yellow (Yellow); Glucose,Urine (UA) Normal (Normal); Ketones,Urine Trace mg/dL (Negative); Leukocyte Esterase,Urine Negative (Negative); Nitrite,Urine Negative (Negative); Protein,Urine Negative (Neg-Trace); Specific Gravity,Urine 1.018 (1.010-1.025); Urobilinogen,Urine Normal (Normal)
[2017-08-31 11:41] LABS: Basophils # 0.1 K/mcL (0.0-0.2); Basophils % 0.4 %; Hematocrit 34.8 % (35.3-44.9); Hemoglobin 11.1 g/dL (11.5-15.4); Immature Granulocytes % 0.5 % (0-4); Lymphocytes # 1.7 K/mcL (0.6-4.6); Lymphocytes % 8.2 %; Mean Corpuscular HGB Conc 31.9 g/dL (31.6-35.5); Mean Corpuscular Volume 87.7 fL (83.0-100.0); Mean Platelet Volume 9.7 fL (9.4-12.4); Monocytes # 1.3 K/mcL (0.0-1.3); Monocytes % 6.4 %; Platelet Count 506 K/mcL (140-400); Red Blood Count 3.97 M/mcL (3.82-4.97); Red Cell Distribution Width 17.2 % (11.5-14.5); Segmented Neutrophils % 84.5 %
[2017-08-31 11:44] LABS: VBG HCO3 24 mEq/L (21-27); VBG PCO2 42 mmHg (41-51); VBG PH 7.36 pH Units (7.32-7.42); VBG PO2 40 mmHg (25-50)
[2017-08-31 12:02] LABS: Troponin I < 0.03 ng/mL (< 0.04)
[2017-08-31 12:13] LABS: BUN/Creatinine Ratio 25 (6-26); Blood Urea Nitrogen 18 mg/dL (8-23); Calcium 9.9 mg/dL (8.6-10.3); Carbon Dioxide 21 mEq/L (23-29); Chloride 105 mEq/L (98-107); Glucose 111 mg/dL (70-105); Magnesium 1.7 mg/dL (1.6-2.6); Osmolality,Calculated 287 (280-300); Sodium 137 mEq/L (136-145); eGFR For African Americans > 60 (> 60); eGFR For Non-African Americans > 60 (> 60)
[2017-08-31] MEDS ORDERED: Naloxone 0.4 MG/ML INJ IVP PRN (14:01)
[2017-08-31] MEDS ORDERED: traMADol 50 MG TABLET PO PRN (14:08)
[2017-08-31] MEDS ORDERED: Albuterol 2.5 MG/3 ML NEBULIZER IH PRN (14:08)
--- NOTE | 2017-08-31 15:34 | Internal Med History&Physical ---
<GeovannirizwanjimmyHerminio - Last Filed: 08/31/17 16:41> Date of Encounter: 08/31/17 Time of Encounter: 13:30 Internal Medicine - H&P: HPI Chief complaint: Weakness/Falls Admitted From: Emergency Dept Plans for Post Hospital Care: Home History of present illness: Ms. Boggs is a 82 year old female w/PMH of arthritis, COPD, GERD, HLD, HTN, and sudden cardiac presents from the ED with chief complaint of increasing weakness and increasing number of falls over the past 5 days. Patient reports she lives at home alone. Denies recent changes in medications. Pt. does report reduced oral intake of food and fluids over the past week as well as chronic cough. Denies recent illness, fever, chills, nausea, vomiting, changes in vision, headache, chest pain, shortness of breath, abdominal pain, diarrhea, constipation, dizziness, lightheadedness, numbness, tingling, pre- syncope, or syncope. Past Med Surg Social Fam HX - Past Medical History Source: patient, old records reviewed Medical history: arthritis, COPD, GERD, hyperlipidemia, hypertension Psychiatric history: anxiety - Past Surgical History Surgical History: cataract, cholecystectomy, orthopedic, other, other, appendectomy Additional surgical history: shoulder, bilat hips, left hip twice, left wrist twice, pelvic bone twice, back, butt bone. - Social History Smoking Status: Former smoker Smokeless Tobacco Status: No Alcohol use: none Drug use: none Current living situation: Home - Independent Activity Level: Uses cane/walker Recent Out of Country Travel Within the Last 8 Weeks: No Exposure or Possible Exposure to Illness During Travel: No - Family History Son Race: Family Member Ethnicity: Non- Living Status: Mother History Unknown: Yes Race: Family Member Ethnicity: Non- Living Status: Cause of : Old age Hx Family Cancer: Yes Daughter Race: Family Member Ethnicity: Non- Living Status: Still Living Hx Family Cardiac Disorders: Yes (High cholesterol) Father Race: Family Member Ethnicity: Non- Living Status: Cause of : Old age Brother History Unknown: Yes Race: Family Member Ethnicity: Non- Living Status: Sister Race: Family Member Ethnicity: Non- Living Status: Cause of : Cancer (Type unknown) Hx Family Cancer: Yes (Unknown) Internal Medicine - H&P: Meds Oxygen 3 l .ROUTE AD 06/04/16 [History] Carvedilol [Coreg] 6.25 mg PO BID 12/05/16 [History] Losartan Potassium [Cozaar] 50 mg PO DAILY 12/05/16 [History] Montelukast [Singulair] 10 mg PO DAILY 12/05/16 [History] Acetaminophen [Tylenol] 650 mg PO Q6HR PRN tablet 02/23/17 [Rx] Ipratropium/Albuterol Neb [Duoneb] 3 ml IH [id number] inhsol 02/23/17 [Rx] Tramadol HCl [Ultram] 50 mg PO TID PRN #20 tab 02/23/17 [Rx] Aspirin Enteric Coated [Aspirin EC] 81 mg PO BID 03/28/17 [History] LORazepam [Ativan] 0.5 mg PO HS #1 tablet 03/30/17 [Rx] Albuterol Neb [Proventil Neb] 2.5 mg IH Q4H PRN 08/02/17 [History] Albuterol Sulfate [Proair Hfa] 2 puff IH Q4H PRN 08/02/17 [History] Cholecalciferol (D-3) [Vitamin D] 2,000 unit PO DAILY 08/02/17 [History] Gabapentin [Neurontin] 300 mg PO BID 08/02/17 [History] amLODIPine [Norvasc] 2.5 mg PO DAILY 08/02/17 [History] Fluticasone/Umeclidin/Vilanter [Trelegy Ellipta 100-62.5-25] 1 puff IH DAILY [History] Pantoprazole Sodium 20 mg PO DAILY 08/31/17 [History] 3 Allergy/AdvReac Type Severity Reaction Status Date / Time Oxycodone AdvReac Confusion Verified 08/02/17 10:23 All Systems PM: A 10-system review of systems was performed and is negative for pertinent findings except as documented above in the HPI. - Constitutional Constitutional: as per HPI, anorexia (For the past week), fatigue, falls, weakness, weight loss, no chills, no fever(s), no night sweats - EENT Eyes: no change in vision, no discharge, no pain, no photophobia Ears: no ear discharge, no ear pain, no tinnitus Nose, mouth and throat: no dysphagia, no nasal discharge, no neck pain, no sore throat - Breasts Breasts: as per HPI - Cardiovascular Cardiovascular ROS IM: no chest pain, no diaphoresis, no dyspnea, no lightheadedness, no palpitations, no syncope - Respiratory Respiratory: as per HPI, cough, no dyspnea, no wheezing, no excessive phlegm production - Gastrointestinal Gastrointestinal: no abdominal pain, no diarrhea, no hematemesis, no hematochezia, no melena, no nausea, no vomiting - Genitourinary Genitourinary: no change in urinary stream, no dysuria, no flank pain, no hematuria Menstruation: as per HPI - Musculoskeletal Musculoskeletal ROS IM: as per HPI, arthralgias, no numbness, no tingling - Integumentary Integumentary IM: no rash, no unusual bruising - Neurological Neurological ROS: as per HPI, weakness, no confusion, no convulsions, no focal weakness, no numbness, no tingling, no tremor(s) - Psychiatric Psychiatric: as per HPI, anxiety - Endocrine Endocrine IM: as per HPI - Hematologic/Lymphatic Hematologic/Lymphatic: no easy bruising - Allergic/Immunologic Allergic/Immunologic: as per HPI - Constitutional Vitals: Temp Pulse Resp BP Pulse Ox 97.9 F 90 18 103/60 94 08/31/17 14:23 08/31/17 14:23 08/31/17 14:23 08/31/17 14:23 08/31/17 14:23 General appearance: Present: cooperative, A&O X 2, pleasant, no acute distress, underweight, answers questions appropriately - Head Head exam: Present: atraumatic, normocephalic - Eye Eye exam: Present: PERRL, conjuntiva pink, sclera anicteric Pupils: Present: PERRL - ENT ENT exam: Present: normal exam - Neck Neck exam general surgery: Present: supple, trachea midline. Absent: lymphadenopathy - Respiratory Respiratory exam: Present: CTAB. Absent: accessory muscle use, rales, rhonchi, wheezes - Cardiovascular Cardiovascular exam: Present: +S1, +S2, tachycardia. Absent: diastolic murmur, gallop, rubs, systolic murmur - GI/Abdominal GI/Abdominal exam: Present: normal bowel sounds, soft, no peritoneal signs. Absent: distended, tenderness - Rectal Rectal exam: Present: deferred - Additional comments: exam deferred. - Extremities Exam Extremities exam: Present: pedal edema, warm, radial pulses palpable and symmetrical. Absent: calf tenderness, cyanotic - Back Exam Back exam: Present: normal inspection - Neurological Exam Neurological exam: Present: alert, CN II-XII intact, no focal deficits. Absent : pronater drift, facial droop, speech deficit - Psychiatric Psychiatric exam: Present: normal affect, normal mood - Skin Skin exam: Present: dry, intact Internal Med - H&P Results - Labs CBC & Chem 7: 08/31/17 11:29 08/31/17 11:29 - EKG Data EKG shows normal: sinus rhythm Rate: tachycardia - EKG Data Prior EKG available for review: no EKG comments: 08/31/17 15:42 EKG dated 08/31/17 shows sinus tachycardia with frequent ventricular premature complexes. - Diagnostic Studies Chest x-ray Additional comments: Impressions Chest X-Ray 08/31/17 10:22 IMPRESSION: No evidence for acute cardiopulmonary process. Stable exam given differences in modality from prior CT chest 08/14/2017 with COPD changes along with bilateral scarring. D/ / 08/31/2017 11:23:57 Trae Patel MD / Dea Carrero Interpreting Provider: Trae Patel MD CT scan - head Additional comments: Impressions Head CT 08/31/17 10:22 IMPRESSION: No acute intracranial abnormality. D/ / 08/31/2017 11:26:15 Marcella Gibson MD / Dea Carrero Interpreting Provider: Marcella Gibson MD Other Images Additional comments: Impressions Hip X-Ray 08/31/17 10:22 IMPRESSION: 1. No acute osseous abnormality. 2. Stable ORIF of the left hip. 3. Stable right hip hemiarthroplasty. D/ / 08/31/2017 11:41:19 Kavon Harvey MD / cj Interpreting Provider: Kavon Harvey MD - Assessment and plan (1) Frequent falls Current Visit: Yes Status: Acute Assessment and plan: Acutely increasing number of falls at home. Pt. reports generalized weakness over past week, most likely d/t reduced intake of food/fluids. Pt. reports living at home alone. Nutrition consult for PO supplementation. SW consult ordered for possible ECF placement. PT/OT consults ordered to assess patient for ambulation strength, stability, safety, and possible home assistive/ rehabilitation needs. Falls/safety precautions. Up with assist only. Continuous cardiac telemetry. Supplemental O2 w/titration and SpO2 monitoring. Monitor I&O and daily weight. Pt. discussed w/Dr. Oliver who agrees w/plan of care. Pt. is moderate risk for further morbidity and injury from falls d/t current weakness, reduced oral intake, hx of falls, and risk factors. Observation. (2) Weakness Current Visit: Yes Status: Acute Assessment and plan: Acute weakness over the past week. Pt. reports reduced intake of food/fluids. Nutrition consult for PO supplementation. Falls/safety precautions. Up with assist only. (3) HTN (hypertension) Current Visit: Yes Status: Chronic Assessment and plan: Hx of chronic HTN. Monitor pt. and VS. continue patient's Norvasc, Coreg, Cozaar. Qualifiers: Hypertension type: essential hypertension Qualified Code(s): I10 - Essential (primary) hypertension (4) HLD (hyperlipidemia) Current Visit: Yes Status: Chronic Assessment and plan: Hx of chronic HLD. Lipid panel in a.m. labs. Pt. does not currently take statin. Consider adding statin to home medications based on lipid panel results. Qualifiers: Hyperlipidemia type: pure hypercholesterolemia Qualified Code(s): E78.00 - Pure hypercholesterolemia, unspecified; E78.0 - Pure hypercholesterolemia (5) COPD (chronic obstructive pulmonary disease) Current Visit: Yes Status: Chronic Assessment and plan: Hx of chronic COPD. Stable. Supplemental O2 w/titration and SpO2 monitoring. Continue pts. albuterol Neb, Trelegy Ellipta, and DuoNeb. Qualifiers: COPD type: unspecified COPD Qualified Code(s): J44.9 - Chronic obstructive pulmonary disease, unspecified (6) GERD (gastroesophageal reflux disease) Current Visit: Yes Status: Chronic Assessment and plan: Hx of chronic GERD. New patients by mouth pantoprazole. IVP Zofran 4 mg every 6 hours when necessary for nausea and vomiting. Qualifiers: Esophagitis presence: without esophagitis Qualified Code(s): K21.9 - Gastro -esophageal reflux disease without esophagitis (7) DVT prophylaxis Current Visit: Yes Status: Acute Assessment and plan: Bilateral SCDs on LEs for DVT prophylaxis. (8) Hx of sudden cardiac successfully resuscitated Current Visit: Yes Status: Resolved Assessment and plan: Hx of sudden cardiac w/successful resuscitation. Pt. states she wants to be DNRCCA DNI during assessment. Pt. is alert and oriented on exam. - Time Spent With Patient Total time spent is greater than 50% in coordination of care (as documented) at patient's floor/unit and/or counseling patient: Greater than 35 minutes <Harsha Oliver - Last Filed: 08/31/17 19:48> Date of Encounter: 08/31/17 Internal Medicine - H&P: HPI History of present illness: Ms. Boggs is a 82 year old female All Systems PM: A 10-system review of systems was performed and is negative for pertinent findings except as documented above in the HPI. - Constitutional Vitals: Temp Pulse Resp BP Pulse Ox 97.9 F 86 16 90/58 97 08/31/17 19:13 08/31/17 19:13 08/31/17 19:13 08/31/17 19:13 08/31/17 19:13 Internal Med - H&P Results - Labs CBC & Chem 7: 08/31/17 11:29 08/31/17 11:29 - Attending Attestation Discussed with SEJAL and agree with assessment and plan as above Briefly, patient is an 82-year-old female who presented with multiple falls and admitted for ECF placement. On general exam cardiovascular exam revealed regular rate and rhythm Physical therapy will be consulted for recommendations for intermediate facility placement - Assessment and plan (1) GERD (gastroesophageal reflux disease) Current Visit: Yes Status: Chronic Qualifiers: Esophagitis presence: without esophagitis Qualified Code(s): K21.9 - Gastro -esophageal reflux disease without esophagitis (2) DVT prophylaxis Current Visit: Yes Status: Acute (3) COPD (chronic obstructive pulmonary disease) Current Visit: Yes Status: Chronic Qualifiers: COPD type: unspecified COPD Qualified Code(s): J44.9 - Chronic obstructive pulmonary disease, unspecified (4) Frequent falls Current Visit: Yes Status: Acute (5) Weakness Current Visit: Yes Status: Acute (6) HTN (hypertension) Current Visit: Yes Status: Chronic Qualifiers: Hypertension type: essential hypertension Qualified Code(s): I10 - Essential (primary) hypertension (7) HLD (hyperlipidemia) Current Visit: Yes Status: Chronic Qualifiers: Hyperlipidemia type: pure hypercholesterolemia Qualified Code(s): E78.00 - Pure hypercholesterolemia, unspecified; E78.0 - Pure hypercholesterolemia (8) Hx of sudden cardiac successfully resuscitated Current Visit: Yes Status: Resolved - Time Spent With Patient Total time spent is greater than 50% in coordination of care (as documented) at patient's floor/unit and/or counseling patient:
[2017-08-31] MEDS: Ipratropium/Albuterol Neb 3 ML IH SCH ×2 (15:55→19:57)
[2017-08-31] MEDS ORDERED: Ondansetron 4 MG/2 ML VIAL IVP PRN (16:16)
--- NOTE | 2017-08-31 16:24 | Electrocardiograph Report ---
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
[2017-08-31 16:33] LABS: Adenovirus Not Detected (Not Detect); Bordetella Pertussis Not Detected (Not Detect); Chlamydophila pneumoniae Not Detected (Not Detect); Coronavirus 229E Not Detected (Not Detect); Coronavirus HKU1 Not Detected (Not Detect); Coronavirus NL63 Not Detected (Not Detect); Coronavirus OC43 Not Detected (Not Detect); Human Metapneumovirus Not Detected (Not Detect); Human Rhinovirus/Enterovirus Not Detected (Not Detect); Influenza A Subtype 2009 H1 Not Detected (Not Detect); Influenza A Untypeable Not Detected (Not Detect); Influenza B Not Detected (Not Detect); Mycoplasma pneumoniae Not Detected (Not Detect); Parainfluenza Virus 1 Not Detected (Not Detect); Parainfluenza Virus 2 Not Detected (Not Detect); Parainfluenza Virus 3 Not Detected (Not Detect); Parainfluenza Virus 4 Not Detected (Not Detect); Respiratory Syncytial Virus Not Detected (Not Detect)
[2017-08-31] MEDS: *HR* LORazepam 0.5 MG TABLET PO SCH (21:55)
[2017-08-31] MEDS: Gabapentin 300 MG CAPSULE PO SCH (21:55)
[2017-08-31] MEDS: Acetaminophen 325 MG TABLET PO PRN (22:07)
[2017-09-01] MEDS: Ipratropium/Albuterol Neb 3 ML IH SCH ×7 (00:12→23:25)
[2017-09-01 05:48] LABS: Basophils # 0.1 K/mcL (0.0-0.2); Basophils % 0.4 %; Eosinophils # 0.2 K/mcL (0.0-0.6); Eosinophils % 1.4 %; Hematocrit 31.7 % (35.3-44.9); Hemoglobin 10.2 g/dL (11.5-15.4); Immature Granulocytes % 0.7 % (0-4); Lymphocytes # 2.5 K/mcL (0.6-4.6); Mean Corpuscular HGB Conc 32.2 g/dL (31.6-35.5); Mean Corpuscular Hemoglobin 28.7 pg (28.0-33.3); Mean Platelet Volume 10.1 fL (9.4-12.4); Monocytes # 1.1 K/mcL (0.0-1.3); Monocytes % 8.2 %; Neutrophils # 9.9 K/mcL (1.6-8.9); Platelet Count 417 K/mcL (140-400); Red Blood Count 3.56 M/mcL (3.82-4.97); Red Cell Distribution Width 17.1 % (11.5-14.5); Segmented Neutrophils % 71.3 %
[2017-09-01 05:59] LABS: Alanine Aminotransferase 12 Units/L (7-52); Albumin 3.2 g/dL (3.5-5.7); Albumin/Globulin Ratio 1.2 (1.1-2.2); Alkaline Phosphatase 79 Units/L (34-104); Aspartate Amino Transferase 23 Units/L (13-39); BUN/Creatinine Ratio 23 (6-26); Bilirubin,Total 0.4 mg/dL (0.3-1.0); Blood Urea Nitrogen 14 mg/dL (8-23); Calcium 9.3 mg/dL (8.6-10.3); Carbon Dioxide 24 mEq/L (23-29); Chloride 107 mEq/L (98-107); Chol/HDL Ratio 2.4 (0-4.9); Cholesterol 116 mg/dL (< 200); Globulin 2.7 g/dL (2.4-3.5); Glucose 91 mg/dL (70-105); HDL Cholesterol 48 mg/dL (40-59); LDL Cholesterol,Calculated 55 mg/dL (0-99); Magnesium 1.7 mg/dL (1.6-2.6); Osmolality,Calculated 286 (280-300); Potassium 3.5 mEq/L (3.5-5.1); Sodium 138 mEq/L (136-145); Total Protein 5.9 g/dL (6.4-8.9); Triglycerides 67 mg/dL (< 150); eGFR For African Americans > 60 (> 60); eGFR For Non-African Americans > 60 (> 60)
[2017-09-01] MEDS: (Fluticasone/Umeclidin/Vilanter [Trelegy Ellipta 100- IH SCH (08:17)
[2017-09-01] MEDS: Aspirin Enteric Coated 81 MG Tablet PO SCH (08:17)
[2017-09-01] MEDS: Gabapentin 300 MG CAPSULE PO SCH ×2 (08:17→21:19)
[2017-09-01] MEDS: amLODIPine 5 MG TABLET PO SCH (08:17)
[2017-09-01] MEDS: Cholecalciferol (D-3) 1,000 UNIT TABLET PO SCH (08:17)
[2017-09-01] MEDS ORDERED: Azithromycin 500 MG in D5% in Water 250 ML IVPB ONE (12:55)
--- NOTE | 2017-09-01 12:58 | Internal Med Progress Note ---
Date of Encounter: 09/01/17 Time of Encounter: 12:56 - Assessment and plan (1) COPD (chronic obstructive pulmonary disease) Current Visit: Yes Status: Chronic Assessment and plan: She has possible exacerbation of COPD w bronchitis type of picture starts Azithromycin will aim to wean to RA as much as possible.She takes O2 at night only Duonebs per prtocol Qualifiers: COPD type: unspecified COPD Qualified Code(s): J44.9 - Chronic obstructive pulmonary disease, unspecified (2) GERD (gastroesophageal reflux disease) Current Visit: Yes Status: Chronic Assessment and plan: PPI on board Qualifiers: Esophagitis presence: without esophagitis Qualified Code(s): K21.9 - Gastro -esophageal reflux disease without esophagitis (3) DVT prophylaxis Current Visit: Yes Status: Acute Assessment and plan: Bilateral SCDs on LEs for DVT prophylaxis. (4) Frequent falls Current Visit: Yes Status: Acute Assessment and plan: Acutely increasing number of falls at home. Pt. reports generalized weakness over past week, most likely d/t reduced intake of food/fluids. Pt. reports living at home alone. Nutrition consult for PO supplementation. SW consult ordered for possible ECF placement. PT/OT consults ordered to assess patient for ambulation strength, stability, safety, and possible home assistive/ rehabilitation needs. Falls/safety precautions. Up with assist only. Continuous cardiac telemetry. Supplemental O2 w/titration and SpO2 monitoring. Monitor I&O and daily weight. Pt. discussed w/Dr. Oliver who agrees w/plan of care. Pt. is moderate risk for further morbidity and injury from falls d/t current weakness, reduced oral intake, hx of falls, and risk factors. Observation. /- PT OT rec Rehab/ SNF- Will arrange SW / CM for starting process (5) Weakness Current Visit: Yes Status: Acute Assessment and plan: Multifactorial- Deydration due to Poor PO intake vs COPD exacerbation Leukocytosis is already significantly improved with hydration alone. I would start azithromycin. monitor closely (6) HTN (hypertension) Current Visit: Yes Status: Chronic Assessment and plan: Hx of chronic HTN. Monitor pt. and VS. continue patient's Norvasc, Coreg, Cozaar. Qualifiers: Hypertension type: essential hypertension Qualified Code(s): I10 - Essential (primary) hypertension (7) HLD (hyperlipidemia) Current Visit: Yes Status: Chronic Assessment and plan: Hx of chronic HLD. Lipid panel in a.m. labs. Pt. does not currently take statin. Consider adding statin to home medications based on lipid panel results. Qualifiers: Hyperlipidemia type: pure hypercholesterolemia Qualified Code(s): E78.00 - Pure hypercholesterolemia, unspecified; E78.0 - Pure hypercholesterolemia (8) Hx of sudden cardiac successfully resuscitated Current Visit: Yes Status: Resolved Assessment and plan: Hx of sudden cardiac w/successful resuscitation. Pt. states she wants to be DNRCCA DNI during assessment. Pt. is alert and oriented on exam. - Time Spent With Patient Total time spent is greater than 50% in coordination of care (as documented) at patient's floor/unit and/or counseling patient: 25 - 35 minutes - Subjective Interval history: Patient continues to complain of cough which is productive of brownish sputum. She denies any new fevers or chills at this point.she did feel better getting fluids in her IV - Constitutional Vitals: Temp Pulse Resp BP Pulse Ox 98.6 F 54 18 99/52 97 09/01/17 10:44 09/01/17 10:44 09/01/17 11:41 09/01/17 10:44 09/01/17 11:41 General appearance: Present: cooperative, A&O X 2, pleasant, no acute distress, underweight, answers questions appropriately Exam: GENERAL: Alert, no distress, cooperative EYES: PERRLA, EOMI EARS: External ears normal, canals clear OROPHARYNX: Lips, mucosa, and tongue normal. Teeth and gums normal. Oropharynx normal. NECK: No jugulovenous distention, No carotid bruits, Carotid pulse normal contour, Supple LUNGS: faint rhonchi at bases CARDIAC: Normal S1 and S2; no rubs, murmurs, or gallos Buttocks- sacral area has dressing on it Rest of the exam is non contributory Internal Medicine: Result - Labs CBC & Chem 7: 09/01/17 04:32 09/01/17 04:32 Labs: Short CBC 09/01/17 Range/Units 04:32 WBC 13.8 H (4.3-11.1) K/mcL Hgb 10.2 L (11.5-15.4) g/dL Hct 31.7 L (35.3-44.9) % Plt Count 417 H (140-400) K/mcL Neutrophils # 9.9 H (1.6-8.9) K/mcL BMP 09/01/17 04:32 Sodium 138 Potassium 3.5 Chloride 107 Carbon Dioxide 24 BUN 14 Creatinine 0.60 Glucose 91 Calcium 9.3 Liver Function 09/01/17 Range/Units 04:32 Total Bilirubin 0.4 (0.3-1.0) mg/dL AST 23 (13-39) Units/L ALT 12 (7-52) Units/L Alkaline Phosphatase 79 (34-104) Units/L Albumin 3.2 L (3.5-5.7) g/dL - Impressions Impressions Echocardiogram 08/31/17 14:13 Impressions: LVEF 65%. Mild left ventricular diastolic dysfunction. Normal right ventricular structure and function. Mild-moderate mitral regurgitation. Mild-moderate tricuspid regurgitation. Mild-moderate pulmonic regurgitation. Mild pulmonary hypertension. Left Ventricular Wall Motion: Rest Echo Findings All wall segments showed normal motion. Findings: Study Quality * Technically adequate exam. ECG Findings * Sinus rhythm with PVCs. Left Ventricle * LVEF 65%. * Normal LV chamber size, wall thickness and function. * Mild left ventricular diastolic dysfunction. Right Ventricle * Normal right ventricular structure and function. Left Atrium * Normal left atrial size. Right Atrium * Normal right atrial size. Mitral Valve * Normal mitral valve structure. * No mitral stenosis. * Mild-moderate mitral regurgitation. Aortic Valve * Aortic valve not well visualized. * No aortic stenosis. * Trace aortic regurgitation. Tricuspid Valve * Normal tricuspid valve structure. * Mild-moderate tricuspid regurgitation. * Estimated RA pressure is 3 mmHg. * Estimated RVSP is 46 mmHg. * Mild pulmonary hypertension. Pulmonic Valve * Pulmonic valve is not well visualized. * No pulmonic stenosis. * Mild-moderate pulmonic regurgitation. Pulmonary Artery * Pulmonary artery not well visualized. Aorta * Normally sized aortic root. Pericardium * There is no pericardial effusion present. IVC * Normal IVC dimensions and inspiratory collapse. Consult Discharge Plan - Plan Referrals: Chaz Cuellar MD [Primary Care Provider] -
[2017-09-01] MEDS: Acetaminophen 325 MG TABLET PO PRN (15:55)
[2017-09-01] MEDS: *HR* LORazepam 0.5 MG TABLET PO SCH (21:19)
[2017-09-02] MEDS: Acetaminophen 325 MG TABLET PO PRN ×2 (02:48→14:04)
[2017-09-02] MEDS: Ipratropium/Albuterol Neb 3 ML IH SCH ×3 (03:41→11:05)
[2017-09-02 05:24] LABS: Basophils # 0.1 K/mcL (0.0-0.2); Basophils % 0.5 %; Eosinophils # 0.2 K/mcL (0.0-0.6); Eosinophils % 1.3 %; Hematocrit 33.1 % (35.3-44.9); Hemoglobin 10.5 g/dL (11.5-15.4); Immature Granulocytes % 0.6 % (0-4); Lymphocytes # 2.2 K/mcL (0.6-4.6); Lymphocytes % 16.6 %; Mean Corpuscular HGB Conc 31.7 g/dL (31.6-35.5); Mean Corpuscular Hemoglobin 27.9 pg (28.0-33.3); Mean Corpuscular Volume 87.8 fL (83.0-100.0); Monocytes # 1.1 K/mcL (0.0-1.3); Monocytes % 8.7 %; Neutrophils # 9.4 K/mcL (1.6-8.9); Platelet Count 437 K/mcL (140-400); Red Blood Count 3.77 M/mcL (3.82-4.97); Red Cell Distribution Width 17.1 % (11.5-14.5); Segmented Neutrophils % 72.3 %
[2017-09-02 05:47] LABS: Alanine Aminotransferase 13 Units/L (7-52); Albumin 3.3 g/dL (3.5-5.7); Albumin/Globulin Ratio 1.1 (1.1-2.2); Alkaline Phosphatase 84 Units/L (34-104); Aspartate Amino Transferase 17 Units/L (13-39); BUN/Creatinine Ratio 26 (6-26); Bilirubin,Total 0.2 mg/dL (0.3-1.0); Blood Urea Nitrogen 16 mg/dL (8-23); Calcium 9.6 mg/dL (8.6-10.3); Carbon Dioxide 27 mEq/L (23-29); Chloride 105 mEq/L (98-107); Globulin 2.9 g/dL (2.4-3.5); Glucose 106 mg/dL (70-105); Osmolality,Calculated 290 (280-300); Potassium 3.7 mEq/L (3.5-5.1); Sodium 139 mEq/L (136-145); Total Protein 6.2 g/dL (6.4-8.9); eGFR For African Americans > 60 (> 60); eGFR For Non-African Americans > 60 (> 60)
[2017-09-02] MEDS: (Fluticasone/Umeclidin/Vilanter [Trelegy Ellipta 100- IH SCH (07:28)
[2017-09-02] MEDS: Cholecalciferol (D-3) 1,000 UNIT TABLET PO SCH (09:33)
[2017-09-02] MEDS: Gabapentin 300 MG CAPSULE PO SCH (09:33)
[2017-09-02] MEDS: Aspirin Enteric Coated 81 MG Tablet PO SCH (09:34)
[2017-09-02] MEDS: amLODIPine 5 MG TABLET PO SCH (09:34)
[2017-09-02 11:28] VITALS: BP 116/71
--- NOTE | 2017-09-02 12:03 | Discharge Summary ---
Orders not resulted at time of discharge: Pending orders 09/03/17 04:00 Complete Blood Count [HEME] AM 0400 Comprehensive Metabolic Panel AM 0400 Date of Encounter: 09/02/17 Time of Encounter: 12:03 - Discharge Diagnosis (1) Frequent falls Priority: Primary Status: Acute (2) Weakness Priority: Primary Status: Acute (3) COPD (chronic obstructive pulmonary disease) Priority: Primary Status: Chronic Qualifiers: COPD type: unspecified COPD Qualified Code(s): J44.9 - Chronic obstructive pulmonary disease, unspecified (4) GERD (gastroesophageal reflux disease) Priority: Secondary Status: Chronic Qualifiers: Esophagitis presence: without esophagitis Qualified Code(s): K21.9 - Gastro -esophageal reflux disease without esophagitis (5) HTN (hypertension) Priority: Secondary Status: Chronic Qualifiers: Hypertension type: essential hypertension Qualified Code(s): I10 - Essential (primary) hypertension (6) HLD (hyperlipidemia) Priority: Secondary Status: Chronic Qualifiers: Hyperlipidemia type: pure hypercholesterolemia Qualified Code(s): E78.00 - Pure hypercholesterolemia, unspecified; E78.0 - Pure hypercholesterolemia (7) Hx of sudden cardiac successfully resuscitated Priority: Secondary Status: Resolved Hospital course: Ms. Boggs is a 82 year old female with PMH hypertension, GERD, osteoporosis and frequent falls presented to [facility] on 08/31/2017 after a fall at home. She was placed in observation status for further workup and treatment. Head CT on arrival was nonacute. Hip x-ray showed stable ORIF of the left hip and stable right hip arthroplasty. TTE with EF 65%, normal wall motion and mild to moderate mitral regurgitation, tricuspid regurgitation and pulmonic regurgitation. Evaluated by PT/OT who recommended SNF at discharge. Suspect increasing falls at home secondary to advanced age, generalized weakness and comorbidities. She was also found to have a mild COPD exacerbation and was discharged to SNF on azithromycin. Patient was discharged to SNF in stable condition however she will remain a moderate to high risk for further morbidity and injury secondary to recurrent falls, weakness and decreased oral intake. Discharge discussed with: patient (Seen and examined at bedside. Patient is new to me, information obtained from chart review and patient report. She just completed working with physical therapy. Sitting up in chair bedside. Says she feels back to her normal sefl. She is agreeable to SNF at discharge. Denies chest pain, no shortness of breath.) - Time Spent with Patient Total time spent providing and/or coordinating discharge services: - Discharge Medications Prescriptions: Azithromycin [Azithromycin 6-Tab Pack] 250 mg PO PER PKG DI #6 tab Home Medications: Oxygen 3 l .ROUTE AD 06/04/16 [History] Carvedilol [Coreg] 6.25 mg PO BID 12/05/16 [History] Losartan Potassium [Cozaar] 50 mg PO DAILY 12/05/16 [History] Montelukast [Singulair] 10 mg PO DAILY 12/05/16 [History] Acetaminophen [Tylenol] 650 mg PO Q6HR PRN tablet 02/23/17 [Rx] Ipratropium/Albuterol Neb [Duoneb] 3 ml IH [id number] inhsol 02/23/17 [Rx] Tramadol HCl [Ultram] 50 mg PO TID PRN #20 tab 02/23/17 [Rx] Aspirin Enteric Coated [Aspirin EC] 81 mg PO BID 03/28/17 [History] LORazepam [Ativan] 0.5 mg PO HS #1 tablet 03/30/17 [Rx] Albuterol Neb [Proventil Neb] 2.5 mg IH Q4H PRN 08/02/17 [History] Albuterol Sulfate [Proair Hfa] 2 puff IH Q4H PRN 08/02/17 [History] Cholecalciferol (D-3) [Vitamin D] 2,000 unit PO DAILY 08/02/17 [History] Gabapentin [Neurontin] 300 mg PO BID 08/02/17 [History] amLODIPine [Norvasc] 2.5 mg PO DAILY 08/02/17 [History] Fluticasone/Umeclidin/Vilanter [Trelegy Ellipta 100-62.5-25] 1 puff IH DAILY [History] Pantoprazole Sodium 20 mg PO DAILY 08/31/17 [History] Azithromycin [Azithromycin 6-Tab Pack] 250 mg PO PER PKG DI #6 tab 09/02/17 [Rx] Allergies/Adverse Reactions: 3 Allergy/AdvReac Type Severity Reaction Status Date / Time Oxycodone AdvReac Confusion Verified 08/02/17 10:23 Date of admission: 08/31/17 13:08 Primary care physician: Chaz Cuellar MD Consults: 08/31/17 14:04 Consult to Access Database Developer [CONS] Routine Reason for SW Consult: Please assess patient for possible home needs for post -discharge planning. Pt. reports she lives alone at home. Pt. may require ECF placement d/t increasing falls. 08/31/17 14:05 Consult to Occupational Therapy [CONS] Routine Comment: Evaluate, develop and implement POC Reason for Consult: Patient reports difficulty w/ambulation d/t increasing weakness and falls. Reports she used cane prior but now must use walker. Please assess patient for ambulation strength , stability, safety, and possible home assistive/ rehabilitation needs for post-discharge planning. Does patient have active BEDREST order?: No Is patient medically & hemodynamically stable?: Yes Patient assessed for mobility or mobilized this visit?: No Consult to Physical Therapy [CONS] Routine Comment: Evaluate, develop and implement POC Reason for Consult: Patient reports difficulty w/ambulation d/t increasing weakness and falls. Reports she used cane prior but now must use walker. Please assess patient for ambulation strength , stability, safety, and possible home assistive/ rehabilitation needs for post-discharge planning. Does patient have active BEDREST order?: No Is patient medically & hemodynamically stable?: Yes Patient assessed for mobility or mobilized this visit?: No 08/31/17 14:06 Consult to Nutrition [CONS] Routine Comment: Boost or Ensure Supplementation Consulting Provider: NUTRITION Reason for Dietary Consult: PO Supplementation 09/01/17 12:11 Consult to Wound Care [CONS] Routine Reason for Consult: pressure injury vs. MASD Call Completed: No Discharging clinician: Graciela Abbasi Anticipated date of discharge: 09/02/17 - Constitutional Vitals: Temp Pulse Resp BP Pulse Ox 98.1 F 49 17 116/71 97 09/02/17 11:25 09/02/17 11:25 09/02/17 11:25 09/02/17 11:25 09/02/17 11:25 General appearance: Present: cooperative, A&O X 2, A&O X 3, pleasant, no acute distress, underweight, answers questions appropriately - Head Head exam: Present: atraumatic, normocephalic - Eye Eye exam: Present: PERRL, conjuntiva pink, sclera anicteric Pupils: Present: PERRL - Neck Neck exam general surgery: Present: supple, trachea midline. Absent: lymphadenopathy - Respiratory Respiratory exam: Present: CTAB. Absent: accessory muscle use, rales, rhonchi, wheezes - Cardiovascular Cardiovascular exam: Present: RRR, +S1, +S2. Absent: diastolic murmur, gallop, rubs, systolic murmur - GI/Abdominal GI/Abdominal exam: Present: normal bowel sounds, soft, no peritoneal signs. Absent: distended, tenderness - Extremities Exam Extremities exam: Present: warm, radial pulses palpable and symmetrical. Absent : calf tenderness, cyanotic, pedal edema - Neurological Exam Neurological exam: Present: CN II-XII intact, no focal deficits. Absent: pronater drift, facial droop, speech deficit - Skin Skin exam: Present: dry, intact - Patient Status Disposition: Transfer SNF Condition: Good Functional capacity at discharge: uses cane/walker Overall status at discharge: patient is progressing back to baseline - Discharge Instructions Follow Up With: Chaz Cuellar MD [Primary Care Provider] - - Diet and Activity Activity: as per physical therapy Diet: regular diet - VTE Documentation of Mechanical Device: Intermittent pneumatic compression device
--- NOTE | 2017-09-02 12:35 | Physician Discharge Referral ---
ExtendedCare Referral Info Transfer To: [facility] Provider in Charge: Graciela Abbasi CNP Provider in Charge after Transfer: PCP Institutional Level of Care: Skilled - Diagnosis (1) Frequent falls Status: Acute (2) Weakness Status: Acute (3) COPD (chronic obstructive pulmonary disease) Status: Chronic (4) GERD (gastroesophageal reflux disease) Status: Chronic (5) HTN (hypertension) Status: Chronic (6) HLD (hyperlipidemia) Status: Chronic (7) Hx of sudden cardiac successfully resuscitated Status: Resolved - Transfer Medications Prescriptions: Azithromycin [Azithromycin 6-Tab Pack] 250 mg PO PER PKG DI #6 tab Home Medications: Oxygen 3 l .ROUTE AD 06/04/16 [History] Carvedilol [Coreg] 6.25 mg PO BID 12/05/16 [History] Losartan Potassium [Cozaar] 50 mg PO DAILY 12/05/16 [History] Montelukast [Singulair] 10 mg PO DAILY 12/05/16 [History] Acetaminophen [Tylenol] 650 mg PO Q6HR PRN tablet 02/23/17 [Rx] Ipratropium/Albuterol Neb [Duoneb] 3 ml IH [id number] inhsol 02/23/17 [Rx] Tramadol HCl [Ultram] 50 mg PO TID PRN #20 tab 02/23/17 [Rx] Aspirin Enteric Coated [Aspirin EC] 81 mg PO BID 03/28/17 [History] LORazepam [Ativan] 0.5 mg PO HS #1 tablet 03/30/17 [Rx] Albuterol Neb [Proventil Neb] 2.5 mg IH Q4H PRN 08/02/17 [History] Albuterol Sulfate [Proair Hfa] 2 puff IH Q4H PRN 08/02/17 [History] Cholecalciferol (D-3) [Vitamin D] 2,000 unit PO DAILY 08/02/17 [History] Gabapentin [Neurontin] 300 mg PO BID 08/02/17 [History] amLODIPine [Norvasc] 2.5 mg PO DAILY 08/02/17 [History] Fluticasone/Umeclidin/Vilanter [Trelegy Ellipta 100-62.5-25] 1 puff IH DAILY [History] Pantoprazole Sodium 20 mg PO DAILY 08/31/17 [History] Azithromycin [Azithromycin 6-Tab Pack] 250 mg PO PER PKG DI #6 tab 09/02/17 [Rx] Allergies/Adverse Reactions: 3 Allergy/AdvReac Type Severity Reaction Status Date / Time Oxycodone AdvReac Confusion Verified 08/02/17 10:23 - Respiratory Orders Oxygen / L per min (2 liters) Smoking Cessation: Smoking cessation has been advised. For more information, call the [employer] Quit Line at 2-149-HVMB-NOW. - Advance Directives Code Status: DNR-Arrest/Don't Intubate - Mobility Orders Ambulate - Rehabiliation Orders Rehab Potential: Good Rehab Orders: Evaluation for Physical Therapy, Evaluation for Occupational Therapy - Diet Orders Regular House Supplement per Dietary: Recommend strawberry enlive with lunch and dinner CERTIFICATION: I certify that the transfer of the above named patient to an Extended Care Facility is necessary for the continuing treatment of the diagnosis listed. The above information is true and accurate reflection of patient's current condition. Confidential - Redisclosure prohibited without a patient's written consent.
[2017-09-02] MEDS ORDERED: Miconazole 2% ointment 114 GM TUBE TP SCH (14:30)
[2017-09-02] MEDS ORDERED: Miconazole 2% cream 118 GM TUBE TP SCH (14:45)
== END 2017-09-02 15:30 ==
LOC: 3BNU 09:56 → EMEROO 09:56 → 3BNU 14:04
PROVIDERS: ADMIT Hospitalist; ATTEND Hospitalist

== ENCOUNTER 2018-02-02 11:53 | Observation (INO) ==
[2018-02-02] MEDS ORDERED: methylPREDNISolone 125 MG/2 ML VIAL IVP ONE (12:13)
[2018-02-02] MEDS ORDERED: Ipratropium/Albuterol Neb 3 ML IH ONE (12:13)
[2018-02-02 13:12] LABS: Basophils # 0.1 K/mcL (0.0-0.2); Basophils % 0.5 %; Eosinophils # 0.1 K/mcL (0.0-0.6); Eosinophils % 0.8 %; Hematocrit 36.8 % (35.3-44.9); Hemoglobin 11.6 g/dL (11.5-15.4); Immature Granulocytes % 0.3 % (0-4); Lymphocytes # 1.5 K/mcL (0.6-4.6); Lymphocytes % 9.2 %; Mean Corpuscular HGB Conc 31.5 g/dL (31.6-35.5); Mean Corpuscular Hemoglobin 28.2 pg (28.0-33.3); Mean Corpuscular Volume 89.5 fL (83.0-100.0); Mean Platelet Volume 10.9 fL (9.4-12.4); Monocytes # 0.9 K/mcL (0.0-1.3); Monocytes % 5.4 %; Neutrophils # 13.7 K/mcL (1.6-8.9); Platelet Count 276 K/mcL (140-400); Red Blood Count 4.11 M/mcL (3.82-4.97); Red Cell Distribution Width 14.3 % (11.5-14.5); Segmented Neutrophils % 83.8 %
[2018-02-02 13:32] LABS: Troponin I < 0.03 ng/mL (< 0.04)
[2018-02-02 13:33] LABS: BUN/Creatinine Ratio 19 (6-26); Blood Urea Nitrogen 13 mg/dL (8-23); Calcium 9.4 mg/dL (8.6-10.3); Carbon Dioxide 24 mEq/L (23-29); Chloride 105 mEq/L (98-107); Glucose 99 mg/dL (70-105); Osmolality,Calculated 282 (280-300); Potassium 3.8 mEq/L (3.5-5.1); Sodium 136 mEq/L (136-145); eGFR For Non-African Americans > 60 (> 60)
--- NOTE | 2018-02-02 14:13 | Emergency Department Note ---
Disposition Clinical Impression: COPD exacerbation Disposition: Admitted As Inpatient Condition: Good Referrals: Chaz Cuellar MD [Primary Care Provider] - General Adult HPI - General Chief complaint: ED Shortness of Breath/Dyspnea Stated complaint: DIPESH Time Seen by Provider: 02/02/18 12:10 Source: patient Limitations: no limitations Nursing Notes Reviewed: Yes Vital Signs Reviewed: Yes - History of Present Illness HPI Narrative: Patient with history of COPD on 3 L of home. Lives alone. Patient's symptoms started apparently 3 days ago and progressively worse. Better with breathing treatments but quickly relapses. Patient states she gets short of breath with trying to walk to the bathroom. Oxygen increased to 4 L with some mild improvement. The patient has not had significant cough or sputum production. She has had weakness and fatigue. She is accompanied by family members are concerned about her overall generalized weakness and concern for falls at home. Patient will be treated for COPD exacerbation likely require admission. Pain Scale: 4 - Related Data Home Medications Medication Instructions Recorded Confirmed Oxygen 3 l .ROUTE AD 06/04/16 08/31/17 Carvedilol [Coreg] 6.25 mg PO BID 12/05/16 08/31/17 Losartan Potassium [Cozaar] 100 mg PO DAILY 12/05/16 08/31/17 Montelukast [Singulair] 10 mg PO DAILY 12/05/16 08/31/17 Aspirin Enteric Coated [Aspirin EC] 81 mg PO BID 03/28/17 08/31/17 Albuterol Neb [Proventil Neb] 2.5 mg IH Q4H PRN 08/02/17 08/31/17 Albuterol Sulfate [Proair Hfa] 2 puff IH Q4H PRN 08/02/17 08/31/17 Cholecalciferol (D-3) [Vitamin D] 1,000 unit PO DAILY 08/02/17 08/31/17 amLODIPine [Norvasc] 2.5 mg PO DAILY 08/02/17 08/31/17 Pantoprazole Sodium 20 mg PO DAILY 08/31/17 08/31/17 Loratadine [Allergy Relief] 10 mg PO 11/10/17 11/10/17 Previous Rx's Medication Instructions Recorded Acetaminophen [Tylenol] 650 mg PO Q6HR PRN tablet 02/23/17 Ipratropium/Albuterol Neb [Duoneb] 3 ml IH [id number] inhsol 02/23/17 Gabapentin [Neurontin] 300 mg PO BID 7 Days #14 capsule 09/02/17 LORazepam [Ativan] 0.5 mg PO HS 7 Days #7 tablet 09/02/17 Tramadol HCl [Ultram] 50 mg PO TID PRN 3 Days #21 tab 09/02/17 Allergies Allergy/AdvReac Type Severity Reaction Status Date / Time Oxycodone AdvReac Confusion Verified 08/02/17 10:23 All systems ED: reviewed and negative except as stated. Review of Systems: As Per HPI Constitutional: Reports: chills, weakness. Denies: fever ENT ED: Denies: congestion Cardiovascular: Reports: dyspnea on exertion. Denies: chest pain Respiratory: Reports: dyspnea, wheezes. Denies: cough Gastrointestinal: Denies: abdominal pain, nausea Genitourinary: Denies: urgency, dysuria Musculoskeletal: Denies: back pain Integumentary: Denies: rash, abrasion Neurological: Denies: headache Psychiatric: Denies: anxiety Endocrine: Reports: fatigue Past Medical History - Past Medical History Medical history: Reports: arthritis, COPD, GERD, hyperlipidemia, hypertension Surgical history: Reports: cataract, cholecystectomy, orthopedic, other, other, appendectomy Psychiatric history: Reports: anxiety EDITORIAL ASSISTANT history: Reports: no EDITORIAL ASSISTANT history - Social History Smoking Status: Former smoker Smokeless Tobacco Status: No Alcohol use: Reports: none Drug use: Reports: none Physical Exam General: moderate respiratory distress Head: Normocephalic Atraumatic Eyes: PERRL, EOMI ENT: Airway patent, no stridor Neck: supple, no meningismus Chest: Bilateral wheezing with overall decreased lung sounds Cardiac: Regular rhythm Abdomen: soft, nontender, nondistended; Musculoskeletal: Calves symmetric, nontender Skin: No rash, normal skin tone Neuro: Oriented to person and time but not place. No focal deficit. - General Limitations: no limitations General appearance: alert, in no apparent distress Course - Reevaluation(s) Reevaluation #1: Patient reevaluated. Improvement. Patient states that she would like to go home. After discussion with family they do not feel this is safe secondary to her living alone. Patient understands the risk and is agreeable to stay Vital Signs Temperature 98.2 F 02/02/18 11:59 Pulse Rate 64 02/02/18 11:59 Respiratory Rate 20 02/02/18 11:59 Blood Pressure 136/75 02/02/18 11:59 O2 Sat by Pulse Oximetry 98 02/02/18 11:59 Temperature 98.2 F 02/02/18 12:32 Pulse Rate 90 02/02/18 13:45 Respiratory Rate 16 02/02/18 14:02 Blood Pressure 126/49 02/02/18 13:45 O2 Sat by Pulse Oximetry 98 02/02/18 14:02 Oxygen Delivery Oxygen Delivery Nasal Cannula Medical Decision Making - Medical Records Medical records reviewed: Yes I reviewed the patient's medical records. - Lab Data Lab results reviewed: Yes I reviewed the patient's lab results. Result diagrams: 02/02/18 12:54 02/02/18 12:54 Lab Results 02/02/18 02/02/18 02/02/18 Range/Units 12:54 12:54 12:54 WBC 16.4 H (4.3-11.1) K/mcL RBC 4.11 (3.82-4.97) M/mcL Hgb 11.6 (11.5-15.4) g/dL Hct 36.8 (35.3-44.9) % MCV 89.5 (83.0-100.0) fL MCH 28.2 (28.0-33.3) pg MCHC 31.5 L (31.6-35.5) g/dL RDW 14.3 (11.5-14.5) % Plt Count 276 (140-400) K/mcL MPV 10.9 (9.4-12.4) fL Immature Gran % 0.3 (0-4) % Seg Neutrophils % 83.8 % Lymphocytes % 9.2 % Monocytes % 5.4 % Eosinophils % 0.8 % Basophils % 0.5 % Neutrophils # 13.7 H (1.6-8.9) K/mcL Lymphocytes # 1.5 (0.6-4.6) K/mcL Monocytes # 0.9 (0.0-1.3) K/mcL Eosinophils # 0.1 (0.0-0.6) K/mcL Basophils # 0.1 (0.0-0.2) K/mcL Sodium 136 (136-145) mEq/L Potassium 3.8 (3.5-5.1) mEq/L Chloride 105 (98-107) mEq/L Carbon Dioxide 24 (23-29) mEq/L BUN 13 (8-23) mg/dL Creatinine 0.67 (0.60-1.20) mg/dL Est GFR ( Amer) > 60 (> 60) Est GFR (Non-Af Amer) > 60 (> 60) BUN/Creatinine Ratio 19 (6-26) Glucose 99 (70-105) mg/dL Calculated Osmolality 282 (280-300) Lactic Acid 1.0 (0.5-2.2) mmol/L Calcium 9.4 (8.6-10.3) mg/dL Troponin I < 0.03 (< 0.04) ng/mL B-Natriuretic Peptide (Less than 100) pg/mL 02/02/18 Range/Units 12:54 WBC (4.3-11.1) K/mcL RBC (3.82-4.97) M/mcL Hgb (11.5-15.4) g/dL Hct (35.3-44.9) % MCV (83.0-100.0) fL MCH (28.0-33.3) pg MCHC (31.6-35.5) g/dL RDW (11.5-14.5) % Plt Count (140-400) K/mcL MPV (9.4-12.4) fL Immature Gran % (0-4) % Seg Neutrophils % % Lymphocytes % % Monocytes % % Eosinophils % % Basophils % % Neutrophils # (1.6-8.9) K/mcL Lymphocytes # (0.6-4.6) K/mcL Monocytes # (0.0-1.3) K/mcL Eosinophils # (0.0-0.6) K/mcL Basophils # (0.0-0.2) K/mcL Sodium (136-145) mEq/L Potassium (3.5-5.1) mEq/L Chloride (98-107) mEq/L Carbon Dioxide (23-29) mEq/L BUN (8-23) mg/dL Creatinine (0.60-1.20) mg/dL Est GFR ( Amer) (> 60) Est GFR (Non-Af Amer) (> 60) BUN/Creatinine Ratio (6-26) Glucose (70-105) mg/dL Calculated Osmolality (280-300) Lactic Acid (0.5-2.2) mmol/L Calcium (8.6-10.3) mg/dL Troponin I (< 0.04) ng/mL B-Natriuretic Peptide 255 H (Less than 100) pg/mL - Radiology Data Radiology results reviewed: Yes I reviewed the patient's radiology results. - EKG Data EKG #1 EKG attestation: Yes I reviewed and interpreted this EKG. EKG results narrative: EKG shows sinus tachycardia TX 151. QRS 91. QTC 404. No significant ST elevations or depression but the patient does have frequent PVCs.
[2018-02-02 14:15] LABS: Bilirubin,Urine Negative (Negative); Blood,Urine Negative (Negative); Clarity,Urine Clear (Clear); Color,Urine Yellow (Yellow); Glucose,Urine (UA) Normal (Normal); Ketones,Urine Trace mg/dL (Negative); Leukocyte Esterase,Urine Negative (Negative); Nitrite,Urine Negative (Negative); Protein,Urine Negative (Neg-Trace); Urobilinogen,Urine Normal (Normal)
--- NOTE | 2018-02-02 14:40 | Internal Med History&Physical ---
Date of Encounter: 02/02/18 Time of Encounter: 14:35 Internal Medicine - H&P: HPI Chief complaint: sob and weakness Admitted From: Emergency Dept Plans for Post Hospital Care: Home History of present illness: Ms. Boggs is a 82 year old female Patient with history of CVA COPD, with FEV1 of 38% , left lower lobe bron chiectasis with recurrent Pseudomonas infection, chronic respiratory failure, GERD, hypertension and high cholesterol. Patient brought in by family due to 3 days of progressive worsening shortness of breath with minimal exertion increased her oxygen from 3l at home to 4 L but continued to be short of breath and feeling generalizzed weakness and apparently she fell a few days ago also cough productive of clear to yellow sputum denies any fever or chills emergency room patient given breathing treatment chest x-ray does not show any acute pneumonia and white count is 16.4 also patient reports increase generalized weaknes s patient admitted for COPD exacerbation and probable place PT/OT evaluation and treatment. Her BNP is mildly elevated at 255 recent echo EF 65% with [id number] mitral regurgitation. Past Med Surg Social Fam HX - Past Medical History Medical history: arthritis, COPD, GERD, hyperlipidemia, hypertension Psychiatric history: anxiety - Past Surgical History Surgical History: cataract, cholecystectomy, orthopedic, other, other, appendectomy Additional surgical history: bilat hip replacement; reverse shoulder; back fusion; multiple fractures throughout body - Social History Smoking Status: Former smoker Smokeless Tobacco Status: No Alcohol use: none Drug use: none - Family History Son Family Member Ethnicity: Non- Living Status: Mother Family Member Ethnicity: Non- Living Status: Hx Family Cancer: Yes (unknown) Father Family Member Ethnicity: Non- Living Status: Brother Family Member Ethnicity: Non- Living Status: Sister Family Member Ethnicity: Non- Living Status: Hx Family Cancer: Yes (Unknown) Daughter Family Member Ethnicity: Non- Living Status: Still Living Hx Family Cardiac Disorders: Yes (High cholesterol) Internal Medicine - H&P: Meds Oxygen 3 l .ROUTE AD 06/04/16 [History] Carvedilol [Coreg] 6.25 mg PO BID 12/05/16 [History] Losartan Potassium [Cozaar] 100 mg PO DAILY 12/05/16 [History] Montelukast [Singulair] 10 mg PO DAILY 12/05/16 [History] Acetaminophen [Tylenol] 650 mg PO Q6HR PRN tablet 02/23/17 [Rx] Ipratropium/Albuterol Neb [Duoneb] 3 ml IH [id number] inhsol 02/23/17 [Rx] Aspirin Enteric Coated [Aspirin EC] 81 mg PO BID 03/28/17 [History] Albuterol Neb [Proventil Neb] 2.5 mg IH Q4H PRN 08/02/17 [History] Albuterol Sulfate [Proair Hfa] 2 puff IH Q4H PRN 08/02/17 [History] Cholecalciferol (D-3) [Vitamin D] 1,000 unit PO DAILY 08/02/17 [History] amLODIPine [Norvasc] 2.5 mg PO DAILY 08/02/17 [History] Pantoprazole Sodium 20 mg PO DAILY 08/31/17 [History] Gabapentin [Neurontin] 300 mg PO BID 7 Days #14 capsule 09/02/17 [Rx] LORazepam [Ativan] 0.5 mg PO HS 7 Days #7 tablet 09/02/17 [Rx] Tramadol HCl [Ultram] 50 mg PO TID PRN 3 Days #21 tab 09/02/17 [Rx] Loratadine [Allergy Relief] 10 mg PO 11/10/17 [History] Allergy/AdvReac Type Severity Reaction Status Date / Time Oxycodone AdvReac Confusion Verified 08/02/17 10:23 All Systems PM: A 10-system review of systems was performed and is negative for pertinent findings except as documented above in the HPI. - Constitutional Vitals: Temp Pulse Resp BP Pulse Ox 98.2 F 90 16 126/49 98 02/02/18 12:32 02/02/18 13:45 02/02/18 14:02 02/02/18 13:45 02/02/18 14:02 General appearance: Present: cachectic, mild distress Exam: done - Eye Eye exam: Present: PERRL, conjuntiva pink, sclera anicteric Pupils: Present: PERRL - Neck Neck exam general surgery: Present: supple, trachea midline. Absent: lymphadenopathy - Respiratory Respiratory exam: Present: decreased breath sounds, prolonged expiratory phase - Cardiovascular Cardiovascular exam: Present: RRR, +S1, +S2. Absent: diastolic murmur, gallop, rubs, systolic murmur - GI/Abdominal GI/Abdominal exam: Present: normal bowel sounds, soft, no peritoneal signs. Absent: distended, tenderness - Extremities Exam Extremities exam: Present: warm, radial pulses palpable and symmetrical. Absent: calf tenderness, cyanotic, pedal edema Internal Med - H&P Results - Labs CBC & Chem 7: 02/02/18 12:54 02/02/18 12:54 Labs: Short CBC 02/02/18 Range/Units 12:54 WBC 16.4 H (4.3-11.1) K/mcL Hgb 11.6 (11.5-15.4) g/dL Hct 36.8 (35.3-44.9) % Plt Count 276 (140-400) K/mcL Neutrophils # 13.7 H (1.6-8.9) K/mcL BMP 02/02/18 12:54 Sodium 136 Potassium 3.8 Chloride 105 Carbon Dioxide 24 BUN 13 Creatinine 0.67 Glucose 99 Calcium 9.4 Cardiac Enzymes 02/02/18 Range/Units 12:54 Troponin I < 0.03 (< 0.04) ng/mL Urine 02/02/18 Range/Units 14:03 Urine Color Yellow (Yellow) Urine Clarity Clear (Clear) Urine pH 7.0 (5.0-8.0) pH Units Ur Specific [place] 1.010 (1.010-1.025) Urine Protein Negative (Neg-Trace) mg/dL Urine Glucose (UA) Normal (Normal) mg/dL - Impressions ITS Impressions Chest X-Ray 02/02/18 12:13 IMPRESSION: Stable appearance of the chest with COPD and chronic interstitial changes. D/ / Blake Alejandro MD / Blake Alejandro MD Interpreting Provider: Blake Alejandro MD - Assessment and plan (1) COPD exacerbation Current Visit: Yes Status: Acute Assessment and plan: Patient with severe COPD presenting with exacerbation we will place on steroid and breathing treatment (2) Acute and chronic respiratory failure with hypoxia Current Visit: No Status: Acute (3) Acute bronchitis Current Visit: No Status: Acute Assessment and plan: Cup productive of clear to yellow sputum we will place on Levaquin Qualifiers: Bronchitis organism: unspecified organism Qualified Code(s): J20.9 - Acute bronchitis, unspecified (4) Fall Current Visit: No Status: Acute Assessment and plan: Due to generalized weakness no fracture Qualifiers: Encounter type: subsequent encounter Qualified Code(s): W19.XXXD - Unspecified fall, subsequent encounter (5) Bronchiectasis Current Visit: No Status: Chronic Assessment and plan: 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 patient has a chronic left lower lobe bronchiectasis with recurrent Pseudomonas infection Qualifiers: Bronchiectasis type: uncomplicated Qualified Code(s): J47.9 - Bronchiectasis, uncomplicated (6) Chronic respiratory failure with hypoxia Current Visit: No Status: Chronic Assessment and plan: Acute on chronic respiratory failure patient usually on 3 L of oxygen and requiring more oxygenation (7) HLD (hyperlipidemia) Current Visit: No Status: Chronic Assessment and plan: Continue home medications Qualifiers: Hyperlipidemia type: pure hypercholesterolemia Qualified Code(s): E78.00 - Pure hypercholesterolemia, unspecified; E78.0 - Pure hypercholesterolemia (8) HTN (hypertension) Current Visit: No Status: Chronic Assessment and plan: Chronic and well controlled Qualifiers: Hypertension type: essential hypertension Qualified Code(s): I10 - Essential (primary) hypertension - Time Spent With Patient Total time spent is greater than 50% in coordination of care (as documented) at patient's floor/unit and/or counseling patient:
[2018-02-02] MEDS ORDERED: Naloxone 0.4 MG/ML INJ IVP PRN (14:51)
[2018-02-02] MEDS ORDERED: Acetaminophen 325 MG TABLET PO PRN ×2 (14:51→14:53)
[2018-02-02] MEDS ORDERED: Albuterol 2.5 MG/3 ML NEBULIZER IH PRN (14:53)
[2018-02-02] MEDS ORDERED: traMADol 50 MG TABLET PO PRN (14:53)
[2018-02-02] MEDS ORDERED: NON-FORMULARY MEDICATION 1 EACH EACH (Oxygen [Oxygen] 3 L) SCH (15:00)
[2018-02-02] MEDS ORDERED: Ipratropium/Albuterol Neb 3 ML ONE (15:11)
[2018-02-02] MEDS ORDERED: Ondansetron ODT 4 MG TAB.RAPDIS SL ONE (19:51)
[2018-02-02] MEDS ORDERED: Ipratropium/Albuterol Neb 3 ML IH SCH (21:00)
[2018-02-02] MEDS ORDERED: *HR* LORazepam 0.5 MG TABLET PO SCH (21:00)
[2018-02-02] MEDS: Gabapentin 300 MG CAPSULE PO SCH ×3 (21:30→22:18)
[2018-02-02] MEDS: Aspirin Enteric Coated 81 MG Tablet PO SCH (22:13)
[2018-02-03 04:37] LABS: Hematocrit 34.7 % (35.3-44.9); Hemoglobin 11.1 g/dL (11.5-15.4); Mean Corpuscular Hemoglobin 28.5 pg (28.0-33.3); Mean Corpuscular Volume 89.2 fL (83.0-100.0); Platelet Count 293 K/mcL (140-400); Red Blood Count 3.89 M/mcL (3.82-4.97); Red Cell Distribution Width 14.1 % (11.5-14.5)
[2018-02-03 04:59] LABS: Alanine Aminotransferase 143 Units/L (7-52); Albumin 3.6 g/dL (3.5-5.7); Albumin/Globulin Ratio 1.2 (1.1-2.2); Alkaline Phosphatase 163 Units/L (34-104); Aspartate Amino Transferase 22 Units/L (13-39); BUN/Creatinine Ratio 25 (6-26); Bilirubin,Total 0.3 mg/dL (0.3-1.0); Blood Urea Nitrogen 17 mg/dL (8-23); Calcium 9.6 mg/dL (8.6-10.3); Carbon Dioxide 25 mEq/L (23-29); Chloride 107 mEq/L (98-107); Cholesterol 131 mg/dL (< 200); Globulin 3.1 g/dL (2.4-3.5); Glucose 164 mg/dL (70-105); HDL Cholesterol 44 mg/dL (40-59); LDL Cholesterol,Calculated 76 mg/dL (0-99); Magnesium 1.9 mg/dL (1.6-2.6); Osmolality,Calculated 293 (280-300); Potassium 3.8 mEq/L (3.5-5.1); Sodium 139 mEq/L (136-145); Total Protein 6.7 g/dL (6.4-8.9); Triglycerides 56 mg/dL (< 150); eGFR For Non-African Americans > 60 (> 60)
[2018-02-03] MEDS: Ipratropium/Albuterol Neb 3 ML IH SCH ×4 (07:33→11:33)
[2018-02-03] MEDS: Gabapentin 300 MG CAPSULE PO SCH (08:05)
[2018-02-03] MEDS: Aspirin Enteric Coated 81 MG Tablet PO SCH (08:05)
[2018-02-03] MEDS ORDERED: Loratadine 10 MG TABLET PO SCH (09:00)
[2018-02-03] MEDS ORDERED: Levofloxacin 750 MG/150 ML 750 MG/150 ML BAG IVPB SCH ×2 (09:00→11:00)
[2018-02-03] MEDS ORDERED: UMECLIDIN PO SCH (09:00)
[2018-02-03] MEDS ORDERED: amLODIPine 5 MG TABLET PO SCH (09:00)
[2018-02-03] MEDS ORDERED: FLUTICASONE PO SCH (09:00)
[2018-02-03] MEDS ORDERED: Cholecalciferol (D-3) 1,000 UNIT TABLET PO SCH (09:00)
[2018-02-03] MEDS ORDERED: VILANTER PO SCH (09:00)
[2018-02-03] MEDS ORDERED: predniSONE 20 MG TABLET PO SCH (09:00)
[2018-02-03 10:57] VITALS: BP 127/73
[2018-02-03] MEDS ORDERED: levoFLOXacin 500 MG TABLET PO ONE (11:45)
--- NOTE | 2018-02-03 11:50 | Discharge Summary ---
- NOTES TO OUTPATIENT PROVIDER Notes to Outpatient Provider: Follow up with PCP in one week Date of Encounter: 02/03/18 Time of Encounter: 11:48 - Discharge Diagnosis (1) COPD exacerbation Priority: Primary Status: Acute (2) Acute bronchitis Priority: Primary Status: Acute Qualifiers: Bronchitis organism: unspecified organism Qualified Code(s): J20.9 - Acute bronchitis, unspecified (3) Chronic respiratory failure with hypoxia Priority: Secondary Status: Chronic (4) Bronchiectasis Priority: Secondary Status: Chronic Qualifiers: Bronchiectasis type: uncomplicated Qualified Code(s): J47.9 - Bronchiectasis, uncomplicated (5) HTN (hypertension) Priority: Secondary Status: Chronic Qualifiers: Hypertension type: essential hypertension Qualified Code(s): I10 - Essential (primary) hypertension (6) HLD (hyperlipidemia) Priority: Secondary Status: Chronic Qualifiers: Hyperlipidemia type: pure hypercholesterolemia Qualified Code(s): E78.00 - Pure hypercholesterolemia, unspecified; E78.0 - Pure hypercholesterolemia (7) GERD (gastroesophageal reflux disease) Priority: Secondary Status: Chronic Qualifiers: Esophagitis presence: without esophagitis Qualified Code(s): K21.9 - Gastro-esophageal reflux disease without esophagitis Hospital course: Ms. Boggs is a 82 year old female with history of CVA COPD, chronic hypoxic respiratory failure on 3 lit oxygen at home , left lower lobe bronchiectasis with recurrent Pseudomonas infection, , GERD, hypertension and high cholesterol patient brought into ER by family due to 3 days of progressive worsening shortness of breath with minimal exertion increased her oxygen from 3l at home to 4 L but continued to be short of breath. She also c/o generalized weakness and lethargic. In the ER her chest x-ray does not show any acute pneumonia. She was admitted in the hospital for COPD exacerbation and acute bronchitis. Pt was started on PO steroids and empirical abx Levaquin. Today she feels lot better and she is breathing comfortably on 3 lit O2 which is her baseline. So will d/c her home today after PT / OT eval. - Time Spent with Patient Total time spent providing and/or coordinating discharge services: - Discharge Medications Prescriptions: Aspirin Enteric Coated [Aspirin EC] 81 mg PO DAILY #30 tablet. Levofloxacin [Levaquin] 500 mg PO DAILY #3 tablet predniSONE [PredniSONE] 40 mg PO DAILY #10 tablet Home Medications: Oxygen 4 l .ROUTE AD 06/04/16 [History] Carvedilol [Coreg] 6.25 mg PO DAILY 12/05/16 [History] Montelukast [Singulair] 10 mg PO DAILY 12/05/16 [History] Acetaminophen [Tylenol] 650 mg PO Q6HR PRN tablet 02/23/17 [Rx] Albuterol Neb [Proventil Neb] 2.5 mg IH Q4H PRN 08/02/17 [History] Albuterol Sulfate [Proair Hfa] 2 puff IH Q4H PRN 08/02/17 [History] Cholecalciferol (D-3) [Vitamin D] 1,000 unit PO DAILY 08/02/17 [History] amLODIPine [Norvasc] 2.5 mg PO DAILY 08/02/17 [History] LORazepam [Ativan] 0.5 mg PO HS 7 Days #7 tablet 09/02/17 [Rx] Tramadol HCl [Ultram] 50 mg PO TID PRN 3 Days #21 tab 09/02/17 [Rx] Loratadine [Allergy Relief] 10 mg PO DAILY 11/10/17 [History] Fluticasone/Umeclidin/Vilanter [Trelegy Ellipta 100-62.5-25] 1 puff PO DAILY 02/02/18 [History] Gabapentin [Neurontin] 600 mg PO HS 02/02/18 [History] Ipratropium/Albuterol Sulfate [Iprat-Albut 0.5-3(2.5) mg/3 ml] 3 ml PO BID 02/02/18 [History] Omeprazole [PriLOSEC] 20 mg PO DAILY 02/02/18 [History] Aspirin Enteric Coated [Aspirin EC] 81 mg PO DAILY #30 tablet. 02/03/18 [Rx] Levofloxacin [Levaquin] 500 mg PO DAILY #3 tablet 02/03/18 [Rx] predniSONE [PredniSONE] 40 mg PO DAILY #10 tablet 02/03/18 [Rx] Allergies/Adverse Reactions: Allergy/AdvReac Type Severity Reaction Status Date / Time Oxycodone AdvReac Confusion Verified 02/02/18 15:35 Date of admission: 02/02/18 14:35 Primary care physician: Chaz Cuellar MD Consults: 02/03/18 09:43 Consult to Nurse Navigator [CONS] Routine Comment: COPD - Constitutional Vitals: Temp Pulse Resp BP Pulse Ox 97.4 F L 75 14 127/73 97 02/03/18 10:56 02/03/18 10:56 02/03/18 11:33 02/03/18 10:56 02/03/18 11:33 General appearance: Present: cooperative, A&O X 3, answers questions appropriately Exam: Gen: Alert, awake, Oriented to time,place and person Chest: Diminished breath sounds B/L, No wheezing, No crackles, No rales Heart: S1S2+ RRR No murmurs Abd: Soft, NT, BS +, No organomegaly Ext: No edema, pulses are palpable, No calf tenderness Neuro : Benign findings Skin: No rash. - Patient Status Disposition: Home Health Service Condition: Good Overall status at discharge: patient is back to baseline - Discharge Instructions Follow Up With: Chaz Cuellar MD [Primary Care Provider] - - Diet and Activity Activity: increase activity as tolerated, wear oxygen at all times Diet: low salt diet
--- NOTE | 2018-02-03 14:18 | Electrocardiograph Report ---
[address] [place], [place] [address] Test Date: 2018-02-02 Pat Name: Lyssa Boggs Department: [id number] Room: 3B23 Gender: F Lsw: CELINA : 1935 Requested By: Herminia Mcgarry Order Number: [id number] Reading MD: Tatianna Dale Measurements Intervals [place] Rate: 102 P: 62 [place]: 164 QRS: 5 QRSD: 86 T: 61 QT: 316 QTc: 375 Interpretive Statements SINUS TACHYCARDIA WITH FREQUENT VENTRICULAR PREMATURE COMPLEXES POSSIBLE LEFT ATRIAL ENLARGEMENT ABNORMAL RHYTHM ECG Electronically Signed On 02-03-2018 14:16:44 EST by Tatianna Dale
--- NOTE | 2018-02-03 14:19 | Electrocardiograph Report ---
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
== END 2018-02-03 14:41 | disposition home health service (06) ==
LOC: EMEROOARM 11:53 → 3BNU 11:53 → SUATTDRO 14:35 → 3BNU 15:48
PROVIDERS: ADMIT Internal Medicine Cardiovascular Disease; ATTEND Family Medicine

== ENCOUNTER 2018-03-17 16:46 | Inpatient (IN) ==
[2018-03-17] MEDS ORDERED: 0.9 % Sodium Chloride 1,000 ML IVC ONE (17:16)
[2018-03-17] MEDS ORDERED: Piperacillin/Tazobactam 3.375 GM in 0.9 % Sodium Chloride Mini Bag 100 ML IVPB ONE (17:49)
--- NOTE | 2018-03-17 17:49 | Emergency Department Note ---
Disposition Clinical Impression: Healthcare-associated pneumonia Sepsis Qualifiers: Sepsis type: sepsis due to unspecified organism Qualified Code(s): A41.9 - Sepsis, unspecified organism Fall Qualifiers: Encounter type: initial encounter Qualified Code(s): W19.XXXA - Unspecified fall, initial encounter Disposition: Admitted As Inpatient Condition: Fair Time of Disposition: 18:49 General Adult HPI - General Stated complaint: lower back pain/confussion/possible uti Time Seen by Provider: 03/17/18 16:50 Source: EMS Limitations: no limitations Nursing Notes Reviewed: Yes Vital Signs Reviewed: Yes - History of Present Illness HPI Narrative: 83-year-old female presents from 's office to the ED for evaluation of fall yesterday and abnormal lung auscultation. Patient presents from [facility]. She fell several weeks ago causing a lumbar compression fracture after which she is not [facility]. This fall was precipitated by a UTI. Yesterday, she fell again and [facility]; she has yet to receive formal evaluation after this fall. She presented to Dr. Chahal's office for routine outpatient follow-up. She informed them of this fall. She has pain in her back and the location different from her prior compression fracture. Additionally, patient's lungs sounded "wet." For the last several days, patient is headed dry cough. She does have a history of COPD and recurrent pneumonia. She and her son at bedside are concerned for possible pneumonia. PMH: Hypertension, COPD. History of recurrent pneumonia, UTI, falls. At baseline, patient is incontinent of urine and wears adult diapers. ROS: Positive: As above Negative: Fever, chills, nausea, vomiting, chest pain, diaphoresis, abdominal pain, diarrhea, constipation, dysuria Pain Scale: 0 - Related Data Home Medications Medication Instructions Recorded Confirmed Oxygen 4 l .ROUTE AD 06/04/16 03/17/18 Carvedilol [Coreg] 6.25 mg PO BID 12/05/16 03/17/18 Montelukast [Singulair] 10 mg PO QPM 12/05/16 03/17/18 Albuterol Neb [Proventil Neb] 2.5 mg IH TID PRN 08/02/17 03/17/18 Albuterol Sulfate [Proair Hfa] 2 puff IH Q4H PRN 08/02/17 03/17/18 Cholecalciferol (D-3) [Vitamin D] 1,000 unit PO BID 08/02/17 03/17/18 amLODIPine [Norvasc] 2.5 mg PO QPM 08/02/17 03/17/18 Gabapentin [Neurontin] 600 mg PO HS 02/02/18 03/17/18 Ipratropium/Albuterol Sulfate 3 ml PO Q4H PRN 02/02/18 03/17/18 [Iprat-Albut 0.5-3(2.5) mg/3 ml] Omeprazole [PriLOSEC] 20 mg PO DAILY 02/02/18 03/17/18 Acetaminophen [Tylenol] 500 mg PO 2-3XD PRN 03/08/18 03/17/18 LORazepam [Ativan] 0.5 mg PO QPM PRN 03/08/18 03/17/18 Previous Rx's Medication Instructions Recorded Tramadol HCl [Ultram] 50 mg PO TID PRN 3 Days #21 tab 09/02/17 Aspirin Enteric Coated [Aspirin EC] 81 mg PO DAILY #30 tablet. 02/03/18 Allergies Allergy/AdvReac Type Severity Reaction Status Date / Time oxycodone [Oxycodone] AdvReac Confusion Verified 03/08/18 14:01 All systems ED: reviewed and negative except as stated. Review of Systems: As Per HPI Past Medical History - Past Medical History Medical history: Reports: arthritis, COPD, GERD, hyperlipidemia, hypertension, osteoporosis, other Surgical history: Reports: cataract, cholecystectomy, orthopedic, other, other, appendectomy Psychiatric history: Reports: anxiety AND [employer] history: Reports: no AND [employer] history - Social History Smoking Status: Former smoker Smokeless Tobacco Status: No Alcohol use: Reports: none Drug use: Reports: none Physical Exam Vital Signs Reviewed General: Patient is alert, oriented, and in no acute distress. She appears age appropriate, thin. Patient smells of urine. Head: atraumatic, normocephalic Eye: normal appearance, PERRL, EOMI, no scleral icterus, no conjunctival injection ENT: mucous membranes moist, normal external ear exam Neck: normal inspection, trachea midline, full ROM Chest: normal inspection, symmetric chest rise Respiratory: Good respiratory effort. Bilateral breath sounds are clear without wheezing, crackles, or rhonchi. Cardiovascular: Regular rate and rhythm. No clicks, rubs, gallops, or murmors. Normal heart sounds. Abdomen: Bowel sounds present normoactive. Abdomen is soft, nondistended, and nontender. No guarding or rebound. No organomegaly noted. Musculoskeletal: Spontaneously moving all extremities. Skin: warm, dry, intact. Neuro: GCS 15. Alert and oriented. No focal neurologic deficits observed. Psych: Patient's affect is appropriate for situation. - General Limitations: no limitations General appearance: alert, in no apparent distress Course Course Narrative: SIRS (+) by fever and tachycardic. Concern for sepsis. Tylenol given. 1.0 L fluids; patient not in shock, concern for fluid overload if overly agressively rehydrate. Chest x-ray, urinalysis, CT thoracic or lumbar spine. EKG and laboratory workup. Anticipate admission for urosepsis. Empiric zosyn. EKG dated 03/17/2018 at 17:25 interpreted as sinus tachycardia with a rate of 119. MI 135, distress 83, QTc 440. Baseline wonder. Left anterior fascicular block. Normal axis. Nonspecific ST-T changes. Compared to previous EKG 03/08/2018 showing no acute ischemic changes in comparison. 18:00 [address]head page that heart rate in bed 1 is 22. Staff and I rushed bedside. Patient is awake, wondering what the physis. Manual radial pulse present and measured as 72. Suspect sensor error. Repositioning of pulse ox and ensuring connection of EKG leads subsequently showed heart rate of 110. Serum hematology shows leukocytosis to 17.4. Serum chemistry shows unremarkable electrolytes, normal renal function. Elevated alkaline phosphatase with normal liver enzymes and normal bilirubin. Straight catheter urinalysis not concerning for UTI. Chest x-ray concerning for right upper lobe pneumonia. This correlates with clinical exam. Given patient's from extended care facility, this is healthcare associated pneumonia. Patient given empiric gentamicin, Zosyn, azithromycin. Patient reassessed. She is awake, alert. Conversive. Tachycardia though persistent has improved with IV fluids. I discussed the above with the admitting hospitalist, Dr. Ferreira. She agrees to accept the patient for sepsis from pulmonary source. Pending: CT head, CT thoracic spine, CT lumbar spine. CT head shows no acute abnormalities. CT lumbar and thoracic spine pending. Chest X-Ray 03/17/18 17:17 IMPRESSION: New airspace opacification in the right upper lobe possibly representing pneumonia D/ / Quique Noland MD / Quique Noland MD Interpreting Provider: Quique Noland MD Vital Signs Temperature 100.7 F H 03/17/18 17:03 Pulse Rate 115 03/17/18 17:03 Respiratory Rate 22 03/17/18 17:03 Blood Pressure 124/69 03/17/18 17:03 O2 Sat by Pulse Oximetry 95 03/17/18 17:03 Temperature 100.7 F H 03/17/18 17:03 Pulse Rate 107 03/17/18 18:18 Respiratory Rate 17 03/17/18 18:18 Blood Pressure 105/80 03/17/18 18:18 O2 Sat by Pulse Oximetry 96 03/17/18 18:18 Oxygen Delivery Oxygen Delivery Nasal Cannula Medical Decision Making - Lab Data Result diagrams: 03/17/18 17:51 03/17/18 17:51 Lab Results 03/17/18 03/17/18 03/17/18 Range/Units 17:35 17:51 17:51 WBC 17.4 H D (4.3-11.1) K/mcL RBC 4.62 (3.82-4.97) M/mcL Hgb 13.1 D (11.5-15.4) g/dL Hct 41.1 (35.3-44.9) % MCV 89.0 (83.0-100.0) fL MCH 28.4 (28.0-33.3) pg MCHC 31.9 (31.6-35.5) g/dL RDW 14.7 H (11.5-14.5) % Plt Count 390 D (140-400) K/mcL MPV 10.6 (9.4-12.4) fL Immature Gran % 0.6 (0-4) % Seg Neutrophils % 77.3 % Lymphocytes % 12.2 % Monocytes % 8.5 % Eosinophils % 0.2 % Basophils % 1.2 % Neutrophils # 13.5 H (1.6-8.9) K/mcL Lymphocytes # 2.1 (0.6-4.6) K/mcL Monocytes # 1.5 H (0.0-1.3) K/mcL Eosinophils # 0.0 (0.0-0.6) K/mcL Basophils # 0.2 (0.0-0.2) K/mcL Sodium 136 (136-145) mEq/L Potassium 4.3 (3.5-5.1) mEq/L Chloride 99 (98-107) mEq/L Carbon Dioxide 28 (23-29) mEq/L BUN 24 H (8-23) mg/dL Creatinine 0.79 (0.60-1.20) mg/dL Est GFR ( Amer) > 60 (> 60) Est GFR (Non-Af Amer) > 60 (> 60) BUN/Creatinine Ratio 30 H (6-26) Glucose 118 H (70-105) mg/dL Calculated Osmolality 287 (280-300) Lactic Acid (0.5-2.2) mmol/L Calcium 10.0 (8.6-10.3) mg/dL Phosphorus 3.3 (2.7-4.5) mg/dL Magnesium 2.2 (1.6-2.6) mg/dL Total Bilirubin 0.3 (0.3-1.0) mg/dL Direct Bilirubin 0.1 (0.0-0.2) mg/dL Indirect Bilirubin 0.2 (0.0-1.2) mg/dL AST 20 (13-39) Units/L ALT 25 (7-52) Units/L Alkaline Phosphatase 136 H (34-104) Units/L Troponin I 0.03 (< 0.04) ng/mL Serum Total Protein 7.4 (6.4-8.9) g/dL Albumin 4.0 (3.5-5.7) g/dL Globulin 3.4 (2.4-3.5) g/dL Albumin/Globulin Ratio 1.2 (1.1-2.2) Urine Color Yellow (Yellow) Urine Clarity Cloudy A (Clear) Urine pH 7.5 (5.0-8.0) pH Units Ur Specific [place] 1.008 L (1.010-1.025) Urine Protein Negative (Neg-Trace) mg/dL Urine Glucose (UA) Normal (Normal) mg/dL Urine Ketones Negative (Negative) mg/dL Urine Blood Negative (Negative) Urine Nitrite Negative (Negative) Urine Bilirubin Negative (Negative) Urine Urobilinogen Normal (Normal) mg/dL Ur Leukocyte Esterase Negative (Negative) Urine Microscopic RBC 0-3 (0-3) per hpf Urine Microscopic WBC 0-3 (0-3) per hpf Ur Squamous Epith Cells Many H (None-Few) per lpf Urine Bacteria None Seen (None-Few) per hpf Hyaline Casts None Seen (None-Few) per lpf Ur Culture Indicated? NO (NO) 03/17/18 Range/Units 17:51 WBC (4.3-11.1) K/mcL RBC (3.82-4.97) M/mcL Hgb (11.5-15.4) g/dL Hct (35.3-44.9) % MCV (83.0-100.0) fL MCH (28.0-33.3) pg MCHC (31.6-35.5) g/dL RDW (11.5-14.5) % Plt Count (140-400) K/mcL MPV (9.4-12.4) fL Immature Gran % (0-4) % Seg Neutrophils % % Lymphocytes % % Monocytes % % Eosinophils % % Basophils % % Neutrophils # (1.6-8.9) K/mcL Lymphocytes # (0.6-4.6) K/mcL Monocytes # (0.0-1.3) K/mcL Eosinophils # (0.0-0.6) K/mcL Basophils # (0.0-0.2) K/mcL Sodium (136-145) mEq/L Potassium (3.5-5.1) mEq/L Chloride (98-107) mEq/L Carbon Dioxide (23-29) mEq/L BUN (8-23) mg/dL Creatinine (0.60-1.20) mg/dL Est GFR ( Amer) (> 60) Est GFR (Non-Af Amer) (> 60) BUN/Creatinine Ratio (6-26) Glucose (70-105) mg/dL Calculated Osmolality (280-300) Lactic Acid 1.0 (0.5-2.2) mmol/L Calcium (8.6-10.3) mg/dL Phosphorus (2.7-4.5) mg/dL Magnesium (1.6-2.6) mg/dL Total Bilirubin (0.3-1.0) mg/dL Direct Bilirubin (0.0-0.2) mg/dL Indirect Bilirubin (0.0-1.2) mg/dL AST (13-39) Units/L ALT (7-52) Units/L Alkaline Phosphatase (34-104) Units/L Troponin I (< 0.04) ng/mL Serum Total Protein (6.4-8.9) g/dL Albumin (3.5-5.7) g/dL Globulin (2.4-3.5) g/dL Albumin/Globulin Ratio (1.1-2.2) Urine Color (Yellow) Urine Clarity (Clear) Urine pH (5.0-8.0) pH Units Ur Specific [place] (1.010-1.025) Urine Protein (Neg-Trace) mg/dL Urine Glucose (UA) (Normal) mg/dL Urine Ketones (Negative) mg/dL Urine Blood (Negative) Urine Nitrite (Negative) Urine Bilirubin (Negative) Urine Urobilinogen (Normal) mg/dL Ur Leukocyte Esterase (Negative) Urine Microscopic RBC (0-3) per hpf Urine Microscopic WBC (0-3) per hpf Ur Squamous Epith Cells (None-Few) per lpf Urine Bacteria (None-Few) per hpf Hyaline Casts (None-Few) per lpf Ur Culture Indicated? (NO)
[2018-03-17 17:59] LABS: Bilirubin,Urine Negative (Negative); Blood,Urine Negative (Negative); Clarity,Urine Cloudy (Clear); Color,Urine Yellow (Yellow); Glucose,Urine (UA) Normal (Normal); Ketones,Urine Negative (Negative); Leukocyte Esterase,Urine Negative (Negative); Nitrite,Urine Negative (Negative); PH,Urine 7.5 pH Units (5.0-8.0); Protein,Urine Negative (Neg-Trace); Specific Gravity,Urine 1.008 (1.010-1.025); Urobilinogen,Urine Normal (Normal)
[2018-03-17 18:00] LABS: Bacteria,Urine None Seen per hpf (None-Few); Hyaline Casts,Urine None Seen per lpf (None-Few); RBC,Urine 0-3 per hpf (0-3); Squamous Epithelial Cell,Urine Many per lpf (None-Few); WBC,Urine 0-3 per hpf (0-3)
[2018-03-17 18:07] LABS: Basophils # 0.2 K/mcL (0.0-0.2); Basophils % 1.2 %; Eosinophils % 0.2 %; Hematocrit 41.1 % (35.3-44.9); Immature Granulocytes % 0.6 % (0-4); Lymphocytes # 2.1 K/mcL (0.6-4.6); Lymphocytes % 12.2 %; Mean Corpuscular HGB Conc 31.9 g/dL (31.6-35.5); Mean Corpuscular Hemoglobin 28.4 pg (28.0-33.3); Mean Platelet Volume 10.6 fL (9.4-12.4); Monocytes # 1.5 K/mcL (0.0-1.3); Monocytes % 8.5 %; Neutrophils # 13.5 K/mcL (1.6-8.9); Platelet Count 390 K/mcL (140-400); Red Blood Count 4.62 M/mcL (3.82-4.97); Red Cell Distribution Width 14.7 % (11.5-14.5); Segmented Neutrophils % 77.3 %
[2018-03-17 18:10] LABS: Hemoglobin 13.1 g/dL (11.5-15.4)
[2018-03-17 18:28] LABS: Troponin I 0.03 ng/mL (< 0.04)
[2018-03-17] MEDS ORDERED: Azithromycin 500 MG in D5% in Water 250 ML IVPB ONE (18:31)
--- NOTE | 2018-03-17 18:37 | Emergency Department Note ---
Disposition Clinical Impression: Sepsis Qualifiers: Sepsis type: sepsis due to unspecified organism Qualified Code(s): A41.9 - Sepsis, unspecified organism UTI (urinary tract infection) Qualifiers: Urinary tract infection type: site unspecified Hematuria presence: with hematuria Qualified Code(s): N39.0 - Urinary tract infection, site not specified Disposition: Still a Patient Condition: Fair Referrals: Chaz Cuellar MD [Primary Care Provider] - General Adult HPI - General Chief complaint: ED Urogenital-Female Stated complaint: lower back pain/confussion/possible uti Time Seen by Provider: 03/17/18 16:50 Source: EMS Limitations: no limitations - History of Present Illness Pain Scale: 0 - Related Data Home Medications Medication Instructions Recorded Confirmed Oxygen 4 l .ROUTE AD 06/04/16 03/08/18 Carvedilol [Coreg] 6.25 mg PO DAILY 12/05/16 03/08/18 Montelukast [Singulair] 10 mg PO QPM 12/05/16 03/08/18 Albuterol Neb [Proventil Neb] 2.5 mg IH TID PRN 08/02/17 03/08/18 Albuterol Sulfate [Proair Hfa] 2 puff IH Q4H PRN 08/02/17 03/08/18 Cholecalciferol (D-3) [Vitamin D] 1,000 unit PO BID 08/02/17 03/08/18 amLODIPine [Norvasc] 2.5 mg PO QPM 08/02/17 03/08/18 Gabapentin [Neurontin] 600 mg PO HS 02/02/18 03/08/18 Ipratropium/Albuterol Sulfate 3 ml PO Q4H PRN 02/02/18 03/08/18 [Iprat-Albut 0.5-3(2.5) mg/3 ml] Omeprazole [PriLOSEC] 20 mg PO DAILY 02/02/18 03/08/18 Acetaminophen [Tylenol] 500 mg PO 2-3XD PRN 03/08/18 03/08/18 Acetaminophen with Codeine 1 tab PO DAILY PRN 03/08/18 03/08/18 [Acetaminophen-Cod #3 Tablet] LORazepam [Ativan] 0.5 mg PO QPM PRN 03/08/18 03/08/18 Previous Rx's Medication Instructions Recorded Tramadol HCl [Ultram] 50 mg PO TID PRN 3 Days #21 tab 09/02/17 Aspirin Enteric Coated [Aspirin EC] 81 mg PO DAILY #30 tablet. 02/03/18 Allergies Allergy/AdvReac Type Severity Reaction Status Date / Time oxycodone [Oxycodone] AdvReac Confusion Verified 03/08/18 14:01 Past Medical History - Past Medical History Medical history: Reports: arthritis, COPD, GERD, hyperlipidemia, hypertension, osteoporosis, other Surgical history: Reports: cataract, cholecystectomy, orthopedic, other, other, appendectomy Psychiatric history: Reports: anxiety [employer] history: Reports: no [employer] history - Social History Smoking Status: Former smoker Smokeless Tobacco Status: No Alcohol use: Reports: none Drug use: Reports: none Physical Exam - General Limitations: no limitations General appearance: alert, in no apparent distress Course Vital Signs Temperature 100.7 F H 03/17/18 17:03 Pulse Rate 115 03/17/18 17:03 Respiratory Rate 22 03/17/18 17:03 Blood Pressure 124/69 03/17/18 17:03 O2 Sat by Pulse Oximetry 95 03/17/18 17:03 Temperature 100.7 F H 03/17/18 17:03 Pulse Rate 107 03/17/18 18:18 Respiratory Rate 17 03/17/18 18:18 Blood Pressure 105/80 03/17/18 18:18 O2 Sat by Pulse Oximetry 96 03/17/18 18:18 Oxygen Delivery Oxygen Delivery Nasal Cannula Medical Decision Making - Lab Data Result diagrams: 03/17/18 17:51 Lab Results 03/17/18 03/17/18 03/17/18 Range/Units 17:35 17:51 17:51 WBC 17.4 H D (4.3-11.1) K/mcL RBC 4.62 (3.82-4.97) M/mcL Hgb 13.1 D (11.5-15.4) g/dL Hct 41.1 (35.3-44.9) % MCV 89.0 (83.0-100.0) fL MCH 28.4 (28.0-33.3) pg MCHC 31.9 (31.6-35.5) g/dL RDW 14.7 H (11.5-14.5) % Plt Count 390 D (140-400) K/mcL MPV 10.6 (9.4-12.4) fL Immature Gran % 0.6 (0-4) % Seg Neutrophils % 77.3 % Lymphocytes % 12.2 % Monocytes % 8.5 % Eosinophils % 0.2 % Basophils % 1.2 % Neutrophils # 13.5 H (1.6-8.9) K/mcL Lymphocytes # 2.1 (0.6-4.6) K/mcL Monocytes # 1.5 H (0.0-1.3) K/mcL Eosinophils # 0.0 (0.0-0.6) K/mcL Basophils # 0.2 (0.0-0.2) K/mcL Lactic Acid (0.5-2.2) mmol/L Troponin I 0.03 (< 0.04) ng/mL Urine Color Yellow (Yellow) Urine Clarity Cloudy A (Clear) Urine pH 7.5 (5.0-8.0) pH Units Ur Specific [place] 1.008 L (1.010-1.025) Urine Protein Negative (Neg-Trace) mg/dL Urine Glucose (UA) Normal (Normal) mg/dL Urine Ketones Negative (Negative) mg/dL Urine Blood Negative (Negative) Urine Nitrite Negative (Negative) Urine Bilirubin Negative (Negative) Urine Urobilinogen Normal (Normal) mg/dL Ur Leukocyte Esterase Negative (Negative) Urine Microscopic RBC 0-3 (0-3) per hpf Urine Microscopic WBC 0-3 (0-3) per hpf Ur Squamous Epith Cells Many H (None-Few) per lpf Urine Bacteria None Seen (None-Few) per hpf Hyaline Casts None Seen (None-Few) per lpf Ur Culture Indicated? NO (NO) 03/17/18 Range/Units 17:51 WBC (4.3-11.1) K/mcL RBC (3.82-4.97) M/mcL Hgb (11.5-15.4) g/dL Hct (35.3-44.9) % MCV (83.0-100.0) fL MCH (28.0-33.3) pg MCHC (31.6-35.5) g/dL RDW (11.5-14.5) % Plt Count (140-400) K/mcL MPV (9.4-12.4) fL Immature Gran % (0-4) % Seg Neutrophils % % Lymphocytes % % Monocytes % % Eosinophils % % Basophils % % Neutrophils # (1.6-8.9) K/mcL Lymphocytes # (0.6-4.6) K/mcL Monocytes # (0.0-1.3) K/mcL Eosinophils # (0.0-0.6) K/mcL Basophils # (0.0-0.2) K/mcL Lactic Acid 1.0 (0.5-2.2) mmol/L Troponin I (< 0.04) ng/mL Urine Color (Yellow) Urine Clarity (Clear) Urine pH (5.0-8.0) pH Units Ur Specific [place] (1.010-1.025) Urine Protein (Neg-Trace) mg/dL Urine Glucose (UA) (Normal) mg/dL Urine Ketones (Negative) mg/dL Urine Blood (Negative) Urine Nitrite (Negative) Urine Bilirubin (Negative) Urine Urobilinogen (Normal) mg/dL Ur Leukocyte Esterase (Negative) Urine Microscopic RBC (0-3) per hpf Urine Microscopic WBC (0-3) per hpf Ur Squamous Epith Cells (None-Few) per lpf Urine Bacteria (None-Few) per hpf Hyaline Casts (None-Few) per lpf Ur Culture Indicated? (NO) Critical Care Time Critical Care Time: Yes Total Critical Care Time: 35 Attestation: Critical care performed: Time is exclusive of separately billable procedures. Time includes: direct patient care, patient reassessment, coordination of patient care, interpretation of data (laboratory data, radiology data, and respiratory data), review of patient's medical records, medical consultation and documentation of patient care. Procedures included in critical care time: Procedures excluded from critical care time: Attestation Statement - Attestation Attestation: I examined this patient and my medical decision-making was reviewed with the Resident Physician. I agree with the documented findings, disposition and treatment plan as described except to the extent set forth below. Patient to the ED with altered mental status. Accompanied by son. States she is more confused. Not able to answer questions like she normally can. Recently admitted for UTI. Had a fall yesterday is a weakness. She was sent from her pain management appointment because she was altered. On exam she is awake and alert. Patient states she is not confused. Moving all extremities. Pupils re active. Heart regular lungs clear. She is noted to be febrile and tachycardic tripping the sepsis screening. Plan. Septic workup. CT head and back. Patient with no infiltrate. Sepsis criteria met. Starting IV antibiotic for age. Admitted to medicine. CT still pending.
[2018-03-17 18:40] LABS: Alanine Aminotransferase 25 Units/L (7-52); Albumin/Globulin Ratio 1.2 (1.1-2.2); Alkaline Phosphatase 136 Units/L (34-104); Aspartate Amino Transferase 20 Units/L (13-39); BUN/Creatinine Ratio 30 (6-26); Bilirubin,Direct 0.1 mg/dL (0.0-0.2); Bilirubin,Indirect 0.2 mg/dL (0.0-1.2); Bilirubin,Total 0.3 mg/dL (0.3-1.0); Blood Urea Nitrogen 24 mg/dL (8-23); Carbon Dioxide 28 mEq/L (23-29); Chloride 99 mEq/L (98-107); Globulin 3.4 g/dL (2.4-3.5); Glucose 118 mg/dL (70-105); Magnesium 2.2 mg/dL (1.6-2.6); Osmolality,Calculated 287 (280-300); Phosphorous 3.3 mg/dL (2.7-4.5); Potassium 4.3 mEq/L (3.5-5.1); Sodium 136 mEq/L (136-145); Total Protein 7.4 g/dL (6.4-8.9); eGFR For Non-African Americans > 60 (> 60)
[2018-03-17] MEDS ORDERED: Naloxone 0.4 MG/ML INJ IVP PRN (21:22)
--- NOTE | 2018-03-17 21:34 | Internal Med History&Physical ---
Date of Encounter: 03/17/18 Time of Encounter: 21:55 Internal Medicine - H&P: HPI Chief complaint: Pneumonia, falls Admitted From: Emergency Dept Plans for Post Hospital Care: Home History of present illness: Ms. Boggs is a 83 year old female Patient presented to the emergency room after being seen by Dr. Echo chun for evaluation of falls. She is a resident at [facility]. She has had several falls, resulting in a lumbar compression fracture as well as rib fractures. She had recent diagnosis of UTI. During evaluation at the office, patient's lung sounds were noted to be wet. She had a cough for several days and has history of COPD and pneumonia. In the emergency room patient's CBC showed a white count of 17.4, BMP was within normal limits. Urinalysis was negative for infection. Chest x-ray showed new airspace opacification in the right upper lobe possibly representing pneumonia. CT lumbar spine showed progressive compression fracture involving superior endplate of L1 with mild dorsal retropulsion. Significant central canal stenosis was not identified. There was new right transverse process fracture at L1 with non-displaced fracture involving the medial right 12th rib. Thoracic CT showed right medial left 11th and 12th rib fractures. Head CT showed no acute intracranial abnormality with age-appropriate atrophy and small vessel disease. Upon my evaluation, patient is resting in the hospital bed. She is sleeping but is arousable. She denies pain, nausea and vomiting. I asked her about her CODE STATUS, she stated that that the difficult question. We called the [facility] where she resides and they indicated that she is DNR CCA. Past Med Surg Social Fam HX - Past Medical History Medical history: arthritis, COPD, GERD, hyperlipidemia, hypertension, osteoporosis, other Psychiatric history: anxiety - Past Surgical History Surgical History: cataract, cholecystectomy, orthopedic, other, other, appendectomy Additional surgical history: bilat hip replacement; reverse shoulder; back fusion; multiple fractures throughout body - Social History Smoking Status: Former smoker Smokeless Tobacco Status: No Alcohol use: none Drug use: none - Family History Son Family Member Ethnicity: Non- Living Status: (Metastatic Lung Cancer) Mother Family Member Ethnicity: Non- Living Status: Hx Family Cancer: Yes (unknown) Father Family Member Ethnicity: Non- Living Status: Brother Family Member Ethnicity: Non- Living Status: Sister Family Member Ethnicity: Non- Living Status: Hx Family Cancer: Yes (Unknown) Daughter Family Member Ethnicity: Non- Living Status: Still Living Hx Family Cardiac Disorders: Yes (High cholesterol) Internal Medicine - H&P: Meds Oxygen 4 l .ROUTE AD 06/04/16 [History] Carvedilol [Coreg] 6.25 mg PO BID 12/05/16 [History] Montelukast [Singulair] 10 mg PO QPM 12/05/16 [History] Albuterol Neb [Proventil Neb] 2.5 mg IH TID PRN 08/02/17 [History] Albuterol Sulfate [Proair Hfa] 2 puff IH Q4H PRN 08/02/17 [History] Cholecalciferol (D-3) [Vitamin D] 1,000 unit PO BID 08/02/17 [History] amLODIPine [Norvasc] 2.5 mg PO QPM 08/02/17 [History] Tramadol HCl [Ultram] 50 mg PO TID PRN 3 Days #21 tab 09/02/17 [Rx] Gabapentin [Neurontin] 600 mg PO HS 02/02/18 [History] Ipratropium/Albuterol Sulfate [Iprat-Albut 0.5-3(2.5) mg/3 ml] 3 ml PO Q4H PRN 02/02/18 [History] Omeprazole [PriLOSEC] 20 mg PO DAILY 02/02/18 [History] Aspirin Enteric Coated [Aspirin EC] 81 mg PO DAILY #30 tablet. 02/03/18 [Rx] Acetaminophen [Tylenol] 500 mg PO 2-3XD PRN 03/08/18 [History] LORazepam [Ativan] 0.5 mg PO QPM PRN 03/08/18 [History] Allergy/AdvReac Type Severity Reaction Status Date / Time oxycodone [Oxycodone] AdvReac Confusion Verified 03/08/18 14:01 All Systems PM: A 10-system review of systems was performed and is negative for pertinent findings except as documented above in the HPI. - Constitutional Vitals: Temp Pulse Resp BP Pulse Ox 100.7 F H 89 18 100/52 96 03/17/18 17:03 03/17/18 19:55 03/17/18 19:55 03/17/18 19:55 03/17/18 19:55 General appearance: Present: cooperative, A&O X 3, pleasant, no acute distress, answers questions appropriately Exam: Patient somnolent but arousable. - Head Head exam: Present: normal inspection - Eye Eye exam: Present: EOMI, normal appearance - Respiratory Respiratory exam: Present: rales, rhonchi. Absent: chest wall tenderness, CTAB, respiratory distress, wheezes - Cardiovascular Cardiovascular exam: Present: RRR. Absent: diastolic murmur, systolic murmur - GI/Abdominal GI/Abdominal exam: Present: normal bowel sounds, soft. Absent: tenderness - Extremities Exam Extremities exam: Present: warm, radial pulses palpable and symmetrical. Absent: pedal edema, tenderness - Neurological Exam Neurological exam: Present: no focal deficits, strengths equal and symetr throughout. Absent: motor sensory deficit, facial droop, speech deficit - Skin Skin exam: Present: dry, normal color. Absent: warm Internal Med - H&P Results - Labs CBC & Chem 7: 03/17/18 17:51 03/17/18 17:51 Labs: Short CBC 03/17/18 Range/Units 17:51 WBC 17.4 H D (4.3-11.1) K/mcL Hgb 13.1 D (11.5-15.4) g/dL Hct 41.1 (35.3-44.9) % Plt Count 390 D (140-400) K/mcL Neutrophils # 13.5 H (1.6-8.9) K/mcL BMP 03/17/18 17:51 Sodium 136 Potassium 4.3 Chloride 99 Carbon Dioxide 28 BUN 24 H Creatinine 0.79 Glucose 118 H Calcium 10.0 Cardiac Enzymes 03/17/18 Range/Units 17:51 Troponin I 0.03 (< 0.04) ng/mL Liver Function 03/17/18 Range/Units 17:51 Total Bilirubin 0.3 (0.3-1.0) mg/dL Direct Bilirubin 0.1 (0.0-0.2) mg/dL AST 20 (13-39) Units/L ALT 25 (7-52) Units/L Alkaline Phosphatase 136 H (34-104) Units/L Albumin 4.0 (3.5-5.7) g/dL Urine 03/17/18 Range/Units 17:35 Urine Color Yellow (Yellow) Urine Clarity Cloudy A (Clear) Urine pH 7.5 (5.0-8.0) pH Units Ur Specific [place] 1.008 L (1.010-1.025) Urine Protein Negative (Neg-Trace) mg/dL Urine Glucose (UA) Normal (Normal) mg/dL - Impressions ITS Impressions Chest X-Ray 03/17/18 17:17 IMPRESSION: New airspace opacification in the right upper lobe possibly representing pneumonia D/ / Quique Noland MD / Quique Noland MD Interpreting Provider: Quique Noland MD Lumbar Spine CT 03/17/18 17:29 IMPRESSION: Progressive compression fracture involving the superior endplate of L1, now with mild dorsal retropulsion. Significant central canal stenosis is not, however, identified. New right transverse process fracture at L1. New nondisplaced fracture involving the medial right 12th rib. D/ / Sergio Cornejo MD / Sergio Cornejo MD Interpreting Provider: Sergio Cornejo MD Thoracic Spine CT 03/17/18 17:29 IMPRESSION: Right medial left 11th and 12th rib fractures. Redemonstration of T12 vertebroplasty. The remaining thoracic vertebral bodies are normal in height and alignment. D/ / Sergio Cornejo MD / Sergio Cornejo MD Interpreting Provider: Sergio Cornejo MD Head CT 03/17/18 18:11 IMPRESSION: Study limited by motion artifact. No acute intracranial abnormality. Age-appropriate atrophy and small-vessel disease ischemic changes. D/ / 03/17/2018 18:59:54 Zoie Corral MD / cj Interpreting Provider: Zoie Corral MD - Assessment and plan (1) Sepsis Current Visit: Yes Status: Acute Assessment and plan: Patient initially had elevated turbo 100.7, pulse rate of 1:15 and respiratory rate of 22. Currently vitals are temperature 97.3, pulse rate 87 and respiratory rate of 18. Patient does have right upper lobe pneumonia, antibiotics have been initiated and blood cultures were drawn. Lactic acid not elevated at 1.0 Continue antibiotics Follow-up blood cultures when available Monitor vitals Qualifiers: Sepsis type: sepsis due to unspecified organism Qualified Code(s): A41.9 - Sepsis, unspecified organism (2) HCAP (healthcare-associated pneumonia) Current Visit: Yes Status: Acute Assessment and plan: As evidenced by patient's chest x-ray, patient has a right upper lobe pneumonia. Blood cultures were drawn and she was started on azithromycin, Zosyn and vancomycin. Continue antibiotics Follow-up blood cultures when available Monitor vitals (3) Leukocytosis Current Visit: No Status: Chronic Assessment and plan: Likely secondary to infection. Treatment as above Repeat labs in a.m. Qualifiers: Leukocytosis type: bandemia Qualified Code(s): D72.825 - Bandemia (4) Frequent falls Current Visit: No Status: Acute Assessment and plan: Patient states that she does not remember why she fell. She denies tripping however. She had previously living at home, but was transferred to [facility] for rehabilitation. She had a few falls while being a resident there however. PT OT evaluation Fall precautions (5) Rib fractures Current Visit: Yes Status: Acute Assessment and plan: Secondary to fall, patient's thoracic spine CT showed 11 and 12 right rib fractures. Patient was following up outpatient for her compression fracture of the L1 vertebrae as well as for these rib fractures. Pain control as needed Qualifiers: Encounter type: initial encounter Rib fracture type: multiple ribs Fracture type: closed Laterality: right Qualified Code(s): S22.41XA - Multiple fractures of ribs, right side, initial encounter for closed fracture (6) Compression fracture of L1 lumbar vertebra Current Visit: No Status: Acute Assessment and plan: Initial date of admission 03/08/18, patient has had scheduled follow-up for this. Qualifiers: Encounter type: subsequent encounter Fracture type: closed Fracture healing: with routine healing Qualified Code(s): S32.010D - Wedge compression fracture of first lumbar vertebra, subsequent encounter for fracture with routine healing (7) DVT prophylaxis Current Visit: No Status: Acute Assessment and plan: Subcutaneous heparin - Time Spent With Patient Total time spent is greater than 50% in coordination of care (as documented) at patient's floor/unit and/or counseling patient: Greater than 35 minutes
[2018-03-17] MEDS ORDERED: Vancomycin (wt based) 1,000 MG VIAL IVPB SCH (23:45)
[2018-03-18] MEDS: Piperacillin/Tazobactam 3.375 GM in 0.9 % Sodium Chloride Mini Bag 100 ML IVPB SCH ×4 (01:16→23:37)
[2018-03-18] MEDS: *HR* Heparin 5,000 UNIT/ML VIAL SQ SCH ×2 (05:15→17:49)
[2018-03-18 08:00] LABS: Hemoglobin 11.8 g/dL (11.5-15.4); Mean Corpuscular HGB Conc 31.1 g/dL (31.6-35.5); Mean Corpuscular Hemoglobin 28.2 pg (28.0-33.3); Mean Corpuscular Volume 90.9 fL (83.0-100.0); Mean Platelet Volume 11.2 fL (9.4-12.4); Platelet Count 270 K/mcL (140-400); Red Blood Count 4.18 M/mcL (3.82-4.97); Red Cell Distribution Width 14.6 % (11.5-14.5)
[2018-03-18] MEDS: *HR* HYDROcodone/Acet 5/325 mg TABLET PO PRN ×2 (08:13→17:49)
[2018-03-18 08:20] LABS: BUN/Creatinine Ratio 29 (6-26); Blood Urea Nitrogen 18 mg/dL (8-23); Calcium 9.2 mg/dL (8.6-10.3); Carbon Dioxide 25 mEq/L (23-29); Chloride 107 mEq/L (98-107); Glucose 98 mg/dL (70-105); Osmolality,Calculated 290 (280-300); Potassium 3.6 mEq/L (3.5-5.1); Sodium 139 mEq/L (136-145); eGFR For Non-African Americans > 60 (> 60)
[2018-03-18] MEDS ORDERED: Albuterol 2.5 MG/3 ML NEBULIZER IH PRN (10:26)
[2018-03-18] MEDS ORDERED: *HR* LORazepam 0.5 MG TABLET PO PRN (10:27)
[2018-03-18] MEDS: Ipratropium/Albuterol Neb 3 ML IH SCH ×3 (11:20→22:17)
--- NOTE | 2018-03-18 16:28 | Internal Med Progress Note ---
Hospitalist Progress Note - Encounter Date of Encounter: 03/18/18 Time of Encounter: 16:26 - Subjective Interval History: Pt reports having back pain Pt denies chest pain or SOB. Pt denies fever, chills, N/V or diarrhea. - Exam Vitals: Temp Pulse Resp BP Pulse Ox 98.3 F 90 14 122/67 95 03/18/18 16:18 03/18/18 16:18 03/18/18 16:18 03/18/18 16:18 03/18/18 16:18 Exam: General appearance: Present: cooperative, A&O X 3, pleasant, no acute distress, answers questions appropriately Exam: - Head Head exam: Present: normal inspection - Eye Eye exam: Present: EOMI, normal appearance - Respiratory Respiratory exam: CTAB. Absent: chest wall tenderness, respiratory distress, wheezes - Cardiovascular Cardiovascular exam: Present: RRR. Absent: diastolic murmur, systolic murmur - GI/Abdominal GI/Abdominal exam: Present: normal bowel sounds, soft. Absent: tenderness - Extremities Exam Extremities exam: Present: warm, radial pulses palpable and symmetrical. Absent: pedal edema, tenderness - Neurological Exam Neurological exam: Present: no focal deficits, strengths equal and symetr throughout. Absent: motor sensory deficit, facial droop, speech deficit - Skin Skin exam: Present: dry, normal color. Absent: warm - Assessment and Plan (1) Sepsis Current Visit: No Status: Resolved Assessment and Plan: Patient initially had elevated turbo 100.7, pulse rate of 1:15 and respiratory rate of 22. Currently stable. Chest x ray did show right upper lobe pneumonia. Continue on antibiotics. Lactic acid not elevated at 1.0 Blood cultures incubating. Chest x ray XR/XR chest 1V portable IMPRESSION: New airspace opacification in the right upper lobe possibly representing pneumonia (2) HCAP (healthcare-associated pneumonia) Current Visit: Yes Status: Acute Assessment and Plan: Blood cultures were drawn and she was started on Azithromycin, Zosyn and Vancomycin. Blood cultures incubating. (3) Compression fracture of L1 lumbar vertebra Current Visit: No Status: Acute Assessment and Plan: Initial date of admission 03/08/18, patient has had scheduled follow-up for this. (4) Frequent falls Current Visit: No Status: Acute Assessment and Plan: Patient states that she does not remember why she fell. She denies tripping however. She had previously living at home, but was transferred to [facility] for rehabilitation. She had a few falls while being a resident there. PT OT evaluation requested Fall precautions (5) Leukocytosis Current Visit: No Status: Chronic Assessment and Plan: WBC down from 17.4 to 13.4 (6) Rib fractures Current Visit: Yes Status: Acute Assessment and Plan: Fall precaution. Pain control PRN. DVT Prophylaxis: Heparin - Summary of Assessment and Plan Summary of Assessment and Plan: History of present illness: Dr. Johnson Ms. Boggs is a 83 year old female Patient presented to the emergency room after being seen by Dr. Dodge outpatient for evaluation of falls. She is a resident at [facility]. She has had several falls, resulting in a lumbar compression fracture as well as rib fractures. She had recent diagnosis of UTI. During evaluation at the office, patient's lung sounds were noted to be wet. She had a cough for several days and has history of COPD and pneumonia. In the emergency room patient's CBC showed a white count of 17.4, BMP was within normal limits. Urinalysis was negative for infection. Chest x-ray showed new airspace opacification in the right upper lobe possibly representing pneumonia. CT lumbar spine showed progressive compression fracture involving superior endplate of L1 with mild dorsal retropulsion. Significant central canal stenosis was not identified. There was new right transverse process fracture at L1 with non-displaced fracture involving the medial right 12th rib. Thoracic CT showed right medial left 11th and 12th rib fractures. Head CT showed no acute intracranial abnormality with age-appropriate atrophy and small vessel disease. Upon my evaluation, patient is resting in the hospital bed. She is sleeping but is arousable. She denies pain, nausea and vomiting. I asked her about her CODE STATUS, she stated that that the difficult question. We called the [facility] where she resides and they indicated that she is DNR CCA. - Time Spent with Patient Total time spent is greater than 50% in coordination of care (as documented) at patient's floor/unit and/or counseling patient: less than 15 minutes Plan of Care Discussed with: patient Internal Medicine: Result - Labs CBC & Chem 7: 03/18/18 07:21 03/18/18 07:21 Labs: Short CBC 03/17/18 03/18/18 Range/Units 17:51 07:21 WBC 17.4 H D 13.4 H (4.3-11.1) K/mcL Hgb 13.1 D 11.8 (11.5-15.4) g/dL Hct 41.1 38.0 (35.3-44.9) % Plt Count 390 D 270 (140-400) K/mcL Neutrophils # 13.5 H (1.6-8.9) K/mcL BMP 03/17/18 03/18/18 17:51 07:21 Sodium 136 139 Potassium 4.3 3.6 Chloride 99 107 Carbon Dioxide 28 25 BUN 24 H 18 Creatinine 0.79 0.62 Glucose 118 H 98 Calcium 10.0 9.2 Cardiac Enzymes 03/17/18 Range/Units 17:51 Troponin I 0.03 (< 0.04) ng/mL Liver Function 03/17/18 Range/Units 17:51 Total Bilirubin 0.3 (0.3-1.0) mg/dL Direct Bilirubin 0.1 (0.0-0.2) mg/dL AST 20 (13-39) Units/L ALT 25 (7-52) Units/L Alkaline Phosphatase 136 H (34-104) Units/L Albumin 4.0 (3.5-5.7) g/dL Urine 03/17/18 Range/Units 17:35 Urine Color Yellow (Yellow) Urine Clarity Cloudy A (Clear) Urine pH 7.5 (5.0-8.0) pH Units Ur Specific [place] 1.008 L (1.010-1.025) Urine Protein Negative (Neg-Trace) mg/dL Urine Glucose (UA) Normal (Normal) mg/dL - Impressions Impressions Chest X-Ray 03/17/18 17:17 IMPRESSION: New airspace opacification in the right upper lobe possibly representing pneumonia D/ / Quique Noland MD / Quique Noland MD Interpreting Provider: Quique Noland MD Lumbar Spine CT 03/17/18 17:29 IMPRESSION: Progressive compression fracture involving the superior endplate of L1, now with mild dorsal retropulsion. Significant central canal stenosis is not, however, identified. New right transverse process fracture at L1. New nondisplaced fracture involving the medial right 12th rib. D/ / Sergio Cornejo MD / Sergio Cornejo MD Interpreting Provider: Sergio Cornejo MD Thoracic Spine CT 03/17/18 17:29 IMPRESSION: Right medial left 11th and 12th rib fractures. Redemonstration of T12 vertebroplasty. The remaining thoracic vertebral bodies are normal in height and alignment. D/ / Sergio Cornejo MD / Sergio Cornejo MD Interpreting Provider: Sergio Cornejo MD Head CT 03/17/18 18:11 IMPRESSION: Study limited by motion artifact. No acute intracranial abnormality. Age-appropriate atrophy and small-vessel disease ischemic changes. D/ / 03/17/2018 18:59:54 Zoie Corral MD / bcarter Interpreting Provider: Zoie Corral MD Consult Discharge Plan - Plan (1) Sepsis Qualifiers: Sepsis type: Pseudomonas Qualified Code(s): A41.52 - Sepsis due to Pseudomonas (3) Compression fracture of L1 lumbar vertebra Qualifiers: Encounter type: subsequent encounter Fracture type: closed Fracture healing: with routine healing Qualified Code(s): S32.010D - Wedge compression fracture of first lumbar vertebra, subsequent encounter for fracture with routine healing (5) Leukocytosis Qualifiers: Leukocytosis type: bandemia Qualified Code(s): D72.825 - Bandemia (6) Rib fractures Qualifiers: Encounter type: initial encounter Rib fracture type: multiple ribs Fracture type: closed Laterality: right Qualified Code(s): S22.41XA - Multiple fractures of ribs, right side, initial encounter for closed fracture
[2018-03-18] MEDS: amLODIPine 5 MG TABLET PO SCH (17:49)
[2018-03-18] MEDS: Azithromycin 500 MG in D5% in Water 250 ML IVPB SCH (20:08)
--- NOTE | 2018-03-18 21:47 | Electrocardiograph Report ---
[address] [place], [place] [address] Test Date: 2018-03-17 Pat Name: Lyssa Boggs Department: EXAM1 Room: 2A26 Gender: F [employer]: : 1935 Requested By: Kiley See Order Number: [id number] Reading MD: Zurdo Henry Measurements Intervals [place] Rate: 112 P: 85 TX: 135 QRS: -59 QRSD: 83 T: 52 QT: 322 QTc: 440 Interpretive Statements Sinus tachycardia Left axis deviation Probable left ventricular hypertrophy Electronically Signed On 03-18-2018 21:45:46 EST by Zurdo Henry
[2018-03-19] MEDS: Ipratropium/Albuterol Neb 3 ML IH SCH ×4 (03:45→21:38)
[2018-03-19] MEDS: *HR* Heparin 5,000 UNIT/ML VIAL SQ SCH ×2 (05:36→17:13)
[2018-03-19] MEDS: *HR* HYDROcodone/Acet 5/325 mg TABLET PO PRN ×2 (05:44→09:14)
[2018-03-19] MEDS: Cholecalciferol (D-3) 1,000 UNIT TABLET PO SCH (09:13)
[2018-03-19] MEDS: Aspirin Enteric Coated 81 MG Tablet PO SCH (09:13)
[2018-03-19] MEDS: Piperacillin/Tazobactam 3.375 GM in 0.9 % Sodium Chloride Mini Bag 100 ML IVPB SCH ×2 (09:15→17:13)
[2018-03-19] MEDS ORDERED: *HR* HYDROcodone/Acet 5/325 mg TABLET PO PRN (09:23)
--- NOTE | 2018-03-19 10:14 | Internal Med Progress Note ---
Hospitalist Progress Note - Encounter Date of Encounter: 03/19/18 Time of Encounter: 10:06 - Subjective Interval History: Pt reports having back pain Pt denies chest pain or SOB. Pt denies fever, chills, N/V or diarrhea. - Exam Vitals: Temp Pulse Resp BP Pulse Ox 97.7 F 83 16 117/73 96 03/19/18 06:41 03/19/18 06:41 03/19/18 06:41 03/19/18 06:41 03/19/18 09:23 Exam: General appearance: Present: cooperative, A&O X 3, pleasant, no acute distress, answers questions appropriately Exam: - Head Head exam: Present: normal inspection Throat: [place]. Pt reports sore. No noted erythema or edema. - Eye Eye exam: Present: EOMI, normal appearance - Respiratory Respiratory exam: CTAB. Absent: chest wall tenderness, respiratory distress, wheezes - Cardiovascular Cardiovascular exam: Present: RRR. Absent: diastolic murmur, systolic murmur - GI/Abdominal GI/Abdominal exam: Present: normal bowel sounds, soft. Absent: tenderness - Extremities Exam Extremities exam: Present: warm, radial pulses palpable and symmetrical. Absent: pedal edema, tenderness - Neurological Exam Neurological exam: Present: no focal deficits, strengths equal and symetr throughout. Absent: motor sensory deficit, facial droop, speech deficit - Skin Skin exam: Present: dry, normal color. Absent: warm - Assessment and Plan (1) HCAP (healthcare-associated pneumonia) Current Visit: Yes Status: Acute Assessment and Plan: Blood cultures were drawn and she was started on Azithromycin, Zosyn and Vancomycin. Will DC IV antibiotics and will start on Levaquin. Will monitor for response over the weekend. If continues to improve, will DC on Levaquin for few more days. Blood cultures incubating. (2) Leukocytosis Current Visit: No Status: Chronic Assessment and Plan: WBC down from 17.4 to 13.4. Checking CBC today. (3) Compression fracture of L1 lumbar vertebra Current Visit: No Status: Acute Assessment and Plan: Initial date of admission 03/08/18, patient has had scheduled follow-up for this. (4) Frequent falls Current Visit: No Status: Acute Assessment and Plan: She had previously living at home, but was transferred to [facility] for rehabilitation. She had a few falls while being a resident there. PT OT evaluating. Fall precautions (5) Rib fractures Current Visit: Yes Status: Acute Assessment and Plan: Will order Lidoderm patches. Will order Breaks 5/325mg PO BID scheduled and Q8H PRN. PT/OT consulting. Fall precaution. DVT Prophylaxis: Heparin - Summary of Assessment and Plan Summary of Assessment and Plan: History of present illness: Dr. Johnson Ms. Boggs is a 83 year old female Patient presented to the emergency room after being seen by Dr. Dodge outpatient for evaluation of falls. She is a resident at [facility]. She has had several falls, resulting in a lumbar compression fracture as well as rib fractures. She had recent diagnosis of UTI. During evaluation at the office, patient's lung sounds were noted to be wet. She had a cough for several days and has history of COPD and pneumonia. In the emergency room patient's CBC showed a white count of 17.4, BMP was within normal limits. Urinalysis was negative for infection. Chest x-ray showed new airspace opacification in the right upper lobe possibly representing pneumonia. CT lumbar spine showed progressive compression fracture involving superior endplate of L1 with mild dorsal retropulsion. Significant central canal stenosis was not identified. There was new right transverse process fracture at L1 with non-displaced fracture involving the medial right 12th rib. Thoracic CT showed right medial left 11th and 12th rib fractures. Head CT showed no acute intracranial abnormality with age-appropriate atrophy and small vessel disease. Upon my evaluation, patient is resting in the hospital bed. She is sleeping but is arousable. She denies pain, nausea and vomiting. I asked her about her CODE STATUS, she stated that that the difficult question. We called the [facility] where she resides and they indicated that she is DNR CCA. - Time Spent with Patient Total time spent is greater than 50% in coordination of care (as documented) at patient's floor/unit and/or counseling patient: less than 15 minutes Plan of Care Discussed with: patient Internal Medicine: Result - Labs CBC & Chem 7: 03/18/18 07:21 03/18/18 07:21 Consult Discharge Plan - Plan Referrals: Chaz Cuellar MD [Primary Care Provider] - 04/07/18 10:00 am (Office location has been moved to [address] [place] [address] and [address] [employer] behind [address]. ) (2) Leukocytosis Qualifiers: Leukocytosis type: bandemia Qualified Code(s): D72.825 - Bandemia (3) Compression fracture of L1 lumbar vertebra Qualifiers: Encounter type: subsequent encounter Fracture type: closed Fracture healing: with routine healing Qualified Code(s): S32.010D - Wedge compression fracture of first lumbar vertebra, subsequent encounter for fracture with routine healing (5) Rib fractures Qualifiers: Encounter type: initial encounter Rib fracture type: multiple ribs Fracture type: closed Laterality: right Qualified Code(s): S22.41XA - Multiple fractures of ribs, right side, initial encounter for closed fracture
[2018-03-19 13:56] LABS: Adenovirus Not Detected (Not Detect); Bordetella Pertussis Not Detected (Not Detect); Chlamydophila pneumoniae Not Detected (Not Detect); Coronavirus 229E Not Detected (Not Detect); Coronavirus HKU1 Not Detected (Not Detect); Coronavirus NL63 Not Detected (Not Detect); Coronavirus OC43 Not Detected (Not Detect); Human Metapneumovirus Not Detected (Not Detect); Human Rhinovirus/Enterovirus Not Detected (Not Detect); Influenza A Subtype 2009 H1 Not Detected (Not Detect); Influenza A Untypeable Not Detected (Not Detect); Influenza B Not Detected (Not Detect); Mycoplasma pneumoniae Not Detected (Not Detect); Parainfluenza Virus 1 Not Detected (Not Detect); Parainfluenza Virus 2 Not Detected (Not Detect); Parainfluenza Virus 3 Not Detected (Not Detect); Parainfluenza Virus 4 Not Detected (Not Detect); Respiratory Syncytial Virus DETECTED (Not Detect)
[2018-03-19 13:59] LABS: Basophils # 0.1 K/mcL (0.0-0.2); Basophils % 1.4 %; Eosinophils # 0.6 K/mcL (0.0-0.6); Hematocrit 35.1 % (35.3-44.9); Hemoglobin 11.2 g/dL (11.5-15.4); Immature Granulocytes % 0.3 % (0-4); Lymphocytes # 2.9 K/mcL (0.6-4.6); Lymphocytes % 28.9 %; Mean Corpuscular HGB Conc 31.9 g/dL (31.6-35.5); Mean Corpuscular Hemoglobin 28.6 pg (28.0-33.3); Mean Corpuscular Volume 89.8 fL (83.0-100.0); Mean Platelet Volume 10.7 fL (9.4-12.4); Monocytes % 9.6 %; Neutrophils # 5.4 K/mcL (1.6-8.9); Platelet Count 317 K/mcL (140-400); Red Blood Count 3.91 M/mcL (3.82-4.97); Red Cell Distribution Width 14.6 % (11.5-14.5); Segmented Neutrophils % 53.8 %
[2018-03-19] MEDS: *HR* HYDROcodone/Acet 5/325 mg TABLET PO SCH (17:13)
[2018-03-19] MEDS: amLODIPine 5 MG TABLET PO SCH (17:13)
[2018-03-19] MEDS: Azithromycin 500 MG in D5% in Water 250 ML IVPB SCH (20:49)
[2018-03-20] MEDS: Ipratropium/Albuterol Neb 3 ML IH SCH ×4 (03:43→21:26)
[2018-03-20] MEDS: *HR* Heparin 5,000 UNIT/ML VIAL SQ SCH ×2 (05:33→17:11)
[2018-03-20] MEDS: Cholecalciferol (D-3) 1,000 UNIT TABLET PO SCH (08:16)
[2018-03-20] MEDS: Aspirin Enteric Coated 81 MG Tablet PO SCH (08:16)
[2018-03-20] MEDS: *HR* HYDROcodone/Acet 5/325 mg TABLET PO SCH ×3 (08:17→21:12)
[2018-03-20] MEDS: Piperacillin/Tazobactam 3.375 GM in 0.9 % Sodium Chloride Mini Bag 100 ML IVPB SCH ×4 (08:18→23:25)
--- NOTE | 2018-03-20 11:47 | Internal Med Progress Note ---
Hospitalist Progress Note - Encounter Date of Encounter: 03/20/18 Time of Encounter: 11:45 - Subjective Interval History: Pt reports having back painbut controlled with pain medication. Pt denies chest pain or SOB. Pt denies fever, chills, N/V or diarrhea. - Exam Vitals: Temp Pulse Resp BP Pulse Ox 98.9 F 89 18 147/76 94 03/20/18 07:43 03/20/18 07:43 03/20/18 09:53 03/20/18 07:43 03/20/18 09:53 Exam: General appearance: Present: cooperative, A&O X 3, pleasant, no acute distress, answers questions appropriately Exam: - Head Head exam: Present: normal inspection Throat: Raspy voice and sore throat better. No noted erythema or edema. - Eye Eye exam: Present: EOMI, normal appearance - Respiratory Respiratory exam: CTAB. Absent: chest wall tenderness, respiratory distress, wheezes - Cardiovascular Cardiovascular exam: Present: RRR. Absent: diastolic murmur, systolic murmur - GI/Abdominal GI/Abdominal exam: Present: normal bowel sounds, soft. Absent: tenderness - Extremities Exam Extremities exam: Present: warm, radial pulses palpable and symmetrical. Absent: pedal edema, tenderness - Neurological Exam Neurological exam: Present: no focal deficits, strengths equal and symetr throughout. Absent: motor sensory deficit, facial droop, speech deficit - Skin Skin exam: Present: dry, normal color. Absent: warm - Assessment and Plan (1) HCAP (healthcare-associated pneumonia) Current Visit: Yes Status: Acute Assessment and Plan: Blood cultures were drawn and incubating. Rapid strep neg Influenza A and B negative. She was started on Azithromycin, Zosyn and Vancomycin. DC'ed IV antibiotics and now on Levaquin. Will monitor for response over the w eekend. If continues to improve, will DC on Levaquin for few more days. (2) Respiratory syncytial virus Current Visit: Yes Status: Acute Assessment and Plan: supportive care with PO fluids and PRN tylenol (3) Leukocytosis Current Visit: No Status: Chronic Assessment and Plan: WBC down from 17.4 to 13.4 down to 10.0 Resolved. (4) Compression fracture of L1 lumbar vertebra Current Visit: No Status: Acute Assessment and Plan: Initial date of admission 03/08/18, patient has had scheduled follow-up for this. (5) Frequent falls Current Visit: No Status: Acute Assessment and Plan: She had been previously living at home, but was transferred to [facility] for rehabilitation. She had a few falls while being a resident there. PT/OT evaluating. Will make adjustments to pain medication. Continue fall precautions (6) Rib fractures Current Visit: Yes Status: Acute Assessment and Plan: Will continue with Lidoderm patches. Will change [place] 5/325mg PO BID scheduled to PO TID and Q8H PRN to Q6H PRN. PT/OT consulting. Continue fall precaution. DVT Prophylaxis: Heparin - Summary of Assessment and Plan Summary of Assessment and Plan: History of present illness: Dr. Berger Ms. Boggs is a 83 year old female Patient presented to the emergency room after being seen by Dr. Dodge outpatient for evaluation of falls. She is a resident at [facility]. She has had several falls, resulting in a lumbar compression fracture as well as rib fractures. She had recent diagnosis of UTI. During evaluation at the office, patient's lung sounds were noted to be wet. She had a cough for several days and has history of COPD and pneumonia. In the emergency room patient's CBC showed a white count of 17.4, BMP was within normal limits. Urinalysis was negative for infection. Chest x-ray showed new airspace opacification in the right upper lobe possibly representing pneumonia. CT lumbar spine showed progressive compression fracture involving superior endplate of L1 with mild dorsal retropulsion. Significant central canal stenosis was not identified. There was new right transverse process fracture at L1 with non-displaced fracture involving the medial right 12th rib. Thoracic CT showed right medial left 11th and 12th rib fractures. Head CT showed no acute intracranial abnormality with age-appropriate atrophy and small vessel disease. Upon my evaluation, patient is resting in the hospital bed. She is sleeping but is arousable. She denies pain, nausea and vomiting. I asked her about her CODE STATUS, she stated that that the difficult question. We called the [facility] where she resides and they indicated that she is DNR CCA. - Time Spent with Patient Total time spent is greater than 50% in coordination of care (as documented) at patient's floor/unit and/or counseling patient: less than 15 minutes Plan of Care Discussed with: patient Internal Medicine: Result - Labs CBC & Chem 7: 03/19/18 13:46 03/18/18 07:21 Labs: Short CBC 03/19/18 Range/Units 13:46 WBC 10.0 (4.3-11.1) K/mcL Hgb 11.2 L (11.5-15.4) g/dL Hct 35.1 L (35.3-44.9) % Plt Count 317 (140-400) K/mcL Neutrophils # 5.4 (1.6-8.9) K/mcL Consult Discharge Plan - Plan Referrals: Chaz Cuellar MD [Primary Care Provider] - 04/07/18 10:00 am (Office location has been moved to [address] [place] [address] and three businesses behind the [facility]. ) (3) Leukocytosis Qualifiers: Leukocytosis type: bandemia Qualified Code(s): D72.825 - Bandemia (4) Compression fracture of L1 lumbar vertebra Qualifiers: Encounter type: subsequent encounter Fracture type: closed Fracture healing: with routine healing Qualified Code(s): S32.010D - Wedge compression fracture of first lumbar vertebra, subsequent encounter for fracture with routine healing (6) Rib fractures Qualifiers: Encounter type: initial encounter Rib fracture type: multiple ribs Fracture type: closed Laterality: right Qualified Code(s): S22.41XA - Multiple fractures of ribs, right side, initial encounter for closed fracture
[2018-03-20] MEDS ORDERED: *HR* HYDROcodone/Acet 5/325 mg TABLET PO PRN (11:55)
[2018-03-20] MEDS: amLODIPine 5 MG TABLET PO SCH (17:10)
[2018-03-20] MEDS: Azithromycin 500 MG in D5% in Water 250 ML IVPB SCH (21:12)
[2018-03-21] MEDS: Ipratropium/Albuterol Neb 3 ML IH SCH ×4 (04:14→22:02)
[2018-03-21] MEDS: *HR* Heparin 5,000 UNIT/ML VIAL SQ SCH ×2 (05:59→17:41)
[2018-03-21] MEDS: Cholecalciferol (D-3) 1,000 UNIT TABLET PO SCH (08:38)
[2018-03-21] MEDS: Piperacillin/Tazobactam 3.375 GM in 0.9 % Sodium Chloride Mini Bag 100 ML IVPB SCH (08:38)
[2018-03-21] MEDS: Aspirin Enteric Coated 81 MG Tablet PO SCH (08:38)
[2018-03-21] MEDS: *HR* HYDROcodone/Acet 5/325 mg TABLET PO SCH ×3 (08:38→20:34)
--- NOTE | 2018-03-21 12:44 | Internal Med Progress Note ---
Hospitalist Progress Note - Encounter Date of Encounter: 03/21/18 Time of Encounter: 12:41 - Subjective Interval History: Pt reports back pain worse than yesterday. Pt denies chest pain or SOB. Pt denies fever, chills, N/V or diarrhea. - Exam Vitals: Temp Pulse Resp BP Pulse Ox 98.1 F 79 18 128/78 93 03/21/18 11:26 03/21/18 11:26 03/21/18 11:26 03/21/18 11:03/21/18 11:26 Exam: General appearance: Present: cooperative, A&O X 3, pleasant, no acute distress, answers questions appropriately Exam: - Head Head exam: Present: normal inspection Throat: Raspy voice and sore throat better. No noted erythema or edema. - Eye Eye exam: Present: EOMI, normal appearance - Respiratory Respiratory exam: CTAB. Absent: chest wall tenderness, respiratory distress, wheezes - Cardiovascular Cardiovascular exam: Present: RRR. Absent: diastolic murmur, systolic murmur - GI/Abdominal GI/Abdominal exam: Present: normal bowel sounds, soft. Absent: tenderness - Extremities Exam Extremities exam: Present: warm, radial pulses palpable and symmetrical. Abs ent: pedal edema, tenderness - Neurological Exam Neurological exam: Present: no focal deficits, strengths equal and symetr throughout. Absent: motor sensory deficit, facial droop, speech deficit - Skin Skin exam: Present: dry, normal color. Absent: warm - Assessment and Plan (1) HCAP (healthcare-associated pneumonia) Current Visit: Yes Status: Acute Assessment and Plan: Blood cultures were drawn and incubating. Rapid strep neg Influenza A and B negative. She was started on Azithromycin, Zosyn and Vancomycin. DC'ed IV antibiotics and now on Levaquin. Will monitor for response over the weekend. If continues to improve, will DC on Levaquin for few more days. (2) Respiratory syncytial virus Current Visit: Yes Status: Acute Assessment and Plan: supportive care with PO fluids and PRN tylenol (3) Leukocytosis Current Visit: No Status: Chronic Assessment and Plan: WBC down from 17.4 to 13.4 down to 10.0 Resolved. (4) Compression fracture of L1 lumbar vertebra Current Visit: No Status: Acute Assessment and Plan: Initial date of admission 03/08/18, patient has had scheduled follow-up for this. However she reports pain persists. Discussed with Dr. Dolan and appreciate input. (5) Frequent falls Current Visit: No Status: Acute Assessment and Plan: She had been previously living at home, but was transferred to [facility] for rehabilitation. She had a few falls while being a resident there. PT/OT evaluating. Will make adjustments to pain medication. Continue fall precautions (6) Rib fractures Current Visit: Yes Status: Acute Assessment and Plan: Will continue with Lidoderm patches. Changed [place] 5/325mg PO BID scheduled to PO TID and Q8H PRN to Q6H PRN. PT/OT consulting. Continue fall precaution. DVT Prophylaxis: Heparin - Summary of Assessment and Plan Summary of Assessment and Plan: History of present illness: Dr. Berger Ms. Boggs is a 83 year old female Patient presented to the emergency room after being seen by Dr. Dodge outpatient for evaluation of falls. She is a resident at [facility]. She has had several falls, resulting in a lumbar compression fracture as well as rib fractures. She had recent diagnosis of UTI. During evaluation at the office, patient's lung sounds were noted to be wet. She had a cough for several days and has history of COPD and pneumonia. In the emergency room patient's CBC showed a white count of 17.4, BMP was within normal limits. Urinalysis was negative for infection. Chest x-ray showed new airspace opacification in the right upper lobe possibly representing pneumonia. CT lumbar spine showed progressive compression fracture involving superior endplate of L1 with mild dorsal retropulsion. Significant central canal stenosis was not identified. There was new right transverse process fracture at L1 with non-displaced fracture involving the medial right 12th rib. Thoracic CT showed right medial left 11th and 12th rib fractures. Head CT showed no acute intracranial abnormality with age-appropriate atrophy and small vessel disease. Upon my evaluation, patient is resting in the hospital bed. She is sleeping but is arousable. She denies pain, nausea and vomiting. I asked her about her CODE STATUS, she stated that that the difficult question. We called the [facility] where she resides and they indicated that she is DNR CCA. - Time Spent with Patient Total time spent is greater than 50% in coordination of care (as documented) at patient's floor/unit and/or counseling patient: less than 15 minutes Plan of Care Discussed with: patient Internal Medicine: Result - Labs CBC & Chem 7: 03/19/18 13:46 03/18/18 07:21 Consult Discharge Plan - Plan Referrals: Chaz Cuellar MD [Primary Care Provider] - 04/07/18 10:00 am (Office location has been moved to [address] [place] [address] and three businesses behind the [facility]. ) (3) Leukocytosis Qualifiers: Leukocytosis type: bandemia Qualified Code(s): D72.825 - Bandemia (4) Compression fracture of L1 lumbar vertebra Qualifiers: Encounter type: subsequent encounter Fracture type: closed Fracture healing: with routine healing Qualified Code(s): S32.010D - Wedge compression fracture of first lumbar vertebra, subsequent encounter for fracture with routine healing (6) Rib fractures Qualifiers: Encounter type: initial encounter Rib fracture type: multiple ribs Fracture type: closed Laterality: right Qualified Code(s): S22.41XA - Multiple fractures of ribs, right side, initial encounter for closed fracture
[2018-03-21] MEDS: amLODIPine 5 MG TABLET PO SCH (17:41)
[2018-03-22] MEDS: Ipratropium/Albuterol Neb 3 ML IH SCH ×3 (04:14→15:31)
[2018-03-22] MEDS: *HR* Heparin 5,000 UNIT/ML VIAL SQ SCH ×2 (05:33→17:26)
[2018-03-22] MEDS: *HR* HYDROcodone/Acet 5/325 mg TABLET PO SCH ×2 (08:24→15:35)
[2018-03-22] MEDS: Cholecalciferol (D-3) 1,000 UNIT TABLET PO SCH (08:25)
[2018-03-22] MEDS: Aspirin Enteric Coated 81 MG Tablet PO SCH (08:25)
[2018-03-22] MEDS ORDERED: levoFLOXacin 500 MG TABLET PO SCH (09:00)
[2018-03-22] MEDS ORDERED: levoFLOXacin 250 MG TABLET PO ONE (10:24)
--- NOTE | 2018-03-22 12:13 | Pain Management History & Phys ---
Date of Encounter: 03/22/18 Time of Encounter: 12:48 Assessment and Plan (1) Compression fracture Current Visit: Yes Status: Acute This is an elderly patient with a history of recent falls. She currently has a diagnosis of pneumonia and recently had a urinary tract infection. She underwent T12 kyphoplasty in the past. Radiographically, the L1 deformity is new since November 2016. By history, the recent falls suggest the fracture is much more recent. There is an associated right transverse process and rib fractures. Recommend the followin. Oral analgesics. 2. Back bracing with TLSO brace. She can wear the brace when up in bed or out of bed. Does not have to wear it while supine or sleeping. 3. Physical therapy/occupational therapy consult to treat pain and ascertain her functional capacity. If the patient can sit on the side of the bed, eat, and ambulate to the bathroom with little pain, there is little need for surgery at this moment. 4. Recommend discharge to rehabilitation center if function is at baseline and pain can be easily controlled with oral analgesics and lifestyle modification, finding a comfortable position. 5. She should follow up with Dr. Dodge in the clinic. I discussed this case with him now. Overall plan is to monitor her during the above conservative care. L1 kyphoplasty is possible if pain is uncontrolled. Please ensure follow up with Dr. Dodge. History of Present Illness Chief complaint: back pain HPI: Ms. Boggs is a 83 year old female who has a recent medical history of pneumonia and recent falls in a nursing facility. The patient has some pain in her back that does not radiate into her legs. The pain is aching. She is able to sit up comfortably as well as standing transfer to a bedside toilet. Pain is relatively well controlled with oral analgesics right now. Typical pain score is 5/10. Past Med Surg Social Fam HX - Past Medical History Medical history: arthritis, COPD, GERD, hyperlipidemia, hypertension, osteoporosis, other Psychiatric history: anxiety - Past Surgical History Surgical History: cataract, cholecystectomy, orthopedic, other, other, appe ndectomy Additional surgical history: bilat hip replacement; reverse shoulder; back fusion; multiple fractures throughout body - Social History Smoking Status: Former smoker Smokeless Tobacco Status: No Alcohol use: none Drug use: none - Family History Son Family Member Ethnicity: Non- Living Status: (Metastatic Lung Cancer) Mother Family Member Ethnicity: Non- Living Status: Hx Family Cancer: Yes (unknown) Father Family Member Ethnicity: Non- Living Status: Brother Family Member Ethnicity: Non- Living Status: Sister Family Member Ethnicity: Non- Living Status: Hx Family Cancer: Yes (Unknown) Daughter Family Member Ethnicity: Non- Living Status: Still Living Hx Family Cardiac Disorders: Yes (High cholesterol) Medications and Allergies Oxygen 4 l .ROUTE AD 06/04/16 [History] Carvedilol [Coreg] 6.25 mg PO BID 12/05/16 [History] Montelukast [Singulair] 10 mg PO QPM 12/05/16 [History] Albuterol Neb [Proventil Neb] 2.5 mg IH TID PRN 08/02/17 [History] Albuterol Sulfate [Proair Hfa] 2 puff IH Q4H PRN 08/02/17 [History] Cholecalciferol (D-3) [Vitamin D] 1,000 unit PO BID 08/02/17 [History] amLODIPine [Norvasc] 2.5 mg PO QPM 08/02/17 [History] Tramadol HCl [Ultram] 50 mg PO TID PRN 3 Days #21 tab 09/02/17 [Rx] Gabapentin [Neurontin] 600 mg PO HS 02/02/18 [History] Ipratropium/Albuterol Sulfate [Iprat-Albut 0.5-3(2.5) mg/3 ml] 3 ml PO Q4H PRN 02/02/18 [History] Omeprazole [PriLOSEC] 20 mg PO DAILY 02/02/18 [History] Aspirin Enteric Coated [Aspirin EC] 81 mg PO DAILY #30 tablet. 02/03/18 [Rx] Acetaminophen [Tylenol] 500 mg PO 2-3XD PRN 03/08/18 [History] LORazepam [Ativan] 0.5 mg PO QPM PRN 03/08/18 [History] Allergy/AdvReac Type Severity Reaction Status Date / Time oxycodone [Oxycodone] AdvReac Confusion Verified 03/08/18 14:01 Review of Systems - Constitutional Constitutional ROS IM: no photophobia, no phonophobia, no daytime sleepiness, no fever(s), no stops breathing during sleep - EENT Nose, mouth and throat: no headache(s), no neck pain, no neck trauma - Cardiovascular Cardiovascular ROS: no chest pain, no leg edema, no lightheadedness - Respiratory Respiratory: no pain on inspiration, no pain with cough - Gastrointestinal Gastrointestinal: no abdominal pain, no constipation, no diarrhea, no heartburn - Genitourinary Genitourinary ROS: no difficulty urinating, no flank pain, no urinary hesitancy - Musculoskeletal Musculoskeletal ROS: no muscle weakness, no numbness, no radiating pain into limb, no tingling - Integumentary Integumentary: no erythema, no lesions, no swelling - Neurological Neurological ROS: no abnormal gait, no behavioral changes, no focal weakness, no radicular pain - Psychiatric Psychiatric general: no anxiety, no confusion, no depression - Hematologic/Lymphatic Hematologic/Lymphatic pediatric: no easy bleeding, no easy bruising Physical Exam Initial Vital Signs Temp Pulse Resp BP Pulse Ox 100.7 F H 115 22 124/69 95 03/17/18 17:03 03/17/18 17:03 03/17/18 17:03 03/17/18 17:03 03/17/18 17:03 - Additional Findings EYES:: pupils equal and round, no myosis. SKIN:: no areas of echymosis or petechiae CARDIOVASCULAR:: mild symmetrical lower limb edema PULMONARY:: nml respiratory rate GASTROINTESTINAL:: active bowel sounds. MUSCULOSKELETAL tender to palpation in thoracic spine but not thoracolumbar junction. tender in right lower ribs. INSPECTION:: no echymosis STRENGTH:: RIGHT hip flexors: 5/5 :: LEFT hip flexors: 5/5 RIGHT hip adduction 5/5 :: LEFT hip adduction 5/5 RIGHT hip abduction 5/5 :: LEFT hip abduction 5/5 RIGHT knee extension 5/5 :: LEFT knee extension 5/5 RIGHT knee flexion 5/5 :: LEFT knee flexion 5/5 RIGHT ankle dorsiflexion 5/5 :: LEFT ankle dorsiflexion 5/5 RIGHT ankle plantarflexion 5/5 :: LEFT ankle plantarflexion 5/5 NEUROLOGIC no lower limb hypesthesia PSYCHIATRIC:: ORIENTATION:: awake and alert. INSIGHT:: good awareness of illness. AFFECT:: pleasant. Radiology Images Viewed By Me:: 03/17/2018 CT scan of the lumbar and thoracic spine shows prior T12 vertebroplasty as well as a seemingly new L1 compression deformity of the superior endplate. L1 shows a wedge pattern. There is 20% height loss. There is a right transverse process fracture as well as right 12th rib fracture. Platelet count study, normal during this admission. I have reviewed and agree with information documented in the scribed documentation, ROS, patient medications, allergies, medical history, surgical history, social history, and family history. Results - Labs 03/19/18 13:46 03/18/18 07:21 Abnormal lab results Hgb 11.2 g/dL (11.5-15.4) L 03/19/18 13:46 Hct 35.1 % (35.3-44.9) L 03/19/18 13:46 RDW 14.6 % (11.5-14.5) H 03/19/18 13:46 BUN/Creatinine Ratio 29 (6-26) H 03/18/18 07:21 Alkaline Phosphatase 136 Units/L (34-104) H 03/17/18 17:51 Urine Clarity Cloudy (Clear) A 03/17/18 17:35 Ur Specific [place] 1.008 (1.010-1.025) L 03/17/18 17:35 Ur Squamous Epith Cells Many per lpf (None-Few) H 03/17/18 17:35 RSV (PCR) DETECTED (Not Detect) A 03/19/18 12:05 All other labs normal.
[2018-03-22 15:58] VITALS: BP 118/72
--- NOTE | 2018-03-22 16:35 | Discharge Summary ---
- NOTES TO OUTPATIENT PROVIDER Notes to Outpatient Provider: pcp IN 5 TO 7 DAYS Orders not resulted at time of discharge: Pending orders 03/17/18 17:51 Culture,Blood [] Stat Date of Encounter: 03/22/18 Time of Encounter: 16:32 - Discharge Diagnosis (1) HCAP (healthcare-associated pneumonia) Priority: Primary Status: Acute Assessment and Plan: Blood cultures were drawn and incubating. Rapid strep neg Influenza A and B negative. She was started on Azithromycin, Zosyn and Vancomycin. DC'ed IV antibiotics and now on Levaquin. Continues to improve, will DC on Levaquin for total of 7 days, last dose 03/23/2018. (2) Respiratory syncytial virus Priority: Primary Status: Acute Assessment and Plan: supportive care with PO fluids and PRN tylenol (3) Leukocytosis Priority: Primary Status: Chronic Assessment and Plan: WBC down from 17.4 to 13.4 down to 10.0 Resolved. Qualifiers: Leukocytosis type: bandemia Qualified Code(s): D72.825 - Bandemia (4) Compression fracture of L1 lumbar vertebra Priority: Secondary Status: Acute Assessment and Plan: Initial date of admission 03/08/18, patient has had scheduled follow-up for this. However she reports pain persists. Discussed with Dr. Dolan and recommending back bracing with TLSO brace, pain control, and PT/OT. She should follow up with Dr. Dodge in the clinic. Qualifiers: Encounter type: subsequent encounter Fracture type: closed Fracture healing: with routine healing Qualified Code(s): S32.010D - Wedge compression fracture of first lumbar vertebra, subsequent encounter for fracture with routine healing (5) Frequent falls Priority: Secondary Status: Acute Assessment and Plan: She had been previously living at home, but was transferred to [facility] for rehabilitation. She had a few falls while being a resident there. PT/OT recommends rehab Continue fall precautions (6) Rib fractures Priority: Secondary Status: Acute Assessment and Plan: Will continue with Lidoderm patches. Changed Elizabeth 5/325mg PO BID scheduled to PO TID and Q8H PRN to Q6H PRN. PT/OT consulted and recommends rehab. Continue fall precaution. Qualifiers: Encounter type: initial encounter Rib fracture type: multiple ribs Fracture type: closed Laterality: right Qualified Code(s): S22.41XA - Multiple fractures of ribs, right side, initial encounter for closed fracture Hospital course: History of present illness: Dr. Johnson Ms. Boggs is a 83 year old female Patient presented to the emergency room after being seen by Dr. Dodge outpatient for evaluation of falls. She is a resident at [facility]. She has had several falls, resulting in a lumbar compression fracture as well as rib fractures. She had recent diagnosis of UTI. During evaluation at the office, patient's lung sounds were noted to be wet. She had a cough for several days and has history of COPD and pneumonia. In the emergency room patient's CBC showed a white count of 17.4, BMP was within normal limits. Urinalysis was negative for infection. Chest x-ray showed new airspace opacification in the right upper lobe possibly representing pneumonia. CT lumbar spine showed progressive compression fracture involving superior endplate of L1 with mild dorsal retropulsion. Significant central canal stenosis was not identified. There was new right transverse process fracture at L1 with non-displaced fracture involving the medial right 12th rib. Thoracic CT showed right medial left 11th and 12th rib fractures. Head CT showed no acute intracranial abnormality with age-appropriate atrophy and small vessel disease. Upon my evaluation, patient is resting in the hospital bed. She is sleeping but is arousable. She denies pain, nausea and vomiting. I asked her about her CODE STATUS, she stated that that the difficult question. We called the [facility] where she resides and they indicated that she is DNR CCA. Discharge discussed with: patient - Time Spent with Patient Total time spent providing and/or coordinating discharge services: Greater than 30 minutes - Discharge Medications Home Medications: Oxygen 4 l .ROUTE AD 06/04/16 [History] Carvedilol [Coreg] 6.25 mg PO BID 12/05/16 [History] Montelukast [Singulair] 10 mg PO QPM 12/05/16 [History] Albuterol Neb [Proventil Neb] 2.5 mg IH TID PRN 08/02/17 [History] Albuterol Sulfate [Proair Hfa] 2 puff IH Q4H PRN 08/02/17 [History] Cholecalciferol (D-3) [Vitamin D] 1,000 unit PO BID 08/02/17 [History] amLODIPine [Norvasc] 2.5 mg PO QPM 08/02/17 [History] Tramadol HCl [Ultram] 50 mg PO TID PRN 3 Days #21 tab 09/02/17 [Rx] Gabapentin [Neurontin] 600 mg PO HS 02/02/18 [History] Ipratropium/Albuterol Sulfate [Iprat-Albut 0.5-3(2.5) mg/3 ml] 3 ml PO Q4H PRN 02/02/18 [History] Omeprazole [PriLOSEC] 20 mg PO DAILY 02/02/18 [History] Aspirin Enteric Coated [Aspirin EC] 81 mg PO DAILY #30 tablet. 02/03/18 [Rx] Acetaminophen [Tylenol] 500 mg PO 2-3XD PRN 03/08/18 [History] LORazepam [Ativan] 0.5 mg PO QPM PRN 03/08/18 [History] Allergies/Adverse Reactions: Allergy/AdvReac Type Severity Reaction Status Date / Time oxycodone [Oxycodone] AdvReac Confusion Verified 03/08/18 14:01 Date of admission: 03/17/18 18:51 Primary care physician: Chaz Cuellar MD Consults: 03/17/18 21:23 Consult to Occupational Therapy [CONS] Routine Comment: Evaluate, develop and implement POC Reason for Consult: Falls at senior care, resulting in rib fractures and spinal compression fractures. Does patient have active BEDREST order?: No Is patient medically & hemodynamically stable?: Yes Consult to Physical Therapy [CONS] Routine Comment: Evaluate, develop and implement POC Reason for Consult: Falls at senior care, resulting in rib fractures and spinal compression fractures. Does patient have active BEDREST order?: No Is patient medically & hemodynamically stable?: Yes 03/17/18 23:37 Consult to Nurse Navigator [CONS] Routine Comment: 03/18/18 08:38 Consult to Drugless Doctor [CONS] Routine Reason for SW Consult: return to [facility] 03/18/18 14:06 Consult to Invasive Line Access Team [CONS] Routine Reason for Consult: needs IV access for IV ATB Line Type: EPIV 03/21/18 12:18 Consult to Spine Navigator [CONS] [CONS] Routine Discharging clinician: Toyin O Oninku Anticipated date of discharge: 03/22/18 - Constitutional Vitals: Temp Pulse Resp BP Pulse Ox 97.5 F L 82 16 118/72 95 03/22/18 15:57 03/22/18 15:57 03/22/18 15:57 03/22/18 15:57 03/22/18 15:57 General appearance: Present: cooperative, A&O X 3, pleasant, no acute distress, answers questions appropriately Exam: General appearance: Present: cooperative, A&O X 3, pleasant, no acute distress, answers questions appropriately Exam: - Head Head exam: Present: normal inspection Throat: Raspy voice and sore throat better. No noted erythema or edema. - Eye Eye exam: Present: EOMI, normal appearance - Respiratory Respiratory exam: CTAB. Absent: chest wall tenderness, respiratory distress, wheezes - Cardiovascular Cardiovascular exam: Present: RRR. Absent: diastolic murmur, systolic murmur - GI/Abdominal GI/Abdominal exam: Present: normal bowel sounds, soft. Absent: tenderness - Extremities Exam Extremities exam: Present: warm, radial pulses palpable and symmetrical. Absent: pedal edema, tenderness - Neurological Exam Neurological exam: Present: no focal deficits, strengths equal and symetr throughout. Absent: motor sensory deficit, facial droop, speech deficit - Skin Skin exam: Present: dry, normal color. Absent: warm - Patient Status Disposition: Transfer SNF Condition: Fair Overall status at discharge: patient is progressing back to baseline - Discharge Instructions Follow Up With: Chaz Cuellar MD [Primary Care Provider] - 04/07/18 10:00 am (Office location has been moved to [address] [place] [address] and three businesses behind the [facility]. ) Forms: ED Satisfaction Letter - Diet and Activity Activity: as per physical therapy Diet: diabetic diet, low fat, low cholesterol, low salt diet
--- NOTE | 2018-03-22 16:38 | Physician Discharge Referral ---
ExtendedCare Referral Info Provider in Charge after Transfer: PCP Institutional Level of Care: Skilled - Diagnosis (1) HCAP (healthcare-associated pneumonia) Priority: Primary Status: Acute (2) Respiratory syncytial virus Status: Acute (3) Leukocytosis Status: Chronic (4) Compression fracture of L1 lumbar vertebra Status: Acute (5) Frequent falls Status: Acute (6) Rib fractures Status: Acute - Transfer Medications Home Medications: Oxygen 4 l .ROUTE AD 06/04/16 [History] Carvedilol [Coreg] 6.25 mg PO BID 12/05/16 [History] Montelukast [Singulair] 10 mg PO QPM 12/05/16 [History] Albuterol Neb [Proventil Neb] 2.5 mg IH TID PRN 08/02/17 [History] Albuterol Sulfate [Proair Hfa] 2 puff IH Q4H PRN 08/02/17 [History] Cholecalciferol (D-3) [Vitamin D] 1,000 unit PO BID 08/02/17 [History] amLODIPine [Norvasc] 2.5 mg PO QPM 08/02/17 [History] Tramadol HCl [Ultram] 50 mg PO TID PRN 3 Days #21 tab 09/02/17 [Rx] Gabapentin [Neurontin] 600 mg PO HS 02/02/18 [History] Ipratropium/Albuterol Sulfate [Iprat-Albut 0.5-3(2.5) mg/3 ml] 3 ml PO Q4H PRN 02/02/18 [History] Omeprazole [PriLOSEC] 20 mg PO DAILY 02/02/18 [History] Aspirin Enteric Coated [Aspirin EC] 81 mg PO DAILY #30 tablet.dr 02/03/18 [Rx] Acetaminophen [Tylenol] 500 mg PO 2-3XD PRN 03/08/18 [History] LORazepam [Ativan] 0.5 mg PO QPM PRN 03/08/18 [History] Allergies/Adverse Reactions: Allergy/AdvReac Type Severity Reaction Status Date / Time oxycodone [Oxycodone] AdvReac Confusion Verified 03/08/18 14:01 - Respiratory Orders Smoking Cessation: Smoking cessation has been advised. For more information, call the [employer] Quit Line at 6-807-UDDH-NOW. - Advance Directives Code Status: DNR-Arrest/Don't Intubate - Rehabiliation Orders Rehab Orders: Evaluation for Physical Therapy, Evaluation for Occupational Therapy - Diet Orders No Concentrated Sweets, Cardiac CERTIFICATION: I certify that the transfer of the above named patient to an Extended Care Facility is necessary for the continuing treatment of the diagnosis listed. The above information is true and accurate reflection of patient's current condition. Confidential - Redisclosure prohibited without a patient's written consent.
[2018-03-22] MEDS: amLODIPine 5 MG TABLET PO SCH (17:27)
[2018-03-22] MEDS ORDERED: Aminoglycoside Consult 1 EACH MC ONE (18:46)
[2018-03-23] MEDS ORDERED: levoFLOXacin 750 MG TABLET PO SCH (09:00)
== END 2018-03-22 18:47 | DRG 871 ==
LOC: EMEROOARM 16:46 → 2ANU 16:46
PROVIDERS: ADMIT Hospitalist; ATTEND Hospitalist

== ENCOUNTER 2018-06-04 23:07 | Inpatient (IN) ==
[2018-06-04] MEDS ORDERED: Ipratropium/Albuterol Neb 3 ML IH ONE (23:15)
--- NOTE | 2018-06-04 23:23 | Emergency Department Note ---
Disposition Clinical Impression: Hypoxia Pneumonia Qualifiers: Pneumonia type: due to unspecified organism Laterality: left Lung location: lower lobe of lung Qualified Code(s): J18.1 - Lobar pneumonia, unspecified orga nism Falls Qualifiers: Encounter type: initial encounter Qualified Code(s): W19.XXXA - Unspecified fall, initial encounter Acute and chronic respiratory failure ([id number]) Qualifiers: Respiratory failure complication: unspecified whether with hypoxia or hypercapn ia Qualified Code(s): J96.20 - Acute and chronic respiratory failure, unspe cified whether with hypoxia or hypercapnia Disposition: Admitted As Inpatient Condition: Fair Time of Disposition: 04:12 SOB HPI - General Stated Complaint: DIPESH, possible fall Time Seen by Provider: 06/04/18 23:14 Nursing Notes Reviewed: Yes Vital Signs Reviewed: Yes - History of Present Illness 83-year-old female presents from home via EMS for evaluation of shortness of breath. History of COPD requiring 4 L baseline oxygen continuous. She has a productive cough with white/yellow tinged sputum. This is been ongoing for the last several days. She is unable to provide a specific time course. Patient has also fallen 3 times in the past week. Most recently was yesterday. She did hit her head on her oxygen tank. No loss of consciousness. Patient notes her son 2 years ago and has been struggling since. PMH: COPD, history of pneumonia, history of falls, no history of right-sided rib fractures ROS: Positive: Dyspnea, fall Negative: Headache, changes in vision, neck pain, back pain, focal numbness or tingling or weakness, confusion. No chest pains, palpitations, diaphoresis. No abdominal pain, dysuria, or change in bowel. - Related Data Home Medications Medication Instructions Recorded Confirmed Oxygen 4 l .ROUTE AD 06/04/16 03/17/18 Carvedilol [Coreg] 6.25 mg PO BID 12/05/16 03/17/18 Montelukast [Singulair] 10 mg PO QPM 12/05/16 06/05/18 Albuterol Neb [Proventil Neb] 2.5 mg IH TID PRN 08/02/17 03/17/18 Albuterol Sulfate [Proair Hfa] 2 puff IH Q4H PRN 08/02/17 03/17/18 Cholecalciferol (D-3) [Vitamin D] 1,000 unit PO BID 08/02/17 06/05/18 amLODIPine [Norvasc] 2.5 mg PO QPM 08/02/17 06/05/18 Gabapentin [Neurontin] 600 mg PO HS 02/02/18 06/05/18 Ipratropium/Albuterol Sulfate 3 ml PO Q4H PRN 02/02/18 03/17/18 [Iprat-Albut 0.5-3(2.5) mg/3 ml] Omeprazole [PriLOSEC] 20 mg PO DAILY 02/02/18 06/05/18 Acetaminophen [Tylenol] 500 mg PO 2-3XD PRN 03/08/18 03/17/18 LORazepam [Ativan] 0.5 mg PO QPM PRN 03/08/18 06/05/18 HYDROcodone/Acet 5/325 mg [Gardiner 1 tab PO TID 06/05/18 06/05/18 5-325 mg] Previous Rx's Medication Instructions Recorded Aspirin Enteric Coated [Aspirin EC] 81 mg PO DAILY #30 tablet. 02/03/18 Tramadol HCl [Ultram] 50 mg PO TID PRN 3 Days #21 tab 03/22/18 Allergies Allergy/AdvReac Type Severity Reaction Status Date / Time oxycodone [Oxycodone] AdvReac Confusion Verified 05/05/18 13:03 All systems ED: reviewed and negative except as stated. 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 Head: atraumatic, normocephalic Eye: normal appearance, PERRL, EOMI, no scleral icterus, no conjunctival inj ection ENT: mucous membranes moist, normal external ear exam Neck: normal inspection, trachea midline, full ROM Chest: normal inspection, symmetric chest rise Respiratory: Poor respiratory effort. Bilateral breath sounds are diminished without focal wheeze, crackles, rhonchi. Cardiovascular: Regular rate and rhythm. No clicks, rubs, gallops, or murmors. Normal heart sounds. Abdomen: Scaphoid. Bowel sounds present normoactive. Abdomen is soft, nondistended, and nontender. No guarding or rebound. No organomegaly noted. Musculoskeletal: Spontaneously moving all extremities. Skin: warm, dry, intact. Neuro: GCS 15. No focal neurologic deficits observed. Psych: Patient's affect is flat. Course Course Narrative: EKG dated 06/04/2018 at 23:22 interpreted as sinus rhythm with rate of 78. There was 72, QRS 82, 47. Normal axis. Nonspecific ST-T changes. Compared to previous EKG dated 03/17/2018 showing no acute ischemic changes comparison. Clinical suspicion is possible acute exacerbation of COPD versus pneumonia or combination of both. Patient symptomatically felt better after DuoNeb breathing treatments. CT head is unremarkable. X-ray chest shows left lower pneumonia. Will cover with empiric ceftriaxone and azithromycin. I discussed the above with the patient. She is agreeable to admission. I discussed the above with the admitting hospitalist, Dr. Rivera, who agrees to accept the patient given her history of recent falls, acute on chronic respiratory failure, community-acquired pneumonia. Chest X-Ray 06/04/18 23:14 IMPRESSION: Increasing consolidation at the left lung base, compatible with pneumonia versus aspiration. D/ / Sergio Cornejo MD / Sergio Cornejo MD Interpreting Provider: Sergio Cornejo MD Head CT 06/05/18 00:01 IMPRESSION: No acute intracranial abnormality or significant interval change from prior study 03/17/2018. D/ / Ramiro Bello / Ramiro Bello Interpreting Provider: Ramiro Bello Vital Signs Temperature 98.1 F 06/04/18 23:16 Pulse Rate 81 06/04/18 23:16 Respiratory Rate 18 06/04/18 23:16 Blood Pressure 111/63 06/04/18 23:16 O2 Sat by Pulse Oximetry 97 06/04/18 23:16 Temperature 98.1 F 06/04/18 23:16 Pulse Rate 87 06/05/18 01:00 Respiratory Rate 18 06/05/18 03:16 Blood Pressure 108/68 06/05/18 03:16 O2 Sat by Pulse Oximetry 97 06/05/18 01:00 Oxygen Delivery Oxygen Delivery Room Air Shortness of Breath/Dyspnea - Lab Data Result diagrams: 06/04/18 23:26 06/04/18 23:26 Lab Results 06/04/18 06/04/18 06/05/18 Range/Units 23:26 23:26 00:06 WBC 11.9 H (4.3-11.1) K/mcL RBC 3.67 L (3.82-4.97) M/mcL Hgb 10.2 L (11.5-15.4) g/dL Hct 33.0 L (35.3-44.9) % MCV 89.9 (83.0-100.0) fL MCH 27.8 L (28.0-33.3) pg MCHC 30.9 L (31.6-35.5) g/dL RDW 15.9 H (11.5-14.5) % Plt Count 347 (140-400) K/mcL MPV 11.3 (9.4-12.4) fL Immature Gran % 0.3 (0-4) % Seg Neutrophils % 64.6 % Lymphocytes % 19.2 % Monocytes % 8.9 % Eosinophils % 6.0 % Basophils % 1.0 % Neutrophils # 7.7 (1.6-8.9) K/mcL Lymphocytes # 2.3 (0.6-4.6) K/mcL Monocytes # 1.1 (0.0-1.3) K/mcL Eosinophils # 0.7 H (0.0-0.6) K/mcL Basophils # 0.1 (0.0-0.2) K/mcL Sodium 135 L (136-145) mEq/L Potassium 5.1 (3.5-5.1) mEq/L Chloride 104 (98-107) mEq/L Carbon Dioxide 25 (23-29) mEq/L BUN 25 H (8-23) mg/dL Creatinine 0.86 (0.60-1.20) mg/dL Est GFR ( Amer) > 60 (> 60) Est GFR (Non-Af Amer) > 60 (> 60) BUN/Creatinine Ratio 29 H (6-26) Glucose 87 (70-105) mg/dL Calculated Osmolality 284 (280-300) Lactic Acid (0.5-2.2) mmol/L Calcium 9.6 (8.6-10.3) mg/dL Troponin I (< 0.04) ng/mL B-Natriuretic Peptide (Less than 100) pg/mL Urine Color Yellow (Yellow) Urine Clarity Clear (Clear) Urine pH 7.0 (5.0-8.0) pH Units Ur Specific [place] 1.012 (1.010-1.025) Urine Protein Negative (Neg-Trace) mg/dL Urine Glucose (UA) Normal (Normal) mg/dL Urine Ketones Negative (Negative) mg/dL Urine Blood Negative (Negative) Urine Nitrite Negative (Negative) Urine Bilirubin Negative (Negative) Urine Urobilinogen Normal (Normal) mg/dL Ur Leukocyte Esterase Negative (Negative) Ur Culture Indicated? NO (NO) 06/05/18 06/05/18 06/05/18 Range/Units 00:41 00:41 00:41 WBC (4.3-11.1) K/mcL RBC (3.82-4.97) M/mcL Hgb (11.5-15.4) g/dL Hct (35.3-44.9) % MCV (83.0-100.0) fL MCH (28.0-33.3) pg MCHC (31.6-35.5) g/dL RDW (11.5-14.5) % Plt Count (140-400) K/mcL MPV (9.4-12.4) fL Immature Gran % (0-4) % Seg Neutrophils % % Lymphocytes % % Monocytes % % Eosinophils % % Basophils % % Neutrophils # (1.6-8.9) K/mcL Lymphocytes # (0.6-4.6) K/mcL Monocytes # (0.0-1.3) K/mcL Eosinophils # (0.0-0.6) K/mcL Basophils # (0.0-0.2) K/mcL Sodium (136-145) mEq/L Potassium (3.5-5.1) mEq/L Chloride (98-107) mEq/L Carbon Dioxide (23-29) mEq/L BUN (8-23) mg/dL Creatinine (0.60-1.20) mg/dL Est GFR ( Amer) (> 60) Est GFR (Non-Af Amer) (> 60) BUN/Creatinine Ratio (6-26) Glucose (70-105) mg/dL Calculated Osmolality (280-300) Lactic Acid 0.7 (0.5-2.2) mmol/L Calcium (8.6-10.3) mg/dL Troponin I < 0.03 (< 0.04) ng/mL B-Natriuretic Peptide 192 H (Less than 100) pg/mL Urine Color (Yellow) Urine Clarity (Clear) Urine pH (5.0-8.0) pH Units Ur Specific [place] (1.010-1.025) Urine Protein (Neg-Trace) mg/dL Urine Glucose (UA) (Normal) mg/dL Urine Ketones (Negative) mg/dL Urine Blood (Negative) Urine Nitrite (Negative) Urine Bilirubin (Negative) Urine Urobilinogen (Normal) mg/dL Ur Leukocyte Esterase (Negative) Ur Culture Indicated? (NO) Attestation Statement - Attestation Attestation: I, Manuel Albert DO, examined this patient [id number] and my medical decision-making was reviewed with Dr. Benson Khalil, Resident Physician. I agree with the documented findings, disposition and treatment plan as described except to the extent set forth below. Please see my progress notes for details.
[2018-06-05] LABS: Basophils # 0.1 K/mcL (0.0-0.2); Eosinophils # 0.7 K/mcL (0.0-0.6); Hemoglobin 10.2 g/dL (11.5-15.4); Immature Granulocytes % 0.3 % (0-4); Lymphocytes # 2.3 K/mcL (0.6-4.6); Lymphocytes % 19.2 %; Mean Corpuscular HGB Conc 30.9 g/dL (31.6-35.5); Mean Corpuscular Hemoglobin 27.8 pg (28.0-33.3); Mean Corpuscular Volume 89.9 fL (83.0-100.0); Mean Platelet Volume 11.3 fL (9.4-12.4); Monocytes # 1.1 K/mcL (0.0-1.3); Monocytes % 8.9 %; Neutrophils # 7.7 K/mcL (1.6-8.9); Platelet Count 347 K/mcL (140-400); Red Blood Count 3.67 M/mcL (3.82-4.97); Red Cell Distribution Width 15.9 % (11.5-14.5); Segmented Neutrophils % 64.6 %
[2018-06-05 00:09] LABS: BUN/Creatinine Ratio 29 (6-26); Blood Urea Nitrogen 25 mg/dL (8-23); Calcium 9.6 mg/dL (8.6-10.3); Carbon Dioxide 25 mEq/L (23-29); Chloride 104 mEq/L (98-107); Glucose 87 mg/dL (70-105); Osmolality,Calculated 284 (280-300); Potassium 5.1 mEq/L (3.5-5.1); Sodium 135 mEq/L (136-145); eGFR For Non-African Americans > 60 (> 60)
--- NOTE | 2018-06-05 00:10 | Emergency Department Note ---
Disposition Clinical Impression: Pneumonia, Hypoxia Disposition: Admitted As Inpatient Condition: Fair Time of Disposition: 03:00 General Adult HPI - General Chief complaint: ED Shortness of Breath/Dyspnea Stated complaint: DIPESH, possible fall Time Seen by Provider: 06/04/18 23:14 Source: patient, EMS Limitations: no limitations - History of Present Illness Pain Scale: 3 - Related Data Home Medications Medication Instructions Recorded Confirmed Oxygen 4 l .ROUTE AD 06/04/16 03/17/18 Carvedilol [Coreg] 6.25 mg PO BID 12/05/16 03/17/18 Montelukast [Singulair] 10 mg PO QPM 12/05/16 03/17/18 Albuterol Neb [Proventil Neb] 2.5 mg IH TID PRN 08/02/17 03/17/18 Albuterol Sulfate [Proair Hfa] 2 puff IH Q4H PRN 08/02/17 03/17/18 Cholecalciferol (D-3) [Vitamin D] 1,000 unit PO BID 08/02/17 03/17/18 amLODIPine [Norvasc] 2.5 mg PO QPM 08/02/17 03/17/18 Gabapentin [Neurontin] 600 mg PO HS 02/02/18 03/17/18 Ipratropium/Albuterol Sulfate 3 ml PO Q4H PRN 02/02/18 03/17/18 [Iprat-Albut 0.5-3(2.5) mg/3 ml] Omeprazole [PriLOSEC] 20 mg PO DAILY 02/02/18 03/17/18 Acetaminophen [Tylenol] 500 mg PO 2-3XD PRN 03/08/18 03/17/18 LORazepam [Ativan] 0.5 mg PO QPM PRN 03/08/18 03/17/18 Previous Rx's Medication Instructions Recorded Aspirin Enteric Coated [Aspirin EC] 81 mg PO DAILY #30 tablet. 02/03/18 Tramadol HCl [Ultram] 50 mg PO TID PRN 3 Days #21 tab 03/22/18 levoFLOXacin [Levaquin] 750 mg PO DAILY tablet 03/22/18 Allergies Allergy/AdvReac Type Severity Reaction Status Date / Time oxycodone [Oxycodone] AdvReac Confusion Verified 05/05/18 13:03 Past Medical History - Past Medical History Medical history: Reports: arthritis, COPD, GERD, hyperlipidemia, hypertension, osteoporosis, other Surgical history: Reports: cataract, cholecystectomy, orthopedic, other, other, appendectomy Psychiatric history: Reports: anxiety KITCHEN RUNNER history: Reports: no KITCHEN RUNNER history - Social History Smoking Status: Never smoker Smokeless Tobacco Status: No Alcohol use: Reports: none Drug use: Reports: none Physical Exam - General Limitations: no limitations General appearance: alert Course Vital Signs Temperature 98.1 F 06/04/18 23:16 Pulse Rate 81 06/04/18 23:16 Respiratory Rate 18 06/04/18 23:16 Blood Pressure 111/63 06/04/18 23:16 O2 Sat by Pulse Oximetry 97 06/04/18 23:16 Temperature 98.1 F 06/04/18 23:16 Pulse Rate 87 06/05/18 01:00 Respiratory Rate 20 06/05/18 01:00 Blood Pressure 122/89 06/05/18 01:00 O2 Sat by Pulse Oximetry 97 06/05/18 01:00 Oxygen Delivery Oxygen Delivery Nasal Cannula Medical Decision Making - Lab Data Result diagrams: 06/04/18 23:26 06/04/18 23:26 Lab Results 06/04/18 06/04/18 06/05/18 Range/Units 23:26 23:26 00:06 WBC 11.9 H (4.3-11.1) K/mcL RBC 3.67 L (3.82-4.97) M/mcL Hgb 10.2 L (11.5-15.4) g/dL Hct 33.0 L (35.3-44.9) % MCV 89.9 (83.0-100.0) fL MCH 27.8 L (28.0-33.3) pg MCHC 30.9 L (31.6-35.5) g/dL RDW 15.9 H (11.5-14.5) % Plt Count 347 (140-400) K/mcL MPV 11.3 (9.4-12.4) fL Immature Gran % 0.3 (0-4) % Seg Neutrophils % 64.6 % Lymphocytes % 19.2 % Monocytes % 8.9 % Eosinophils % 6.0 % Basophils % 1.0 % Neutrophils # 7.7 (1.6-8.9) K/mcL Lymphocytes # 2.3 (0.6-4.6) K/mcL Monocytes # 1.1 (0.0-1.3) K/mcL Eosinophils # 0.7 H (0.0-0.6) K/mcL Basophils # 0.1 (0.0-0.2) K/mcL Sodium 135 L (136-145) mEq/L Potassium 5.1 (3.5-5.1) mEq/L Chloride 104 (98-107) mEq/L Carbon Dioxide 25 (23-29) mEq/L BUN 25 H (8-23) mg/dL Creatinine 0.86 (0.60-1.20) mg/dL Est GFR ( Amer) > 60 (> 60) Est GFR (Non-Af Amer) > 60 (> 60) BUN/Creatinine Ratio 29 H (6-26) Glucose 87 (70-105) mg/dL Calculated Osmolality 284 (280-300) Lactic Acid (0.5-2.2) mmol/L Calcium 9.6 (8.6-10.3) mg/dL Troponin I (< 0.04) ng/mL B-Natriuretic Peptide (Less than 100) pg/mL Urine Color Yellow (Yellow) Urine Clarity Clear (Clear) Urine pH 7.0 (5.0-8.0) pH Units Ur Specific Portal 1.012 (1.010-1.025) Urine Protein Negative (Neg-Trace) mg/dL Urine Glucose (UA) Normal (Normal) mg/dL Urine Ketones Negative (Negative) mg/dL Urine Blood Negative (Negative) Urine Nitrite Negative (Negative) Urine Bilirubin Negative (Negative) Urine Urobilinogen Normal (Normal) mg/dL Ur Leukocyte Esterase Negative (Negative) Ur Culture Indicated? NO (NO) 06/05/18 06/05/18 06/05/18 Range/Units 00:41 00:41 00:41 WBC (4.3-11.1) K/mcL RBC (3.82-4.97) M/mcL Hgb (11.5-15.4) g/dL Hct (35.3-44.9) % MCV (83.0-100.0) fL MCH (28.0-33.3) pg MCHC (31.6-35.5) g/dL RDW (11.5-14.5) % Plt Count (140-400) K/mcL MPV (9.4-12.4) fL Immature Gran % (0-4) % Seg Neutrophils % % Lymphocytes % % Monocytes % % Eosinophils % % Basophils % % Neutrophils # (1.6-8.9) K/mcL Lymphocytes # (0.6-4.6) K/mcL Monocytes # (0.0-1.3) K/mcL Eosinophils # (0.0-0.6) K/mcL Basophils # (0.0-0.2) K/mcL Sodium (136-145) mEq/L Potassium (3.5-5.1) mEq/L Chloride (98-107) mEq/L Carbon Dioxide (23-29) mEq/L BUN (8-23) mg/dL Creatinine (0.60-1.20) mg/dL Est GFR ( Amer) (> 60) Est GFR (Non-Af Amer) (> 60) BUN/Creatinine Ratio (6-26) Glucose (70-105) mg/dL Calculated Osmolality (280-300) Lactic Acid 0.7 (0.5-2.2) mmol/L Calcium (8.6-10.3) mg/dL Troponin I < 0.03 (< 0.04) ng/mL B-Natriuretic Peptide 192 H (Less than 100) pg/mL Urine Color (Yellow) Urine Clarity (Clear) Urine pH (5.0-8.0) pH Units Ur Specific Portal (1.010-1.025) Urine Protein (Neg-Trace) mg/dL Urine Glucose (UA) (Normal) mg/dL Urine Ketones (Negative) mg/dL Urine Blood (Negative) Urine Nitrite (Negative) Urine Bilirubin (Negative) Urine Urobilinogen (Normal) mg/dL Ur Leukocyte Esterase (Negative) Ur Culture Indicated? (NO) Attestation Statement - Attestation Attestation: I, Manuel Albert DO, examined this patient [id number] and my medical decision-making was reviewed with Dr. Benson Khalil, Resident Physician. I agree with the documented findings, disposition and treatment plan as described except to the extent set forth below. Please see my progress notes for details. 83-year-old female presents emergency room for evaluation of described shortness of breath and weakness. Patient did fall and hit her head several different ti mes of the last few days. EMS transported with no issues or vital sign abnormalities. Patient is denying chest pain or shortness of breath on arrival. Denies any fevers or chills. No nausea vomiting or diarrhea. No headache or vision change. No signs of trauma or injury at this point. Denies any nausea vomiting or diarrhea. No fevers or chills. Patient has been taking all of her home medications as prescribed. She is otherwise clinically stable. Head is atraumatic. Pupils are equal and reactive. Vital signs are stable. Oropharynx is patent. Trachea is midline. She has full range of motion of the neck. She has no tenderness or deformity to the chest wall or upper extremities. Heart is regular. Lungs are clear. Abdomen is soft. Lower extremities are normal with no signs of pitting edema or swelling. Patient is describing no complaints or symptoms at this time. Concern is noted for possible dementia versus infectious etiology. His generalized malaise and weakness. Workup including CT the head chest x-ray CBC chemistry urinalysis troponin electrolytes will be col lected and completed at this time. Family will be consult once that arrived. Patient is otherwise clinically stable and in no distress and initial presentation. See detailed documentation the physical exam, medical intervention, medical decision-making and the resident physician's note. No critical care provider the patient's treatment course at this time. [id number] Patient found to have a left-sided pneumonia. Lactic acid was added on as well as blood cultures. Antibiotic regimen was started. Patient has what appears to be hypoxia secondary to progressive pneumonia. We will treat the patient for community acquired pneumonia and admitted to the hospital for respiratory support. Vision family are informed and they are comfortable this plan. Patient is otherwise in no acute distress resting comfortably in the bed. The hospitalist Dr. rico reviewed the case and no other questions or concerns. Patient will be monitored here in the emergency department until the admission process is completed.
[2018-06-05] MEDS ORDERED: methylPREDNISolone 125 MG/2 ML VIAL IVP ONE (00:33)
[2018-06-05] MEDS ORDERED: Azithromycin 500 MG in D5% in Water 250 ML IVPB SCH (01:00)
[2018-06-05] MEDS ORDERED: cefTRIAXone 2,000 MG in Water for inj. (sterile) 20 ML 20 ML IVP SCH (01:00)
[2018-06-05 01:04] LABS: Bilirubin,Urine Negative (Negative); Blood,Urine Negative (Negative); Clarity,Urine Clear (Clear); Color,Urine Yellow (Yellow); Glucose,Urine (UA) Normal (Normal); Ketones,Urine Negative (Negative); Leukocyte Esterase,Urine Negative (Negative); Nitrite,Urine Negative (Negative); Protein,Urine Negative (Neg-Trace); Specific Gravity,Urine 1.012 (1.010-1.025); Urobilinogen,Urine Normal (Normal)
--- NOTE | 2018-06-05 04:25 | Internal Med History&Physical ---
<Tatianna Abbott - Last Filed: 06/05/18 07:42> Date of Encounter: 06/05/18 Time of Encounter: 03:46 Internal Medicine - H&P: HPI Chief complaint: shortness of breath Admitted From: Emergency Dept Plans for Post Hospital Care: Home History of present illness: Ms. Boggs is a 83 year old female who presented to the emergency department from home via EMS with complaint of shortness of breath. She has a past medical history of arthritis, COPD on home oxygen, GERD, hypertension, hyperlipidemia, osteoporosis, anxiety. Patient states that she has been having productive cough with shortness of breath for the past 2 weeks. Patient states that she is short of breath at rest and it worsens with exertion, she was previously on 3 L continuously at home oxygen but has to increased to 4 L. She also admits to fevers and chills, generalized achiness, productive cough, and weakness. The patient also admits to frequent falls for the past few months. Over the past week she has had 3 falls, per the patient's son she had a fall yesterday where she hit her head on her oxygen tank. The patient states that she always walks with her walker and that she typically falls while she is walking with a walker, she denies tripping over things anything or feeling dizzy before falling, she does state that she just feels overall weak. She also admits to 30 pound weight loss since March where she was hospitalized for pneumonia and then had a stay for rehabilitation in a care home. After that she return to living alone at home. She admits to fever, chills, chronic baseline headache, chronic joint ainsley n, cough, occasional pleuritic pain, incontinence, weakness. She denies nausea, vomiting, hearing or vision changes, nasal congestion, pharyngitis, dysphagia, chest pain, hemoptysis, abdominal pain, diarrhea, constipation, melena, dysuria, hematuria, calf pain, edema. Past Med Surg Social Fam HX - Past Medical History Medical history: arthritis, COPD, GERD, hyperlipidemia, hypertension, osteoporosis, other Additional medical history: home 02 Psychiatric history: anxiety - Past Surgical History Surgical History: cataract, cholecystectomy, orthopedic, other, other, appendectomy Additional surgical history: bilat hip replacement; reverse shoulder; back fusion; multiple fractures throughout body - Social History Smoking Status: Never smoker Smokeless Tobacco Status: No Alcohol use: none Drug use: none - Family History Son Family Member Ethnicity: Non- Living Status: (Metastatic Lung Cancer) Mother Family Member Ethnicity: Non- Living Status: Hx Family Cancer: Yes (unknown) Father Family Member Ethnicity: Non- Living Status: Brother Family Member Ethnicity: Non- Living Status: Sister Family Member Ethnicity: Non- Living Status: Hx Family Cancer: Yes (Unknown) Daughter Family Member Ethnicity: Non- Living Status: Still Living Hx Family Cardiac Disorders: Yes (High cholesterol) Internal Medicine - H&P: Meds Oxygen 4 l .ROUTE AD 06/04/16 [History] Carvedilol [Coreg] 6.25 mg PO BID 12/05/16 [History] Montelukast [Singulair] 10 mg PO QPM 12/05/16 [History] Albuterol Neb [Proventil Neb] 2.5 mg IH TID PRN 08/02/17 [History] Albuterol Sulfate [Proair Hfa] 2 puff IH Q4H PRN 08/02/17 [History] Cholecalciferol (D-3) [Vitamin D] 1,000 unit PO BID 08/02/17 [History] amLODIPine [Norvasc] 2.5 mg PO QPM 08/02/17 [History] Gabapentin [Neurontin] 600 mg PO HS 02/02/18 [History] Ipratropium/Albuterol Sulfate [Iprat-Albut 0.5-3(2.5) mg/3 ml] 3 ml PO Q4H PRN 02/02/18 [History] Omeprazole [PriLOSEC] 20 mg PO DAILY 02/02/18 [History] Aspirin Enteric Coated [Aspirin EC] 81 mg PO DAILY #30 tablet.dr 02/03/18 [Rx] Acetaminophen [Tylenol] 500 mg PO 2-3XD PRN 03/08/18 [History] LORazepam [Ativan] 0.5 mg PO QPM PRN 03/08/18 [History] Tramadol HCl [Ultram] 50 mg PO TID PRN 3 Days #21 tab 03/22/18 [Rx] HYDROcodone/Acet 5/325 mg [Godwin 5-325 mg] 1 tab PO TID 06/05/18 [History] Allergy/AdvReac Type Severity Reaction Status Date / Time oxycodone [Oxycodone] AdvReac Confusion Verified 05/05/18 13:03 All Systems PM: A 10-system review of systems was performed and is negative for pertinent findings except as documented above in the HPI. - Constitutional Constitutional: chills, fatigue, fever(s), falls, weight loss - EENT Eyes: no change in vision Ears: no decreased hearing Nose, mouth and throat: no dysphagia, no nasal congestion, no neck pain, no sinus pressure, no sore throat - Cardiovascular Cardiovascular ROS IM: dyspnea, dyspnea on exertion, lightheadedness, no chest pain, no diaphoresis, no edema, no syncope - Respiratory Respiratory: cough, dyspnea, dyspnea on exertion, pain on inspiration, excessive phlegm production, pain with cough, no hemoptysis, no wheezing - Gastrointestinal Gastrointestinal: no abdominal pain, no constipation, no diarrhea, no dysphagia, no hematochezia, no loose stools, no melena, no nausea, no vomiting - Genitourinary Genitourinary: urinary incontinence, no dysuria, no hematuria, no urinary frequency, no urinary hesitancy - Musculoskeletal Musculoskeletal ROS IM: arthralgias, myalgias - Integumentary Integumentary IM: sores, no rash - Neurological Neurological ROS: dizziness, frequent falls, headache(s), weakness, no confusion, no numbness - Psychiatric Psychiatric: no anxiety, no depression - Endocrine Endocrine IM: fatigue, no cold intolerance, no excessive sweating - Hematologic/Lymphatic Hematologic/Lymphatic: no easy bleeding, no easy bruising - Constitutional Vitals: Temp Pulse Resp BP Pulse Ox 98.1 F 87 18 108/68 97 06/04/18 23:16 06/05/18 01:00 06/05/18 03:16 06/05/18 03:16 06/05/18 01:00 Exam: Gen.: Vitals noted. No acute distress. AAOx3, resting comfortably in bed. HEENT: PERRL/EOMI, oropharynx clear, Normocephalic, atraumatic, mucous membranes dry Neck: Supple. No adenopathy. Trachea midline. No cervical midline tenderness Cardiac: RRR, no murmur, +S1/S2, No BLE edema, radial and dorsal pedis pulses 2+ and symmetrical, capillary refill less than 2 seconds Pulmonary: Coarse breath sounds and expiratory wheezes bilaterally, no rales or rhonchi, equal chest expansion, unlabored breathing Abdomen: soft, nontender, BS noted, no guarding, no palpable HSM Back: Nontender throughout. Kyphosis and scoliosis noted Skin: warm and dry, stage I sacral decubitus ulcer present MSK: ROM intact, no joint swelling noted, gait no assessed while in bed. Non tender calf or clubbing Neuro: A&Ox3, moves all extremities, no focal deficits, legally blind, sensation intact, CN3-12 grossly intact Psych: Appropriate mood and behavior, AOx3 Internal Med - H&P Results - Labs CBC & Chem 7: 06/04/18 23:26 06/04/18 23:26 Labs: Short CBC 06/04/18 Range/Units 23:26 WBC 11.9 H (4.3-11.1) K/mcL Hgb 10.2 L (11.5-15.4) g/dL Hct 33.0 L (35.3-44.9) % Plt Count 347 (140-400) K/mcL Neutrophils # 7.7 (1.6-8.9) K/mcL BMP 06/04/18 23:26 Sodium 135 L Potassium 5.1 Chloride 104 Carbon Dioxide 25 BUN 25 H Creatinine 0.86 Glucose 87 Calcium 9.6 Cardiac Enzymes 06/05/18 Range/Units 00:41 Troponin I < 0.03 (< 0.04) ng/mL Urine 06/05/18 Range/Units 00:06 Urine Color Yellow (Yellow) Urine Clarity Clear (Clear) Urine pH 7.0 (5.0-8.0) pH Units Ur Specific [place] 1.012 (1.010-1.025) Urine Protein Negative (Neg-Trace) mg/dL Urine Glucose (UA) Normal (Normal) mg/dL - Impressions ITS Impressions Chest X-Ray 06/04/18 23:14 IMPRESSION: Increasing consolidation at the left lung base, compatible with pneumonia versus aspiration. D/ / Sergio Cornejo MD / Sergio Cornejo MD Interpreting Provider: Sergio Cornejo MD Head CT 06/05/18 00:01 IMPRESSION: No acute intracranial abnormality or significant interval change from prior study 03/17/2018. D/ / Ramiro Bello / Ramiro Bello Interpreting Provider: Ramiro Bello - Assessment and Plan (1) Acute and chronic respiratory failure Current Visit: Yes Status: Acute Assessment and plan: Patient has a history of COPD with chronic respiratory failure on 3 L nasal cannula continuous oxygen Patient has had 2 week duration of increasing shortness of breath, productive cough, fever, chills Per the patient, she has had to increase her home oxygen to 4 L continuously Secondary to left lower lobe pneumonia versus COPD exacerbation Continue treatment-DuoNeb, albuterol Continue Levaquin for anabiotic coverage Continue guafenesin Continue supplemental oxygen Continue monitor vital signs closely Labs pending-strep pneumonia urine antigen, Legionella and urine antigen, influenza antigen, respiratory infectious panel, sputum culture, blood cultures. Qualifiers: Respiratory failure complication: unspecified whether with hypoxia or hypercapnia Qualified Code(s): J96.20 - Acute and chronic respiratory failure, unspecified whether with hypoxia or hypercapnia (2) LLL pneumonia Current Visit: Yes Status: Acute Assessment and plan: Patient complains of worsening shortness of breath, productive cough, fever, chills as well as increased oxygen requirement Chest x-ray significant for increased consolidation of the left lower lung base Suspect that this is worsening respiratory status as well as COPD exacerbation Patient does not need any sirs criteria- WBC 11.9, afebrile, respiratory rate 1 5, heart rate 77 Lactic acid 0.7 Pending labs-influenza antigens, respiratory infection panel, sputum culture, strep pneumonia urine antigen, Legionella urine antigen, blood cultures pending Continuous pulse ox monitoring Incentive spirometry DuoNeb, albuterol Guaifenesin Levaquin Solu-Medrol 40 mg every 6 hours Continue monitor Qualifiers: Pneumonia type: due to unspecified organism Qualified Code(s): J18.1 - Lobar pneumonia, unspecified organism (3) COPD exacerbation Current Visit: Yes Status: Acute Assessment and plan: Patient has a history of COPD She has had increased oxygen requirement, normally 3 L of home oxygen, has increased to 4 L Suspect this is secondary to left lower lobe pneumonia Continue DuoNeb and albuterol Continue supplemental oxygen Solu-Medrol 40 mg every 6 Respiratory support as needed (4) Weakness Current Visit: No Status: Acute Assessment and plan: Patient states that she has had generalized weakness for the past several months Most likely secondary to deconditioning Patient has had several recent falls while walking with her walker Per the patient's son, she struck her head upon oxygen tank yesterday Head CT showed no acute intracranial abnormality or significant interval change from prior Fall precautions PT OT consulted Up with assist (5) HTN (hypertension) Current Visit: Yes Status: Chronic Assessment and plan: History of hypertension Continue home medication amlodipine Continue to monitor Qualifiers: Hypertension type: essential hypertension Qualified Code(s): I10 - Essential (primary) hypertension (6) GERD (gastroesophageal reflux disease) Current Visit: Yes Status: Chronic Assessment and plan: History of GERD Continue home medication omeprazole Qualifiers: Esophagitis presence: without esophagitis Qualified Code(s): K21.9 - Gastro-esophageal reflux disease without esophagitis (7) Ulcer of sacral region, stage 1 Current Visit: Yes Status: Acute Assessment and plan: Stage I sacral decubitus ulcer present Avoid irritation with urine Continue routine nursing care Turn patient frequently to offload sacral ulcer (8) Urinary bladder incontinence Current Visit: Yes Status: Acute Assessment and plan: History of urinary incontinence Concern for further irritation of stage I sacral decubitus ulcer Also high risk for falls secondary to generalized weakness Will do [place] catheter Qualifiers: Urinary Incontinence type: unspecified incontinence Qualified Code(s): R32 - Unspecified urinary incontinence (9) DVT prophylaxis Current Visit: Yes Status: Acute Assessment and plan: Subcutaneous heparin - Time Spent With Patient Total time spent is greater than 50% in coordination of care (as documented) at patient's floor/unit and/or counseling patient: 25 - 35 minutes <Usama Giles - Last Filed: 06/05/18 08:16> Date of Encounter: 06/05/18 Internal Medicine - H&P: HPI History of present illness: Ms. Boggs is a 83 year old female All Systems PM: A 10-system review of systems was performed and is negative for pertinent findings except as documented above in the HPI. - Constitutional Vitals: Temp Pulse Resp BP Pulse Ox 98.6 F 87 16 117/68 93 06/05/18 07:10 06/05/18 07:10 06/05/18 07:10 06/05/18 07:10 06/05/18 07:10 Internal Med - H&P Results - Labs CBC & Chem 7: 06/04/18 23:26 06/04/18 23:26 Labs: Short CBC 06/04/18 Range/Units 23:26 WBC 11.9 H (4.3-11.1) K/mcL Hgb 10.2 L (11.5-15.4) g/dL Hct 33.0 L (35.3-44.9) % Plt Count 347 (140-400) K/mcL Neutrophils # 7.7 (1.6-8.9) K/mcL BMP 06/04/18 23:26 Sodium 135 L Potassium 5.1 Chloride 104 Carbon Dioxide 25 BUN 25 H Creatinine 0.86 Glucose 87 Calcium 9.6 Cardiac Enzymes 06/05/18 Range/Units 00:41 Troponin I < 0.03 (< 0.04) ng/mL Urine 06/05/18 Range/Units 00:06 Urine Color Yellow (Yellow) Urine Clarity Clear (Clear) Urine pH 7.0 (5.0-8.0) pH Units Ur Specific [place] 1.012 (1.010-1.025) Urine Protein Negative (Neg-Trace) mg/dL Urine Glucose (UA) Normal (Normal) mg/dL - Impressions ITS Impressions Chest X-Ray 06/04/18 23:14 IMPRESSION: Increasing consolidation at the left lung base, compatible with pneumonia versus aspiration. D/ / Sergio Cornejo MD / Sergio Cornejo MD Interpreting Provider: Sergio Cornejo MD Head CT 06/05/18 00:01 IMPRESSION: No acute intracranial abnormality or significant interval change from prior study 03/17/2018. D/ / Ramiro Bello / Ramiro Bello Interpreting Provider: Ramiro Bello - Time Spent With Patient Total time spent is greater than 50% in coordination of care (as documented) at patient's floor/unit and/or counseling patient: - Attending Attestation I performed a history and physical examination of the patient and discussed her management with the resident. I reviewed the resident's note and agree with the assessment and plan of care. Will admit patient for possible community- acquired pneumonia/COPD exacerbation.
[2018-06-05] MEDS ORDERED: Naloxone 0.4 MG/ML INJ IVP PRN (04:29)
[2018-06-05] MEDS ORDERED: NON-FORMULARY MEDICATION 1 EACH EACH (Oxygen [Oxygen] 4 L) SCH (04:45)
[2018-06-05] MEDS ORDERED: Albuterol 2.5 MG/3 ML NEBULIZER IH PRN (04:50)
[2018-06-05] MEDS ORDERED: MethylPREDNISolone 40 MG/ML VIAL IVP SCH (06:00)
[2018-06-05] MEDS ORDERED: 0.9 % Sodium Chloride 1,000 ML IVC SCH (06:00)
[2018-06-05] MEDS: *HR* Heparin 5,000 UNIT/ML VIAL SQ SCH ×2 (06:42→17:51)
[2018-06-05] MEDS ORDERED: predniSONE 20 MG TABLET PO SCH (09:00)
[2018-06-05] MEDS ORDERED: Levofloxacin 750 MG/150 ML 750 MG/150 ML BAG IVPB SCH (09:00)
[2018-06-05] MEDS: Aspirin Enteric Coated 81 MG Tablet PO SCH (09:28)
[2018-06-05] MEDS: Ipratropium/Albuterol Neb 3 ML IH SCH ×4 (10:29→22:20)
[2018-06-05] MEDS: Ondansetron 4 MG/2 ML VIAL IVP PRN ×2 (14:08→19:51)
--- NOTE | 2018-06-05 15:19 | Event Note ---
Date of Encounter: 06/05/18 Time of Encounter: 09:00 Patient still complaining of cough and shortness of breath. Slightly improved after treatment. No fever On exam, bilateral lung has coarse breath sound, no wheezing or rhonchi. Heart rate regular, no murmur. Patient has no pedal edema. Patient is AAO 3. a/p: Pneumonia: Continue treatment with azithromycin and Rocephin. Continue supportive treatment. COPD exacerbation: No wheezing at this point. Continue antibiotics, by mouth steroids, and bronchodilator.
[2018-06-05 17:18] LABS: Adenovirus Not Detected (Not Detect); Bordetella Pertussis Not Detected (Not Detect); Chlamydophila pneumoniae Not Detected (Not Detect); Coronavirus 229E Not Detected (Not Detect); Coronavirus HKU1 Not Detected (Not Detect); Coronavirus NL63 Not Detected (Not Detect); Coronavirus OC43 Not Detected (Not Detect); Human Metapneumovirus Not Detected (Not Detect); Human Rhinovirus/Enterovirus Not Detected (Not Detect); Influenza A Subtype 2009 H1 Not Detected (Not Detect); Influenza A Untypeable Not Detected (Not Detect); Influenza B Not Detected (Not Detect); Mycoplasma pneumoniae Not Detected (Not Detect); Parainfluenza Virus 1 Not Detected (Not Detect); Parainfluenza Virus 2 Not Detected (Not Detect); Parainfluenza Virus 3 Not Detected (Not Detect); Parainfluenza Virus 4 Not Detected (Not Detect); Respiratory Syncytial Virus Not Detected (Not Detect)
[2018-06-05] MEDS: amLODIPine 5 MG TABLET PO SCH (17:51)
[2018-06-05] MEDS ORDERED: Acetaminophen 325 MG TABLET PO ONE (19:49)
[2018-06-05] MEDS: Gabapentin 300 MG CAPSULE PO SCH (19:51)
[2018-06-06] MEDS: cefTRIAXone 1,000 MG in Water for inj. (sterile) 20 ML 10 ML IVP SCH ×2 (01:24→08:48)
[2018-06-06] MEDS: Azithromycin 500 MG in D5% in Water 250 ML IVPB SCH (01:24)
[2018-06-06] MEDS: Ipratropium/Albuterol Neb 3 ML IH SCH ×4 (04:41→21:49)
[2018-06-06 05:01] LABS: Basophils % 0.2 %; Eosinophils % 0.1 %; Hematocrit 33.5 % (35.3-44.9); Hemoglobin 10.6 g/dL (11.5-15.4); Immature Granulocytes % 0.6 % (0-4); Lymphocytes # 3.5 K/mcL (0.6-4.6); Lymphocytes % 20.4 %; Mean Corpuscular HGB Conc 31.6 g/dL (31.6-35.5); Mean Corpuscular Hemoglobin 28.2 pg (28.0-33.3); Mean Corpuscular Volume 89.1 fL (83.0-100.0); Mean Platelet Volume 10.7 fL (9.4-12.4); Monocytes # 1.4 K/mcL (0.0-1.3); Monocytes % 8.2 %; Neutrophils # 12.1 K/mcL (1.6-8.9); Platelet Count 384 K/mcL (140-400); Red Blood Count 3.76 M/mcL (3.82-4.97); Red Cell Distribution Width 16.2 % (11.5-14.5); Segmented Neutrophils % 70.5 %
[2018-06-06 05:18] LABS: BUN/Creatinine Ratio 28 (6-26); Blood Urea Nitrogen 18 mg/dL (8-23); Calcium 10.1 mg/dL (8.6-10.3); Carbon Dioxide 29 mEq/L (23-29); Chloride 108 mEq/L (98-107); Glucose 78 mg/dL (70-105); Osmolality,Calculated 295 (280-300); Potassium 4.1 mEq/L (3.5-5.1); Sodium 142 mEq/L (136-145); eGFR For Non-African Americans > 60 (> 60)
[2018-06-06] MEDS: predniSONE 20 MG TABLET PO SCH (08:48)
[2018-06-06] MEDS: Aspirin Enteric Coated 81 MG Tablet PO SCH (08:48)
[2018-06-06] MEDS: *HR* Heparin 5,000 UNIT/ML VIAL SQ SCH ×2 (09:03→17:37)
--- NOTE | 2018-06-06 11:35 | Electrocardiograph Report ---
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
--- NOTE | 2018-06-06 13:01 | Internal Med Progress Note ---
Hospitalist Progress Note - Encounter Date of Encounter: 06/06/18 Time of Encounter: 10:00 - Subjective Interval History: Pt's cough has improved after treatment. Still weak. Still has mild shortness of breath. No wheezing. No fever - Exam Vitals: Temp Pulse Resp BP Pulse Ox 98.5 F 71 14 133/74 97 06/06/18 10:48 06/06/18 10:48 06/06/18 11:50 06/06/18 10:48 06/06/18 11:50 Exam: Pt is AAO x 3, in NAD HEENT: NC/AT, PERRL Neck: Supple, no JVD, no LAD Lungs: CTA b/l Heart: S1S2, RRR Abd: Soft, nontender, BS present Ext: ROM wnl, no pedal edema Neuro: No focal deficit - Assessment and Plan (1) Acute and chronic respiratory failure Current Visit: Yes Status: Acute Assessment and Plan: Likely due to pneumonia and COPD exacerbation. Continue treat underlying disease. Continue oxygen supportive treatment (2) COPD exacerbation Current Visit: Yes Status: Acute Assessment and Plan: Continue antibiotic, by mouth steroid, and bronchodilator. Patient has no wheezing at this point. Continue closely monitor patient (3) DVT prophylaxis Current Visit: Yes Status: Acute Assessment and Plan: Heparin SC (4) LLL pneumonia Current Visit: Yes Status: Acute Assessment and Plan: Continue treat patient with azithromycin and Rocephin. Legionella and strep Pneumo negative. Respiratory viral panel negative (5) Ulcer of sacral region, stage 1 Current Visit: Yes Status: Acute Assessment and Plan: Continue care per protocol, turn/change position at least every 2 hours (6) HTN (hypertension) Current Visit: Yes Status: Chronic Assessment and Plan: Continue home medications (7) Fall Current Visit: No Status: Acute Assessment and Plan: Patient has generalized weakness and fall at home. PTOT evaluation. licensed master social worker consult for safe placement (8) Weakness Current Visit: No Status: Acute Assessment and Plan: As above (9) Leukocytosis Current Visit: No Status: Chronic Assessment and Plan: WBC 17k, neutrophil dominated. Likely due to steroid use. - Time Spent with Patient Total time spent is greater than 50% in coordination of care (as documented) at patient's floor/unit and/or counseling patient: 30 minutes 25 - 35 minutes Plan of Care Discussed with: patient Internal Medicine: Result - Labs CBC & Chem 7: 06/06/18 04:22 06/06/18 04:22 Labs: Short CBC 06/06/18 Range/Units 04:22 WBC 17.2 H (4.3-11.1) K/mcL Hgb 10.6 L (11.5-15.4) g/dL Hct 33.5 L (35.3-44.9) % Plt Count 384 (140-400) K/mcL Neutrophils # 12.1 H (1.6-8.9) K/mcL BMP 06/06/18 04:22 Sodium 142 Potassium 4.1 Chloride 108 H Carbon Dioxide 29 BUN 18 Creatinine 0.65 Glucose 78 Calcium 10.1 Consult Discharge Plan - Plan Referrals: Chaz Cuellar MD [Primary Care Provider] - (1) Acute and chronic respiratory failure Qualifiers: Respiratory failure complication: unspecified whether with hypoxia or hypercapnia Qualified Code(s): J96.20 - Acute and chronic respiratory failure, unspecified whether with hypoxia or hypercapnia (4) LLL pneumonia Qualifiers: Pneumonia type: due to unspecified organism Qualified Code(s): J18.1 - Lobar pneumonia, unspecified organism (6) HTN (hypertension) Qualifiers: Hypertension type: essential hypertension Qualified Code(s): I10 - Essential (primary) hypertension (7) Fall Qualifiers: Encounter type: initial encounter Qualified Code(s): W19.XXXA - Unspecified fall, initial encounter (9) Leukocytosis Qualifiers: Leukocytosis type: leukemoid reaction Qualified Code(s): D72.823 - Leukemoid reaction
[2018-06-06] MEDS: amLODIPine 5 MG TABLET PO SCH (17:37)
[2018-06-06] MEDS: Gabapentin 300 MG CAPSULE PO SCH (21:01)
[2018-06-07] MEDS: Azithromycin 500 MG in D5% in Water 250 ML IVPB SCH (01:47)
[2018-06-07] MEDS: Ipratropium/Albuterol Neb 3 ML IH SCH ×4 (03:32→21:12)
[2018-06-07 05:46] LABS: Basophils # 0.1 K/mcL (0.0-0.2); Basophils % 0.4 %; Eosinophils % 0.2 %; Hematocrit 34.5 % (35.3-44.9); Immature Granulocytes % 0.8 % (0-4); Lymphocytes # 3.9 K/mcL (0.6-4.6); Lymphocytes % 26.1 %; Mean Corpuscular HGB Conc 31.9 g/dL (31.6-35.5); Mean Corpuscular Hemoglobin 27.8 pg (28.0-33.3); Mean Corpuscular Volume 87.1 fL (83.0-100.0); Mean Platelet Volume 10.1 fL (9.4-12.4); Monocytes # 1.2 K/mcL (0.0-1.3); Monocytes % 7.7 %; Neutrophils # 9.6 K/mcL (1.6-8.9); Platelet Count 413 K/mcL (140-400); Red Blood Count 3.96 M/mcL (3.82-4.97); Red Cell Distribution Width 16.2 % (11.5-14.5); Segmented Neutrophils % 64.8 %
[2018-06-07 06:06] LABS: BUN/Creatinine Ratio 28 (6-26); Blood Urea Nitrogen 15 mg/dL (8-23); Calcium 10.4 mg/dL (8.6-10.3); Carbon Dioxide 28 mEq/L (23-29); Chloride 104 mEq/L (98-107); Glucose 93 mg/dL (70-105); Osmolality,Calculated 293 (280-300); Potassium 3.6 mEq/L (3.5-5.1); Sodium 141 mEq/L (136-145); eGFR For Non-African Americans > 60 (> 60)
[2018-06-07] MEDS: *HR* Heparin 5,000 UNIT/ML VIAL SQ SCH ×2 (06:35→17:17)
[2018-06-07] MEDS: Aspirin Enteric Coated 81 MG Tablet PO SCH (09:17)
[2018-06-07] MEDS: predniSONE 20 MG TABLET PO SCH (09:17)
[2018-06-07] MEDS: cefTRIAXone 1,000 MG in Water for inj. (sterile) 20 ML 10 ML IVP SCH (09:18)
--- NOTE | 2018-06-07 13:41 | Internal Med Progress Note ---
Hospitalist Progress Note - Encounter Date of Encounter: 06/07/18 Time of Encounter: 09:00 - Subjective Interval History: Patient complaining of mild cough and congestion. Denies shortness of breath. No dizziness/lightheaded/fall. No overnight fever. - Exam Vitals: Temp Pulse Resp BP Pulse Ox 97.9 F 95 16 123/83 96 06/07/18 10:11 06/07/18 10:11 06/07/18 10:35 06/07/18 10:11 06/07/18 10:35 Exam: Pt is AAO x 3, in NAD HEENT: NC/AT, PERRL Neck: Supple, no JVD, no LAD Lungs: CTA b/l Heart: S1S2, RRR Abd: Soft, nontender, BS present Ext: ROM wnl, no pedal edema Neuro: No focal deficit - Assessment and Plan (1) Acute and chronic respiratory failure Current Visit: Yes Status: Acute Assessment and Plan: Likely due to pneumonia and COPD exacerbation. Continue treat underlying disease. Continue oxygen supportive treatment - Patient said she use oxygen at home (2) COPD exacerbation Current Visit: Yes Status: Acute Assessment and Plan: Continue antibiotic, by mouth steroid, and bronchodilator. Patient has no wheezing at this point, will stop steroid after 5 days. Continue closely monitor patient. (3) DVT prophylaxis Current Visit: Yes Status: Acute Assessment and Plan: Heparin SC (4) LLL pneumonia Current Visit: Yes Status: Acute Assessment and Plan: Continue treat patient with azithromycin and Rocephin. Legionella and strep Pneumo negative. Respiratory viral panel negative (5) Ulcer of sacral region, stage 1 Current Visit: Yes Status: Acute Assessment and Plan: Continue care per protocol, turn/change position at least every 2 hours (6) HTN (hypertension) Current Visit: Yes Status: Chronic Assessment and Plan: Continue home medications (7) Fall Current Visit: No Status: Acute Assessment and Plan: Patient has generalized weakness and fall at home. PTOT evaluation. easement worker consult for safe placement. - PTOT recommend rehabilitation discharge, social services technician is working on it. (8) Weakness Current Visit: No Status: Acute Assessment and Plan: As above (9) Leukocytosis Current Visit: No Status: Chronic Assessment and Plan: Likely due to steroid use. Trended down - Time Spent with Patient Total time spent is greater than 50% in coordination of care (as documented) at patient's floor/unit and/or counseling patient: 30 minutes 25 - 35 minutes Plan of Care Discussed with: patient Internal Medicine: Result - Labs CBC & Chem 7: 06/07/18 05:36 06/07/18 05:36 Labs: Short CBC 06/07/18 Range/Units 05:36 WBC 14.9 H (4.3-11.1) K/mcL Hgb 11.0 L (11.5-15.4) g/dL Hct 34.5 L (35.3-44.9) % Plt Count 413 H (140-400) K/mcL Neutrophils # 9.6 H (1.6-8.9) K/mcL BMP 06/07/18 05:36 Sodium 141 Potassium 3.6 Chloride 104 Carbon Dioxide 28 BUN 15 Creatinine 0.53 L Glucose 93 Calcium 10.4 H Consult Discharge Plan - Plan Referrals: Chaz Cuellar MD [Primary Care Provider] - (1) Acute and chronic respiratory failure Qualifiers: Respiratory failure complication: unspecified whether with hypoxia or hypercapnia Qualified Code(s): J96.20 - Acute and chronic respiratory failure, unspecified whether with hypoxia or hypercapnia (4) LLL pneumonia Qualifiers: Pneumonia type: due to unspecified organism Qualified Code(s): J18.1 - Lobar pneumonia, unspecified organism (6) HTN (hypertension) Qualifiers: Hypertension type: essential hypertension Qualified Code(s): I10 - Essential (primary) hypertension (7) Fall Qualifiers: Encounter type: initial encounter Qualified Code(s): W19.XXXA - Unspecified fall, initial encounter (9) Leukocytosis Qualifiers: Leukocytosis type: leukemoid reaction Qualified Code(s): D72.823 - Leukemoid reaction
[2018-06-07] MEDS: amLODIPine 5 MG TABLET PO SCH (17:17)
[2018-06-07] MEDS: Gabapentin 300 MG CAPSULE PO SCH (21:41)
[2018-06-08] MEDS: Azithromycin 500 MG in D5% in Water 250 ML IVPB SCH (00:32)
[2018-06-08] MEDS: Ipratropium/Albuterol Neb 3 ML IH SCH ×4 (04:33→23:01)
[2018-06-08] MEDS: *HR* Heparin 5,000 UNIT/ML VIAL SQ SCH ×2 (05:53→16:58)
[2018-06-08 07:17] LABS: Basophils # 0.1 K/mcL (0.0-0.2); Basophils % 0.6 %; Eosinophils # 0.1 K/mcL (0.0-0.6); Eosinophils % 0.5 %; Hematocrit 34.2 % (35.3-44.9); Hemoglobin 11.2 g/dL (11.5-15.4); Immature Granulocytes % 0.9 % (0-4); Lymphocytes # 5.9 K/mcL (0.6-4.6); Lymphocytes % 34.9 %; Mean Corpuscular HGB Conc 32.7 g/dL (31.6-35.5); Mean Corpuscular Hemoglobin 27.9 pg (28.0-33.3); Mean Corpuscular Volume 85.3 fL (83.0-100.0); Monocytes # 1.4 K/mcL (0.0-1.3); Monocytes % 8.3 %; Neutrophils # 9.2 K/mcL (1.6-8.9); Platelet Count 428 K/mcL (140-400); Red Blood Count 4.01 M/mcL (3.82-4.97); Red Cell Distribution Width 16.1 % (11.5-14.5); Segmented Neutrophils % 54.8 %
[2018-06-08 07:37] LABS: BUN/Creatinine Ratio 43 (6-26); Blood Urea Nitrogen 23 mg/dL (8-23); Carbon Dioxide 27 mEq/L (23-29); Chloride 104 mEq/L (98-107); Glucose 91 mg/dL (70-105); Osmolality,Calculated 293 (280-300); Potassium 3.9 mEq/L (3.5-5.1); Sodium 140 mEq/L (136-145); eGFR For Non-African Americans > 60 (> 60)
[2018-06-08] MEDS: predniSONE 20 MG TABLET PO SCH (09:03)
[2018-06-08] MEDS: Aspirin Enteric Coated 81 MG Tablet PO SCH (09:03)
[2018-06-08] MEDS: cefTRIAXone 1,000 MG in Water for inj. (sterile) 20 ML 10 ML IVP SCH (09:04)
--- NOTE | 2018-06-08 15:56 | Internal Med Progress Note ---
Hospitalist Progress Note - Encounter Date of Encounter: 06/08/18 Time of Encounter: 09:00 - Subjective Interval History: Patient has mild cough. No shortness of breath. No fever - Exam Vitals: Temp Pulse Resp BP Pulse Ox 97.2 F L 101 19 133/75 98 06/08/18 11:19 06/08/18 11:19 06/08/18 11:19 06/08/18 11:19 06/08/18 11:19 Exam: Pt is AAO x 3, in NAD HEENT: NC/AT, PERRL Neck: Supple, no JVD, no LAD Lungs: CTA b/l Heart: S1S2, RRR Abd: Soft, nontender, BS present Ext: ROM wnl, no pedal edema Neuro: No focal deficit - Assessment and Plan (1) Acute and chronic respiratory failure Current Visit: Yes Status: Acute Assessment and Plan: Likely due to pneumonia and COPD exacerbation. Continue treat underlying disease. Continue oxygen supportive treatment - Patient said she use oxygen at home (2) COPD exacerbation Current Visit: Yes Status: Acute Assessment and Plan: Continue antibiotic, by mouth steroid, and bronchodilator. Patient has no wheezing at this point, will stop steroid after 5 days. Continue closely monitor patient. (3) DVT prophylaxis Current Visit: Yes Status: Acute Assessment and Plan: Heparin SC (4) LLL pneumonia Current Visit: Yes Status: Acute Assessment and Plan: Continue treat patient with azithromycin and Rocephin. Legionella and strep Pneumo negative. Respiratory viral panel negative (5) Ulcer of sacral region, stage 1 Current Visit: Yes Status: Acute Assessment and Plan: Continue care per protocol, turn/change position at least every 2 hours (6) HTN (hypertension) Current Visit: Yes Status: Chronic Assessment and Plan: Continue home medications (7) Fall Current Visit: No Status: Acute Assessment and Plan: Patient has generalized weakness and fall at home. PTOT evaluation. 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 - PTOT recommend rehabilitation discharge, social services coordinator is working on it. (8) Weakness Current Visit: No Status: Acute Assessment and Plan: As above (9) Leukocytosis Current Visit: No Status: Chronic Assessment and Plan: Likely due to steroid use. - Time Spent with Patient Total time spent is greater than 50% in coordination of care (as documented) at patient's floor/unit and/or counseling patient: 30 min 25 - 35 minutes Plan of Care Discussed with: patient Internal Medicine: Result - Labs CBC & Chem 7: 06/08/18 07:08 06/08/18 07:08 Labs: Short CBC 06/08/18 Range/Units 07:08 WBC 16.8 H (4.3-11.1) K/mcL Hgb 11.2 L (11.5-15.4) g/dL Hct 34.2 L (35.3-44.9) % Plt Count 428 H (140-400) K/mcL Neutrophils # 9.2 H (1.6-8.9) K/mcL BMP 06/08/18 07:08 Sodium 140 Potassium 3.9 Chloride 104 Carbon Dioxide 27 BUN 23 Creatinine 0.54 L Glucose 91 Calcium 10.0 Consult Discharge Plan - Plan Referrals: Chaz Cuellar MD [Primary Care Provider] - (1) Acute and chronic respiratory failure Qualifiers: Respiratory failure complication: unspecified whether with hypoxia or hypercapnia Qualified Code(s): J96.20 - Acute and chronic respiratory failure, unspecified whether with hypoxia or hypercapnia (4) LLL pneumonia Qualifiers: Pneumonia type: due to unspecified organism Qualified Code(s): J18.1 - Lobar pneumonia, unspecified organism (6) HTN (hypertension) Qualifiers: Hypertension type: essential hypertension Qualified Code(s): I10 - Essential (primary) hypertension (7) Fall Qualifiers: Encounter type: initial encounter Qualified Code(s): W19.XXXA - Unspecified fall, initial encounter (9) Leukocytosis Qualifiers: Leukocytosis type: leukemoid reaction Qualified Code(s): D72.823 - Leukemoid reaction
[2018-06-08] MEDS: amLODIPine 5 MG TABLET PO SCH (16:58)
[2018-06-08] MEDS: Gabapentin 300 MG CAPSULE PO SCH (20:14)
[2018-06-09] MEDS: Azithromycin 500 MG in D5% in Water 250 ML IVPB SCH (00:13)
[2018-06-09] MEDS: Ipratropium/Albuterol Neb 3 ML IH SCH ×3 (04:48→16:15)
[2018-06-09] MEDS: *HR* Heparin 5,000 UNIT/ML VIAL SQ SCH (05:10)
[2018-06-09 05:31] LABS: Basophils % 0.2 %; Eosinophils % 0.1 %; Hematocrit 35.4 % (35.3-44.9); Hemoglobin 11.1 g/dL (11.5-15.4); Immature Granulocytes % 0.9 % (0-4); Lymphocytes # 4.8 K/mcL (0.6-4.6); Lymphocytes % 27.2 %; Mean Corpuscular HGB Conc 31.4 g/dL (31.6-35.5); Mean Corpuscular Hemoglobin 27.6 pg (28.0-33.3); Mean Corpuscular Volume 88.1 fL (83.0-100.0); Mean Platelet Volume 10.7 fL (9.4-12.4); Monocytes # 1.3 K/mcL (0.0-1.3); Monocytes % 7.6 %; Neutrophils # 11.2 K/mcL (1.6-8.9); Platelet Count 416 K/mcL (140-400); Red Blood Count 4.02 M/mcL (3.82-4.97)
[2018-06-09 05:53] LABS: BUN/Creatinine Ratio 52 (6-26); Blood Urea Nitrogen 29 mg/dL (8-23); Calcium 10.1 mg/dL (8.6-10.3); Carbon Dioxide 28 mEq/L (23-29); Chloride 105 mEq/L (98-107); Glucose 83 mg/dL (70-105); Osmolality,Calculated 297 (280-300); Potassium 3.7 mEq/L (3.5-5.1); Sodium 141 mEq/L (136-145); eGFR For Non-African Americans > 60 (> 60)
[2018-06-09] MEDS: predniSONE 20 MG TABLET PO SCH (07:47)
[2018-06-09] MEDS: Aspirin Enteric Coated 81 MG Tablet PO SCH (07:47)
[2018-06-09] MEDS: cefTRIAXone 1,000 MG in Water for inj. (sterile) 20 ML 10 ML IVP SCH (07:47)
[2018-06-09 11:47] VITALS: BP 132/67
--- NOTE | 2018-06-09 14:48 | Discharge Summary ---
Orders not resulted at time of discharge: Pending orders 06/05/18 00:41 Culture,Blood [BC] Stat Date of Encounter: 06/09/18 Time of Encounter: 14:43 - Discharge Diagnosis (1) COPD exacerbation Priority: Primary Status: Acute (2) HTN (hypertension) Priority: Secondary Status: Chronic Qualifiers: Hypertension type: essential hypertension Qualified Code(s): I10 - Essential (primary) hypertension (3) LLL pneumonia Priority: Primary Status: Acute Qualifiers: Pneumonia type: due to unspecified organism Qualified Code(s): J18.1 - Lobar pneumonia, unspecified organism (4) Fall Priority: Primary Status: Acute Qualifiers: Encounter type: initial encounter Qualified Code(s): W19.XXXA - Unspecified fall, initial encounter (5) Leukocytosis Priority: Primary Status: Chronic Qualifiers: Leukocytosis type: leukemoid reaction Qualified Code(s): D72.823 - Leukemoid reaction (6) Weakness Priority: Primary Status: Acute (7) Acute and chronic respiratory failure Priority: Primary Status: Acute Qualifiers: Respiratory failure complication: unspecified whether with hypoxia or hypercapnia Qualified Code(s): J96.20 - Acute and chronic respiratory failure, unspecified whether with hypoxia or hypercapnia (8) Ulcer of sacral region, stage 1 Priority: Secondary Status: Acute (9) DVT prophylaxis Priority: Secondary Status: Acute Hospital course: Ms. Boggs is a 83 year old female Past medical history of arthritis, COPD, hypertension, osteoporosisb came in with complaint of shortness of breathwas found to have COPD exacerbation likely secondary to pneumonia. Patient also had multiple falls or past month. she was started on ceftriaxone and azithromycin forcommunity acquired pneumonia. Patient was also started on prednisone for COPD exacerbation. patient finished her antibiotic course. Patient was seen physical therapy recommended alf placement for further rehabilitation. patient is otherwise stable to be discharge alf. Discharge discussed with: patient, family, nurse - Time Spent with Patient Total time spent providing and/or coordinating discharge services: Time spent: Greater than 30 minutes (40) - Discharge Medications Prescriptions: New HYDROcodone/Acet 5/325 mg [[place] 5-325 mg] 1 tab PO TID 3 Days #9 tab LORazepam [Ativan] 0.5 mg PO QPM 3 Days #3 tablet Continue Oxygen 4 l .ROUTE AD Montelukast [Singulair] 10 mg PO QPM Carvedilol [Coreg] 6.25 mg PO DAILY Albuterol Neb [Proventil Neb] 2.5 mg IH TID PRN PRN Reason: Shortness Of Breath Albuterol Sulfate [Proair Hfa] 2 puff IH Q4H PRN PRN Reason: Shortness Of Breath Cholecalciferol (D-3) [Vitamin D] 1,000 unit PO DAILY Omeprazole [PriLOSEC] 20 mg PO DAILY Ipratropium/Albuterol Sulfate [Iprat-Albut 0.5-3(2.5) mg/3 ml] 3 ml PO Q4H PRN PRN Reason: Shortness Of Breath Aspirin Enteric Coated [Aspirin EC] 81 mg PO DAILY #30 tablet. Acetaminophen [Tylenol] 500 mg PO 2-3XD PRN PRN Reason: Headache Tramadol HCl [Ultram] 50 mg PO TID PRN 3 Days #21 tab PRN Reason: Pain Amlodipine Besylate 2.5 mg PO DAILY Gabapentin [Neurontin] 600 mg PO HS 3 Days #6 capsule Discontinued LORazepam [Ativan] 0.5 mg PO QPM PRN PRN Reason: Anxiety HYDROcodone/Acet 5/325 mg [[place] 5-325 mg] 1 tab PO TID Home Medications: Oxygen 4 l .ROUTE AD 06/04/16 [History] Carvedilol [Coreg] 6.25 mg PO DAILY 12/05/16 [History] Montelukast [Singulair] 10 mg PO QPM 12/05/16 [History] Albuterol Neb [Proventil Neb] 2.5 mg IH TID PRN 08/02/17 [History] Albuterol Sulfate [Proair Hfa] 2 puff IH Q4H PRN 08/02/17 [History] Cholecalciferol (D-3) [Vitamin D] 1,000 unit PO DAILY 08/02/17 [History] Ipratropium/Albuterol Sulfate [Iprat-Albut 0.5-3(2.5) mg/3 ml] 3 ml PO Q4H PRN 02/02/18 [History] Omeprazole [PriLOSEC] 20 mg PO DAILY 02/02/18 [History] Aspirin Enteric Coated [Aspirin EC] 81 mg PO DAILY #30 tablet. 02/03/18 [Rx] Acetaminophen [Tylenol] 500 mg PO 2-3XD PRN 03/08/18 [History] Tramadol HCl [Ultram] 50 mg PO TID PRN 3 Days #21 tab 03/22/18 [Rx] Amlodipine Besylate 2.5 mg PO DAILY 06/07/18 [History] Gabapentin [Neurontin] 600 mg PO HS 3 Days #6 capsule 06/09/18 [Rx] HYDROcodone/Acet 5/325 mg [[place] 5-325 mg] 1 tab PO TID 3 Days #9 tab 06/09/18 [Rx] LORazepam [Ativan] 0.5 mg PO QPM 3 Days #3 tablet 06/09/18 [Rx] Allergies/Adverse Reactions: Allergy/AdvReac Type Severity Reaction Status Date / Time oxycodone [Oxycodone] AdvReac Confusion Verified 05/05/18 13:03 Date of admission: 06/06/18 17:34 Primary care physician: Chaz Cuellar MD Consults: 06/05/18 04:52 Consult to Occupational Therapy [CONS] Routine Comment: Evaluate, develop and implement POC Reason for Consult: Generalized weakness, deconditioning Does patient have active BEDREST order?: No Is patient medically & hemodynamically stable?: Yes Patient assessed for mobility or mobilized this visit?: No Consult to Physical Therapy [CONS] Routine Comment: Evaluate, develop and implement POC Reason for Consult: Generalized weakness, deconditioning Does patient have active BEDREST order?: No Is patient medically & hemodynamically stable?: Yes Patient assessed for mobility or mobilized this visit?: No 06/07/18 13:21 Consult to B2B Sales Consultant [CONS] Routine Reason for SW Consult: discharge planning 06/07/18 16:29 Consult to Nurse Navigator [CONS] Routine Comment: copd, pneumonia Discharging clinician: Don Gibson - Constitutional Vitals: Temp Pulse Resp BP Pulse Ox 98.4 F 100 97 132/67 97 06/09/18 11:42 06/09/18 11:42 06/09/18 11:42 06/09/18 11:42 06/09/18 11:42 Exam: General: In no acute distress. Respiratory exam: CTAB. no accessory muscle use, rales, rhonchi, wheezes Cardiovascular exam: RRR, +S1, +S2. no murmur, gallop, rubs. GI/Abdominal exam: Non-tender, Non-distended, normal bowel sounds, soft, no peritoneal signs. Extremities exam: trace pedal edema, pulses palpable in b/l lower extremities. no calf tenderness Neurological exam: CN II-XII intact, AO X3, no focal deficits. Skin exam: No skin rash - Patient Status Disposition: Transfer SNF Condition: Fair - Discharge Instructions Follow Up With: Chaz Cuellar MD [Primary Care Provider] - - Diet and Activity Activity: as per physical therapy
--- NOTE | 2018-06-09 14:58 | Physician Discharge Referral ---
ExtendedCare Referral Info Transfer To: [place] Institutional Level of Care: Skilled - Diagnosis (1) COPD exacerbation Status: Acute (2) HTN (hypertension) Status: Chronic (3) LLL pneumonia Status: Acute (4) Fall Status: Acute (5) Leukocytosis Status: Chronic (6) Weakness Status: Acute (7) Acute and chronic respiratory failure Status: Acute (8) Ulcer of sacral region, stage 1 Status: Acute (9) DVT prophylaxis Status: Acute - Transfer Medications Prescriptions: Gabapentin [Neurontin] 600 mg PO HS 3 Days #6 capsule HYDROcodone/Acet 5/325 mg [[place] 5-325 mg] 1 tab PO TID 3 Days #9 tab LORazepam [Ativan] 0.5 mg PO QPM 3 Days #3 tablet Home Medications: Oxygen 4 l .ROUTE AD 06/04/16 [History] Carvedilol [Coreg] 6.25 mg PO DAILY 12/05/16 [History] Montelukast [Singulair] 10 mg PO QPM 12/05/16 [History] Albuterol Neb [Proventil Neb] 2.5 mg IH TID PRN 08/02/17 [History] Albuterol Sulfate [Proair Hfa] 2 puff IH Q4H PRN 08/02/17 [History] Cholecalciferol (D-3) [Vitamin D] 1,000 unit PO DAILY 08/02/17 [History] Ipratropium/Albuterol Sulfate [Iprat-Albut 0.5-3(2.5) mg/3 ml] 3 ml PO Q4H PRN 02/02/18 [History] Omeprazole [PriLOSEC] 20 mg PO DAILY 02/02/18 [History] Aspirin Enteric Coated [Aspirin EC] 81 mg PO DAILY #30 tablet. 02/03/18 [Rx] Acetaminophen [Tylenol] 500 mg PO 2-3XD PRN 03/08/18 [History] Tramadol HCl [Ultram] 50 mg PO TID PRN 3 Days #21 tab 03/22/18 [Rx] Amlodipine Besylate 2.5 mg PO DAILY 06/07/18 [History] Gabapentin [Neurontin] 600 mg PO HS 3 Days #6 capsule 06/09/18 [Rx] HYDROcodone/Acet 5/325 mg [[place] 5-325 mg] 1 tab PO TID 3 Days #9 tab 06/09/18 [Rx] LORazepam [Ativan] 0.5 mg PO QPM 3 Days #3 tablet 06/09/18 [Rx] Allergies/Adverse Reactions: Allergy/AdvReac Type Severity Reaction Status Date / Time oxycodone [Oxycodone] AdvReac Confusion Verified 05/05/18 13:03 - Respiratory Orders Smoking Cessation: Smoking cessation has been advised. For more information, call the [place] Tobacco Quit Line at 9-130-SHVA-NOW. CERTIFICATION: I certify that the transfer of the above named patient to an Extended Care Facility is necessary for the continuing treatment of the diagnosis listed. The above information is true and accurate reflection of patient's current condition. Confidential - Redisclosure prohibited without a patient's written consent.
== END 2018-06-09 16:24 | DRG 193 ==
LOC: EMEROOARM 23:07 → 3NENU 23:07 → SUATTDRO 06-06 17:34 → 3BNU 06-08 06:07
PROVIDERS: ADMIT Internal Medicine; ATTEND Internal Medicine